=== PATIENT | female | born 1955 | race Caucasian/White ===

== ENCOUNTER → 2019-11-22 09:47 | Outpatient (CLI) | payer MEDICARE, OTHER, SELFPAY ==
--- NOTE | ~2019-11-22 | CT_ITS ---
EXAMINATION: CT abdomen pelvis w con DATE: 11/22/2019 10:22 INDICATION: Left abdominal pain. Nausea. Gastroesophageal reflux disease without esophagitis. TECHNIQUE: Computed tomography (CT) of the abdomen and pelvis was performed with 100 mL Omnipaque 350 intravenous contrast. Automated exposure control and iterative reconstruction technique were employe d. The dose-length product was 1017.61 mGy-cm. COMPARISON: CT abdomen 04/27/2013 FINDINGS: The visualized portions of the lung bases demonstrate mild chronic reticular and groundglas s opacities. There is mild bronchiectasis in right middle lobe. No honeycombing. No pleural effusion. The heart size is normal. There are coronary artery calcifications. No pericardial effusion. There i s a small sliding hiatal hernia. The liver is normal. There are changes of cholecystectomy. The splee n, pancreas, and adrenal glands are normal. There are cysts in the kidneys measuring up to 5.7 cm on the right. There are no dilated loops of bowel. There is diverticulosis of the colon without evidence of diverticulitis. The appendix is not visualized. There are no pathologically enlarged lymph nodes. There is no free intraperitoneal fluid. There is mild thoracolumbar spondylosis. IMPRESSION: 1. No etiology for the patient's symptoms. 2. Unchanged mild chronic lung disease. The differential diagnosis includes sarcoid, organizing pneum onia (OP), chronic hypersensitivity pneumonitis, and scarring from prior infection. Reviewed, dictated and finalized at location A. FING MGR IMPRESSION: 1. No etiology for the patient's symptoms. 2. Unchanged mild chronic lung disease. The differential diagnosis includes eliceo coid, organizing pneumonia (OP), chronic hypersensitivity pneumonitis, and scar ring from prior infection.
[2019-11-22 10:10] LABS: Estimated Glomerular Filt Rate > 60
== END ==
PROVIDERS: PCP Internal Medicine; Visit Provider Internal Medicine Gastroenterology
DX: K21.9 Gastro-esophageal reflux disease without esophagitis (principal); K76.0 Fatty (change of) liver, not elsewhere classified; Z86.19 Personal history of other infectious and parasitic diseases; Z12.11 Encounter for screening for malignant neoplasm of colon; J98.4 Other disorders of lung
CPT/HCPCS: 36415; 74177; Q9967

== ENCOUNTER 2020-05-24 08:13 | Outpatient (CLI) | payer MEDICARE, OTHER, SELFPAY ==
--- NOTE | ~2020-05-24 | CT_ITS ---
EXAMINATION: CT chest high resolution wo ut DATE: 05/24/2020 08:41 INDICATION: Interstitial pulmonary disease unspecified TECHNIQUE: Computed tomography (CT) of the chest was performed without intravenous contrast. The dose -length product (DLP) was 291.00 mGy-cm. Automated exposure control and iterative reconstruction tech [employer] were employed. COMPARISON: 12/15/2013 FINDINGS: A 5 mm nodule of the right upper lobe is stable (image 49), consistent with old granulomato us disease. Subpleural reticular and groundglass opacities are again seen which demonstrate slight in terval worsening since the prior examination. There is no pleural effusion or pneumothorax. Atelectas is of the right middle lobe is not significantly changed. No pathologically enlarged thoracic lymph n odes are identified. The heart size is normal. There is mild thoracic spondylosis. A small sliding hi atal hernia is noted. IMPRESSION: 1. Chronic interstitial lung disease in a pattern of nonspecific interstitial pneumonia (NSIP) with s light interval worsening. Reviewed, dictated and finalized at location A. IMPRESSION: 1. Chronic interstitial lung disease in a pattern of nonspecific interstitial p neumonia (NSIP) with slight interval worsening.
--- NOTE | 2020-05-29 21:12 | WPDPFTINT ---
PFT Interpretation PFT Interpretation: DOS: 05/22/2020 REQUESTING: Dr Watson REASON FOR TESTING: COPD/ILD PULMONARY FUNCTION TESTS Results are reproducible. Spirometry: FEV1 is 77%, mildly decreased. FVC 72%, mildly decreased. FEV1% is 79%, normal. No change with bronchodilator. Lung volumes: TLC 82%, low end of normal. RV/TLC is elevated consistent with air trapping. Increased airway resistance. Diffusion: DLCO 74%, mildly decreased. Flow volume loop: Mild scooping of the expiratory limb. IMPRESSION: Mild obstructive ventilatory impairment with air trapping, increased airway resistance and mild diffusion impairment. Sherry Watson MD
== END 2020-05-24 08:14 | disposition home or self-care (01) ==
PROVIDERS: PCP Internal Medicine; Visit Provider Internal Medicine Critical Care Medicine
DX: J84.9 Interstitial pulmonary disease, unspecified (principal); R94.2 Abnormal results of pulmonary function studies
CPT/HCPCS: 71250; 94060; 94726; 94729

== ENCOUNTER 2020-05-28 17:27 | Emergency (ER) | payer OTHER, MEDICARE, SELFPAY ==
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
[2020-05-28 17:29] VITALS: BP 147/88; PULSE 91; RESP 14; TEMP 36.8; O2SAT 97
[2020-05-28 17:41] VITALS: RESP 12; O2SAT 98
--- NOTE | 2020-05-28 17:45 | ECG_ITS ---
Measurements Intervals [place] Rate: 85 P: 48 OR: 136 QRS: -26 QRSD: 88 T: 31 QT: 380 QTc: 454 Interpretive Statements SINUS RHYTHM BASELINE ARTIFACT- I, III, AVL NORMAL ECG Electronically Signed On 05-28-2020 18:06:47 CDT by Jarvis Pederson D.O.
[2020-05-28 19:12] LABS: Basophils Absolute Auto 0.1 K/mm3 (0.0-0.1); Basophils Percent Auto 0.5 % (0.2-1.2); Eosinophils Absolute Auto 0.1 K/mm3 (0-0.3); Eosinophils Percent Auto 0.8 % (0-4.4); Hematocrit 46.7 % (37.0-47.0); Hemoglobin 15.8 g/dL (12.0-15.0); Immature Granulocyte Absolute 0.09 K/mm3 (0.00-0.031); Immature Granulocyte Percent A 0.7 % (0-0.5); Lymphocytes Absolute Auto 2.19 K/mm3 (0.9-3.2); Lymphocytes Percent Auto 15.9 % (18.3-44.2); Mean Corpuscular HGB Conc 33.8 g/dl (32-36); Mean Corpuscular Hemoglobin 28.6 pg (26-34); Mean Corpuscular Volume 84.4 fl (80-100); Mean Platelet Volume 11.3 fl (7.4-10.4); Monocytes Absolute Auto 1.2 K/mm3 (0.1-0.6); Monocytes Percent Auto 8.8 % (2.6-8.5); Neutrophils Absolute Auto 10.1 K/mm3 (1.3-6.7); Neutrophils Percent Auto 73.3 % (45.5-73.1); Platelet Count Result 213 k/mm3 (150-375); Red Blood Count 5.53 M/mm3 (4.2-5.4); Red Cell Distribution Width 13.2 % (11.5-14.5); White Blood Count 13.7 K/mm3 (4.5-10.0)
[2020-05-28 19:15] VITALS: BP 135/80; PULSE 88; RESP 12; O2SAT 94
[2020-05-28] MEDS: MORPHINE SULFATE 4 MG/ML INJ IV PUSH (19:17)
[2020-05-28] MEDS: ONDANSETRON INJ 4 MG/2 ML VIAL IV PUSH (19:18)
[2020-05-28 19:22] LABS: INR 1.3; Prothrombin Time 16.2 Seconds (11.1-14.7)
[2020-05-28 19:23] LABS: Partial Thromboplastin Time 28.5 SECONDS (22.3-36.8)
--- NOTE | 2020-05-28 19:28 | PC.NURSE ---
Assumed care of pt. at this time. Report from PITER Stearns
[2020-05-28 20:00] VITALS: BP 127/79; PULSE 92; RESP 15; O2SAT 95
[2020-05-28 20:04] LABS: Alanine Aminotransferase 19 U/L (4-35); Albumin Level 4.3 g/dL (3.5-5.1); Alkaline Phosphatase 66 U/L (38-126); Anion Gap 8 mmol/L (8-16); Aspartate Amino Transferase 29 U/L (14-36); Bilirubin,Total 0.4 mg/dL (0.2-1.3); Blood Urea Nitrogen 7 mg/dL (7-17); Calcium 9.2 mg/dL (8.4-10.2); Carbon Dioxide 25 mmol/L (22-30); Chloride 101 mmol/L (98-107); Estimated CRCL calculation 110 ml/min; Estimated Glomerular Filt Rate > 60; Glucose 169 mg/dL (65-105); Potassium 3.5 mmol/L (3.4-5.0); Sodium 134 mmol/L (137-145)
[2020-05-28 20:15] LABS: Troponin I < 0.012 ng/mL (0.000-0.034)
--- NOTE | 2020-05-28 20:34 | PC.NURSE ---
Pt. to CT
[2020-05-28 21:00] VITALS: BP 128/83; PULSE 97; RESP 23; O2SAT 94
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
[2020-05-28 22:50] VITALS: BP 108/72; PULSE 85; RESP 17; O2SAT 95
== END 2020-05-28 22:50 | disposition home or self-care (01) ==
PROVIDERS: General Practice; Physician Assistant; Emergency Provider Emergency Medicine; PCP Internal Medicine
DX: S20.01XA Contusion of right breast, initial encounter (principal); M25.562 Pain in left knee; M54.2 Cervicalgia; V43.52XA Car driver injured in collision with other type car in traffic accident, initial encounter; R91.1 Solitary pulmonary nodule; M47.812 Spondylosis without myelopathy or radiculopathy, cervical region; F17.210 Nicotine dependence, cigarettes, uncomplicated; J45.909 Unspecified asthma, uncomplicated; E11.9 Type 2 diabetes mellitus without complications; I10 Essential (primary) hypertension; Z85.3 Personal history of malignant neoplasm of breast; Z85.42 Personal history of malignant neoplasm of other parts of uterus; Z79.4 Long term (current) use of insulin
CPT/HCPCS: 36415; 71045; 71260; 72125; 72129; 72132; 73564; 74177; 80053; 84484; 85025; 85610; 85730; 93005; 96374; 96375; 99284; J1170; J2270; J2405; Q9967

== ENCOUNTER 2020-11-20 09:52 | Outpatient (CLI) | payer MEDICARE, OTHER, SELFPAY ==
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
== END 2020-11-20 09:53 | disposition home or self-care (01) ==
PROVIDERS: PCP Internal Medicine; Visit Provider Internal Medicine
DX: M54.5 Low back pain (principal); M47.896 Other spondylosis, lumbar region; M48.061 Spinal stenosis, lumbar region without neurogenic claudication
CPT/HCPCS: 72131

== ENCOUNTER 2020-12-09 11:59 | Outpatient (CLI) | payer MEDICARE, OTHER, SELFPAY ==
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
== END 2020-12-09 12:00 | disposition home or self-care (01) ==
LOC: ANHIMG 12:03
PROVIDERS: PCP Internal Medicine; Visit Provider Obstetrics & Gynecology
DX: N64.4 Mastodynia (principal)
CPT/HCPCS: 76642; 77062; 77066; G0279

== ENCOUNTER 2022-03-26 09:57 | Outpatient (CLI) | payer MEDICARE, OTHER, SELFPAY ==
--- NOTE | 2022-03-26 11:30 | NEURO_ITS ---
Impression: # Complains of numbness and pain in hands. # Mild bilateral ulnar neuropathy across the elbows. # No Carpal Tunnel Syndrome. # Normal needle/EMG exam. Nerve Conduction Studies Anti Sensory Summary Table Stim Site NR Peak (ms) P-T Amp (?V) Site1 Site2 Delta-P (ms) Dist (cm) Luis (m/s) Left Median Anti Sensory (2-3nd Digit) Wrist 3.0 91.9 Wrist 2-3nd Digit 3.0 14.0 47 Wrist 3.0 52.9 Wrist 2-3nd Digit 3.0 14.0 47 Right Median Anti Sensory (2-3nd Digit) Wrist 3.1 65.9 Wrist 2-3nd Digit 3.1 14.0 45 Wrist 2.9 31.1 Wrist 2-3nd Digit 3.1 14.0 45 Left Radial Anti Sensory (Base 1st Digit) Wrist 1.8 24.8 Wrist Base 1st Digit 1.8 0.0 Right Radial Anti Sensory (Base 1st Digit) Wrist 1.8 23.4 Wrist Base 1st Digit 1.8 0.0 Left Ulnar Anti Sensory (5th Digit) Wrist 2.8 38.3 Wrist 5th Digit 2.8 14.0 50 Right Ulnar Anti Sensory (5th Digit) Wrist 2.3 57.6 Wrist 5th Digit 2.3 14.0 61 Motor Summary Table Stim Site NR Onset (ms) O-P Amp (mV) Site1 Site2 Delta-0 (ms) Dist (cm) Luis (m/s) Left Median Motor (Abd Poll Brev) Wrist 3.3 3.1 Elbow Wrist 5.1 27.0 53 Elbow 8.4 2.3 Right Median Motor (Abd Poll Brev) Wrist 3.3 6.5 Elbow Wrist 4.9 28.0 57 Elbow 8.2 3.6 Left Ulnar Motor (Abd Dig Minimi) Wrist 2.5 5.3 A Elbow Wrist 5.4 28.0 52 A Elbow 7.9 3.4 B Elbow Wrist 3.5 22.0 63 B Elbow 6.0 2.4 Right Ulnar Motor (Abd Dig Minimi) Wrist 2.4 5.1 A Elbow Wrist 5.3 28.0 53 A Elbow 7.7 3.3 B Elbow Wrist 3.5 20.0 57 B Elbow 5.9 3.2 F Wave Studies NR F-Lat (ms) L-R F-Lat (ms) Left Median (Mrkrs) (Abd Poll Brev) 28.07 1.06 Right Median (Mrkrs) (Abd Poll Brev) 29.12 1.06 Left Ulnar (Mrkrs) (Abd Dig Min) 29.22 0.00 Right Ulnar (Mrkrs) (Abd Dig Min) 29.22 0.00 EMG Side Muscle Nerve Root Ins Act Fibs Amp Dur Recrt Comment Right 1stDorInt Ulnar C8-T1 Nml Nml Nml Nml Nml Right Ext Indicis Radial (Post Int) C7-8 Nml Nml Nml Nml Nml Right Ext Digitorum Radial (Post Int) C7-8 Nml Nml Nml Nml Nml Right BrachioRad Radial C5-6 Nml Nml Nml Nml Nml Right PronatorTeres Median C6-7 Nml Nml Nml Nml Nml Right Abd Poll Brev Median C8-T1 Nml Nml Nml Nml Nml Left 1stDorInt Ulnar C8-T1 Nml Nml Nml Nml Nml Left Ext Indicis Radial (Post Int) C7-8 Nml Nml Nml Nml Nml Left Ext Digitorum Radial (Post Int) C7-8 Nml Nml Nml Nml Nml Left BrachioRad Radial C5-6 Nml Nml Nml Nml Nml Left PronatorTeres Median C6-7 Nml Nml Nml Nml Nml Left Abd Poll Brev Median C8-T1 Nml Nml Nml Nml Nml MTDD
== END 2022-03-26 09:58 | disposition home or self-care (01) ==
LOC: ANHNEURO 09:58
PROVIDERS: PCP Internal Medicine; Visit Provider Plastic Surgery
DX: R20.2 Paresthesia of skin (principal); G56.23 Lesion of ulnar nerve, bilateral upper limbs
CPT/HCPCS: 95886; 95911

== ENCOUNTER 2022-04-10 12:34 | Outpatient (CLI) | payer MEDICARE, OTHER, SELFPAY ==
[2022-04-10 13:23] LABS: Anion Gap 9 mmol/L (8-16); Blood Urea Nitrogen 7 mg/dL (7-17); Calcium 9.3 mg/dL (8.4-10.2); Carbon Dioxide 25 mmol/L (22-30); Chloride 100 mmol/L (98-107); Estimated Glomerular Filt Rate > 60; Glucose 217 mg/dL (65-110); Potassium 3.9 mmol/L (3.4-5.0); Sodium 134 mmol/L (137-145)
[2022-04-10 13:25] LABS: INR 1.3; Prothrombin Time 15.5 Seconds (11.1-14.7)
[2022-04-10 13:26] LABS: Partial Thromboplastin Time 26.9 SECONDS (22.3-36.8)
== END 2022-04-10 12:35 | disposition home or self-care (01) ==
PROVIDERS: Anesthesiology; PCP Internal Medicine; Visit Provider Plastic Surgery
DX: Z01.812 Encounter for preprocedural laboratory examination (principal); E11.9 Type 2 diabetes mellitus without complications; N28.9 Disorder of kidney and ureter, unspecified; Z51.81 Encounter for therapeutic drug level monitoring; Z79.899 Other long term (current) drug therapy
CPT/HCPCS: 36415; 80048; 85610; 85730

== ENCOUNTER 2022-04-16 02:09 | Day surgery (SDC) | payer MEDICARE, OTHER, SELFPAY ==
[2022-04-09 12:03] VITALS: BMI 32.9
--- NOTE | 2022-04-09 12:36 | PC.NURSE ---
Addendum entered by Rula Sargent RN 04/15/22 09:56: PT CALLED IN STATING SHE WAS NOT GOING TO TAKE 1/2 OF AM INSULIN DOSE PREVIOUSLY INSTRUCTED THE HUMALOG WOULD MAKE HER SICK IF SHE DOESN'T EAT. EXPLAINED TO PT THAT SINCE SURGERY TIME WAS CHANGED TO 0630 ARRIVAL FOR AN 0830 SURGERY SHE SHOULD NOT TAKE ANY AM INSULIN. PT VERBALIZED UNDERSTANDING. Original Note: Report to the Outpatient Waiting Room, entrance under the green pavilion located off [facility], at time 9:30 on date 04/16/22. OR Time: 11:30. - You and your visitor will be asked a series of questions to screen for COVID 19 for your protection. - Only one visitor is allowed at this time. - The patient visitor is requested to leave or wait in car when not with patient. - A mask is required within the hospital. Patients may have clear liquids (water, carbonated beverages, clear teas, apple juice) until 3 hours prior to surgery (8:30) with a maximum of 20 ounces. - No food from midnight until time of surgery Take the following medications with a SIP of water the morning of surgery: CYCLOBENZAPRINE, PAIN PILL (IF NEEDED), 1/2 AM INSULIN DOSE Medications to discontinue per physician: VITAMINS/SUPPLEMENTS Date to take last dose: 04/12/22 Please no make-up, nail bulgarian, hairspray, perfume, deodorant, or body powder the day of surgery. No jewelry (including any body piercings) or valuables the day of surgery, leave them at home. Please take a shower or bath the night before, or the morning of, surgery with an antibacterial soap. Wear comfortable, loose fitting clothing. - Jewelry must be removed prior to entering the operating room. Rings and piercings that are not removed may be cut off. - The hospital will not accept responsibility for valuables. - Please leave all valuables, including medications, at home the day of surgery. If you are going home after surgery, a licensed six horse hitch driver must drive you home. - NO public transportation without another adult. - We recommend that an adult stay with you for 24 hours following discharge. - We also recommend that you do not drive, make important decision, drink alcoholic beverages, or take any drugs that were not prescribed by your health care provider for at least 24 hours after your discharge time. Follow any additional instructions given to you from your surgeon. If you or anyone in your household have experienced Covid symptoms in the past week, please notify your surgeon or the nurse liaison at the phone number below for possible testing. Telephone instructions given to LEANDRO MENCHACA and asked if any additional questions and then verbalized understanding. Patient advised to call surgeon office or pre surgery nurse liaison [phone] if any additional questions.
--- NOTE | 2022-04-15 13:17 | WPDANESEPPF ---
Anes - Initial Pre Proc Eval Procedure: Operation Date: 04/16/22 08:30 Proposed Procedures p Right Open Carpal Tunnel Release, Right Ulnar Neuroplasty at the Elbow - Renny Blackwell MD Date/Time: 04/15/22 13:17 Surgeon: Renny Blackwell MD Pre Op Diagnosis: Rt Carpal Tunnel Syn, Rt Cubital Tunnel Syn Patient Data Age: 66 Gender: F Height: 1.68 m Weight: 92.53 kg Allergies Allergy/AdvReac Type Severity Reaction Status Date / Time exenatide [From Bydureon] Allergy Severe Difficulty Verified 04/16/22 07:36 Breathing aspirin [From Fiorinal] Allergy Intermediate Hives Verified 04/16/22 07:36 butalbital [From Fiorinal] Allergy Intermediate Hives Verified 04/16/22 07:36 caffeine [From Fiorinal] Allergy Intermediate Hives Verified 04/16/22 07:36 tioconazole Allergy Intermediate Fever Verified 04/16/22 07:36 [From Monistat 1 (tioconazole)] amlodipine Allergy Mild Rash Verified 04/16/22 07:36 cefuroxime Allergy Mild Dizziness Verified 04/16/22 06:49 erythromycin base Allergy Mild Rash Verified 04/16/22 06:49 etodolac Allergy Mild Rash Verified 04/16/22 06:49 ibuprofen Allergy Mild Rash Verified 04/16/22 06:49 nabumetone Allergy Mild Hives Verified 04/16/22 06:49 ciprofloxacin Allergy Unknown Other Verified 04/16/22 06:49 codeine Allergy Unknown RASH Verified 04/16/22 06:49 levofloxacin Allergy Unknown Other Verified 04/16/22 06:49 metoprolol Allergy Unknown Other Verified 04/16/22 07:36 mupirocin Allergy Unknown Unknown Verified 04/16/22 07:36 sulfamethoxazole Allergy Unknown Unknown Verified 04/16/22 07:36 [From Bactrim] trimethoprim [From Bactrim] Allergy Unknown Unknown Verified 04/16/22 07:36 acetaminophen AdvReac Unknown Rash Verified 04/16/22 06:49 carvedilol AdvReac Unknown Other Verified 04/16/22 07:36 metformin AdvReac Unknown Other Verified 04/16/22 07:36 rosiglitazone [From Avandia] AdvReac Unknown Other Verified 04/16/22 07:36 Home Medications Medication Instructions Recorded Confirmed Type cyclobenzaprine 10 mg tablet 10 mg PO HS 12/20/19 04/16/22 History lisinopril 10 mg tablet 40 mg PO DAILY 12/20/19 04/16/22 History ondansetron HCl 8 mg tablet 4 mg PO Q4H PRN Nausea 12/20/19 04/09/22 History (Zofran) hydrochlorothiazide 25 mg tablet 25 mg PO DAILY 04/26/20 04/16/22 History insulin lispro protamine-lispro 20 unit subcut .PM 04/26/20 04/16/22 History 100 unit/mL (75-25) subcutaneous susp (Humalog Mix 75-25(U-100)Insuln) insulin lispro protamine-lispro 25 unit subcut QAM 04/26/20 04/16/22 History 100 unit/mL (75-25) subcutaneous susp (Humalog Mix 75-25(U-100)Insuln) insulin glargine 100 unit/mL (3 20 unit subcut BID 03/13/21 04/16/22 History mL) subcutaneous pen (Lantus Solostar U-100 Insulin) linagliptin 5 mg tablet (Tradjenta) 5 mg PO QACDINNER 03/13/21 04/16/22 History oxycodone 10 mg tablet,crush 10 mg PO HS 03/13/21 04/16/22 History resistant,extended release 12 hr (OxyContin) oxycodone 5 mg capsule 5 mg PO Q8H PRN Pain 03/13/21 04/09/22 History calcium carbonate 600 mg-vitamin 1 tablet PO DAILY 04/09/22 04/16/22 History D3 20 mcg (800 unit) chewable tablet (Caltrate 600 plus D) cyclobenzaprine 10 mg tablet 5 mg PO BID 04/09/22 04/16/22 History esterified 1 tablet PO QACDINNER 04/09/22 04/16/22 History estrogens-methyltestosterone 0.625 mg-1.25 mg tablet Patient hx anesthesia problems: none Family hx anesthesia problems: none Results Review: All pre-operative results and documents have been reviewed as part of the pre-operative evaluation. [facility] Past Medical History Medical History COPD (chronic obstructive pulmonary disease) Diabetes Hepatitis C Hiatal hernia History of breast cancer History of uterine cancer Hypertension ILD (interstitial lung disease) Myocardial bridge Poor sleep Recent surgical procedure on lower extremity Rheumatoid arthritis Tobacco
[2022-04-16 06:45] VITALS: BP 141/82; PULSE 90; RESP 20; TEMP 36.3; O2SAT 98
[2022-04-16] MEDS: LACTATED RINGERS 1,000 ML 30 ML IV CONT (07:10)
[2022-04-16 07:20] LABS: Glucose Point of Care 146 mg/dl (65-105)
[2022-04-16] MEDS: LIDO 1%/EPINEPHRINE 1:100,000 10 ML VIAL 20 ML INFILTRATE (09:12)
[2022-04-16] MEDS: BACITRACIN OINTMENT 15 GM TUBE 1 APPLIC TOPICAL (09:58)
[2022-04-16 10:22] VITALS: BP 111/57; PULSE 93; RESP 16; O2SAT 96
[2022-04-16 10:30] LABS: Glucose Point of Care 151 mg/dl (65-105)
[2022-04-16] MEDS: oxyCODONE HCL (*CRX) 5 MG TAB IR PO (10:47)
[2022-04-16 10:52] VITALS: BP 125/84; PULSE 83; RESP 16
--- NOTE | 2022-04-16 10:53 | W.PM.PROC2 ---
Procedure Note - Detailed Date of Procedure 04/16/22 Pre-op Diagnosis Rt Carpal Tunnel Syn, Rt Cubital Tunnel Syn Post-op Diagnosis Same Procedure Performed Right open carpal tunnel release and right ulnar neuroplasty at the elbow Surgeon Renny Blackwell MD [employer] Crane Operator [place] [facility] [place] Description of Procedure The right carpal tunnel right cubital tunnel were marked on the patient with her consent in the holding area. She was then taken to the operating room where she was placed supine on the operating table. She was given IV sedation as the right upper extremity was prepped and draped in usual fashion. A time-out was held and confirmed. The sites were again marked for the incisions and locally infiltrated with 1% lidocaine with epinephrine. The tourniquet was inflated to 250 mmHg after exsanguinating the extremity. Surgery was begun at the hand where the incision was made as marked and dissection was carried through the subcutaneous tissue to the palmar aponeurosis. This and the transverse retinaculum were incised with a 15. Blade opening the canal. The retinaculum was divided distally and proximally to completely release it. No unusual anatomy was noted. The skin was closed with interrupted 5 0 nylon suture. Attention was turned to the elbow. This was supported on folded towels and flexed with the arm in extension. The incision was again made as marked and dissection was carried bluntly through the subcutaneous tissue to the deep fascia and medial epicondyle. The nerve was identified several cm proximal to the medial epicondyle and the overlying fascia incised. The dissection was carried distally to Peter's ligament which was divided and further under flexor muscles, dividing the fascia in the direction. The her remained well position ulnar groove. The tourniquet was released and the points were electrocoagulated. The wound was closed with intradermal 3-0 Monocryl sutures and several sites. The was applied to the skin surface. The usual bandages were applied of both sites and the patient was discharged with instructions in wound care and follow-up. The patient has narcotic analgesics at home already. Estimated Blood Loss 2 Drains No Packing No Pathology None sent Complications No immediate complications Condition Stable Disposition Same day
[2022-04-16 11:22] VITALS: BP 128/72; PULSE 74; RESP 16
== END 2022-04-16 11:30 | disposition home or self-care (01) ==
PROVIDERS: PCP Internal Medicine; Visit Provider Plastic Surgery
PROC: (CPT 64721; principal; 2022-04-16 08:30)
DX: G56.01 Carpal tunnel syndrome, right upper limb (principal); G56.21 Lesion of ulnar nerve, right upper limb; E11.9 Type 2 diabetes mellitus without complications; I10 Essential (primary) hypertension; J44.9 Chronic obstructive pulmonary disease, unspecified; M06.9 Rheumatoid arthritis, unspecified; J84.9 Interstitial pulmonary disease, unspecified; Q24.5 Malformation of coronary vessels; B19.20 Unspecified viral hepatitis C without hepatic coma; Z85.3 Personal history of malignant neoplasm of breast; Z85.42 Personal history of malignant neoplasm of other parts of uterus; F17.210 Nicotine dependence, cigarettes, uncomplicated; E66.9 Obesity, unspecified; Z68.31 Body mass index [BMI] 31.0-31.9, adult; Z79.4 Long term (current) use of insulin
CPT/HCPCS: 64721; 64718; 82948; A9270; J2250; J2704; J3010; J7120

== ENCOUNTER 2022-06-12 08:30 | Outpatient (CLI) | payer MEDICARE, OTHER, SELFPAY ==
[2022-06-12 09:07] LABS: INR 1.3; Prothrombin Time 15.7 Seconds (11.1-14.7)
[2022-06-12 09:08] LABS: Partial Thromboplastin Time 28.3 SECONDS (22.3-36.8)
[2022-06-12 09:10] LABS: Anion Gap 12 mmol/L (8-16); Blood Urea Nitrogen 6 mg/dL (7-17); Calcium 9.3 mg/dL (8.4-10.2); Carbon Dioxide 28 mmol/L (22-30); Chloride 98 mmol/L (98-107); Estimated Glomerular Filt Rate > 60; Glucose 194 mg/dL (65-110); Potassium 3.8 mmol/L (3.4-5.0); Sodium 138 mmol/L (137-145)
== END 2022-06-12 08:31 | disposition home or self-care (01) ==
LOC: ANHSURGERY 08:40
PROVIDERS: Anesthesiology; PCP Physician Assistant Medical; Visit Provider Plastic Surgery
DX: Z01.818 Encounter for other preprocedural examination (principal); E11.9 Type 2 diabetes mellitus without complications; N28.9 Disorder of kidney and ureter, unspecified
CPT/HCPCS: 36415; 80048; 85610; 85730

== ENCOUNTER 2022-06-16 10:42 | Outpatient (CLI) | payer MEDICARE, OTHER, SELFPAY ==
[2022-06-19 11:05] LABS: Kappa\\Lambda Light Chains 2.07 (0.26-1.65); Lambda Light Chain 13.4 mg/L (5.7-26.3)
== END 2022-06-16 10:43 | disposition home or self-care (01) ==
PROVIDERS: PCP Physician Assistant Medical; Visit Provider Internal Medicine Cardiovascular Disease
DX: I15.2 Hypertension secondary to endocrine disorders (principal); E11.59 Type 2 diabetes mellitus with other circulatory complications
CPT/HCPCS: 36415; 83883; 86334

== ENCOUNTER 2022-06-17 | Day surgery (SDC) | payer MEDICARE, OTHER, SELFPAY ==
--- NOTE | 2022-06-11 12:29 | PC.NURSE ---
Report to the Outpatient Waiting Room, entrance under the green pavilion located off [facility], at time _0600 on date _06/17/22 . OR Time: ___729 . Time changes happen often and if your time is changed the preop area will call you the afternoon before. - You and your visitor will be asked to self-screen and do not enter if you have any COVID symptoms. - Only one visitor and NO children visitors are allowed at this time. - The patient visitor is requested to leave or wait in car when not with patient due to restrictions. - A mask is required within the hospital. Patients may have clear liquids (water, carbonated beverages, clear teas, apple juice) until 3 hours prior to surgery with a maximum of 20 ounces. - No food from midnight until time of surgery - Infants may have breast milk until 4 hours before surgery, formula 6 hours prior to surgery. - Children will be allowed to drink immediately following surgery. If applicable, please bring a bottle or sippy cup to assist with drinking. Juice, water, soda, and popsicles are readily available. For infants on formula, please bring formula the day of surgery. Pacifiers are allowed. Take the following medications with a SIP of water the morning of surgery: __OXYCODONE IF NEEDED Medications to discontinue per physician ____ALL VITAMINS AND SUPPLEMENTS 3 DAYS PRE OP Date to take last dose__06/13/22 Please no make-up, nail libyan, hairspray, perfume, deodorant, or body powder the day of surgery. No jewelry (including any body piercings) or valuables the day of surgery, leave them at home. Please take a shower or bath the night before, or the morning of, surgery with an antibacterial soap. Wear comfortable, loose fitting clothing. Children are encouraged to wear pajamas. - Jewelry must be removed prior to entering the operating room. Rings and piercings that are not removed may be cut off. - The hospital will not accept responsibility for valuables. - Please leave all valuables, including medications, at home the day of surgery. If you are going home after surgery, a licensed otr company truck driver must drive you home. - NO public transportation without another adult. - We recommend that an adult stay with you for 24 hours following discharge. - We also recommend that you do not drive, make important decision, drink alcoholic beverages, or take any drugs that were not prescribed by your health care provider for at least 24 hours after your discharge time. For Pediatric surgeries, we recommend two adults accompany the child home (only one inside the building at this time). Follow any additional instructions given to you from your surgeon. If you or anyone in your household have experienced Covid symptoms in the past week, please notify your surgeon or the nurse liaison at the phone number below for possible testing. Telephone instructions given to __PATIENT and asked if any additional questions and then verbalized understanding. Patient advised to call surgeon office or pre surgery nurse liaison [phone] if any additional questions.
[2022-06-11 12:35] VITALS: BMI 32.9
--- NOTE | 2022-06-16 16:07 | WPDANESEPPF ---
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 Patient Data Age: 67 Gender: F Height: 1.68 m Weight: 92.55 kg Allergies Allergy/AdvReac Type Severity Reaction Status Date / Time exenatide [From Bydureon] Allergy Severe Difficulty Verified 06/11/22 12:19 Breathing aspirin [From Fiorinal] Allergy Intermediate Hives Verified 06/11/22 12:19 butalbital [From Fiorinal] Allergy Intermediate Hives Verified 06/11/22 12:19 caffeine [From Fiorinal] Allergy Intermediate Hives Verified 06/11/22 12:19 tioconazole Allergy Intermediate Fever Verified 06/11/22 12:19 [From Monistat 1 (tioconazole)] etodolac Allergy Mild Rash Verified 06/11/22 12:19 ibuprofen Allergy Mild Rash Verified 06/11/22 12:19 nabumetone Allergy Mild Hives Verified 06/11/22 12:19 ciprofloxacin Allergy Unknown Other Verified 06/11/22 12:19 codeine Allergy Unknown RASH Verified 06/11/22 12:19 levofloxacin Allergy Unknown Other Verified 06/11/22 12:19 metoprolol Allergy Unknown Other Verified 06/11/22 12:19 mupirocin Allergy Unknown Unknown Verified 06/11/22 12:19 sulfamethoxazole Allergy Unknown Unknown Verified 06/11/22 12:19 [From Bactrim] trimethoprim [From Bactrim] Allergy Unknown Unknown Verified 06/11/22 12:19 adhesive tape Allergy Rash Verified 06/11/22 12:19 pneumococcal vaccine Allergy Other Verified 06/11/22 12:19 acetaminophen AdvReac Unknown Rash Verified 06/11/22 12:19 carvedilol AdvReac Unknown Other Verified 06/11/22 12:19 metformin AdvReac Unknown Other Verified 06/11/22 12:19 rosiglitazone [From Avandia] AdvReac Unknown Other Verified 06/11/22 12:19 amitriptyline [From Elavil] AdvReac Drowsy Verified 06/11/22 12:19 cefuroxime [From Ceftin] AdvReac Dizziness Verified 06/11/22 12:19 amlodipine Allergy Rash Uncoded 06/11/22 12:19 codeine Allergy Rash Uncoded 06/11/22 12:19 Erythromycin Allergy Rash Uncoded 06/11/22 12:19 ibuprofen Allergy Rash Uncoded 06/11/22 12:19 Home Medications Medication Instructions Recorded Confirmed Type cyclobenzaprine 10 mg tablet 10 mg PO HS 12/20/19 06/17/22 History ondansetron HCl 8 mg tablet 4 mg PO Q4H PRN Nausea 12/20/19 06/17/22 History (Zofran) hydrochlorothiazide 25 mg tablet 25 mg PO DAILY 04/26/20 06/17/22 History linagliptin 5 mg tablet (Tradjenta) 5 mg PO QACDINNER 03/13/21 06/17/22 History calcium carbonate 600 mg-vitamin 1 tablet PO DAILY 04/09/22 06/17/22 History D3 20 mcg (800 unit) chewable tablet (Caltrate 600 plus D) cyclobenzaprine 10 mg tablet 5 mg PO BID 04/09/22 06/17/22 History esterified 1 tablet PO QACDINNER 04/09/22 06/17/22 History estrogens-methyltestosterone 0.625 mg-1.25 mg tablet esomeprazole magnesium 40 mg 40 mg PO DAILY PRN Heartburn 05/22/22 06/17/22 History capsule,delayed release (Nexium) insulin glargine 100 unit/mL (3 35 unit subcut QPM 05/22/22 06/17/22 History mL) subcutaneous pen (Lantus Solostar U-100 Insulin) insulin lispro protamine-lispro See Rx Instructions subcut .COMPLEX 05/22/22 06/17/22 History 100 unit/mL (75-25) subcutaneous susp (Humalog Mix 75-25(U-100)Insuln) milk thistle 175 mg tablet 175 mg PO DAILY 05/22/22 06/17/22 History lisinopril 10 mg tablet 40 mg PO DAILY #90 tabs 06/15/22 Rx oxycodone 10 mg tablet,crush 10 mg PO HS #30 tabs 06/16/22 Rx resistant,extended release 12 hr (OxyContin) oxycodone 5 mg tablet 5 mg PO Q8H PRN pain #90 tabs 06/16/22 Rx Patient hx anesthesia problems: none Family hx anesthesia problems: none Results Review: All pre-operative results and documents have been reviewed as part of the pre-operative evaluation. [facility] Past Medical History Medical History (Updated 05/22/22 @ 10:14 by Barbara Lombardo
[2022-06-17] VITALS (7 sets, daily range): BP systolic 113–153; BP diastolic 63–93; PULSE 76–92; RESP 12–17; TEMP 35.9–36.8; O2SAT 93–99
[2022-06-17] MEDS: LACTATED RINGERS 1,000 ML 30 ML IV CONT (06:40)
[2022-06-17 06:48] LABS: Glucose Point of Care 135 mg/dl (65-105)
[2022-06-17 07:05] LABS: INR 1.2; Prothrombin Time 15.1 Seconds (11.1-14.7)
--- NOTE | 2022-06-17 07:10 | WPDHPUPDATE1 ---
History and Physical Update Update Date/Time: 06/17/22 07:10 History and Physical has been reviewed, including an updated exam of the patient. There are NO changes in the patient's condition. Risks, benefits, and alternatives have been discussed and questions answered. Patient agrees to proceed with procedure.
[2022-06-17] MEDS: ceFAZolin SODIUM 1 GM VIAL 2 GM IV PUSH (07:27)
[2022-06-17] MEDS: LIDO 1%/EPINEPHRINE 1:100,000 10 ML VIAL INFILTRATE (08:28)
[2022-06-17] MEDS: BACITRACIN OINTMENT 15 GM TUBE 1 APPLIC TOPICAL (08:38)
[2022-06-17 08:51] LABS: Glucose Point of Care 182 mg/dl (65-105)
--- NOTE | 2022-06-17 09:03 | P.OP_ITS ---
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 The patient was then taken to the operating room where she was placed supine on the operating table. She was given IV sedation. The left upper extremity was prepped and draped in usual fashion. A time-out was held and confirmed. The 2 sites were again marked for surgical access. Both were infiltrated with 1% lidocaine with epinephrine. The extremity was exsanguinated with an Yogi wrap and the tourniquet inflated to 250 mmHg. The incision was made in the palm as marked. Blunt and sharp dissection divided the palmar aponeurosis. Transverse retinaculum was incised with a 15. Blade. The retinaculum was divided distally and proximally to completely release it. No unusual anatomy was noted. The skin was then closed with interrupted 5 0 nylon. The elbow was flexed and supported on folded towels and incision was made as marked at the elbow. Dissection through this revealed an area that had been previously operated. The prior incision was roughly an inch long and lay somewhat more anterior than the current incision. 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 The nerve was easily dissected proximally. There appeared to be no impingement from the intermuscular septum. Dissecting distally the muscle was divided as stated and the course of the nerve became a little more difficult to identify. The course was carefully evaluated and dissected and it appeared that there may have been branching of the nerve in the area which underlay with the erstwhile Peter's ligament. Both areas were carefully dissected they were roughly equal size. The dissection was somewhat difficult and not all tissue overlying the nerve was released. Some of this appeared to be thin scar and did not seem to cause impingement. Distally under lying the flexor muscle fascia there appeared to be little compression from that point on. The area of most compression could not be clearly determined but the scarring was certainly present. It proved difficult to coagulate all of the bleeding points and some compression was placed on a area near the nerve with a pad of Gelfoam applied. The tourniquet had been released at the start of the closure. The closure was accomplished with intradermal 3-0 Monocryl at multiple sites and skin glue. A there was no indication for transposition of this nerve. Estimated Blood Loss 2 Drains No Packing No Complications No immediate complications Condition Stable Disposition PACU
[2022-06-17] MEDS: fentaNYL CITRATE INJ (*CRX) 100 MCG/2 ML VIAL 25 MCG IV PUSH ×2 (09:19→09:21)
== END 2022-06-17 10:05 | disposition home or self-care (01) ==
PROVIDERS: PCP Physician Assistant Medical; Visit Provider Plastic Surgery
PROC: (CPT 64721; principal; 2022-06-17 07:30)
DX: G56.02 Carpal tunnel syndrome, left upper limb (principal); G56.22 Lesion of ulnar nerve, left upper limb; I10 Essential (primary) hypertension; J44.9 Chronic obstructive pulmonary disease, unspecified; E11.9 Type 2 diabetes mellitus without complications; M06.9 Rheumatoid arthritis, unspecified; J84.9 Interstitial pulmonary disease, unspecified; Q24.5 Malformation of coronary vessels; Z85.3 Personal history of malignant neoplasm of breast; Z85.42 Personal history of malignant neoplasm of other parts of uterus; B19.20 Unspecified viral hepatitis C without hepatic coma; Z79.84 Long term (current) use of oral hypoglycemic drugs; Z79.4 Long term (current) use of insulin; Z79.891 Long term (current) use of opiate analgesic; F17.210 Nicotine dependence, cigarettes, uncomplicated; E66.9 Obesity, unspecified; Z68.33 Body mass index [BMI] 33.0-33.9, adult
CPT/HCPCS: 64721; 64718; 36415; 82948; 85610; A9270; J0690; J1100; J2250; J2704; J3010; J7120

== ENCOUNTER 2022-07-06 11:24 | Outpatient (CLI) | payer MEDICARE, OTHER, SELFPAY ==
[2022-07-06 11:48] LABS: Basophils Absolute Auto 0.1 K/mm3 (0.0-0.1); Basophils Percent Auto 0.7 % (0.2-1.2); Eosinophils Absolute Auto 0.2 K/mm3 (0-0.3); Eosinophils Percent Auto 1.7 % (0-4.4); Hematocrit 46.8 % (37.0-47.0); Hemoglobin 15.8 g/dL (12.0-15.0); Immature Granulocyte Absolute 0.06 K/mm3 (0.00-0.031); Immature Granulocyte Percent A 0.6 % (0-0.5); Lymphocytes Absolute Auto 2.66 K/mm3 (0.9-3.2); Lymphocytes Percent Auto 25.1 % (18.3-44.2); Mean Corpuscular HGB Conc 33.8 g/dl (32-36); Mean Platelet Volume 10.3 fl (7.4-10.4); Monocytes Percent Auto 9.6 % (2.6-8.5); Neutrophils Absolute Auto 6.6 K/mm3 (1.3-6.7); Neutrophils Percent Auto 62.3 % (45.5-73.1); Platelet Count Result 230 k/mm3 (150-375); Red Blood Count 5.44 M/mm3 (4.2-5.4); White Blood Count 10.6 K/mm3 (4.5-10.0)
[2022-07-06 14:27] LABS: Alanine Aminotransferase 23 U/L (6-35); Albumin Level 4.4 g/dL (3.5-5.1); Alkaline Phosphatase 79 U/L (38-126); Anion Gap 12 mmol/L (8-16); Aspartate Amino Transferase 30 U/L (14-36); Bilirubin,Total 0.3 mg/dL (0.2-1.3); Blood Urea Nitrogen 10 mg/dL (7-17); Carbon Dioxide 27 mmol/L (22-30); Chloride 98 mmol/L (98-107); Estimated Glomerular Filt Rate > 60; Glucose 127 mg/dL (65-110); Potassium 3.7 mmol/L (3.4-5.0); Sodium 137 mmol/L (137-145)
[2022-07-06 17:52] LABS: Immunoglobulin A 315 mg/dL (70-400); Immunoglobulin G 1320 mg/dL (700-1600); Immunoglobulin M 61 mg/dL (40-230)
[2022-07-09 17:51] LABS: Alpha 1 Globulin 0.4 g/dL (0.2-0.3); Alpha 2 Globulin 1.1 g/dL (0.5-0.9); Beta 1 Globulin 0.5 g/dL (0.4-0.6); Gamma Globulin 1.4 g/dL (0.8-1.7); Protein, Total 7.8 g/dL (6.1-8.1)
[2022-07-10 06:21] LABS: Kappa\\Lambda Light Chains 1.56 (0.26-1.65); Lambda Light Chain 13.8 mg/L (5.7-26.3)
== END 2022-07-06 11:25 | disposition home or self-care (01) ==
LOC: ANHLAB 11:26
PROVIDERS: PCP Nurse Practitioner Family; Visit Provider Internal Medicine Hematology & Oncology
DX: D72.9 Disorder of white blood cells, unspecified (principal)
CPT/HCPCS: 36415; 80053; 82232; 82784; 83883; 84155; 84165; 85025

== ENCOUNTER → 2022-07-07 12:47 | Outpatient (CLI) | payer MEDICARE, OTHER, SELFPAY ==
--- NOTE | ~2022-07-07 | CT_ITS ---
EXAMINATION: CT chest high resolution wo fl DATE: 07/07/2022 13:01 INDICATION: Interstitial pulmonary disease, unspecified TECHNIQUE: Computed tomography (CT) of the chest was performed without intravenous contrast. The dose -length product (DLP) was 369.12 mGy-cm. Automated exposure control and iterative reconstruction tech Nomaninique were employed. COMPARISON: 05/24/2020 FINDINGS: There is a stable 5 mm nodule of the right upper lobe. Additional smaller pulmonary nodules are also stable. There are subpleural reticular and groundglass opacities throughout all lung zones with slight worsening. No pleural effusion or pneumothorax. There is persistent partial atelectasis o f the right middle lobe. No pathologically enlarged thoracic lymph nodes are identified. The heart si ze is normal. Calcified coronary artery atherosclerosis is noted. There is mild thoracic spondylosis. IMPRESSION: 1. Chronic interstitial lung disease in a pattern of nonspecific interstitial pneumonia (NSIP) with i nterval worsening. Reviewed, dictated and finalized at location A. IMPRESSION: 1. Chronic interstitial lung disease in a pattern of nonspecific interstitial p neumonia (NSIP) with interval worsening.
== END ==
PROVIDERS: PCP Family Medicine; Visit Provider Nurse Practitioner Family
DX: R91.1 Solitary pulmonary nodule (principal); J84.9 Interstitial pulmonary disease, unspecified; R91.8 Other nonspecific abnormal finding of lung field
CPT/HCPCS: 71250

== ENCOUNTER 2022-08-12 09:54 | Outpatient (CLI) | payer MEDICARE, OTHER, SELFPAY ==
--- NOTE | 2022-08-12 10:57 | SIXMINWLK ---
PATIENT REFUSED SIX MINUTE WALK DUE TO LEG PAIN.
--- NOTE | 2022-08-12 12:57 | WPDPFTINT ---
PFT Procedure Performed PFT Procedure Performed Spirometry with Pre/Post Bronchodilator Plethysmography (Lung Vol) Diffusing Cap (DLCO) Flow Vol Loop PFT Interpretation This is a pulmonary function test with pre and post-bronchodilator spirometry, plethysmography and diffusing capacity. The test was performed and results interpreted in accordance with the 2019 and 2005 ATS/ERS Task Force guidelines respectively using the Global Lung Function Initiative-2012 reference equations. Patient demonstrated good effort and cooperation. Reproducibility criteria were met. The quality of the pre bronchodilator spirometry maneuver was Grade A and post bronchodilator spirometry maneuver was Grade A. Findings: Spirometry: The contour the inspiratory and expiratory flow tracing are normal. The pre bronchodilator FVC is 2.49 L, 79% predicted. The pre bronchodilator FEV1 is 1.94 L, 80% predicted. The pre bronchodilator FEV1: FVC ratio 78%. The post bronchodilator FVC is 2.62 L, representing a 5% increase. The post bronchodilator FEV1 is 2.05 L, representing a 6% increase. The post bronchodilator FEV1: FVC ratio 78%. Plethysmography: The total lung capacity is 4.85 L, 90% predicted. Functional residual capacity is 2.90 L, 94% predicted. The residual volume is 2.31 L, 102% predicted. Diffusing capacity: The diffusing capacity unadjusted for hemoglobin and carboxyhemoglobin is 19.1, 89% predicted. The diffusing capacity adjusted for alveolar volume is 4.93, 117% predicted. Impression: The spirometry is normal without evidence of an obstructive abnormality. There is no significant improvement after inhaling a single dose of albuterol. The lung volumes are normal. The diffusing capacity is normal. There are no prior studies for comparison
== END 2022-08-12 09:55 | disposition home or self-care (01) ==
LOC: ANHPFT 09:56
PROVIDERS: PCP Family Medicine; Visit Provider Nurse Practitioner Family
DX: R06.02 Shortness of breath (principal); J84.9 Interstitial pulmonary disease, unspecified; J44.9 Chronic obstructive pulmonary disease, unspecified
CPT/HCPCS: 94060; 94726; 94729

== ENCOUNTER 2022-10-16 10:57 | Outpatient (CLI) | payer MEDICARE, OTHER, SELFPAY ==
[2022-10-16 12:35] LABS: Appearance Urine Clear (Clear); Bilirubin Urine Negative (Negative); Blood Urine 1+ (Negative); Color Urine Yellow (Yellow); Glucose Urine UA Negative (Negative); Ketones Urine Negative (Negative); Leukocyte Esterase Ur 2+ LEU/UL (NEGATIVE); Nitrate Urine Negative (Negative); Protein Urine Negative (Negative); Urobilinogen Urine 0.2 mg/dL (<2.0)
[2022-10-16 12:41] LABS: Add Urine Microscopic? YES; Bacteria Urine Trace /hpf; Mucus Urine Rare /lpf; RBC Urine 0-2 /hpf (0-2); Squamous Epithelial Cell Urine Occasional /hpf (Few); WBC Urine 21-30 /hpf (0-3)
[2022-10-16 12:46] LABS: Albumin Level 4.4 g/dL (3.5-5.1); Anion Gap 8 mmol/L (8-16); Blood Urea Nitrogen 6 mg/dL (7-17); Calcium 9.4 mg/dL (8.4-10.2); Carbon Dioxide 25 mmol/L (22-30); Chloride 101 mmol/L (98-107); Creatinine Urine 43.2 mg/dL; Estimated Glomerular Filt Rate > 60; Glucose 173 mg/dL (65-110); Potassium 3.9 mmol/L (3.4-5.0); Sodium 134 mmol/L (137-145); Total Protein Urine Random 19 mg/dL; Ur Ttl Prot Creatinine Ratio 0.44 mg/mg (0-0.20)
== END 2022-10-16 10:58 | disposition home or self-care (01) ==
LOC: ANHLAB 11:00
PROVIDERS: PCP Family Medicine; Visit Provider Internal Medicine Nephrology
DX: R80.9 Proteinuria, unspecified (principal); I10 Essential (primary) hypertension; E11.9 Type 2 diabetes mellitus without complications; N02.9 Recurrent and persistent hematuria with unspecified morphologic changes
CPT/HCPCS: 36415; 80069; 81001; 82570; 84156

== ENCOUNTER 2023-01-11 11:07 | Outpatient (CLI) | payer MEDICARE, OTHER, SELFPAY ==
[2023-01-11 11:23] LABS: Basophils Absolute Auto 0.1 K/mm3 (0.0-0.1); Basophils Percent Auto 0.7 % (0.2-1.2); Eosinophils Absolute Auto 0.2 K/mm3 (0-0.3); Eosinophils Percent Auto 1.8 % (0-4.4); Hematocrit 45.4 % (37.0-47.0); Hemoglobin 15.2 g/dL (12.0-15.0); Immature Granulocyte Absolute 0.03 K/mm3 (0.00-0.031); Immature Granulocyte Percent A 0.3 % (0-0.5); Lymphocytes Absolute Auto 2.53 K/mm3 (0.9-3.2); Mean Corpuscular HGB Conc 33.5 g/dl (32-36); Mean Corpuscular Hemoglobin 29.4 pg (26-34); Mean Corpuscular Volume 87.8 fl (80-100); Mean Platelet Volume 10.7 fl (7.4-10.4); Monocytes Absolute Auto 0.8 K/mm3 (0.1-0.6); Monocytes Percent Auto 9.2 % (2.6-8.5); Neutrophils Absolute Auto 5.4 K/mm3 (1.3-6.7); Platelet Count Result 229 k/mm3 (150-375); Red Blood Count 5.17 M/mm3 (4.2-5.4); Red Cell Distribution Width 14.1 % (11.5-14.5)
[2023-01-11 14:53] LABS: Alanine Aminotransferase 22 U/L (6-35); Albumin Level 4.5 g/dL (3.5-5.1); Alkaline Phosphatase 56 U/L (38-126); Anion Gap 9 mmol/L (8-16); Aspartate Amino Transferase 25 U/L (14-36); Bilirubin,Total 0.5 mg/dL (0.2-1.3); Blood Urea Nitrogen 8 mg/dL (7-17); Calcium 9.9 mg/dL (8.4-10.2); Carbon Dioxide 29 mmol/L (22-30); Chloride 99 mmol/L (98-107); Estimated Glomerular Filt Rate > 60; Glucose 188 mg/dL (65-110); Potassium 3.9 mmol/L (3.4-5.0); Sodium 137 mmol/L (137-145)
[2023-01-11 17:10] LABS: Immunoglobulin A 340 mg/dL (70-400); Immunoglobulin G 1384 mg/dL (700-1600); Immunoglobulin M 57 mg/dL (40-230)
[2023-01-14 18:27] LABS: Alpha 1 Globulin 0.3 g/dL (0.2-0.3); Alpha 2 Globulin 1.1 g/dL (0.5-0.9); Beta 1 Globulin 0.5 g/dL (0.4-0.6); Gamma Globulin 1.3 g/dL (0.8-1.7); Protein, Total 7.6 g/dL (6.1-8.1)
[2023-01-14 21:17] LABS: Kappa\\Lambda Light Chains 1.17 (0.26-1.65); Lambda Light Chain 21.8 mg/L (5.7-26.3)
== END 2023-01-11 11:08 | disposition home or self-care (01) ==
LOC: ANHLAB 11:11
PROVIDERS: PCP Family Medicine; Visit Provider Internal Medicine Hematology & Oncology
DX: D72.9 Disorder of white blood cells, unspecified (principal)
CPT/HCPCS: 36415; 80053; 82784; 83883; 84155; 84165; 85025

== ENCOUNTER 2023-01-25 11:38 | Outpatient (CLI) | payer MEDICARE, OTHER, SELFPAY ==
--- NOTE | ~2023-01-25 | XR_ITS ---
EXAM: XR elbow LT 2V DATE: 01/25/2023 11:55 HISTORY: POSTERIOR SWELLING OF LT ELBOW NO INJURY X2 DAYS . COMPARISON: None available. FINDINGS: Normal mineralization. No fracture or dislocation. No lytic or blastic lesion. Mild medial and lateral enthesopathy. No erosion or periosteal change. Soft tissue swelling over the olecranon. IMPRESSION: No acute osseous finding in the left elbow. Olecranon bursitis. Reviewed, dictated and finalized at location K.
== END 2023-01-25 11:39 | disposition home or self-care (01) ==
PROVIDERS: PCP Family Medicine; Visit Provider Internal Medicine Hematology & Oncology
DX: M25.422 Effusion, left elbow (principal); M70.22 Olecranon bursitis, left elbow
CPT/HCPCS: 73070

== ENCOUNTER 2023-03-09 11:24 | Outpatient (CLI) | payer MEDICARE, OTHER, SELFPAY ==
[2023-03-09 12:07] LABS: INR 1.1; Prothrombin Time 14.8 Seconds (11.1-14.7)
[2023-03-09 12:08] LABS: Partial Thromboplastin Time 27.4 SECONDS (22.3-36.8)
[2023-03-09 12:09] LABS: Anion Gap 6 mmol/L (8-16); Blood Urea Nitrogen 10 mg/dL (7-17); Carbon Dioxide 30 mmol/L (22-30); Chloride 100 mmol/L (98-107); Estimated Glomerular Filt Rate > 60; Glucose 291 mg/dL (65-110); Potassium 4.2 mmol/L (3.4-5.0); Sodium 136 mmol/L (137-145)
== END 2023-03-09 11:25 | disposition home or self-care (01) ==
LOC: ANHSURGERY 11:29
PROVIDERS: Anesthesiology; PCP Family Medicine; Visit Provider Plastic Surgery
DX: I10 Essential (primary) hypertension (principal); N02.9 Recurrent and persistent hematuria with unspecified morphologic changes
CPT/HCPCS: 36415; 80048; 85610; 85730

== ENCOUNTER 2023-03-17 00:05 | Day surgery (SDC) | payer MEDICARE, OTHER, SELFPAY ==
--- NOTE | 2023-02-25 12:12 | PC.NURSE ---
Report to the Outpatient Waiting Room, entrance under the green pavilion located off [facility], at time __0630 on date __03/17/23 . Planned Procedure Time: __829 . Time changes happen often and if your time is changed the preop area will call you the afternoon before. - You and your visitor will be asked to self-screen and do not enter if you have any COVID symptoms. - A mask is optional within the hospital at this time. Patients may have clear liquids (water, carbonated beverages, clear teas, apple juice) until 3 hours prior to surgery with a maximum of 20 ounces. - No food from midnight until time of surgery - Infants may have breast milk until 4 hours before surgery, infant formula 6 hours prior to surgery. - Children will be allowed to drink immediately following surgery. If applicable, please bring a bottle or sippy cup to assist with drinking. Juice, water, soda, and popsicles are readily available. For infants on formula, please bring formula the day of surgery. Pacifiers are allowed. Take the following medications with a SIP of water the morning of surgery: ___OXYCODONE IF NEEDED DO NOT STOP ANY OF YOUR OTHER PRESCRIPTION MEDICATIONS PRIOR TO SURGERY ?EXCEPT THE FOLLOWING Medications to discontinue per physician _ALL VITAMINS/SUPPLEMENTS 3 DAYS PRE OP.LAST DOSE 03/13/23 Please no make-up, nail [place], hairspray, perfume, deodorant, or body powder the day of surgery. No jewelry (including any body piercings) or valuables the day of surgery, leave them at home. Please take a shower or bath the night before, or the morning of, surgery with an antibacterial soap. Wear comfortable, loose fitting clothing. Children are encouraged to wear pajamas. - Jewelry must be removed prior to entering the operating room. Rings and piercings that are not removed may be cut off. - The hospital will not accept responsibility for valuables. - Please leave all valuables, including medications, at home the day of surgery. If you are going home after surgery, a licensed driver salesman must drive you home. - NO public transportation without another adult if you receive anesthesia. - We recommend that an adult stay with you for 24 hours following discharge. - We also recommend that you do not drive, make important decision, drink alcoholic beverages, or take any drugs that were not prescribed by your health care provider for at least 24 hours after your discharge time. For Pediatric surgeries, we recommend two adults accompany the child home. Follow any additional instructions given to you from your surgeon. If you or anyone in your household have experienced Covid symptoms in the past week, please notify your surgeon or the nurse liaison at the phone number below for possible testing. Telephone instructions given to __PATIENT and asked if any additional questions and then verbalized understanding. Patient advised to call surgeon office or pre surgery nurse liaison [phone] if any additional questions.
[2023-02-25 12:20] VITALS: BMI 34.7
[2023-03-17 06:42] VITALS: BP 137/80; PULSE 87; RESP 20; TEMP 36.1; O2SAT 95
[2023-03-17] MEDS: LACTATED RINGERS 1,000 ML 30 ML IV CONT (07:10)
--- NOTE | 2023-03-17 07:13 | WPDHPUPDATE1 ---
History and Physical Update Update Date/Time: 03/17/23 07:13 History and Physical has been reviewed, including an updated exam of the patient. There are NO changes in the patient's condition. Risks, benefits, and alternatives have been discussed and questions answered. Patient agrees to proceed with procedure.
[2023-03-17 07:16] LABS: Glucose Point of Care 174 mg/dl (65-105)
--- NOTE | 2023-03-17 08:20 | WPDANESEPPF ---
Anes - Initial Pre Proc Eval Procedure: Operation Date: 03/17/23 08:30 Proposed Procedures p Excision of Left Olecranon Bursitis - Renny Blackwell MD Date/Time: 03/17/23 08:20 Surgeon: Renny Blackwell MD Pre Op Diagnosis: Lt Olecranon Bursa Patient Data Age: 67 Gender: F Height: 1.68 m Weight: 95.6 kg Last Vital Signs Temp 36.1 C L 03/17/23 06:42 Pulse 87 03/17/23 06:42 Resp 20 03/17/23 06:42 BP 137/80 03/17/23 06:42 Pulse Ox 95 03/17/23 06:42 O2 Del Method Room Air 03/17/23 06:42 Allergies Allergy/AdvReac Type Severity Reaction Status Date / Time exenatide [From Bydureon] Allergy Severe Difficulty Verified 03/17/23 06:54 Breathing aspirin [From Fiorinal] Allergy Intermediate Hives Verified 03/17/23 06:54 butalbital [From Fiorinal] Allergy Intermediate Hives Verified 03/17/23 06:54 tioconazole Allergy Intermediate Fever Verified 03/17/23 06:54 [From Monistat 1 (tioconazole)] etodolac Allergy Mild Rash Verified 03/17/23 06:54 ibuprofen Allergy Mild Rash Verified 03/17/23 06:54 nabumetone Allergy Mild Hives Verified 03/17/23 06:54 ciprofloxacin Allergy Unknown Other Verified 03/17/23 06:54 codeine Allergy Unknown RASH Verified 03/17/23 06:54 levofloxacin Allergy Unknown Other Verified 03/17/23 06:54 metoprolol Allergy Unknown Other Verified 03/17/23 06:54 mupirocin Allergy Unknown Unknown Verified 03/17/23 06:54 sulfamethoxazole Allergy Unknown Unknown Verified 03/17/23 06:54 [From Bactrim] trimethoprim [From Bactrim] Allergy Unknown Unknown Verified 03/17/23 06:54 adhesive tape Allergy Rash Verified 03/17/23 06:54 pneumococcal vaccine Allergy Other Verified 03/17/23 06:54 acetaminophen AdvReac Unknown Rash Verified 03/17/23 06:54 carvedilol AdvReac Unknown Other Verified 03/17/23 06:54 metformin AdvReac Unknown Other Verified 03/17/23 06:54 rosiglitazone [From Avandia] AdvReac Unknown Other Verified 03/17/23 06:54 amitriptyline [From Elavil] AdvReac Drowsy Verified 03/17/23 06:54 cefuroxime [From Ceftin] AdvReac Dizziness Verified 03/17/23 06:54 amlodipine Allergy Rash Uncoded 03/17/23 06:54 codeine Allergy Rash Uncoded 03/17/23 06:54 Erythromycin Allergy Rash Uncoded 03/17/23 06:54 ibuprofen Allergy Rash Uncoded 03/17/23 06:54 Home Medications Medication Instructions Recorded Confirmed Type linagliptin 5 mg tablet (Tradjenta) 5 mg PO QACDINNER 03/13/21 03/17/23 History calcium carbonate 600 mg-vitamin 1 tablet PO DAILY 04/09/22 03/17/23 History D3 20 mcg (800 unit) chewable tablet (Caltrate 600 plus D) esterified 1 tablet PO QACDINNER 04/09/22 03/17/23 History estrogens-methyltestosterone 0.625 mg-1.25 mg tablet insulin glargine 100 unit/mL (3 35 unit subcut QPM 05/22/22 03/17/23 History mL) subcutaneous pen (Lantus Solostar U-100 Insulin) insulin lispro protamine-lispro See Rx Instructions subcut .COMPLEX 05/22/22 03/17/23 History 100 unit/mL (75-25) subcutaneous susp (Humalog Mix 75-25(U-100)Insuln) milk thistle 175 mg tablet 175 mg PO DAILY 05/22/22 03/17/23 History cyclobenzaprine 10 mg tablet See Rx Instructions PO DIRECTED 11/18/22 03/17/23 Rx #180 tabs hydrochlorothiazide 25 mg tablet 25 mg PO DAILY #90 tabs 11/18/22 03/17/23 Rx oxycodone 10 mg tablet,crush 10 mg PO HS #30 tabs 01/25/23 03/17/23 Rx resistant,extended release 12 hr (OxyContin) esomeprazole magnesium 40 mg 40 mg PO DAILY PRN Heartburn #90 02/16/23 03/09/23 Rx capsule,delayed release (Nexium) caps lisinopril 40 mg tablet 40 mg PO DAILY #90 tabs 02/16/23 03/17/23 Rx ondansetron HCl 8 mg tablet 4 mg PO Q4H PRN Nausea #20 tabs 03/09/23 03/17/23 Rx oxycodone 5 mg tablet 5 mg PO Q8H PRN pain #90 tabs 03/09/23 03/17/23 Rx Laboratory Tests 03/17/23 07:12 POC Capillary Glucose 174 H mg/dl (65-105) Patient hx anesthesia problems: none Family hx anesthesia problems: none Results Review: All pre-operative results and docum
[2023-03-17] MEDS: LIDO 1%/EPINEPHRINE 1:100,000 50 ML VIAL 6 ML INFILTRATE (08:37)
[2023-03-17] MEDS: BACITRACIN OINTMENT 15 GM TUBE 1 APPLIC TOPICAL (09:39)
[2023-03-17 09:45] VITALS: BP 110/66; PULSE 89; RESP 12; O2SAT 96
[2023-03-17 09:56] LABS: Glucose Point of Care 176 mg/dl (65-105)
[2023-03-17] MEDS: fentaNYL CITRATE INJ (*CRX) 100 MCG/2 ML VIAL 25 MCG IV PUSH (10:00)
--- NOTE | 2023-03-17 10:07 | W.PM.PROC2 ---
Procedure Note - Detailed Date of Procedure 03/17/23 Pre-op Diagnosis Lt Olecranon Bursa Post-op Diagnosis Same Procedure Performed Excision of 3 cm olecranon bursa Surgeon Renny Blackwell MD Anesthesia MAC Findings Thick olecranon bursa with inflammation. No purulence Description of Procedure The site was marked on the patient while awaiting surgery. She was then taken to the operating room where she was placed supine on the operating table. She was given IV sedation. The left upper extremity was prepped and draped in usual fashion. The site was marked for the incision. The extremity was exsanguinated and the tourniquet inflated to 250 mmHg. The elbow was supported on folded towels. The area was infiltrated with 1% lidocaine with epinephrine. The posterior midline incision was made exposing the bursa. The bursa had evidence of chronic inflammation. This abuts the site of a previous surgery for ulnar nerve transposition I believe . As we dissected the bursa careful observation was made for any sign of the ulnar nerve and none was found. The bursa was taken off the olecranon and removed intact from all sides. The site was irrigated with saline. The bursa was sent to pathology. Tourniquet was released. There was very little bleeding. The wound was closed with interrupted 3-0 Monocryl sutures that numerous sites. The skin was then closed with interrupted 5 0 nylon sutures. A bulky bandage with Yogi wrap was applied. The patient was discharged from the operating room stable condition she has a supply of hydrocodone at home that is used on a regular basis. Estimated Blood Loss 2 Drains No Packing No Pathology Yes Complications No immediate complications Condition Stable Disposition Same day
[2023-03-17 10:15] VITALS: BP 109/86; PULSE 76; RESP 12; O2SAT 96
[2023-03-17] MEDS: oxyCODONE HCL (*CRX) 5 MG TAB IR PO (10:33)
[2023-03-17 10:45] VITALS: BP 106/78; PULSE 71; RESP 12
== END 2023-03-17 11:05 | disposition home or self-care (01) ==
PROVIDERS: PCP Family Medicine; Visit Provider Plastic Surgery
PROC: (CPT 24105; principal; 2023-03-17 08:30)
DX: M70.22 Olecranon bursitis, left elbow (principal); I10 Essential (primary) hypertension; I25.10 Atherosclerotic heart disease of native coronary artery without angina pectoris; B19.20 Unspecified viral hepatitis C without hepatic coma; K74.60 Unspecified cirrhosis of liver; J84.9 Interstitial pulmonary disease, unspecified; M06.9 Rheumatoid arthritis, unspecified; E11.9 Type 2 diabetes mellitus without complications; Z85.3 Personal history of malignant neoplasm of breast; Z79.84 Long term (current) use of oral hypoglycemic drugs; Z79.4 Long term (current) use of insulin; F17.210 Nicotine dependence, cigarettes, uncomplicated; E66.9 Obesity, unspecified; Z68.34 Body mass index [BMI] 34.0-34.9, adult
CPT/HCPCS: 24105; 82948; 88305; A9270; J1100; J2250; J2405; J2704; J3010; J7120

== ENCOUNTER 2023-04-02 10:58 | Outpatient (CLI) | payer MEDICARE, OTHER, SELFPAY ==
[2023-04-02 19:37] LABS: Albumin Level 4.4 g/dL (3.5-5.1); Anion Gap 8 mmol/L (8-16); Blood Urea Nitrogen 8 mg/dL (7-17); Calcium 9.7 mg/dL (8.4-10.2); Carbon Dioxide 29 mmol/L (22-30); Chloride 100 mmol/L (98-107); Estimated Glomerular Filt Rate > 60; Glucose 154 mg/dL (65-110); Phosphorus 2.9 mg/dL (2.5-4.5); Potassium 3.8 mmol/L (3.4-5.0); Sodium 137 mmol/L (137-145)
[2023-04-02 20:48] LABS: Creatinine Urine 53.2 mg/dL; Total Protein Urine Random 15 mg/dL; Ur Ttl Prot Creatinine Ratio 0.28 mg/mg (0-0.20)
[2023-04-02 20:49] LABS: Appearance Urine Clear (Clear); Bacteria Urine 1+ /hpf; Bilirubin Urine Negative (Negative); Blood Urine 1+ (Negative); Color Urine Yellow (Yellow); Glucose Urine UA Negative (Negative); Ketones Urine Negative (Negative); Leukocyte Esterase Ur 2+ LEU/UL (NEGATIVE); Nitrate Urine Negative (Negative); Non Pathogenic Casts 0-2; Protein Urine Negative (Negative); Specific Grav Ur 1.009 (1.001-1.035); Squamous Epithelial Cell Urine Occasional /hpf (Few); Urobilinogen Urine 0.2 mg/dL (<2.0); WBC Urine 51-100 /hpf (0-3); pH Urine 7.5 (5.0-9.0)
[2023-04-02 20:51] LABS: Add Urine Microscopic? YES
== END 2023-04-02 10:59 | disposition home or self-care (01) ==
LOC: ANHGOSHLAB 11:00
PROVIDERS: PCP Family Medicine; Visit Provider Internal Medicine Nephrology
DX: N02.9 Recurrent and persistent hematuria with unspecified morphologic changes (principal); R80.9 Proteinuria, unspecified; E11.9 Type 2 diabetes mellitus without complications; I10 Essential (primary) hypertension
CPT/HCPCS: 36415; 80069; 81001; 82570; 84156

== ENCOUNTER → 2023-06-30 10:41 | Outpatient (CLI) | payer MEDICARE, OTHER, SELFPAY ==
--- NOTE | ~2023-06-30 | CT_ITS ---
CT Scan of the Chest without Contrast: Clinical Indication: Interstitial lung disease Technique: Contiguous sections were acquired throughout the chest without intravenous contrast. Dose reduction technique was used on this scan by utilizing automated exposure control and iterative recon struction technique. The dose-length product (DLP) was 586.74 mGy-cm. COMPARISON: 07/07/2022 Findings: There is no evidence of any significant mediastinal, hilar or axillary lymphadenopathy. The mediastin al soft tissues appear normal. There is no evidence of pleural or pericardial effusion. There are scattered interstitial thickening throughout the lungs, with scattered small focal areas of minimal groundglass opacity. There is a 6 mm right upper lobe pulmonary nodule (axial image 44). Images through the upper abdomen reveal no abnormalities. Impression: Chronic interstitial disease is unchanged from prior exam. Stable 6 mm right upper lobe pulmonary nodule. Reviewed, dictated and finalized at [facility]. Impression: Chronic interstitial disease is unchanged from prior exam. Stable 6 mm right upper lobe pulmonary nodule.
== END ==
PROVIDERS: PCP Physician Assistant Medical; Visit Provider Nurse Practitioner Family
DX: J84.9 Interstitial pulmonary disease, unspecified (principal); R91.1 Solitary pulmonary nodule
CPT/HCPCS: 71250

== ENCOUNTER 2023-08-06 08:59 | Emergency (ER) | payer MEDICARE, OTHER, SELFPAY ==
--- NOTE | ~2023-08-06 | XR_ITS ---
Clinical Indication: Cough PA and lateral views of the chest: Comparison: 05/28/2020 Findings: The lungs are clear, without evidence of focal consolidation or pleural effusion. Cardiome diastinal silhouette is within normal limits. Bones and soft tissues are unremarkable. Impression: Normal chest. Reviewed, dictated and finalized at [facility]. SERVICE SPECIALIST Impression: Normal chest.
[2023-08-06 09:16] VITALS: BP 130/70; PULSE 103; RESP 16; TEMP 36.2; O2SAT 97
--- NOTE | 2023-08-06 10:13 | ED.URI ---
HPI - URI/Sore Throat General Chief Complaint: Upper Respiratory Infection Stated Complaint: Upper resipratory infection Time Seen by Provider: 08/06/23 10:02 Source: patient and RN notes reviewed Mode of arrival: ambulatory Limitations: no limitations History of Present Illness HPI Narrative: Patient presents today complaining of a 3 day history of congestion, cough, rhinorrhea, shortness of breath and wheezing. Denies fever. History of COPD, diabetes, multiple myeloma. She is followed by pulmonology for a lung nodule, but states she does not use inhalers because she does not need them. She has not tried any [id number] medications, ?because none of them work. ? Related Data Home Medications Medication Instructions Recorded Confirmed linagliptin 5 mg tablet (Tradjenta) 5 mg PO QACDINNER 03/13/21 08/06/23 calcium carbonate 600 mg-vitamin 1 tablet PO DAILY 04/09/22 08/06/23 D3 20 mcg (800 unit) chewable tablet (Caltrate 600 plus D) esterified 1 tablet PO QACDINNER 04/09/22 08/06/23 estrogens-methyltestosterone 0.625 mg-1.25 mg tablet insulin glargine 100 unit/mL (3 35 unit subcut QPM 05/22/22 08/06/23 mL) subcutaneous pen (Lantus Solostar U-100 Insulin) insulin lispro protamine-lispro See Rx Instructions subcut .COMPLEX 05/22/22 08/06/23 100 unit/mL (75-25) subcutaneous susp (Humalog Mix 75-25(U-100)Insuln) milk thistle 175 mg tablet 175 mg PO DAILY 05/22/22 08/06/23 Allergies Allergy/AdvReac Type Severity Reaction Status Date / Time exenatide [From Bydureon] Allergy Severe Difficulty Verified 08/06/23 09:12 Breathing aspirin [From Fiorinal] Allergy Intermediate Hives Verified 08/06/23 09:12 butalbital [From Fiorinal] Allergy Intermediate Hives Verified 08/06/23 09:12 tioconazole Allergy Intermediate Fever Verified 08/06/23 09:12 [From Monistat 1 (tioconazole)] etodolac Allergy Mild Rash Verified 08/06/23 09:12 ibuprofen Allergy Mild Rash Verified 08/06/23 09:12 nabumetone Allergy Mild Hives Verified 08/06/23 09:12 ciprofloxacin Allergy Unknown Other Verified 08/06/23 09:12 codeine Allergy Unknown RASH Verified 08/06/23 09:12 levofloxacin Allergy Unknown Other Verified 08/06/23 09:12 metoprolol Allergy Unknown Other Verified 08/06/23 09:12 mupirocin Allergy Unknown Unknown Verified 08/06/23 09:12 sulfamethoxazole Allergy Unknown Unknown Verified 08/06/23 09:12 [From Bactrim] trimethoprim [From Bactrim] Allergy Unknown Unknown Verified 08/06/23 09:12 adhesive tape Allergy Rash Verified 08/06/23 09:12 pneumococcal vaccine Allergy Other Verified 08/06/23 09:12 acetaminophen AdvReac Unknown Rash Verified 08/06/23 09:12 carvedilol AdvReac Unknown Other Verified 08/06/23 09:12 metformin AdvReac Unknown Other Verified 08/06/23 09:12 rosiglitazone [From Avandia] AdvReac Unknown Other Verified 08/06/23 09:12 amitriptyline [From Elavil] AdvReac Drowsy Verified 08/06/23 09:12 cefuroxime [From Ceftin] AdvReac Dizziness Verified 08/06/23 09:12 amlodipine Allergy Rash Uncoded 08/06/23 09:12 codeine Allergy Rash Uncoded 08/06/23 09:12 Erythromycin Allergy Rash Uncoded 08/06/23 09:12 ibuprofen Allergy Rash Uncoded 08/06/23 09:12 Review of Systems Review of Systems: CONSTITUTIONAL: Denies body aches, fever, chills, or sweats. EYES: Denies visual changes, redness, or discharge. ENT: Denies sore throat, or otalgia.+ congestion, rhinorrhea CARDIOVASCULAR: Denies chest pain, palpitations, or edema. RESPIRATORY: + cough, shortness of breath, wheezing. GASTROINTESTINAL: Denies abdominal pain, nausea, vomiting, or diarrhea. GENITOURINARY: Denies dysuria or hematuria. SKIN: Denies rash, itching, or wounds. MUSCULOSKELETAL: Denies back pain, joint pain, or myalgia. NEUROLOGIC: Denies headache, numbness, tingling, or weakness. PSYCH: Denies depression or anxiety. [facility] Past Medical History Medical History Acute pain of le
== END 2023-08-06 10:27 | disposition home or self-care (01) ==
PROVIDERS: Emergency Provider Nurse Practitioner; PCP Family Medicine
DX: J44.1 Chronic obstructive pulmonary disease with (acute) exacerbation (principal); F17.210 Nicotine dependence, cigarettes, uncomplicated; I25.10 Atherosclerotic heart disease of native coronary artery without angina pectoris; E11.9 Type 2 diabetes mellitus without complications; M06.9 Rheumatoid arthritis, unspecified; Z85.79 Personal history of other malignant neoplasms of lymphoid, hematopoietic and related tissues; Z85.3 Personal history of malignant neoplasm of breast; Z85.42 Personal history of malignant neoplasm of other parts of uterus; Z79.4 Long term (current) use of insulin
CPT/HCPCS: 71046; 99213; G0463

== ENCOUNTER 2023-10-13 09:04 | Outpatient (CLI) | payer MEDICARE, OTHER, SELFPAY ==
[2023-10-13 14:16] LABS: Appearance Urine Cloudy (Clear); Bacteria Urine 4+ /hpf; Bilirubin Urine Negative (Negative); Blood Urine 2+ (Negative); Color Urine Yellow (Yellow); Glucose Urine UA Negative (Negative); Ketones Urine Negative (Negative); Leukocyte Esterase Ur 1+ LEU/UL (Negative); Nitrate Urine Positive (Negative); Non Pathogenic Casts 0-2; Protein Urine Negative (Negative); RBC Urine 0-2 /hpf (0-2); Specific Grav Ur 1.011 (1.001-1.035); Squamous Epithelial Cell Urine Few /hpf (Few); Urobilinogen Urine 0.2 mg/dL (<2.0); pH Urine 5.5 (5.0-9.0)
[2023-10-13 14:20] LABS: Add Urine Microscopic? YES
[2023-10-13 14:37] LABS: Creatinine Urine 85.9 mg/dL; Total Protein Urine Random 16 mg/dL; Ur Ttl Prot Creatinine Ratio 0.19 mg/mg (0-0.20)
[2023-10-13 15:38] LABS: Albumin Level 4.1 g/dL (3.5-5.1); Anion Gap 8 mmol/L (8-16); Blood Urea Nitrogen 9 mg/dL (7-17); Calcium 9.6 mg/dL (8.4-10.2); Carbon Dioxide 27 mmol/L (22-30); Chloride 102 mmol/L (98-107); Estimated Glomerular Filt Rate > 60; Glucose 156 mg/dL (65-110); Phosphorus 3.3 mg/dL (2.5-4.5); Potassium 4.2 mmol/L (3.4-5.0); Sodium 137 mmol/L (137-145)
== END 2023-10-13 09:05 | disposition home or self-care (01) ==
PROVIDERS: PCP Family Medicine; Visit Provider Internal Medicine Nephrology
DX: R80.9 Proteinuria, unspecified (principal); N02.9 Recurrent and persistent hematuria with unspecified morphologic changes; I10 Essential (primary) hypertension; E11.9 Type 2 diabetes mellitus without complications
CPT/HCPCS: 36415; 80069; 81001; 82570; 84156; 87077; 87086; 87186

== ENCOUNTER 2024-01-14 12:32 | Outpatient (CLI) | payer MEDICARE, OTHER, SELFPAY ==
[2024-01-14 13:57] LABS: Basophils Absolute Auto 0.1 K/mm3 (0.0-0.1); Basophils Percent Auto 0.7 % (0.2-1.2); Eosinophils Absolute Auto 0.2 K/mm3 (0-0.3); Eosinophils Percent Auto 1.8 % (0-4.4); Hematocrit 50.1 % (37.0-47.0); Hemoglobin 16.3 g/dL (12.0-15.0); Immature Granulocyte Absolute 0.05 K/mm3 (0.00-0.031); Immature Granulocyte Percent A 0.5 % (0-0.5); Lymphocytes Absolute Auto 2.35 K/mm3 (0.9-3.2); Lymphocytes Percent Auto 23.5 % (18.3-44.2); Mean Corpuscular HGB Conc 32.5 g/dl (32-36); Mean Corpuscular Hemoglobin 28.9 pg (26-34); Mean Corpuscular Volume 88.8 fl (80-100); Mean Platelet Volume 11.6 fl (7.4-10.4); Monocytes Absolute Auto 0.9 K/mm3 (0.1-0.6); Monocytes Percent Auto 8.6 % (2.6-8.5); Neutrophils Absolute Auto 6.5 K/mm3 (1.3-6.7); Neutrophils Percent Auto 64.9 % (45.5-73.1); Platelet Count Result 234 k/mm3 (150-375); Red Blood Count 5.64 M/mm3 (4.2-5.4); Red Cell Distribution Width 13.6 % (11.5-14.5)
[2024-01-14 14:03] LABS: Appearance Urine Clear (Clear); Bacteria Urine 4+ /hpf; Bilirubin Urine Negative (Negative); Blood Urine 1+ (Negative); Color Urine Yellow (Yellow); Glucose Urine UA Negative (Negative); Ketones Urine Negative (Negative); Leukocyte Esterase Ur 1+ LEU/UL (Negative); Nitrate Urine Negative (Negative); Non Pathogenic Casts 0-2; Protein Urine Negative (Negative); Specific Grav Ur 1.012 (1.001-1.035); Squamous Epithelial Cell Urine Occasional /hpf (Few); Urobilinogen Urine 0.2 mg/dL (<2.0); pH Urine 6.5 (5.0-9.0)
[2024-01-14 14:13] LABS: Albumin Level 4.6 g/dL (3.5-5.1); Anion Gap 5 mmol/L (4-12); Blood Urea Nitrogen 9 mg/dL (7-17); Calcium 10.1 mg/dL (8.4-10.2); Carbon Dioxide 31 mmol/L (22-30); Chloride 103 mmol/L (98-107); Estimated Glomerular Filt Rate > 60; Glucose 144 mg/dL (65-110); Sodium 139 mmol/L (137-145)
[2024-01-14 14:33] LABS: Add Urine Microscopic? YES
[2024-01-14 14:42] LABS: Alanine Aminotransferase 24 U/L (6-35); Albumin Level 4.6 g/dL (3.5-5.1); Alkaline Phosphatase 64 U/L (38-126); Anion Gap 5 mmol/L (4-12); Aspartate Amino Transferase 38 U/L (14-36); Bilirubin,Total 0.6 mg/dL (0.2-1.3); Blood Urea Nitrogen 9 mg/dL (7-17); Calcium 9.8 mg/dL (8.4-10.2); Carbon Dioxide 31 mmol/L (22-30); Chloride 101 mmol/L (98-107); Estimated Glomerular Filt Rate > 60; Glucose 138 mg/dL (65-110); Sodium 137 mmol/L (137-145)
[2024-01-14 15:12] LABS: Immunoglobulin A 377 mg/dL (70-400); Immunoglobulin G 1174 mg/dL (700-1600); Immunoglobulin M 54 mg/dL (40-230)
[2024-01-14 15:30] LABS: Creatinine Urine 101.1 mg/dL; Total Protein Urine Random 14 mg/dL; Ur Ttl Prot Creatinine Ratio 0.14 mg/mg (0-0.20)
[2024-01-15 14:42] LABS: Protein, Total 7.8 g/dL (6.1-8.1)
[2024-01-17 13:48] LABS: Albumin 4.1 g/dL (3.8-4.8); Alpha 1 Globulin 0.3 g/dL (0.2-0.3); Alpha 2 Globulin 1.1 g/dL (0.5-0.9); Beta 1 Globulin 0.5 g/dL (0.4-0.6); Gamma Globulin 1.3 g/dL (0.8-1.7)
[2024-01-18 10:22] LABS: Kappa\\Lambda Light Chains 1.72 (0.26-1.65); Lambda Light Chain 17.2 mg/L (5.7-26.3)
== END 2024-01-14 12:33 | disposition home or self-care (01) ==
PROVIDERS: Internal Medicine Hematology & Oncology; PCP Physician Assistant Medical; Visit Provider Internal Medicine Nephrology
DX: E11.9 Type 2 diabetes mellitus without complications (principal); D72.9 Disorder of white blood cells, unspecified; I10 Essential (primary) hypertension; N02.9 Recurrent and persistent hematuria with unspecified morphologic changes; R80.9 Proteinuria, unspecified
CPT/HCPCS: 36415; 80053; 80069; 81001; 82570; 82784; 83883; 84155; 84156; 84165; 85025

== ENCOUNTER 2024-04-26 10:48 | Outpatient (CLI) | payer MEDICARE, OTHER, SELFPAY ==
[2024-04-26 13:20] LABS: Albumin Level 4.2 g/dL (3.5-5.1); Anion Gap 10 mmol/L (4-12); Blood Urea Nitrogen 8 mg/dL (7-17); Calcium 9.6 mg/dL (8.4-10.2); Carbon Dioxide 29 mmol/L (22-30); Chloride 99 mmol/L (98-107); Estimated Glomerular Filt Rate > 60; Glucose 111 mg/dL (65-110); Phosphorus 3.2 mg/dL (2.5-4.5); Potassium 3.9 mmol/L (3.4-5.0); Sodium 138 mmol/L (137-145)
[2024-04-26 13:32] LABS: Creatinine Urine 65.9 mg/dL; Total Protein Urine Random 11 mg/dL; Ur Ttl Prot Creatinine Ratio 0.17 mg/mg (0-0.20)
== END 2024-04-26 10:49 | disposition home or self-care (01) ==
PROVIDERS: PCP Physician Assistant Medical; Visit Provider Internal Medicine Nephrology
DX: I10 Essential (primary) hypertension (principal); M06.9 Rheumatoid arthritis, unspecified; R80.9 Proteinuria, unspecified; N02.9 Recurrent and persistent hematuria with unspecified morphologic changes
CPT/HCPCS: 36415; 80069; 82570; 84156

== ENCOUNTER 2024-07-11 12:15 | Outpatient (CLI) | payer MEDICARE, OTHER, SELFPAY ==
--- NOTE | 2024-07-11 14:13 | PCRCNOTE ---
PT REFUSED 6MWT
--- NOTE | 2024-07-11 14:33 | WPDPFTINT ---
PFT Procedure Performed PFT Procedure Performed Spirometry with Pre/Post Bronchodilator Plethysmography (Lung Vol) Diffusing Cap (DLCO) Flow Vol Loop PFT Interpretation This is a pulmonary function test with pre and post-bronchodilator spirometry, plethysmography and diffusing capacity. The test was performed and results interpreted in accordance with the 2019 and 2005 ATS/ERS Task Force guidelines respectively using the Global Lung Function Initiative-2012 reference equations. Patient demonstrated good effort and cooperation. Reproducibility criteria were met. The quality of the pre bronchodilator spirometry maneuver was Grade A and post bronchodilator spirometry maneuver was Grade A. Findings: Spirometry: The contour the inspiratory and expiratory flow tracing are normal. The pre bronchodilator FVC is 2.30 L, 75% predicted. The pre bronchodilator FEV1 is 1.82 L, 77% predicted. The pre bronchodilator FEV1: FVC ratio 79%. The post bronchodilator FVC is 2.28 L, representing 1% decrease. The post bronchodilator FEV1 is 1.82 L, representing no change. The post bronchodilator FEV1: FVC ratio was 80%. Plethysmography: The total lung capacity is 4.50 L, 84% predicted. The functional residual capacity is 2.42 L, 79% predicted. The residual volume is 2.06 L, 90% predicted. Diffusing capacity: The diffusing capacity unadjusted for hemoglobin and carboxyhemoglobin is 17.2, 81% predicted. The diffusing capacity adjusted for alveolar volume is 4.72, 113% predicted. In comparison to previous pulmonary function testing on 08/12/2022 the post bronchodilator FVC is unchanged from 2.62 L to 2.28 L. The post bronchodilator FEV1 is unchanged from 2.05 L to 1.82 L. The total lung capacity is unchanged from 4.85 L to 4.50 L. The functional residual capacity is decreased from 2.90 L to 2.42 L. The residual volume is unchanged from 2.31 L to 2.06 L. The diffusing capacity unadjusted for hemoglobin and carboxyhemoglobin is unchanged from 19.1 to 17.2. The diffusing capacity adjusted for alveolar volume is unchanged from 4.93 to 4.72. Impression: The spirometry is normal without evidence of an obstructive abnormality. There is no significant improvement after inhaling a single dose of albuterol. The lung volumes are normal. The diffusing capacity is normal. In comparison to previous pulmonary function testing on 08/12/2022 there has been a greater than anticipated time dependent decrease in the functional residual capacity with no significant change in the FVC, FEV1, total lung capacity, residual volume or diffusing capacity. Clinical correlation is recommended.
== END 2024-07-11 12:16 | disposition home or self-care (01) ==
LOC: ANHPFT 12:15
PROVIDERS: PCP Physician Assistant Medical; Visit Provider Nurse Practitioner Family
DX: J84.9 Interstitial pulmonary disease, unspecified (principal)
CPT/HCPCS: 94060; 94726; 94729

== ENCOUNTER 2024-08-02 09:14 | Outpatient (CLI) | payer MEDICARE, OTHER, SELFPAY ==
[2024-08-02 13:38] LABS: Basophils Absolute Auto 0.1 K/mm3 (0.0-0.1); Basophils Percent Auto 0.8 % (0.2-1.2); Eosinophils Absolute Auto 0.2 K/mm3 (0-0.3); Eosinophils Percent Auto 2.2 % (0-4.4); Hematocrit 46.8 % (37.0-47.0); Hemoglobin 15.3 g/dL (12.0-15.0); Immature Granulocyte Absolute 0.04 K/mm3 (0.00-0.031); Immature Granulocyte Percent A 0.4 % (0-0.5); Lymphocytes Absolute Auto 2.41 K/mm3 (0.9-3.2); Lymphocytes Percent Auto 26.2 % (18.3-44.2); Mean Corpuscular HGB Conc 32.7 g/dl (32-36); Mean Corpuscular Hemoglobin 29.4 pg (26-34); Mean Platelet Volume 11.6 fl (7.4-10.4); Monocytes Absolute Auto 0.9 K/mm3 (0.1-0.6); Monocytes Percent Auto 10.2 % (2.6-8.5); Neutrophils Absolute Auto 5.6 K/mm3 (1.3-6.7); Neutrophils Percent Auto 60.2 % (45.5-73.1); Platelet Count Result 223 k/mm3 (150-375); Red Cell Distribution Width 13.8 % (11.5-14.5); White Blood Count 9.2 K/mm3 (4.5-10.0)
[2024-08-02 13:48] LABS: Alanine Aminotransferase 20 U/L (6-35); Albumin Level 4.1 g/dL (3.5-5.1); Alkaline Phosphatase 68 U/L (38-126); Anion Gap 7 mmol/L (4-12); Aspartate Amino Transferase 53 U/L (14-36); Bilirubin,Total 0.6 mg/dL (0.2-1.3); Blood Urea Nitrogen 8 mg/dL (7-17); Calcium 9.3 mg/dL (8.4-10.2); Carbon Dioxide 29 mmol/L (22-30); Chloride 101 mmol/L (98-107); Estimated Glomerular Filt Rate > 60; Glucose 135 mg/dL (65-110); Potassium 4.2 mmol/L (3.4-5.0); Sodium 137 mmol/L (137-145)
[2024-08-02 15:17] LABS: Folic Acid > 20.0 ng/mL (2.76->20)
[2024-08-02 17:59] LABS: Iron 82 ug/dL (37-170)
[2024-08-02 18:09] LABS: Percent Iron Saturation 27 % (20-50)
[2024-08-02 19:22] LABS: Hemoglobin A1C 7.1 % (<5.7)
[2024-08-03 15:43] LABS: Hepatitis C RNA, Quant PCR <15 NOT DETECTED IU/mL (NOT DETECTED)
== END 2024-08-02 09:15 | disposition home or self-care (01) ==
PROVIDERS: PCP Physician Assistant Medical; Visit Provider Physician Assistant Medical
DX: E11.9 Type 2 diabetes mellitus without complications (principal); K21.9 Gastro-esophageal reflux disease without esophagitis; K76.0 Fatty (change of) liver, not elsewhere classified; D12.2 Benign neoplasm of ascending colon
CPT/HCPCS: 36415; 80053; 80076; 82607; 82728; 82746; 83036; 83540; 83550; 85025; 87522

== ENCOUNTER 2024-11-08 12:56 | Outpatient (CLI) | payer MEDICARE, OTHER, SELFPAY ==
--- OUTSIDE RECORDS SUMMARY | 2024-11-08 13:04 | XMS_ITS | Clinical Summary ---
Author Organization [facility] Address [address] [place] [address] [address] [place] [address] Phone Care Team Providers Care Swabber Name Role Phone Kem Dunn MD Primary Care Provider [phone] Kentrell Richards DO Unavailable [phone] Kentrell Figueroa MD Unavailable [phone] Allergies Active Allergy Reactions Criticality Noted Date Comments Acetaminophen Other (see Comments) 08/22/2015 Contraindicated hep c Adhesive Tape Rash 08/22/2015 Amlodipine Rash Medium 07/06/2022 Benzocaine Other (see Comments) Medium 07/06/2022 Npiveifxjs-Rffbcrq-Hitvxk ne Hives High 07/06/2022 Cefuroxime Axetil Other (see Comments) 08/22/2015 dizzyness Chlorpheniramine Other (see Comments) Low 05/30/2019 Pt does not recall Ciprofloxacin Nausea 08/22/2015 Codeine Rash 08/22/2015 Dextromethorphan Other (see Comments) Low 05/30/2019 Pt does not recall Erythromycin Rash 08/22/2015 Rutgdtewqz-Ibf-Socc-Codei ne Hives 08/22/2015 Ibuprofen Rash 08/22/2015 Etodolac Rash 08/22/2015 Metformin Rash Medium 05/30/2019 Miconazole Other (see Comments) 08/22/2015 fever Nabumetone Rash 08/22/2015 Sulfa Antibiotics Unknown 07/06/2022 Tirzepatide Other (see Comments) High 09/06/2023 Elevated pancreatic enzymes Wound Dressing Adhesive Rash Medium 04/17/2021 Medications lisinopril (PRINIVIL, ZESTRIL) 40 MG Tablet Take 40 mg by mouth daily. Active insulin lispro (HUMALOG) 100 UNIT/ML Solution by Subcutaneous route 3 times daily (before meals). Use as directed Active Milk Thistle 1000 MG Capsule Take by mouth daily. Active linagliptin (TRADJENTA) 5 MG Tablet Take 5 mg by mouth daily. Active hydroCHLOROthia zide 25 MG Tablet Take 25 mg by mouth daily. Active Insulin Glargine (LANTUS SC) by Subcutaneous route. Active Insulin Pen Needle (BD Pen Needle Amanda U/F) 32G X 4 MM Misc USE THREE TIMES A DAY 3 Active cyclobenzaprine (FLEXERIL) 5 MG Tablet Take 5 mg by mouth in the morning and at bedtime. Active oxyCODONE (ROXICODONE) 5 MG Tablet Take 5 mg by mouth every 4 hours as needed. Active ondansetron (Zofran) 4 MG Tablet Take 4 mg by mouth every 8 hours as needed for Nausea - 1st line. Active oxyCODONE 10 MG Tablet Take 5 mg by mouth every 4 hours as needed. Active folic acid (FOLVITE) 1 MG Tablet TAKE 1 TABLET BY MOUTH DAILY 90 Tablet 1 4 Active esomeprazole (NexIUM) 40 MG CAPSULE DELAYED RELEASE Take 40 mg by mouth. 4 Active Active Problems Problem Noted Date Diagnosed Date Increased immunoglobulin 09/01/2024 Secondary diabetes mellitus with chronic kidney disease 09/01/2024 Polycythemia, secondary 09/01/2024 HTN (hypertension) 08/24/2024 Non-alcoholic fatty liver disease 01/09/2016 Obesity due to excess calories 01/09/2016 Gastroesophageal reflux disease without esophagi tis 01/09/2016 Hepatitis C virus infection 01/09/2016 Adenomatous colon polyp 01/09/2016 Abdominal pain of unknown etiology 08/22/2015 Resolved Problems Problem Noted Date Diagnosed Date Resolved Date Acute pancreatitis 08/22/2015 6 Encounters Date Type Department Care Team Description 08/24/2024 10:00 AM PHYSICAL INTEGRATION PRACTITIONER Office Visit [facility] [address] [address] [phone] Hillary Arnold, TOOLMAKER HELPER, HEAD OF ETHICS AND COMPLIANCE Non-alcoholic fatty liver disease (Primary Dx); Gastroesophageal reflux disease without esophagitis 08/24/2024 Travel from Last 3 Months Immunizations Immunization Administration Dates Next Due Covid-19 Vaccine, Vector-nr, Rs-ad26, Pf, 0.5 Ml (CATALINO/J&J) 11/28/2020 Influenza, Injectable, Quadrivalent 06/20/2019 TDAP Vaccine 08/31/2017 Family History Medical History Relation Name Comments Diabetes Mother Hypertension Mother Uterine Cancer Mother Uterine Cancer Sister 1 Hypothyroidism Sister 2 Rheumatoid Arthritis Sister 3 Relation Name Status Comments Mother Sister 1 Sister 2 Sister 3 Social History Tobacco Use Types Packs/Day Years Used Date Smoking Tobacco: Every Day Cigarettes 2 40 Started: [birth year]/1971; Last attempted to quit: 10/23/2011 Smokeless Tobacco: Never Tobacco Cessation:Ready to Q uit: No; Counseling Given: Yes Alcohol Use Standard Drinks/Week Comments No 0 (1 standard drink = 0.6 oz pur e alcohol) Sexually Active Control Partners Comments Not Currently Comments No Sex and Gender Information Value Date Recorded Sex Assigned at Not on file Legal Sex Female 7:10 PM CDT Gender Identity Not on file Sexual Orientation Not on file Occupation Industry Job Start Date Job End Date disabled Not on file Not on file Not on file Last Filed Vital Signs Vital Sign Reading Time Taken Comments Blood Pressure 150/82 08/24/2024 10:00 AM PHYSICAL INTEGRATION PRACTITIONER Pulse 92 08/24/2024 10:00 AM PHYSICAL INTEGRATION PRACTITIONER Temperature 36.3 C (97.3 F) 08/24/2024 10:00 AM PHYSICAL INTEGRATION PRACTITIONER Respiratory Rate 18 08/24/2024 10:00 AM PHYSICAL INTEGRATION PRACTITIONER Oxygen Saturation 96% 08/24/2024 10:00 AM PHYSICAL INTEGRATION PRACTITIONER Inhaled Oxygen Concentration - - Weight 100.2 kg (221 lb) 08/24/2024 10:00 AM PHYSICAL INTEGRATION PRACTITIONER Height 167.6 cm (5' 6 ) 08/24/2024 10:00 AM PHYSICAL INTEGRATION PRACTITIONER Body Mass Index 35.67 08/24/2024 10:00 AM PHYSICAL INTEGRATION PRACTITIONER Plan of Treatment Upcoming Encounters Date Type Department Care Team (Late st Contact Info) Description 02/15/2025 10:30 AM CDT Lab [facility] [address] [address] [phone] Nurse, Patricia [place] 02/22/2025 10:30 AM CDT Office Visit [facility] [address] [address] [place] [address] Kentrell Figueroa MD [address] [place] [address] Health Maintenance Due Date Last Done Comments Diabetes: Eye Exam 1954 Diabetes: Foot Exam 1954 Diabetes: Nephropathy Screening 1972 Colonoscopy 1999 Immunochemical Fecal Occult Blood 2004 Lung Cancer Screening 2004 Zoster Immunization (1 of 2) 2004 Hepatitis B Immunization (1 of 3 - Risk 3-dose series) 2014 Respiratory Syncytial Virus (RSV) Immunization (Adult) (1 - Risk 60-74 years 1-dose series) 2014 Pneumococcal Immunization (50+ years) (2 of 2 - PPSV23) 01/25/2017 11/30/2016 Colorectal Cancer Screening 10/04/2019 Cologuard 10/03/2022 10/03/2019 Influenza Immunization (#1) 2024 06/20/2019, 0 06/19/2014 SARS-COV-2 Immunization (2 - season) 2024 11/28/2020 Diabetes: Hemoglobin A1c 12/17/2024 024, 08/24/2023, 05/05/2023, Additional history exists DEXA Bone Density 08/13/2025 08/13/2023, , 01/31/2016 Mammogram 05/04/2026 05/04/2024, 04/20, 09/01/2022, Additional history exists Td Immunization Every 10 Years (Adults With 1 Tdap) 08/31/2027 08/31/2017 Pneumococcal Immunization Combined Discontinued 11/30/2016 DTaP/Tdap/Td Immunization Discontinued 08/31/2017 Meningococcal Immunization (ACWY) Aged Out No longer eligible based on patient's age to complete this topic Rotavirus Immunization Aged Out No lo nger eligible based on patient's age to complete this topic Procedures Procedure Name Priority Date/Time Associated Diagnosis Comments COLOGUARD Routine 10/03/2019 11:00 AM PHYSICAL INTEGRATION PRACTITIONER Colon cancer screening JONATHAN BONE DENSITOMETRY AXIAL SKELETON Routine 01/31/2016 Post-menopause JONATHAN SCREENING BILATERAL DIGITAL W CAD Routine 01/31/2016 Abdominal pain of unknown etiology Non-alcoholic fatty liver disease Obesity due to excess calories, unspecified obesity severity Gastroesophageal reflux disease without esophagitis Hepatitis C virus infection, unspecified chronicity Breast screening HEMOGLOBIN, A1C Routine 06/19/2015 from Last 3 Months or Most Recently Relevant to Health Maintenance Results * (ABNORMAL) COLOGUARD (10/03/2019 11:00 AM PHYSICAL INTEGRATION PRACTITIONER) Cologuard Positive (A) Not Applicable [facility] Comment: It is recommended that a positive Cologuard screen be clinically correlated and followed-up with a structural examination of the colon such as diagnostic colonoscopy. Colonoscopies performed for a positive Cologuard may find as the most clinically significant lesion: colorectal cancer [4.0%], advanced adenoma (including sessile serrated polyps greater than or equal to 1cm diameter) [20%] or non- advanced adenoma [31%]; or no colorectal neoplasia [45%]. These estimates are derived from a prospective cross-sectional screening study of 10,000 individuals at average risk for colorectal cancer who were screened with both Cologuard and colonoscopy. (Table 3, Ramon Alves et al, N Engl J Med 2014;370(14):8728-0621.) Test Type: Composite algorithmic analysis of stool DNA-biomarkers with hemoglobin immunoassay. Quantitative values of individual biomarkers are not reportable and are not associated with individual biomarker result reference ranges. Precautions and Limitations: Cologuard is intended for colorectal cancer screening of adults of either sex, 50 years or older, who are at typical average-risk for colorectal cancer. A negative Cologuard test result does not guarantee the absence of colorectal cancer or advanced adenoma (pre-cancer). Patients with a negative Cologuard test result should be advised to continue participating in a colorectal cancer screening program. Cologuard may produce a positive result, even though a colonoscopy may not find colorectal cancer or precancerous polyps. The performance of Cologuard has been established in a cross sectional study (i.e., single point in time). Performance has not been evaluated in adults who have been previously tested with Cologuard or in patients less than 50 years of age. Cologuard has been approved for use by the U.S. FDA. Cologuard performance data in a 10,000 patient pivotal study using colonoscopy as the reference method can be accessed at the following location: www.[employer]/results. Additional description of the Cologuard test process, warnings and precautions can be found at www.cologuardtest.com. Rx Only. Stool specimen (specimen) 10/03/2019 11:00 AM PHYSICAL INTEGRATION PRACTITIONER 10/04/2019 8:08 AM PHYSICAL INTEGRATION PRACTITIONER us Kentrell Richards DO BODY FLUIDS & STOOLS ORDERABLES Final Result [employer] [address] [place] [address], [place] [phone] [employer] [address] [place] [address] * JONATHAN BONE DENSITOMETRY AXIAL SKELETON (01/31/2016) Anatomical Region Laterality Modality BODY N/A Other us Kentrell Richards DO IMG DEXA ORDERABLES Final Resul t * JONATHAN SCREENING BILATERAL DIGITAL W CAD (01/31/2016) Anatomical Region Laterality Modality breast Bilateral Other us Kentrell Richards DO IMG MAMMO ORDERABLES Final Resu lt * HEMOGLOBIN, A1C (06/19/2015) HGB-A1C 8.2 % Blood specimen (specimen) 06/19/2015 us Not On File Provider CHEMISTRY ORDERABLES Final Result from Last 3 Months or Most Recently Relevant to Health Maintenance Insurance MEDICARE FOR LIFE MEDICARE FOR LIFE Care Teams Swabber Relationship Specialty Start Date End Date Kem Dunn MD [address] [place] [phone] PCP - General Internal Medicine 08/21/15 Kentrell Richards DO [address] [place] [phone] Gastroenterology 07/17/16 Kentrell Figueroa MD [address] [place] [phone] Consulting Physician Oncology 11/16/23 Dr. Sherry Watson [address] Marine Welder Pulmonary Disease 11/28/19
--- OUTSIDE RECORDS SUMMARY | 2024-11-08 13:04 | XMS_ITS | Clinical Summary ---
Author Organization [facility] Address [address] [facility] [place] [address] Care Team Providers Care Safety Equipment Testing Specialist Name Role Phone Bright Olsen MD Primary Care Provider [phone] Allergies Active Allergy Reactions Criticality Noted Date Comments Acetaminophen Rash Low 07/06/2022 Amlodipine Rash Low 07/06/2022 Benzocaine Fever Low 07/06/2022 Ssfsyrvaab-Ldiwpkz-Ohkbjjat Hives High 07/06/20 22 Cefuroxime Axetil Dizziness Low 07/06/2022 Codeine Rash Low 07/06/2022 Erythromycin Rash Low 07/06/2022 Etodolac Rash Low 07/06/2022 Exenatide Microspheres Shortness of Breath/Wheezing High 07/06/2022 Ibuprofen Rash Low 07/06/2022 Nabumetone Hives High 07/06/2022 Penicillin Hives High 07/06/2022 Sulfa (Sulfonamide Antibiotics) Unknown 07/06/2022 Medications oxyCODONE (ROXICODONE) 10 mg tablet Take 10 mg by mouth. Active ondansetron (ZOFRAN) 4 mg Tablet Take 4 mg by mouth. Active lisinopriL (PRINIVIL) 40 mg tablet Take 40 mg by mouth daily. 2 Active hydroCHLOROthia zide 25 mg tablet Take 25 mg by mouth daily. 2 Active Tradjenta 5 mg Tablet 2 Active HumaLOG Mix 75-25 KwikPen 100 unit/mL (75-25) pen syringe 2 Active insulin glargine (Lantus Solostar U-100 Insulin) 100 unit/mL pen syringe Inject 35 Units by subcutaneous injection daily at bedtime. Active cholecalciferol (VITAMIN D3) 25 mcg (1,000 unit) Tablet, Chewable Active Active Problems No known active problems Encounters Date Type Department Care Team Description 10/11/2024 External Device Data [facility] ABSTRACTION Provider, Abstract 10/11/2024 External Device Data [facility]STRACTION Provider, Abstract from Last 3 Months Social History Tobacco Use Types Packs/Day Years Used Date Smoking Tobacco: Every Day Cigarettes 0.5 53.1 Started: 1972 Smokeless Tobacco: Never Tobacco Cessation:Ready to Q uit: Not Asked; Counseling Given: Not Answered Comments:Reducing number per day to quit smoking. Alcohol Use Standard Drinks/Week Comments Never 0 (1 standard drink = 0.6 oz pur e alcohol) Comments Unknown Sex and Gender Information Value Date Recorded Sex Assigned at Female 08/31/2024 5:41 PM GAS APPLIANCE INSTALLER Legal Sex Female 4:25 AM GAS APPLIANCE INSTALLER Gender Identity Female 08/31/2024 5:41 PM GAS APPLIANCE INSTALLER Sexual Orientation Straight 08/31/2024 5: 40 PM GAS APPLIANCE INSTALLER Occupation Industry Job Start Date Job End Date Retired Not on file Not on file Not on file Last Filed Vital Signs Vital Sign Reading Time Taken Comments Blood Pressure 142/87 01/27/2024 11:28 AM CDT Pulse 91 01/27/2024 11:27 AM CDT Temperature 35.8 C (96.5 F) 01/27/2024 11:27 AM CDT Respiratory Rate 14 01/27/2024 11:27 AM CDT Oxygen Saturation 95% 01/27/2024 11:27 AM CDT Inhaled Oxygen Concentration - - Weight 101.2 kg (223 lb) 01/27/2024 11:27 AM CDT Height 167.6 cm (5' 6 ) 07/06/2022 10:31 AM CDT Body Mass Index 35.99 07/06/2022 10:31 AM CDT Plan of Treatment Upcoming Encounters Date Type Department Care Team (Late st Contact Info) Description 01/29/2025 11:45 AM CDT Office Visit [facility] Oncology and Hematology - [address] [facility] [address] [place] [phone] Jerry Ivory MD [address] [facility] [address] [place] [address] Health Maintenance Due Date Last Done Comments DIABETES ANNUAL RETINAL EXAM 1972 DIABETES MICROALBUMIN ANNUAL SCREEN 1972 LDL CHOLESTEROL ANNUAL 1972 COLORECTAL SCREENING 1999 Colorectal Cancer Screening 1999 FIT-DNA Q 3 years 1999 FIT/FOBT Q 1 year 1999 Flex Sig/CT Colonography Q 5 years 1999 Lung Cancer Screening 2004 ZOSTER VACCINE (1 of 2) 2004 RSV VACCINE (60+ or ) (1 - Risk 60-74 years 1-dose series) 2014 PNEUMOCOCCAL VACCINE 65+ YEA RS (2 of 2 - PPSV23) 01/25/2017 11/30/2016 BREAST CANCER SCREENING 09/01/2023 09/01/2022, 01/30 DIABETES ANNUAL FOOT EXAM 01/29/2024 01/28/2023 INFLUENZA VACCINE (#1) 2024 06/19/2014 COVID-19 Vaccine (2 - 2023-2 5 season) 2024 11/28/2020 DIABETES HBA1C Q 6 MONTHS 12/17/20242023, 08/24/2023, 05/05/2023, Additional history exists DTAP/TDAP/TD VACCINES (2 - T d or Tdap) 08/31/2027 08/31/2017 OSTEOPOROSIS SCREENING Completed , 08/13/2023, 01/31/2016, Additional history exists Insurance MEDICARE PART A AND B FOR LIFE MEDICARE PART A AND B FOR LIFE Care Teams Safety Equipment Testing Specialist Relationship Specialty Start Date End Date Bright Olsen MD [address] [place] [phone] PCP - General Family Practice 01/25/23
--- OUTSIDE RECORDS SUMMARY | 2024-11-08 13:04 | XMS_ITS | Referral Summary ---
Author Organization [facility] [address] Address [address] [place] [id number] Care Team Providers Care Joint Yarner Name Role Phone Rozina Murrieta MD Unavailable Micaela Gamble MD Unavailable Barbara Winkler Primary Care Provider [phone] Allergies Active Allergy Reactions Criticality Noted Date Comments Acetaminophen Other (See comments),Rash Medium 08/22/2015 other Contraindicated hep c Adhesive Rash Medium 04/17/2021 Adhesive Tape-Silicones Rash Medium 04/17/2021 Amlodipine Rash Medium 07/06/2022 Aspirin Hives Medium Benzocaine Fever,Other (See comments) Medium 07/06/2022 Butalbital Hives Medium Pkxjutzaol-Mazkpvx-Gesmqk ne Hives High 07/06/2022 Exenatide Microspheres Shortness of breath High 03/02/2017 Cadexomer Iodine Rash Medium 04/26/2014 Cefuroxime Dizziness,Other (See comments),Hives Medium 04/26/2014 dizziness, Hives dizzyness dizziness, dizzyness dizziness, Chlorpheniramine Other (See comments) Low 05/30/2019 Pt does not recall Ciprofloxacin Nausea only,Other (See comments) Low 04/26/2014 Not sure of her reaction Ciprofloxacin Hcl Other (See comments) Low 04/26/2014 Not sure of her reaction Codeine Rash,Itching Medium 01/09/2021 Itching Dextromethorphan Other (See comments) Low 05/30/2019 Pt does not recall Erythromycin Rash Medium 07/06/2022 Etodolac Rash Medium 01/09/2021 Rash Ibuprofen Rash,Other (See comments) Medium 01/09/2021 other Iodine Rash Medium Metformin Rash Medium 05/30/2019 Miconazole Other (See comments) Low 01/09/2021 other Tirzepatide Other (See comments) High 09/06/2023 Elevated pancreatic enzymes Nabumetone Rash,Hives High 01/09/2021 Rash Penicillin Hives High 07/06/2022 Phenylephrine-Guaifenesin Pneumococcal Vaccine Pseudoephedrine Salicylates Other (See comments) Low 04/26/2014 Can't remember reaction Sulfa (Sulfonamide Antibiotics) Unknown 07/06/2022 Tioconazole Fever Medium Medications alcohol swabs (ALCOHOL PREP PADS) pads, medicated testing 2x's daily 200 Pad 3 04/17/20 14 Active cyclobenzaprin e (FLEXERIL) 10 mg tablet take 1/2 tablet by oral route TID 0 0 11/21/19 15 Active Additional Information Patient taking differently: 5 mg oral, 1/2 tab 2 x a day and 1 tab once a day, Reported on 01/28/2023 ondansetron (ZOFRAN, HYDROCHLORIDE, ) 4 mg tablet take 1 Tablet by oral route every 8 hours for 2 days as needed 0 0 02/16/20 14 Active lisinopril (PRINIVIL,ZEST RIL) 40 mg tablet take 1 by Oral route every day 0 0 02/16/20 14 Active oxyCODONE ER (OxyCONTIN) 10 mg 12 hr abuse-deterren t tablet take 1 tablet by oral route every bedtime 0 0 06/25/20 16 Active estrogens-meth ylTESTOSTERone (EEMT,COVARYX) 1.25-2.5 mg per tabletIndicati ons:Vasomotor Symptoms associated with Menopause 2 10/11/19 18 Active DEXCOM G6 COUPON AND BOND COLLECTION CLERK miscIndication s:Type 2 diabetes mellitus with hyperglycemia, with long-term current use of insulin (HCC) Use as directed to monitor glucose daily 1 each 02/02/20 19 Active DEXCOM G6 SENSOR deviceIndicati ons:Type 2 diabetes mellitus with hyperglycemia, with long-term current use of insulin (HCC) Use as directed to monitor glucose daily 9 Device 1 02/02/20 19 Active hydroCHLOROthi azide (HYDRODIURIL) 25 mg tablet Take 1 tablet (25 mg total) by mouth daily 30 tablet 11 08/21/20 19 Active oxyCODONE (ROXICODONE) 5 mg immediate release tablet Take 1 tablet (5 mg total) by mouth 3 (three) times a day 10/20/[address] (NexIUM) 40 mg capsule TAKE 1 CAPSULE BY MOUTH DAILY NEEDED FOR HEARTBURN 02/17/20 23 Active BD Ultra-Fine Amanda Pen Needle 32 gauge x 5/32 needle USE THREE TIMES A DAY 300 each 3 08/30/20 23 Active insulin glargine (LANTUS) 100 unit/mL (3 mL) pen for injection Inject 20 units every am and 30 units every pm 45 mL 3 10/14/19 24 Active Additional Information Patient taking differently: Inject 30 units every pm, Reported on 06/19/2024 folic acid (FOLVITE) 1 mg tablet Take 1 tablet (1 mg total) by mouth daily 05/30/20 24 Active estrogens-meth ylTESTOSTERone (EEMT,COVARYX) 0.625-1.25 mg per tablet Take 1 tablet by mouth daily 04/10/20 24 Active Tradjenta 5 mg tabletIndicati ons:Type 2 diabetes mellitus with hyperglycemia, with long-term current use of insulin (HCC) TAKE 1 TABLET DAILY 90 tablet 3 08/31/20 24 Active insulin lispro protamine-insu juliette lispro 75/25 (HumaLOG 75/25 100 unit/mL) 100 unit/mL pen for injectionIndic ations:Type 2 diabetes mellitus with hyperglycemia, with long-term current use of insulin (HCC) INJECT 20 UNITS IN THE MORNING AND 30 UNITS AT NIGHT 45 mL 11 10/27/19 25 Active HumaLOG 75/25 100 unit/mL 100 unit/mL pen for injection INJECT 25 UNITS IN THE MORNING AND NIGHT 45 mL 3 04/28/20 23 025 Discontinued Active Problems Problem Noted Date Diagnosed Date 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 Statin declined 09/08/2022 Assessment & Plan (09/08/2022 12:28 PM MANAGER ANDROID): Patient declines use of statins Palpitations 06/16/2022 Paresthesia 06/16/2022 Noncompliance with medication regimen 08/21/2019 Coronary artery disease invo lving [place] coronary artery of [place] heart without angina pectoris 05/08/2019 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 History of allergy to aspirin 05/08/2019 Abnormal stress test 04/20/2019 Chest pain 04/20/2019 Proteinuria 07/14/2018 Risk for falls 09/28/2017 PAD (peripheral artery disease) 05/04/2017 Allergic reaction to drug 12/07/2016 Overview (02/12/2017): Allergic reaction caused by a drug, initial encounter Chronic kidney disease, stage III (moderate) 02/2016 Overview (12/24/2016): CKD (chronic kidney disease) stage 3, GFR 30-59 ml/min Rheumatoid arthritis 08/25/2016 Overview (12/24/2016): Rheumatoid arthritis, involving unspecified site, unspecified rheumatoid factor presence Obesity with body mass index 30 or greater 08/25 Overview (12/24/2016): Obesity (BMI 35.0-39.9 without comorbidity) Chronic hepatitis C virus infection (CMS/HCC) Overview (12/24/2016): Chronic hepatitis C without hepatic coma Urinary tract infection 06/25/2016 Overview (12/24/2016): Urinary tract infection without hematuria, site unspecified Abnormal liver function tests 02/15/2014 Overview (12/24/2016): Abnormal liver function test Mixed diabetic hyperlipidemi a associated with type 2 diabetes mellitus (CMS/HCC) 02/15/2014 Overview (12/24/2016): DM (diabetes mellitus) Assessment & Plan (06/19/2024 11:27 AM CDT): Chronic problem. Not currently on statin therapy. Last lipid panel: 04/28/24 PJT=398, WA=283. Assessment & Plan (01/28/2023 1:37 PM CDT): Pt still refusing statins. Assessment & Plan (09/08/2022 11:55 AM MANAGER ANDROID): Chronic, well controlled Low fat Low cholesterol diet Exercise Assessment & Plan (05/07/2022 3:10 PM CDT): Chronic, well controlled Low fat Low cholesterol diet Exercise Continue statin therapy Check lipid profile Assessment & Plan (10/30/2021 1:34 PM MANAGER ANDROID): Continue Crestor, Low cholesterol Low fat diet Exercise Assessment & Plan (04/10/2021 10:02 AM CDT): Goal of treatment , LDL cholesterol less than 100 ( less than 70 in patients with history of heart attacks and / or strokes ) NonHDL cholesterol ( total cholesterol minus HDL cholesterol ) goal less than 130 ( less than 100 in patients with history of heart attacks and / or strokes ) Low cholesterol, low fat diet was discussed and advised. Daily exercise Lipids checked today Start Rosuvastatin Assessment & Plan (10/24/2020 9:36 AM MANAGER ANDROID): Due to the high risk of of heart attacks and strokes in patients with diabetes, it is stronglyce recommended to aim for LDL-cholesterol ( bad cholesterol ) of less than 100 ( or less than 70 if you have a history of stroke or heart disease ) and a non HDL cholesterol of less than 130 . Since statin medications have shown to decrease the risk of heart disease and strokes in patients with diabetes , its use is strongly recommended. Patient declines use of statins. Assessment & Plan (04/18/2020 10:13 AM CDT): .Due to the high risk of of heart attacks and strokes in patients with diabetes, it is stronglyce recommended to aim for LDL-cholesterol ( bad cholesterol ) of less than 100 ( or less than 70 if you have a history of stroke or heart disease ) and a non HDL cholesterol of less than 130 . Since statin medications have shown to decrease the risk of heart disease and strokes in patients with diabetes , its use is strongly recommended. Patient reluctant to take the Lipitor Assessment & Plan (11/28/2019 11:21 AM CDT): Due to the high risk of of heart attacks and strokes in patients with diabetes, it is stronglyce recommended to aim for LDL-cholesterol ( bad cholesterol ) of less than 100 ( or less than 70 if you have a history of stroke or heart disease ) and a non HDL cholesterol of less than 130 . Since statin medications have shown to decrease the risk of heart disease and strokes in patients with diabetes , its use is strongly recommended. Patient declining use of statins Assessment & Plan (01/31/2019 2:18 PM CDT): Due to the high risk of of heart attacks and strokes in patients with diabetes, it is stronglyce recommended to aim for LDL-cholesterol ( bad cholesterol ) of less than 100 ( or less than 70 if you have a history of stroke or heart disease ) and a non HDL cholesterol of less than 130 . Would recommend to start statins Pt declines Assessment & Plan (07/14/2018 9:49 AM CDT): Goal of treatment , LDL cholesterol less than 100 ( less than 70 in patients with history of heart attacks and / or strokes ) NonHDL cholesterol ( total cholesterol minus HDL cholesterol ) goal less than 130 ( less than 100 in patients with history of heart attacks and / or strokes ) Low cholesterol, low fat diet was discussed and advised. Daily exercise On statin therapy Assessment & Plan (04/14/2018 10:26 AM CDT): Goal of treatment , LDL cholesterol less than 100 ( less than 70 in patients with history of heart attacks and / or strokes ) NonHDL cholesterol ( total cholesterol minus HDL cholesterol ) goal less than 130 ( less than 100 in patients with history of heart attacks and / or strokes ) Low cholesterol, low fat diet was discussed and advised. Daily exercise On statin therapy Assessment & Plan (02/10/2018 10:30 AM CDT): Goal of treatment , LDL cholesterol less than 100 ( less than 70 in patients with history of heart attacks and / or strokes ) NonHDL cholesterol ( total cholesterol minus HDL cholesterol ) goal less than 130 ( less than 100 in patients with history of heart attacks and / or strokes ) Low cholesterol, low fat diet was discussed and advised. Daily exercise On statin therapy Hepatitis C virus infection 02/15/2014 Overview (12/24/2016): Hepatitis C Type 2 diabetes mellitus with hyperglycemia 12/21 Overview (12/25/2016): DMII WO CMP UNCNTRLD Assessment & Plan (06/19/2024 12:10 PM CDT): Chronic problem. A1c not yet at goal but improved from 8.2% 08/24/23 to now 7.4% no changes at this time. Current medications: Tradjenta 5mg daily Lantus 35 units at bedtime Humalog 75/25 20 units in morning and 30 units in evening UTD on DM eye exam ([facility] in [place] 04/2024). Letter sent to get copy of report. UTD on labs. Discussed with Desmond Menchaca: Strive for regular exercise (30min most days) and diet (get at least 4-5 servings of fruit and veggies daily, avoid processed foods, increase lean protein intake and decrease carb portions as well as fruit juices, regular soda & desserts). Watch carbs and simple sugars. Check the blood sugar: Dexcom G6. Check the feet daily for skin breakdown and infection. Assessment & Plan (08/24/2023 11:49 AM MANAGER ANDROID): Hba1c was Lab Results Component Value Date HGBA1C 8.2 08/24/2023 today, indicating inadequate DM control Goal Hba1c under 7 and blood glucose level in the 120-160 range was explained Low carb diet and daily aerobic and /or resistant exercise were advised Prevention and treatment of hyypoglcyemia were discussed with the patient Blood glucose monitoring : CGM with DEXCOM Adjustment to medications: Lantus, 35 units bedtime Increase Humalog 75/25 , 20 units in the morning and 30 units in the evening . Start Mounjaro, 2..5 mg weekly Let me know in 2-3 weeks how this is working before I sent a prescription . Assessment & Plan (01/28/2023 1:38 PM CDT): Hba1c was Lab Results Component Value Date HGBA1C 7.3 01/28/2023 today, indicating subuptimal DM control Goal Hba1c and blood glucose explained Diet and exercise were advised Prevention and treatment of hyypoglcyemia were discussed with the patient Blood glucose monitoring : continue CGM with DEXCOM Adjustment to medications: Continue current insulin regimen and Tradjenta Assessment & Plan (09/08/2022 12:29 PM MANAGER ANDROID): Hba1c was Lab Results Component Value Date HGBA1C 7.1 09/08/2022 today, indicating suboptimal DM control Goal Hba1c and blood glucose explained Diet and exercise were advised Prevention and treatment of hyypoglcyemia were discussed with the patient Blood glucose monitoring : Continue CGM Dexcom Adjustment to medications: Continue Lantus and Humalog at current dose Continue Tradjenta Assessment & Plan (05/07/2022 3:10 PM CDT): Hba1c was Lab Results Component Value Date HGBA1C 7.9 05/07/2022 today, indicating inappropriate DM control Goal Hba1c and blood glucose explained Diet and exercise were advised Prevention and treatment of hyypoglcyemia were discussed with the patient Blood glucose monitoring : CGM with DEXCOM Adjustment to medications: Continue current Patient has been intolerant to GLP 1 analogs or SGL T2 inhibitors Assessment & Plan (10/30/2021 1:34 PM MANAGER ANDROID): Hba1c was Lab Results Component Value Date HGBA1C 7.5 10/30/2021 today, indicating suboptimal DM control Goal Hba1c and blood glucose explained Diet and exercise were advised Prevention and treatment of hyypoglcyemia were discussed with the patient Blood glucose monitoring : continue DEXCOM Adjustment to medications: Continue current regimen Assessment & Plan (04/10/2021 10:01 AM CDT): Hba1c was Lab Results Component Value Date HGBA1C 7.5 04/10/2021 today, indicating suboptimal DM control Goal blood sugars in the 120-150 range , with Hb1c under 7.0 % was explained 1800 calorie, consistent carb diet recommended. No more than 30-45 grams of carbs per meal recommended, as well as avoiding high concentrated sweet drinks . 25-45 min daily exercise, combining both aerobic and resistance exercise recommended. The need to monitor blood glucose before meals and bedtime was discussed. Prevention and treatment of hyypoglcyemia discussed. Continue current regimen Assessment & Plan (10/24/2020 9:35 AM MANAGER ANDROID): Hba1c was Lab Results Component Value Date HGBA1C 7.1 10/24/2020 today, indicating sub-optimal DM control Goal blood sugars in the 120-150 range , with Hb1c under 7.0 % was explained 1800 calorie, consistent carb diet recommended. No more than 30-45 grams of carbs per meal recommended, as well as avoiding high concentrated sweet drinks . 25-45 min daily exercise, combining both aerobic and resistance exercise recommended. The need to monitor blood glucose before meals and bedtime was discussed. Prevention and treatment of hyypoglcyemia discussed. Continue current insulin regimen, with Tradjenta Assessment & Plan (04/18/2020 10:12 AM CDT): Hba1c was Lab Results Component Value Date HGBA1C 6.7 04/18/2020 today, indicating Adequate DM control 1800 calorie, consistent carb diet recommended. No more than 30-45 grams of carbs per meal recommended, as well as avoiding high concentrated sweet drinks . 25-45 min daily exercise, combining both aerobic and resistance exercise recommended. Continue DEXCOM CGM Prevention and treatment of hyypoglcyemia discussed. Insulin dose: Continue current Restart Jardiance Assessment & Plan (11/28/2019 11:20 AM CDT): Hba1c was Lab Results Component Value Date HGBA1C 7.5 11/28/2019 today, indicating suboptimal ... DM control 1800 calorie, consistent carb diet recommended. No more than 30-45 grams of carbs per meal recommended, as well as avoiding high concentrated sweet drinks . 25-45 min daily exercise, combining both aerobic and resistance exercise recommended. The need to monitor blood glucose before meals and bedtime was discussed. Prevention and treatment of hyypoglcyemia discussed. Add Bobby ( pt with CAD ) Assessment & Plan (05/30/2019 12:20 PM CDT): Hba1c was Lab Results Component Value Date HGBA1C 6.7 % 05/30/2019 today, indicating adequate DM control 1800 calorie, consistent carb diet recommended. No more than 30-45 grams of carbs per meal recommended, as well as avoiding high concentrated sweet drinks . 25-45 min daily exercise, combining both aerobic and resistance exercise recommended. Prevention and treatment of hyypoglcyemia discussed. Insulin dose: Continue current regimen Continue DEXCOM Assessment & Plan (01/31/2019 2:18 PM CDT): Hba1c was Lab Results Component Value Date HGBA1C 7.4 01/31/2019 today, indicating Better DM control 1800 calorie, consistent carb diet recommended 25-45 min daily exercise, combining both aerobic and resistance exercise recommended. The need to monitor blood glucose before meals and bedtime was discussed. Dose of basal and prandial insulin adjusted as follows: Continue current regimen Prevention and treatment of hyypoglcyemia discussed. Assessment & Plan (10/11/2018 9:43 AM MANAGER ANDROID): Hba1c was Lab Results Component Value Date HGBA1C 7.7 10/11/2018 today, indicating Adequate DM control 1800 calorie, consistent carb diet recommended 25-45 min daily exercise, combining both aerobic and resistance exercise recommended. The need to monitor blood glucose before meals and bedtime was discussed. Dose of basal and prandial insulin adjusted as follows: Continue Humalog 75/25 at the same dosage If you have the rash again, call; will have to switch to Novolog Mix or Humulin / Novolin Mix Prevention and treatment of hyypoglcyemia discussed. Assessment & Plan (07/14/2018 9:46 AM CDT): Your Hba1c today was: Lab Results Component Value Date HGBA1C 8.4 07/14/2018 meaning a 3 month average sugar of : 194 Your goal hba1c is under 7.0 to prevent [facility] diabetes complications ( eye , kidney and nerve damage ) . Your goal sugars are in the 90-130 range Daily aerobic ( walking, riding a bike, swimming ) and resistance exercises ( light weight lifting, resistance band stretching ) for at least 30 minutes is recommended If you can not walk, chair exercises is very acceptable. As little as 15-20 minutes exercise , in one or two sessions a day, is still very helpful and will help to improve your diabetes control . Eat small portion meals, no more than 1800 calories Diet Try to eat not more than than 2-3 servings of carbs ( starches ) wiith your meals. Avoid soft drinks, including regular sodas , fruit juices and sweetened tea. Drink water instead. Eat plenty of green and leafy vegetables, including salads. Take your medications regularly,including your insulin injections. Monitor your sugar levels with finger sticks regularly and keep a log sheet or book. Bring your sugar meter and /or a log book or log sheet to every office visit. 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 Your goal sugars are in the 90-130 range Daily aerobic ( walking, riding a bike, swimming ) and resistance exercises ( light weight lifting, resistance band stretching ) for at least 30 minutes is recommended If you can not walk, chair exercises is very acceptable. As little as 15-20 minutes exercise , in one or two sessions a day, is still very helpful and will help to improve your diabetes control . Eat small portion meals, no more than 1800 calories Diet Try to eat not more than than 2-3 servings of carbs ( starches ) wiith your meals. Avoid soft drinks, including regular sodas , fruit juices and sweetened tea. Drink water instead. Eat plenty of green and leafy vegetables, including salads. Take your medications regularly,including your insulin injections. Monitor your sugar levels with finger sticks regularly and keep a log sheet or book. Bring your sugar meter and /or a log book or log sheet to every office visit. Take Humalog 75/25, 25 units in the morning and 15 units with dinner. 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 Your goal sugars are in the 90-130 range Daily aerobic ( walking, riding a bike, swimming ) and resistance exercises ( light weight lifting, resistance band stretching ) for at least 30 minutes is recommended If you can not walk, chair exercises is very acceptable. As little as 15-20 minutes exercise , in one or two sessions a day, is still very helpful and will help to improve your diabetes control . Eat small portion meals, no more than 1800 calories Diet Try to eat not more than than 2-3 servings of carbs ( starches ) wiith your meals. Avoid soft drinks, including regular sodas , fruit juices and sweetened tea. Drink water instead. Eat plenty of green and leafy vegetables, including salads. Take your medications regularly,including your insulin injections. Monitor your sugar levels with finger sticks regularly and keep a log sheet or book. Bring your sugar meter and /or a log book or log sheet to every office visit. Take Lantus 35 u at bedtime Humalog 75/25 , take 15 units breakfast and dinner For sugars ove 200, take 20 units Stay on Tradjenta. Assessment & Plan (09/30/2017 11:18 AM MANAGER ANDROID): Your Hba1c today was: 8.8 meaning a 3 month average sugar of : 207 Your goal hba1c is under 7.0 to prevent [facility] diabetes complications ( eye , kidney and nerve damage ) . Your goal sugars are in the 90-130 range Daily aerobic ( walking, riding a bike, swimming ) and resistance exercises ( light weight lifting, resistance band stretching ) for at least 30 minutes is recommended If you can not walk, chair exercises is very acceptable. As little as 15-20 min daily exercise , in one or two sessions a day is still very helpful . Eat small portion meals, no more than 1800 calories Diet Try to eat not more than than 2-3 servings of carbs ( starches ) wiith your meals. Avoid soft drinks, including regular sodas , fruit juices and sweetened tea. Drink water instead. Eat plenty of green and leafy vegetables, including salads. Take your medications regularly,including your insulin injections. Monitor your sugar levels with finger sticks Regularly and keep a log sheet or book. Bring your sugar meter and /or a log book or sheet to every office visit. Increase Humalog to 15 units before breakfast and dinner. Assessment & Plan (05/25/2017 10:53 AM CDT): Hba1c was 7.5 today, indicating better DM control 1800 calorie, consistent carb diet recommended 30 min daily aerobic and resistance exercise recommended Prevention and treatment of hyypoglcyemia discussed. Blood glucose monitoring with fingers sticks 1-2 x day . Foot care was discussed. Assessment & Plan (03/02/2017 10:51 AM CDT): Hba1c was 7.5 [id number] calorie, consistent carb diet recommended 30 min daily aerobic and resistance exercise recommended Foot care discused. Prevention and treatment of hyypoglcyemia discussed. Continue current insulin regimen Hypertension associated with diabetes 11/08/2012 Overview (12/25/2016): Hypertension, Unspecified Assessment & Plan (06/19/2024 11:26 AM CDT): Chronic problem. Controlled on current lisinopril 40mg, HCTZ 25mg daily Assessment & Plan (01/28/2023 1:38 PM CDT): Chronic, well controlled Importance of low salt diet and exercise were discussed Continue current meds, including Lisinopril Update MA, GFR Assessment & Plan (09/08/2022 12:28 PM MANAGER ANDROID): Chronic, well-controlled Continue current medications including lisinopril Assessment & Plan (05/07/2022 3:10 PM CDT): Chronic, well controlled Importance of low salt diet and exercise were discussed Continue current meds Assessment & Plan (10/30/2021 1:35 PM MANAGER ANDROID): Chronic, well controlled Continue current meds Check MA Assessment & Plan (10/24/2020 9:34 AM MANAGER ANDROID): Goal blood pressure is less than 140/85 Low salt diet was discussed andd recommended The importance of daily aerobic exercise was also emphasized. Continue current meds, including ALOK-I or ARB, e.g. Lisinopril Assessment & Plan (04/18/2020 10:13 AM CDT): Goal blood pressure is less than 140/85 Low salt diet was discussed andd recommended The importance of daily aerobic exercise was also emphasized. Continue current meds, including ALOK-I or ARB, e.g. Assessment & Plan (05/30/2019 12:21 PM CDT): Goal blood pressure is less than 140/85 Low salt diet recommended Daily aerobic exercise Continue current meds, including ALOK-I or ARB Assessment & Plan (01/31/2019 2:17 PM CDT): Goal blood pressure is less than 140/85 Low salt diet recommended Daily aerobic exercise Continue current meds, including ALOK-I or ARB Assessment & Plan (10/11/2018 9:44 AM MANAGER ANDROID): Goal blood pressure is less than 140/85 Low salt diet recommended Daily aerobic exercise Continue current meds, including ALOK-I or ARB Assessment & Plan (07/14/2018 9:48 AM CDT): Goal blood pressure is less than 140/85 Low salt diet recommended Daily aerobic exercise Continue current meds, including ALOK-I or ARB Assessment & Plan (04/14/2018 10:26 AM CDT): Goal blood pressure is less than 140/85 Low salt diet recommended Daily aerobic exercise Continue current meds, including ALOK-I or ARB Assessment & Plan (02/10/2018 10:29 AM CDT): Goal blood pressure is less than 140/85 Low salt diet recommended Daily aerobic exercise Continue current meds, including ALOK-I or ARB Assessment & Plan (09/30/2017 11:18 AM MANAGER ANDROID): Goal blood pressure is less than 140/85 Low salt diet recommended Daily aerobic exercise Continue current meds, including ALOK-I or ARB Assessment & Plan (05/25/2017 10:50 AM CDT): Goal blood pressure is less than 140/85 Low salt diet recommended Daily aerobic exercise Continue current meds, including ALOK-I or ARB Hepatitis C virus carrier state (CMS/HCC) 2011 Overview (12/25/2016): HEPATITIS C CARRIER Tobacco dependence 11/13/2010 Social History Tobacco Use Types Packs/Day Years Used Date Smoking Tobacco: Every Day Cigarettes Smokeless Tobacco: Never Alcohol Use Standard Drinks/Week Comments No 0 (1 standard drink = 0.6 oz pur e alcohol) PHQ-2 Answer Date Recorded PHQ-2 Total Score (If total score is 3 or more points, staff should administer the PHQ-9) 0 08/24/2023 Comments Unknown Sex and Gender Information Value Date Recorded Sex Assigned at Not on file Legal Sex Female 6:39 PM MANAGER ANDROID Gender Identity Female 04/11/2020 10:32 AM CDT Sexual Orientation Straight 04/11/2020 10 :32 AM CDT Last Filed Vital Signs Vital Sign Reading Time Taken Comments Blood Pressure 140/82 06/19/2024 11:22 AM CDT Pulse 85 06/19/2024 11:22 AM CDT Temperature 36.6 C (97.9 F) 03/12/2021 7:53 AM CDT Respiratory Rate 18 06/19/2024 11:22 AM CDT Oxygen Saturation 98% 04/28/2024 10:19 AM CDT Inhaled Oxygen Concentration - - Weight 100.2 kg (221 lb) 06/19/2024 11:22 AM CDT Height 167.6 cm (5' 5.98 ) 06/19/2024 11:22 AM C DT Body Mass Index 35.69 06/19/2024 11:22 AM CDT Plan of Treatment Not on file Procedures Procedure Name Priority Date/Time Associated Diagnosis Comments POCT HEMOGLOBIN A1C Routine 06/19/2024 1 1:27 AM CDT Type 2 diabetes mellitus with hyperglycemia, without long-term current use of insulin ([facility]) ([facility]) POCT LIPID PANEL Routine 04/28/2024 11:0 1 AM CDT Mixed diabetic hyperlipidemia associated with type 2 diabetes mellitus ([facility]) ([facility]) HM DIABETES EYE EXAM Routine 04/25/2024 9:19 AM CDT EGFR Routine 01/28/2023 1:52 PM CDT Type 2 diabetes mellitus with hyperglycemia, with long-term current use of insulin ([facility]) ([facility]) ALBUMIN CREATININE RATIO, URINE Routine 01/28/2023 1:52 PM CDT Type 2 diabetes mellitus with hyperglycemia, with long-term current use of insulin ([facility]) ([facility]) from Last 3 Months or Most Recently Relevant to Health Maintenance Results * (ABNORMAL) POCT hemoglobin A1c (06/19/2024 11:27 AM CDT) Hemoglobin A1C, POC 7.4 4.0 - 5.6 % Blood 06/19/2024 11:2 7 AM CDT us Marylin Dhaliwal NP POINT OF CARE TEST ORDERA BLES Final Result * POCT lipid panel (04/28/2024 11:01 AM CDT) Cholesterol, POC 156 mg/dL Comment:GLU 150 HDL, POC 19 mg/dL Triglycerides, POC 137 mg/dL LDL Cholesterol POC 110 mg/dL Chol/HDL Ratio, POC 6.0 Non-HDL Cholesterol, POC 138 mg/dL Cholesterol Total, POC 156 mg/dL Capillary blood 04/28/2024 1 1:01 AM CDT Red Zaragoza MD POINT OF CARE TEST ORDE RABLES Final Result * DIABETES EYE EXAM (04/25/2024 9:19 AM CDT) us Malik Narvaez MD HEALTH MAINTENANCE Edited Result - Final * eGFR (01/28/2023 1:52 PM CDT) eGFR 94 mL/min/1. 73 m2 ERIC LUND Comment: Interpretive Data Reference Interval Normal >/= 90 mL/min/1.73m2 Mildly decreased* 60 - 89 mL/min/1.73m2 Mildly to moderately decreased 45 - 59 mL/min/1.73m2 Moderately to severely decreased 30 - 44 mL/min/1.73m2 Severely decreased 15 - 29 mL/min/1.73m2 Kidney Failure < 15 mL/min/1.73m2 *Relative to young adult level Estimated glomerular filtration rate is determined by the 2020 CKD-EPI equation recommended by the National Kidney Foundation (A Unifying Approach to GFR Estimation: Recommendations of the NKF-ASK Task Force on Reassessing the Inclusion of Race in Diagnosing Kidney Disease, JASN 2020). The CKD-EPI equation should not be used for patients with unstable renal function and has not been validated in children and those over 70. Current interpretive data was last reviewed 2021. Blood 01/28/2023 1:52 PM CDT 01/28/2023 9:15 PM CDT us Rozina Murrieta MD LAB BLOOD ORDERABLES Final Resul t Performing Organization Address [facility] de Phone Number ERIC [address] [place] [address] * Albumin Creatinine Ratio, Urine (01/28/2023 1:52 PM CDT) Albumin Ur <12.0 mg/L ERIC LNUD Comment: Interpretive Data No reference range established. Current interpretive data was last revised 2019. Creatinine Ur 71.1 mg/dL ERIC LUND Comment: Interpretive Data No reference range established. Current interpretive data was last revised 2019. Albumin Creatinine Ratio, Ur <17 1 - 29 mg/g ERIC Urine 01/28/2023 1:52 PM CDT 01/28/2023 9:13 PM CDT us Rozina Murrieta MD LAB URINE ORDERABLES Final Resul t Performing Organization Address [facility] Co de Phone Number ERIC LUND [address] [facility] of [employer] [place], [place] [id number] from Last 3 Months or Most Recently Relevant to Health Maintenance Insurance MEDICARE FOR LIFE MEDICARE FOR LIFE Care Teams Joint Yarner Relationship Specialty Start Date End Date Barbara Winkler PA [facility] [place] [address] PCP - General Physician Application Support Intern 06/19/24 [place] [address] [address], [place] [address] Consulting Physician Endocrinology Diabetes & Metabolism 05/31/19 Micaela Gamble MD [address] [facility] [address] [address] [place] [address] Consulting Physician Pain Management 03/12/21
--- OUTSIDE RECORDS SUMMARY | 2024-11-08 13:04 | XMS_ITS | Encounter Summary ---
Author Organization [facility] Address [facility] [place] [address] Care Team Providers Care Venipuncturist Name Role Phone Kem Dunn MD Primary Care Provider [phone] Bright Olsen MD Primary Care Provider [phone] Eduin Dodd MD Primary Care Provider [phone] Kentrell Figueroa MD Unavailable [phone] [facility] Eye [facility], Records Unavailable Jerry Ivory MD Unavailable [phone] Maddi Wagoner MD Unavailable [phone] Red Zaragoza MD Unavailable Chani Dupont MD Unavailable Evonne Bello DPM Unavailable [phone] Barbara Winkler Unavailable [phone] Eduin Dodd MD Unavailable Barbara Winkler Primary Care Provider [phone] Eduin Dodd MD Primary Care Provider [phone] Encounter Details Date Type Department Care Team (Late st Contact Info) Description 10/27/2018 Abstract [facility] CONVERSION [id number] [place] [id number] , Shayna Adan MD Social History Tobacco Use Types Packs/Day Years Used Date Smoking Tobacco: Never Assessed Comments Unknown Sex and Gender Information Value Date Recorded Sex Assigned at Female 10/10/2024 1:24 PM SAP MOBILITY ARCHITECT Legal Sex Female 4:08 PM CDT Gender Identity Female 11/03/2021 4:38 AM SAP MOBILITY ARCHITECT Sexual Orientation Straight 11/03/2021 4: 38 AM SAP MOBILITY ARCHITECT documented as of this encounter Plan of Treatment Upcoming Encounters Date Type Department Care Team (Late st Contact Info) Description 11/10/2024 10:00 AM SAP MOBILITY ARCHITECT Allied Health/Nurse Visit [facility] [place] [address] Eduin Dodd MD [address] [place] [address] 11/13/2024 12:45 PM SAP MOBILITY ARCHITECT Office Visit [facility] Physical Therapy [address] [place] [address] Eduin Dodd MD [address] [place] [address] Nallely Peterson, PT [address] [place] [address] 02/14/2025 10:20 AM CDT Office Visit [address] [address] Eduin Dodd MD [facility] [address] [address] 04/04/2025 10:30 AM CDT Office Visit [address] [address] Eduin Dodd MD [address] [place] [address] documented as of this encounter Visit Diagnoses Not on filedocumented in this encounter Additional Health Concerns Infection Onset Date Last Indicated Resolved Time C. difficile 04/27/2017 04/27/2017 01/22/2022 10:4 8 AM CDT COVID-19 Rule Out 11/21/2022 11/21/2022 11/21/2022 11:06 AM SAP MOBILITY ARCHITECT COVID-19 Rule Out 04/01/2024 04/01/2024 04/01/2024 4:14 PM CDT documented as of this encounter Care Teams Venipuncturist Relationship Specialty Start Date End Date Kem Dunn MD [address] [place] [phone] PCP - General INTERNAL MEDICINE 03/03/19 08/04/22 Bright Olsen MD [address] [place] [address] PCP - General FAMILY PRACTICE 08/05/22 03/08/23 Eduin Dodd MD [address] [place] [address] PCP - General INTERNAL MEDICINE 03/09/23 10/09/24 Barbara Winkler PA [address] [place] [address] PCP - General PHYSICIAN PROJECTION CAMERA OPERATOR 10/10/24 10/10/24 Eduin Dodd MD [facility] [address] [address] PCP - General INTERNAL MEDICINE 10/11/24 Kentrell Figueroa MD [address] [place] [address] Medical Oncologist HEMATOLOGY/ONCOLOGY 03/22/24 [facility] [place], - Records [address] [facility] [place] [id number] 03/22/24 Jerry Ivory MD [address] [facility] [address] [place] [address] HEMATOLOGY/ONCOLOGY 03/22/24 [place] [address] [facility] [address] [place] [address] INTERNAL MEDICINE 03/22/24 Red Zaragoza MD [address] [facility] [address] [place] [address] INTERVENTIONAL CARDIOLOGY 03/22/24 Chani Dupont MD [address] [facility] [address] [place] [address] Referring Physician NEPHROLOGY 03/22/24 Evonne Bello, DPM [address] [facility] [address] [place] [address] Surgeon Time Study Technologist - Foot & Ankle Surgery 03/22/24 Barbara Winkler PA [address] [place] [address] PHYSICIAN PROJECTION CAMERA OPERATOR 03/22/24 Eduin Dodd MD [address] [facility] [address] [place] [address] Consulting Physician INTERNAL MEDICINE 10/10/24 documented as of this encounter
--- OUTSIDE RECORDS SUMMARY | 2024-11-08 13:04 | XMS_ITS | Clinical Summary ---
Author Organization [facility] Address [address] [place] [phone] Phone Care Team Providers Care Waste Specialist Name Role Phone Kem Dunn MD Primary Care Provider [phone] Allergies Active Allergy Reactions Criticality Noted Date Comments Acetaminophen Other (see comments) 08/22/2015 Contraindicated hep c Amlodipine Rash Medium 05/30/2019 Butalbital Hives Medium 05/30/2019 Peoxidptqr-Nqt-Czuu-Codein e Hives 08/22/2015 Ucxviwfval-Vea-Dtkd-Codein e Hives 08/22/2015 Zpathfymbz-Vdiuavi-Vfrszdc e 05/30/2019 Caffeine Hives Medium 05/30/2019 Cefuroxime Dizziness,Other (see comments) Low 04/26/2014 dizzyness dizziness, Chlorpheniramine 05/30/2019 Ciprofloxacin Nausea Only 08/22/2015 Codeine Rash Medium 08/22/2015 Dextromethorphan 05/30/2019 Erythromycin Rash Medium 08/22/2015 Etodolac Rash Low 08/22/2015 Exenatide Shortness of breath High 03/02/2017 Ibuprofen Rash Medium 08/22/2015 Insulin Lispro Hives Medium 10/11/2018 Iodine Rash Medium 04/26/2014 Metformin 05/30/2019 Miconazole Other (see comments) 08/22/2015 fever Nabumetone Rash Medium 08/22/2015 Phenylephrine-Guaifenesin 05/30/2019 Pneumococcal Vaccine 05/30/2019 Pseudoephedrine 05/30/2019 Rifampin 05/30/2019 Salicylates Hives,Other (see comments) Medium 04/26/2014 Can't remember reaction Tioconazole Fever Medium 05/30/2019 Wound Dressing Adhesive Rash Medium 04/17/2021 Medications Medication Sig Dispensed Refills Start Date End Date Status estradiol (ESTRACE) 2 MG tablet 1 tab/cap qday 06/22/2012 Active esomeprazole (NEXIUM) [address] capsule 1 tab/cap qday 06/22/2012 Active linaGLIPtin (TRADJENTA) 5 MG tablet TAKE 1 TABLET DAILY 03/28/2019 Activ e nitroglycerin (NITROSTAT) 0.[address] 0.4 mg under the tongue 04/20/2019 Active insulin glargine (LANTUS) 100 UNIT/ML injection Inject 40 Units under the skin daily 07/12/2018 Active lisinopril (PRINIVIL,ZESTRIL) 40 MG tablet 40 mg 02/15/2014 Active cyclobenzaprine (FLEXERIL) 10 MG tablet TAKE 1 2 (ONE HALF) TABLET BY MOUTH IN THE MORNING AND 1 2 (ONE HALF) AT MIDDAY AND 1 AT BEDTIME 0 05/18/2019 Active ondansetron (ZOFRAN) 4 MG tablet TAKE 2 TABLETS BY MOUTH EVERY 8 HOURS NEEDED 0 05/18/2019 Active tolterodine LA (DETROL LA) 4 MG 24 hr capsule Take 4 mg by mouth 1 (one) time each day 3 05/09/2019 Active atorvastatin (LIPITOR) 40 MG tablet Take 40 mg by mouth 1 (one) time each day 08/30/2019 Active benzonatate (TESSALON) 100 MG capsule Take 200 mg by mouth 2 (two) times a day 11/06/2019 Active carvedilol (COREG) 25 MG tablet Take 1 tablet by mouth every 12 hours 11/10/2017 Active Cholecalciferol (D 1000) 25 MCG (1000 UT) chewable tablet Activ e doxycycline (VIBRAMYCIN) 100 MG capsule Take 100 mg by mouth 2 (two) times a day 11/06/2019 Active Empagliflozin 25 MG tablet Take 25 mg by mouth daily 11/28/2019 Active Insulin Pen Needle (BD Pen Needle Amanda U/F) 32G X 4 MM misc USE THREE TIMES A DAY 08/28/2019 Active insulin lispro protamine-insulin lispro (HumaLOG MIX 75/25 KWIKPEN) (75-25) 100 UNIT/ML inj pen INJECT 25 UNITS IN THE MORNING AND 20 UNITS AT NIGHT 08/21/2019 Active hydroCHLOROthiazide (HYDRODIURIL) 25 MG tablet Take 25 mg by mouth 1 (one) time each day 11/15/2019 Active EST ESTROGENS-METHYLTEST HS 0.625-1.25 MG per tablet Take 1 tablet by mouth 1 (one) time each day 11/24/2019 Active tiotropium (Spiriva HandiHaler) 18 MCG per inhalation capsule Place 1 capsule into inhaler and inhale daily Active SITagliptin (Januvia) 50 MG tablet Take 2 tablets by mouth daily Active mometasone (Asmanex, 120 Metered Doses,) 220 MCG/INH inhaler Inhale 1 puff every 12 hours Active BD PEN NEEDLE AMANDA U/F 32G X 4 MM misc 08/28/2019 Activ e oxyCODONE (ROXICODONE) 5 MG immediate release tablet Take 5 mg by mouth 3 (three) times a day 01/15/2021 Active ALPRAZolam (XANAX) 0.25 MG tablet TAKE 1 TO 2 TABLETS BY MOUTH ABOUT 30 MINUTES PRIOR TO PROCEDURE. DO NOT DRIVE TO PROCEDURE IF YOU TAKE THIS MEDICATION 04/24/2021 Active cinnamon 500 MG capsule Take 500 mg by mouth daily Active rosuvastatin (CRESTOR) 20 MG tablet Take 20 mg by mouth daily 04/10/2021 Active OxyCONTIN 10 MG 12 hr abuse-deterrent tablet TAKE 1 TABLET BY MOUTH EVERY NIGHT AT BEDTIME TAKE 1 TABLET BY MOUTH EVERY NIGHT AT BEDTIME 07/23/2021 Active HYDROcodone-acetamin ophen (NORCO) 5-325 MG per tablet TAKE 1 TABLET BY MOUTH EVERY 4 HOURS NEEDED FOR PAIN OR ACUTE PAIN OR MODERATE PAIN 01/27/2022 Active Active Problems Problem Noted Date Diagnosed Date Past history of procedure 03/02/2022 Lump in left breast 04/21/2021 Coronary arteriosclerosis 05/08/2019 Peripheral vascular disease 05/04/2017 Body mass index 30+ - obesity 08/25/2016 Overview (05/30/2019): Obesity (BMI 35.0-39.9 without comorbidity) Chronic kidney disease, Stage III (moderate) 02/2016 Overview (05/30/2019): CKD (chronic kidney disease) stage 3, GFR 30-59 ml/min Rheumatoid arthritis 08/25/2016 Overview (05/30/2019): Rheumatoid arthritis, involving unspecified site, unspecified rheumatoid factor presence Personal history of urinary tract infection 05/22 Gastro-esophageal reflux disease without esophag itis 01/09/2016 Non-alcoholic fatty liver 01/09/2016 Other proteinuria 06/18/2015 Liver function tests abnormal 02/15/2014 Overview (05/30/2019): Abnormal liver function test Type 2 diabetes mellitus with hyperglycemia 12/21 Overview (05/30/2019): DMII WO CMP UNCNTRLD Last Assessment & Plan: Hba1c was Lab Results Component Value Date [...] Insulin dose: Continue current regimen Continue DEXCOM 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 06/17/2013 Hypertensive disorder 06/20/2012 Overview (04/02/2022): Hypertension, Unspecified Last Assessment & Plan: Goal blood pressure is less than 140/85 Low salt diet recommended Daily aerobic exercise Continue current meds, including ALOK-I or ARB Hypertension, Unspecified Last Assessment & Plan: Chronic, well controlled Continue current meds Check MA Hypertension, Unspecified Last Assessment & Plan: Chronic, well controlled Continue current meds Check MA Type 2 diabetes mellitus without complication Generalized abdominal pain 05/16/2012 Hematuria 04/12/2012 Chronic viral hepatitis C 04/12/2012 Overview (05/30/2019): Hepatitis C Chronic hepatitis C without hepatic coma Hepatitis C carrier 11/12/2011 Overview (05/30/2019): HEPATITIS C CARRIER Immunizations Name Administration Dates Next Due Influenza TIV (IM) 06/19/2014 Influenza, Injectable, Quadrivalent 06/20/2019 CATALINO SARS-COV-2 VACCINATION 11/28/2020 Pneumococcal Conjugate 13-Valent 11/30/2016 Tdap 08/31/2017 Family History Medical History Relation Comments Kidney disease Relative Kidney stone Neg Hx Relation Status Comments Relative Social History Tobacco Use Types Packs/Day Years Used Date Smoking Tobacco: Former Smokeless Tobacco: Never Alcohol Use Standard Drinks/Week Comments No 0 (1 standard drink = 0.6 oz pur e alcohol) Sex and Gender Information Value Date Recorded Sex Assigned at Not on file Gender Identity Not on file Sexual Orientation Not on file Last Filed Vital Signs Vital Sign Reading Time Taken Comments Blood Pressure 132/72 04/02/2022 11:35 AM CDT Pulse - - Temperature 36.3 C (97.4 F) 04/02/2022 11:35 AM CDT Respiratory Rate 18 04/02/2022 11:35 AM CDT Oxygen Saturation - - Inhaled Oxygen Concentration - - Weight 92.6 kg (204 lb 3.2 oz) 04/02/2022 11:35 AM CDT Height 165.1 cm (5' 5 ) 04/02/2022 11:35 AM CDT Body Mass Index 33.98 04/02/2022 11:35 AM CDT Plan of Treatment Health Maintenance Due Date Last Done Comments Pneumococcal PPSV23/PCV13 65 + Years / Low and Medium Risk (2 of 3 - PPSV23 or PCV20) 2019 11/30/2016 Influenza Vaccine (#1) 2024 06/19/2014 Care Teams Waste Specialist Relationship Specialty Start Date End Date Kem Dunn MD [address] [place] [phone] PCP - General Internal Medicine 05/30/19
--- OUTSIDE RECORDS SUMMARY | 2024-11-08 13:04 | XMS_ITS | Encounter Summary ---
Author Organization [facility] Address [facility] [place] [address] Care Team Providers Care Bid Clerk Name Role Phone Eduin Dodd MD Primary Care Provider [phone] Kentrell Figueroa MD Unavailable [phone] [facility] Records Unavailable Jerry Ivory MD Unavailable [phone] Maddi Wagoner MD Unavailable [phone] Red Zaragoza MD Unavailable Chani Dupont MD Unavailable Evonne Bello DPM Unavailable [phone] Barbara Winkler Unavailable [phone] Eduin Dodd MD Unavailable Barbara Winkler Primary Care Provider [phone] Eduin Dodd MD Primary Care Provider [phone] Encounter Details Date Type Department Care Team (Late st Contact Info) Description 04/27/2023 Fanvibehart Message Enc [facility] Medical Group Multispecialty Care - [address] [place] [address] [place] [address] [place] [address] [address] [place] [address] Claudia Matty Social History Tobacco Use Types Packs/Day Years Used Date Smoking Tobacco: Every Day Cigarettes Smokeless Tobacco: Current Comments:Counseled by Dr. Dianna johnson. Alcohol Use Standard Drinks/Week Comments Never 0 (1 standard drink = 0.6 oz pur e alcohol) PHQ-2 Answer Date Recorded Patient Health Questionnaire-2 Score 0 04/26/2023 Comments No Sex and Gender Information Value Date Recorded Sex Assigned at Female 10/10/2024 1:24 PM MARKET RESEARCH ASSOCIATE Legal Sex Female 4:08 PM CDT Gender Identity Female 11/03/2021 4:38 AM MARKET RESEARCH ASSOCIATE Sexual Orientation Straight 11/03/2021 4: 38 AM MARKET RESEARCH ASSOCIATE documented as of this encounter Plan of Treatment Upcoming Encounters Date Type Department Care Team (Late st Contact Info) Description 11/10/2024 10:00 AM MARKET RESEARCH ASSOCIATE Allied Health/Nurse Visit [facility] Medical [address] [address] Eduin Dodd MD [address] [place] [address] 11/13/2024 12:45 PM MARKET RESEARCH ASSOCIATE Office Visit [facility] Physical Therapy [address] [place] [address] Eduin Dodd MD [facility] [address] [address] Nallely Peterson, PT 1 [place] [address] 02/14/2025 10:20 AM CDT Office Visit [facility] [address] [place] [address] Eduin Dodd MD [address] [place] [address] 04/04/2025 10:30 AM CDT Office Visit [facility] Medical Group Multispecialty [facility] [place] [address] [address] [place] [address] Eduin Dodd MD [address] [address] documented as of this encounter Visit Diagnoses Not on filedocumented in this encounter Additional Health Concerns Infection Onset Date Last Indicated Resolved Time COVID-19 Rule Out 04/01/2024 04/01/2024 04/01/2024 4:14 PM CDT Assessment Noted Time PHQ-9 Depression Total Score: 3 04/26/20 2:03 PM CDT documented as of this encounter Care Teams Bid Clerk Relationship Specialty Start Date End Date Eduin Dodd MD [address] [place] [address] PCP - General INTERNAL MEDICINE 03/09/23 10/09/24 Barbara Winkler PA [address] [place] [address] PCP - General PHYSICIAN PT SKILLED 10/10/24 10/10/24 Eduin Dodd MD [address] [place] [address] PCP - General INTERNAL MEDICINE 10/11/24 Kentrell Figueroa MD 1 [place] [address] Medical Oncologist HEMATOLOGY/ONCOLOGY 03/22/24 [facility], - Records 534 [place] [address] 03/22/24 Jerry Ivory MD 2227 [facility] [address] [place] [address] HEMATOLOGY/ONCOLOGY 03/22/24 [place] [address] [facility] [address] [place], [place] [id number] INTERNAL MEDICINE 03/22/24 Red Zaragoza MD 6810 [facility] [address] [place] [id number] INTERVENTIONAL CARDIOLOGY 03/22/24 Chani Dupont MD 1034 [facility] 1280 [place] [address] Referring Physician NEPHROLOGY 03/22/24 Evonne Bello DPM 1034 [facility] 1280 [place] [address] Surgeon Business Functional Analyst - Foot & Ankle Surgery 03/22/24 Barbara Winkler PA 1212 [place] [address] PHYSICIAN PT SKILLED 03/22/24 Eduin Dodd MD 1188 [facility] 157 [place] [address] Consulting Physician INTERNAL MEDICINE 10/10/24 documented as of this encounter
--- OUTSIDE RECORDS SUMMARY | 2024-11-08 13:04 | XMS_ITS | Encounter Summary ---
Author Organization [facility] Address [facility] [place] [address] Care Team Providers Care Forest Ranger Name Role Phone Kem [place] MD Primary Care Provider [phone] Bright Olsen MD Primary Care Provider [phone] Eduin Dodd MD Primary Care Provider [phone] Kentrell Figueroa MD Unavailable [phone] [facility] Eye [facility], Records Unavailable Jerry Ivory MD Unavailable [phone] Maddi Wagoner MD Unavailable [phone] Red Zaragoza MD Unavailable Chani Dupont MD Unavailable Evonne Bello DPM Unavailable [phone] Barbara Winkler Unavailable [phone] Eduin Dodd MD Unavailable Barbara Winkler Primary Care Provider [phone] Eduin Dodd MD Primary Care Provider [phone] Encounter Details Date Type Department Care Team (Late st Contact Info) Description 02/25/2019 Abstract [facility] [address] [place] [place] [id number] , Shayna Adan MD Social History Tobacco Use Types Packs/Day Years Used Date Smoking Tobacco: Never Assessed Comments Unknown Sex and Gender Information Value Date Recorded Sex Assigned at Female 10/10/2024 1:24 PM SINTERING PRESS OPERATOR Legal Sex Female 4:08 PM CDT Gender Identity Female 11/03/2021 4:38 AM SINTERING PRESS OPERATOR Sexual Orientation Straight 11/03/2021 4: 38 AM SINTERING PRESS OPERATOR documented as of this encounter Plan of Treatment Upcoming Encounters Date Type Department Care Team (Late st Contact Info) Description 11/10/2024 10:00 AM SINTERING PRESS OPERATOR Allied Health/Nurse Visit [facility] [place] [address] Eduin Dodd MD [address] [place] [address] 11/13/2024 12:45 PM SINTERING PRESS OPERATOR Office Visit [facility] Physical Therapy [address] [place] [address] Eduin Dodd MD [address] [place] [address] Nallely Peterson, PT 1 [place] [address] 02/14/2025 10:20 AM CDT Office Visit [address] [address] Eduin Dodd MD [facility]8 [address] [address] 04/04/2025 10:30 AM CDT Office Visit [address] [address] Eduin Dodd MD [address] [place] [address] documented as of this encounter Visit Diagnoses Not on filedocumented in this encounter Additional Health Concerns Infection Onset Date Last Indicated Resolved Time C. difficile 04/27/2017 04/27/2017 01/22/2022 10:4 8 AM CDT COVID-19 Rule Out 11/21/2022 11/21/2022 11/21/2022 11:06 AM SINTERING PRESS OPERATOR COVID-19 Rule Out 04/01/2024 04/01/2024 04/01/2024 4:14 PM CDT documented as of this encounter Care Teams Forest Ranger Relationship Specialty Start Date End Date Kem Dunn MD [address] [place] [address] PCP - General INTERNAL MEDICINE 03/03/19 08/04/22 Bright Olsen MD [address] [place] [address] PCP - General FAMILY PRACTICE 08/05/22 03/08/23 Eduin Dodd MD [address] [place] [address] PCP - General INTERNAL MEDICINE 03/09/23 10/09/24 Barbara Winkler PA [address] [place] [address] PCP - General PHYSICIAN ENDO TECH 10/10/24 10/10/24 Eduin Dodd MD [facility] [address] [address] PCP - General INTERNAL MEDICINE 10/11/24 Kentrell Figueroa MD [address] [place] [address] Medical Oncologist HEMATOLOGY/ONCOLOGY 03/22/24 [facility] [place], - Records [address] [facility] [place] [address] 03/22/24 Jerry Ivory MD 2227 [facility] [address] [place] [address] HEMATOLOGY/ONCOLOGY 03/22/24 [place] [address] [facility] [address] [place] [address] INTERNAL MEDICINE 03/22/24 Red Zaragoza MD 6810 [facility] 162 [address] [place] [address] INTERVENTIONAL CARDIOLOGY 03/22/24 Chani Dupont MD 1034 [address] [facility] 1280 [place] [address] Referring Physician NEPHROLOGY 03/22/24 Evonne Bello, DPM 1034 [address] [facility] 1280 [place] [address] Surgeon Needle Control Cheniller - Foot & Ankle Surgery 03/22/24 Barbara Winkler PA 1212 [place] [address] PHYSICIAN ENDO TECH 03/22/24 Eduin Dodd MD 1188 [facility] 157 [place] [address] Consulting Physician INTERNAL MEDICINE 10/10/24 documented as of this encounter
--- OUTSIDE RECORDS SUMMARY | 2024-11-08 13:04 | XMS_ITS | Encounter Summary ---
Author Organization [facility] Address [facility] [place] [address] Care Team Providers Care Teaching Pastor Name Role Phone Kentrell Figueroa MD Unavailable [phone] [facility] Eye [facility] [place], Records Unavailable Jerry Ivory MD Unavailable [phone] Maddi Wagoner MD Unavailable [phone] Red Zaragoza MD Unavailable Chani Dupont MD Unavailable [phone] Evonne Bello DPM Unavailable [phone] Barbara Winkler Unavailable [phone] Eduin Dodd MD Unavailable Eduin Dodd MD Primary Care Provider Reason for Visit * Reason Onset Date Comments Record Request 11/07/2024 Encounter Details Date Type Department Care Team (Late st Contact Info) Description 11/07/2024 Telephone [facility] Medical Group Multispecialty Care - [place] 1188 [facility] 157 [address] [place] [address] Eduin Dodd MD 1188 [facility] [address] [place] [address] Record Request Social History Tobacco Use Types Packs/Day Years Used Date Smoking Tobacco: Every Day Cigarettes Passive Smoke Exposure: Past Smokeless Tobacco: Current Comments:Counseled by Dr. Dianna johnson. Alcohol Use Standard Drinks/Week Comments Never 0 (1 standard drink = 0.6 oz pur e alcohol) AUDIT-C Answer Date Recorded Frequency of Alcohol Consumption Not on file 03/21/2024 Q2: How many drinks containi ng alcohol do you have on a typical day when you are drinking? Patient does not drink Q3: How often do you have si x or more drinks on one occasion? Never 03/21/2024 PHQ-2 Answer Date Recorded Patient Health Questionnaire-2 Score 0 03/21/2024 Comments No Sex and Gender Information Value Date Recorded Sex Assigned at Female 10/10/2024 1:24 PM COMPUTATIONAL THEORY SCIENTIST Legal Sex Female 4:08 PM CDT Gender Identity Female 11/03/2021 4:38 AM COMPUTATIONAL THEORY SCIENTIST Sexual Orientation Straight 11/03/2021 4: 38 AM COMPUTATIONAL THEORY SCIENTIST documented as of this encounter Progress Notes * Sabina Gastelum - 11/07/2024 4:05 PM CST Requesting diabetic eye exam. UTATIONAL THEORY SCIENTIST documented in this encounter Plan of Treatment Upcoming Encounters Date Type Department Care Team (Late st Contact Info) Description 11/10/2024 10:00 AM COMPUTATIONAL THEORY SCIENTIST Allied Health/Nurse Visit [facility] Medical Group Multispecialty Care - [place] [address] [address] [place] [address] Eduin Dodd MD [facility] [address] 11/13/2024 12:45 PM COMPUTATIONAL THEORY SCIENTIST Office Visit [facility] Physical Therapy [address] [place] [address] Eduin Dodd MD [facility]8 [address] [address] Nallely Peterson, PT 1 [place] [address] 02/14/2025 10:20 AM CDT Office Visit [facility] Medical Group Multispecialty Care - [place] [address] [address] [place] [address] Eduin Dodd MD [facility]8 [address] [address] 04/04/2025 10:30 AM CDT Office Visit [facility] Medical [facility] Multispecialty Care - [address] [place] [address] Eduin Dodd MD [address] [place] [address] documented as of this encounter Visit Diagnoses Not on filedocumented in this encounter Additional Health Concerns Assessment Noted Time PHQ-9 Depression Total Score: 4 03/21/20 24 1:05 PM CDT documented as of this encounter Care Teams Teaching Pastor Relationship Specialty Start Date End Date Eduin Dodd MD [address] [place] [address] PCP - General INTERNAL MEDICINE 10/11/24 Kentrell Figueroa MD 1 [place] [address] Medical Oncologist HEMATOLOGY/ONCOLOGY 03/22/24 [facility] Care - [place], - Records 534 [place] [address] 03/22/24 Jerry Ivory MD 2[address] [facility] [address] [place] [address] HEMATOLOGY/ONCOLOGY 03/22/24 [place] [address] [facility] [address] [place], [place] [address] INTERNAL MEDICINE 03/22/24 Red Zaragoza MD 6810 [facility] 162 [facility] 102 [place] [address] INTERVENTIONAL CARDIOLOGY 03/22/24 Chani Dupont MD 1034 [address] [facility] 1280 [place] [address] Referring Physician NEPHROLOGY 03/22/24 Evonne Bello DPM 1034 [address] [facility] 1280 [place] [address] Surgeon New Car Make Ready Mechanic - Foot & Ankle Surgery 03/22/24 Barbara Winkler PA 1212 [place] [address] PHYSICIAN ELECTRICAL AND RADIO MECHANIC 03/22/24 Eduin Dodd MD 1188 [facility] 157 [place], [place] [address] Consulting Physician INTERNAL MEDICINE 10/10/24 documented as of this encounter
--- OUTSIDE RECORDS SUMMARY | 2024-11-08 13:05 | XMS_ITS | Encounter Summary ---
Author Organization [facility] Address [facility] [place] [address] Care Team Providers Care Human Capital Analyst Name Role Phone Eduin Dodd MD Primary Care Provider [phone] Kentrell Figueroa MD Unavailable [phone] [facility] Eye [facility] Records Unavailable Jerry Ivory MD Unavailable [phone] Maddi Wagoner MD Unavailable [phone] Red Zaragoza MD Unavailable Chani Dupont MD Unavailable Evonne Bello DPM Unavailable [phone] Barbara Winkler Unavailable [phone] Eduin Dodd MD Unavailable Barbara Winkler Primary Care Provider [phone] Eduin Dodd MD Primary Care Provider [phone] Encounter Details Date Type Department Care Team (Late st Contact Info) Description 06/07/2023 [email or web address] Message Enc [facility] Medical Group Multispecialty Care - [address] [place] [address] [facility] Provider test results Social History Tobacco Use Types Packs/Day Years [...] Sex Assigned at Female 10/10/2024 1:24 PM COUNTERPERSON Legal Sex Female 4:08 PM CDT Gender Identity Female 11/03/2021 4:38 AM COUNTERPERSON Sexual Orientation Straight 11/03/2021 4: 38 AM COUNTERPERSON documented as of this encounter Plan of Treatment Upcoming Encounters Date Type Department Care Team (Late st Contact Info) Description 11/10/2024 10:00 AM COUNTERPERSON Allied Health/Nurse Visit [address] [address] Eduin Dodd MD [address] [place] [address] 11/13/2024 12:45 PM COUNTERPERSON Office Visit [facility] Physical Therapy [address] [place] [address] Eduin Dodd MD [address] [place] [address] Nallely Peterson, PT 1 [place] [address] 02/14/2025 10:20 AM CDT Office Visit [address] [address] Eduin Dodd MD [address] [place] [address] 04/04/2025 10:30 AM CDT Office Visit [address] [place] [address] Eduin Dodd MD [address] [address] documented as of this encounter Visit Diagnoses Not on filedocumented in this encounter Additional Health Concerns Infection Onset Date Last Indicated Resolved Time COVID-19 Rule Out 04/01/2024 04/01/2024 04/01/2024 4:14 PM CDT Assessment Noted Time PHQ-9 Depression Total Score: 3 04/26/20 2:03 PM CDT documented as of this encounter Care Teams Human Capital Analyst Relationship Specialty Start Date End Date Eduin Dodd MD [address] [address] PCP - General INTERNAL MEDICINE 03/09/23 10/09/24 Barbara Winkler PA [address] [place] [address] PCP - General PHYSICIAN CROZER OPERATOR 10/10/24 10/10/24 Eduin Dodd MD [address] [place] [address] PCP - General INTERNAL MEDICINE 10/11/24 Kentrell Figueroa MD 1 [place] [address] Medical Oncologist HEMATOLOGY/ONCOLOGY 03/22/24 [facility] Eye Care - [place], - Records 534 [place] [address] 03/22/24 Jerry Ivory MD 2221 [facility] [address] [place] [address] HEMATOLOGY/ONCOLOGY 03/22/24 [place] [address] [facility] [address] [place] [address] INTERNAL MEDICINE 03/22/24 Red Zaragoza MD 6810 [facility] 162 [facility] 102 [place] [address] INTERVENTIONAL CARDIOLOGY 03/22/24 Chani Dupont MD 1034 [address] [facility] 1280 [place] [address] Referring Physician NEPHROLOGY 03/22/24 Evonne Bello DPM 1034 [address] [facility] 1280 [place] [address] Surgeon Product Manager Financial Services - Foot & Ankle Surgery 03/22/24 Barbara Winkler PA 1212 [place] [address] PHYSICIAN CROZER OPERATOR 03/22/24 Eduin Dodd MD 1188 [facility] 157 [place] [address] Consulting Physician INTERNAL MEDICINE 10/10/24 documented as of this encounter
--- OUTSIDE RECORDS SUMMARY | 2024-11-08 13:05 | XMS_ITS | Encounter Summary ---
Author Organization [facility] Address [address] [place] [address] Care Team Providers Care Customer Sales Distributor Name Role Phone Eduin Dodd MD Primary Care Provider [phone] Kentrell Figueroa MD Unavailable [phone] [facility] Eye [facility] Records Unavailable Jerry Ivory MD Unavailable [phone] Maddi Wagoner MD Unavailable [phone] Red Zaragoza MD Unavailable Chani Dupont MD Unavailable [phone] Evonne Bello DPM Unavailable [phone] Barbara Winkler Unavailable [phone] Eduin Dodd MD Unavailable Barbara Winkler Primary Care Provider [phone] Eduin Dodd MD Primary Care Provider [phone] Encounter Details Date Type Department Care Team (Late st Contact Info) Description 04/30/2023 [employer] Message Enc [facility] Medical Group Multispecialty Care - [address] [place] [address] [facility] Provider urine results Social History Tobacco Use Types Packs/Day [...] Sex Assigned at Female 10/10/2024 1:24 PM SUPERVISOR WATER SOFTENER SERVICE Legal Sex Female 4:08 PM CDT Gender Identity Female 11/03/2021 4:38 AM SUPERVISOR WATER SOFTENER SERVICE Sexual Orientation Straight 11/03/2021 4: 38 AM SUPERVISOR WATER SOFTENER SERVICE documented as of this encounter Plan of Treatment Upcoming Encounters Date Type Department Care Team (Late st Contact Info) Description 11/10/2024 10:00 AM SUPERVISOR WATER SOFTENER SERVICE Allied Health/Nurse Visit [address] [address] Eduin Dodd MD [address] [place] [address] 11/13/2024 12:45 PM SUPERVISOR WATER SOFTENER SERVICE Office Visit [facility] Physical Therapy [address] [place] [address] Eduin Dodd MD [address] [place] [address] Nallely Peterson, PT 1 [place] [address] 02/14/2025 10:20 AM CDT Office Visit [address] [address] Eduin Dodd MD [address] [place] [address] 04/04/2025 10:30 AM CDT Office Visit [address] [place] [address] Eduin Dodd MD [address] [address] documented as of this encounter Visit Diagnoses Not on filedocumented in this encounter Additional Health Concerns Infection Onset Date Last Indicated Resolved Time COVID-19 Rule Out 04/01/2024 04/01/2024 04/01/2024 4:14 PM CDT Assessment Noted Time PHQ-9 Depression Total Score: 3 04/26/20 2:03 PM CDT documented as of this encounter Care Teams Customer Sales Distributor Relationship Specialty Start Date End Date Eduin Dodd MD [address] [address] PCP - General INTERNAL MEDICINE 03/09/23 10/09/24 Barbara Winkler PA [address] [place] [address] PCP - General PHYSICIAN NUTS AND BOLTS ASSEMBLER 10/10/24 10/10/24 Eduin Dodd MD [address] [place] [address] PCP - General INTERNAL MEDICINE 10/11/24 Kentrell Figueroa MD 1 [place] [address] Medical Oncologist HEMATOLOGY/ONCOLOGY 03/22/24 [facility] Eye Care - [place], - Records 534 [place] [address] 03/22/24 Jerry Ivory MD 222 [facility] [address] [place] [address] HEMATOLOGY/ONCOLOGY 03/22/24 [place] [address] [facility] [address] [place] [address] INTERNAL MEDICINE 03/22/24 Red Zaragoza MD 6810 [facility] 162 [facility] 102 [place] [address] INTERVENTIONAL CARDIOLOGY 03/22/24 Chani Dupont MD 1034 [address] [facility] 1280 [place] [address] Referring Physician NEPHROLOGY 03/22/24 Evonne Bello DPM 1034 [address] [facility] 1280 [place] [address] Surgeon Pari Mutuel Ticket Seller - Foot & Ankle Surgery 03/22/24 Barbara Winkler PA 1212 [place] [address] PHYSICIAN NUTS AND BOLTS ASSEMBLER 03/22/24 Eduin Dodd MD 1188 [facility] 157 [place] [address] Consulting Physician INTERNAL MEDICINE 10/10/24 documented as of this encounter
--- OUTSIDE RECORDS SUMMARY | 2024-11-08 13:05 | XMS_ITS | Encounter Summary ---
Author Organization [facility] Address [facility] [place] [address] Care Team Providers Care House Sitter Name Role Phone Eduin Dodd MD Primary Care Provider [phone] Kentrell Figueroa MD Unavailable [phone] [facility] Eye [facility] Records Unavailable Jerry Ivory MD Unavailable [phone] Maddi Wagoner MD Unavailable [phone] Red Zaragoza MD Unavailable Chani Dupont MD Unavailable Evonne Bello DPM Unavailable [phone] Barbara Winkler Unavailable [phone] Eduin Dodd MD Unavailable Barbara Winkler Primary Care Provider [phone] Eduin Dodd MD Primary Care Provider [phone] Encounter Details Date Type Department Care Team (Late st Contact Info) Description 09/08/2024 Flexuspine Message Enc [facility] Medical Group Multispecialty Care - [address] [place] [address] [facility] Provider test result Social History Tobacco Use Types Packs/Day Years [...] Sex Assigned at Female 10/10/2024 1:24 PM DIRECTOR REVENUE Legal Sex Female 4:08 PM CDT Gender Identity Female 11/03/2021 4:38 AM DIRECTOR REVENUE Sexual Orientation Straight 11/03/2021 4: 38 AM DIRECTOR REVENUE documented as of this encounter Plan of Treatment Upcoming Encounters Date Type Department Care Team (Late st Contact Info) Description 11/10/2024 10:00 AM DIRECTOR REVENUE Allied Health/Nurse Visit [address] [address] Eduin Dodd MD [address] [place] [address] 11/13/2024 12:45 PM DIRECTOR REVENUE Office Visit [facility] Physical Therapy [address] [place] [address] Eduin Dodd MD [address] [place] [address] Nallely Peterson, PT 1 [place] [address] 02/14/2025 10:20 AM CDT [facility] [address] [address] [place] [address] Eduin Dodd MD [address] [address] 04/04/2025 10:30 AM CDT Office Visit [facility] Medical Group Multispecialty Care - [place] [address] [address] [place] [address] Eduin Dodd MD [address] [address] documented as of this encounter Visit Diagnoses Not on filedocumented in this encounter Additional Health Concerns Assessment Noted Time PHQ-9 Depression Total Score: 4 03/21/20 24 1:05 PM CDT documented as of this encounter Care Teams House Sitter Relationship Specialty Start Date End Date Eduin Dodd MD [address] [place] [address] PCP - General INTERNAL MEDICINE 03/09/23 10/09/24 Barbara Winkler PA [address] [place] [address] PCP - General PHYSICIAN DEPARTMENT SECRETARY 10/10/24 10/10/24 Eduin Dodd MD [address] [place] [address] PCP - General INTERNAL MEDICINE 10/11/24 Kentrell Figueroa MD 1 [place] [address] Medical Oncologist HEMATOLOGY/ONCOLOGY 03/22/24 [facility] Eye [facility], - Records [address] [place] [address] 03/22/24 Jerry Ivory MD [address] [facility] [address] [place] [address] HEMATOLOGY/ONCOLOGY 03/22/24 [place] [address] [facility] [address] [place], [place] [id number] INTERNAL MEDICINE 03/22/24 Red Zaragoza MD [address]10 [facility] [address] [place] [address] INTERVENTIONAL CARDIOLOGY 03/22/24 Chani Dupont MD 1034 [facility] [address] [place] [address] Referring Physician NEPHROLOGY 03/22/24 Evonne Bello, DPM [address] [facility] [address] [place] [address] Surgeon Director [employer] - Foot & Ankle Surgery 03/22/24 Barbara Winkler PA 12[address] [place] [address] PHYSICIAN DEPARTMENT SECRETARY 03/22/24 Eduin Dodd MD 1188 [facility] 157 [place] [address] Consulting Physician INTERNAL MEDICINE 10/10/24 documented as of this encounter
--- OUTSIDE RECORDS SUMMARY | 2024-11-08 13:05 | XMS_ITS | Patient Health Summary ---
Author Organization [facility] Address [address] [facility] [place] [address] Care Team Providers Care Bingo Caller Name Role Phone Unavailable Primary Care Provider Unavailabl e Note from [facility],non-owned Affiliates and Associated Physician Practices is amultiple site organization consisting of ambulatory clinics and hospital sitesin [place], [place], [place] and [place]. This disclosure is being madepursuant to the Care Everywhere program and may not contain all information available regarding this patient. Last updated 18.[facility] Social History Tobacco Use Types Packs/Day Years Used Date Smoking Tobacco: Never Assessed Sex and Gender Information Value Date Recorded Sex Assigned at Not on file Gender Identity Not on file Sexual Orientation Not on file Last Filed Vital Signs Vital Sign Reading Time Taken Comments Blood Pressure 186/113 10/19/2017 11:22 AM RN CHEMICAL DEPENDENCY Pulse 67 10/19/2017 11:22 AM RN CHEMICAL DEPENDENCY Temperature 36.9 C (98.5 F) 03/05/2015 10:34 AM CDT Respiratory Rate 16 03/05/2015 10:3 4 AM CDT Oxygen Saturation - - Inhaled Oxygen Concentration - - Weight 106.5 kg (234 lb 12.8 oz) 2017 11:22 AM RN CHEMICAL DEPENDENCY Height 172.7 cm (5' 8 ) 10/19/2017 11:2 2 AM RN CHEMICAL DEPENDENCY Body Mass Index 35.7 10/19/2017 11:22 AM RN CHEMICAL DEPENDENCY Procedures * COMP MET PANEL (EXTERNAL RESULT ENTRY)(Performed 01/19/2019) * HEPATITIS C RNA QUANTITATIVE(Performed 11/23/2018) * CBC W AUTO DIFFERENTIAL(Performed 11/23/2018) * COMPREHENSIVE METABOLIC PANEL(Performed 11/23/2018) * HEPATITIS C REAL-TIME PCR QUANTASURE(Performed 02/16/2015) * CBC W AUTO DIFFERENTIAL(Performed 02/16/2015) * COMPREHENSIVE METABOLIC PANEL(Performed 02/16/2015) * HEPATITIS C REAL-TIME PCR QUANTASURE(Performed 12/15/2014) * CBC W AUTO DIFFERENTIAL(Performed 12/15/2014) * COMPREHENSIVE METABOLIC PANEL(Performed 12/15/2014) * HEPATITIS C REAL-TIME PCR QUANTASURE(Performed 08/18/2014) * COMPREHENSIVE METABOLIC PANEL(Performed 08/18/2014) * CBC W AUTO DIFFERENTIAL(Performed 08/18/2014) * HEPATITIS C REAL-TIME PCR QUANTASURE(Performed 06/26/2014) * COMPREHENSIVE METABOLIC PANEL(Performed 06/26/2014) * CBC W AUTO DIFFERENTIAL(Performed 06/26/2014) * HEPATITIS C GENOTYPE(Performed 04/26/2014) * HEPATITIS C RNA QUANTITATIVE(Performed 04/26/2014) * COMPREHENSIVE METABOLIC PANEL(Performed 04/26/2014) * PT-INR [facility](Performed 04/26/2014) * CBC W AUTO DIFFERENTIAL(Performed 04/26/2014) * CBC W AUTO DIFFERENTIAL(Performed 04/26/2014) * GROSS EXAM PATHOLOGY(Performed 10/17/2007) Results * COMP MET PANEL (EXTERNAL RESULT ENTRY) (01/19/2019) Glucose (EXTERNAL) mg/dL Sodium (EXTERNAL RESULT) mmol/L Potassium (EXTERNAL RESULT) mmol/L Chloride (EXTERNAL RESULT) mmol/L CO2 (EXTERNAL) mmol/L Calcium (EXTERNAL RESULT) mg/dL Anion Gap (EXTERNAL RESULT) mmol/L BUN (EXTERNAL RESULT) mg/dL Creatinine (EXTERNAL RESULT) mg/dl Alkaline Phosphatase (EXTERNAL RESULT) U/L ALT (EXTERNAL RESULT) 19 6 - 29 U/L AST (EXTERNAL RESULT) 21 10 - 35 U/L Protein Total (EXTERNAL RESULT) gm/dL Albumin (EXTERNAL RESULT) gm/dL Bilirubin Total (EXTERNAL RESULT) 0.4 0.2 - 1.2 mg/dL eGFR MDRD (EXTERNAL RESULT) mL/min/1.7 3m2 eGFR (EXTERNAL) mL/min/1.7 3m2 Blood BLOOD SPECIMEN / Unknown 01/19/2019 Historical Provider LAB - CHEMISTRY O RDERABLES * HEPATITIS C RNA QUANTITATIVE (11/23/2018 9:26 AM RN CHEMICAL DEPENDENCY) Only the most recent of2 resultswithin the time period is included. Pathologist [facility] Hepatitis C Virus RNA, Quantitative Real Time PCR <15 NOT DETECTED NOT DETECTED IU/mL [facility] Hepatitis C Virus RNA, Quantitative Real Time PCR <1.18 NOT DETECTED NOT DETECTED Log IU/mL [facility] See Note [facility] Comment: This test was performed using Real-Time Polymerase Chain Reaction. Reportable Range: 15 IU/mL to 100,000,000 IU/mL (1.18 Log IU/mL to 8.00 Log IU/mL). The analytical performance characteristics of this assay have been determined by [employer]. The modifications have not been cleared or approved by the FDA. This assay has been validated pursuant to the CLIA regulations and is used for clinical purposes. For more information on this test, go to: http://education.BEST Athlete Management/faq/KEQ77h5 (This link is being provided for informational/ educational purposes only.) REPORT COMMENT: 1 F 3 ORDERS FASTING:YES Test Performed at: [facility] [address] [place] [address] TEO RAINEY DO,MPH 11/23/2018 9:26 AM RN CHEMICAL DEPENDENCY 11/23/2018 9:27 AM RN CHEMICAL DEPENDENCY Raleigh Sheth MD LAB - CHEMISTRY [facility] [facility] Organization Address City/State/[facility] Co de Phone Number [facility] [address] [place] [address] * (ABNORMAL) CBC WITH DIFFERENTIAL (11/23/2018 9:26 AM RN CHEMICAL DEPENDENCY) Only the most recent of7 resultswithin the time period is included. Pathologist [facility] White Blood Cell Count 11.7(H) 3.8 - 10.8 Thousand/u L [facility] RBC 5.81(H) 3.80 - 5.10 Million/uL [facility] Hemoglobin 16.2(H) 11.7 - 15.5 g/dL [facility] Hematocrit 48.6(H) 35.0 - 45.0 % [facility] MCV 83.6 80.0 - 100.0 fL [facility] MCH 27.9 27.0 - 33.0 pg [facility] MCHC 33.3 32.0 - 36.0 g/dL [facility] RDW 14.0 11.0 - 15.0 % [facility] Platelet Count 228 140 - 400 Thousand/u L [facility] MPV 11.5 7.5 - 12.5 fL [facility] Neutrophil Absolute 8073(H) 1500 - 7800 cells/uL [facility] Lymphocytes Absolute 2492 850 - 3900 cells/uL [facility] Absolute Monocytes 936 200 - 950 cells/uL [facility] Eosinophils Absolute 140 15 - 500 cells/uL [facility] Basophils Absolute 59 0 - 200 cells/uL [facility] Granulocytes % 69 % [facility] Lymphocytes % 21.3 % [facility] Monocytes % 8.0 % [facility] Eosinophils % 1.2 % [facility] Basophils % 0.5 % [facility] Comment: Test Performed at: [facility] [address] [place] [address] TEO RAINEY DO,MPH 11/23/2018 9:26 AM RN CHEMICAL DEPENDENCY 11/23/2018 9:27 AM RN CHEMICAL DEPENDENCY Raleigh Sheth MD LAB - HEMATOLOGY ORD ERABLES [facility] [address] [place] [address] * (ABNORMAL) COMPREHENSIVE METABOLIC PANEL (11/23/2018 9:26 AM RN CHEMICAL DEPENDENCY) Only the most recent of6 resultswithin the time period is included. Glucose 165(H) 65 - 99 mg/dL [facility] Comment: Fasting reference interval For someone without known diabetes, a glucose value >125 mg/dL indicates that they may have diabetes and this should be confirmed with a follow-up test. BUN 6(L) 7 - 25 mg/dL [facility] Creatinine 0.70 0.50 - 0.99 mg/dL [facility] Comment: For patients >49 years of age, the reference limit for Creatinine is approximately 13% higher for people identified as -Brazilian. eGFR by MDRD 92 > OR = 60 mL/min/1.7 3m2 [facility] eGFR by MDRD 106 > OR = 60 mL/min/1.7 3m2 [facility] BUN/Creatinine Ratio 9 6 - 22 (calc) [facility] Sodium 140 135 - 146 mmol/L [facility] Potassium 4.0 3.5 - 5.3 mmol/L [facility] Chloride 102 98 - 110 mmol/L [facility] CO2 26 20 - 32 mmol/L [facility] Calcium 9.3 8.6 - 10.4 mg/dL [facility] Protein Total 7.4 6.1 - 8.1 g/dL [facility] Albumin 4.1 3.6 - 5.1 g/dL [facility] Globulin Total 3.3 1.9 - 3.7 g/dL (calc) [facility] Albumin/Globulin Ratio 1.2 1.0 - 2.5 (calc) [facility] Bilirubin Total 0.6 0.2 - 1.2 mg/dL [facility] Alkaline Phosphatase 63 33 - 130 U/L [facility] AST 22 10 - 35 U/L [facility] ALT 19 6 - 29 U/L [facility] Comment: Test Performed at: [facility] [address] [place] [address] TEO RAINEY DO,MPH 11/23/2018 9:26 AM RN CHEMICAL DEPENDENCY 11/23/2018 9:27 AM RN CHEMICAL DEPENDENCY Raleigh Sheth MD LAB - CHEMISTRY [facility] Organization Address City/State/ZIP Co de Phone Number [facility] [address] [place] [address] * HEPATITIS C REAL-TIME PCR QUANTASURE (02/16/2015 11:06 AM CDT) Only the most recent of4 resultswithin the time period is included. Hepatitis C Virus RNA PCR Quantitative <15 NOT DETECTED <15 IU/mL [facility] ([facility]) Hepatitis C Virus RNA Log IU/mL <1.18 NOT DETECTED <1.18 Log IU/mL [facility] ([facility]) See Note [facility] ([facility]) Comment: This test was performed using the CRISTA(R)AmpliPrep/ CRISTA(R)TaqMan(R)HCV Test, v2.0. The performance characteristics of this assay have been determined by [facility]. Performance characteristics refer to the analytical performance of the test. For more information on this test, go to: http://education.Storee.Biophytis/faq/VKM20h8 REPORT COMMENT: FASTING:NO Test Performed at: [facility] [address] [place] [address] TEO RAINEY DO,MPH 02/16/2015 11:0 6 AM CDT 02/16/2015 11:07 AM CDT Raleigh Sheth MD LAB - SEROLOGY ORDER SHELBY Performing Organization Address City/[facility]/ZIP Co de Phone Number [facility] ([facility]) * (ABNORMAL) PT-INR [facility] (04/26/2014 4:08 PM CDT) PT 15.5(H) 12.1 - 14.8 Seconds [facility] INR 1.2 See Comment [facility] Comment: Suggested therapeutic range for low-intensity coumadin therapy for venous thromboembolism prophylaxis is an INR of 2.0-3.0. For high risk patients (Mitral Valve Prosthesis, Atrial Fibrillation, history of TIA/stroke), suggested prophylactic therapeutic range is an INR of 2.5-3.5. Blood specimen (specimen) BLOOD SPECIMEN / Unknown 04/26/2014 4:08 PM CDT 04/26/2014 5:11 PM CDT Narrative [facility] - 04/26/2014 5:31 PM CDT Is patient on Heparin, Argatroban or Dabigatran?->N Raleigh Sheth MD LAB - COAGULATION OR DERABLES Performing Organization Address [facility] Co de Phone Number [address] [phone] * HEPATITIS C GENOTYPE (04/26/2014 4:08 PM CDT) Hepatitis C Genotype 1a Comment See Note [facility] ([facility]) Comment: This assay can detect the six (6) major HCV Genotypes and their most common subtypes. Several clinical studies have demonstrated that Genotype 1 HCV may be more refractory to interferon monotherapy as well as to interferon plus ribavirin combination therapy. Sustained response rates are increased for Genotype 1 infected patients when therapy is given for 48 weeks instead of 24 weeks. This test was developed and its performance characteristics determined by [employer]. It has not been cleared or approved by the U.S. Food and Drug Administration. The FDA has determined that such clearance or approval is not necessary. This test is used for clinical purposes. It should not be regarded as investigational or for research. Blood specimen (specimen) 04/26/2014 4:08 PM CDT 04/26/2014 5:11 PM CDT Narrative [facility] ([facility]) - 05/15/2014 1:18 PM CDT Performed at: [address] [id number] Private Eye: Teo Sandoval MD, Phone: [phone] Raleigh Sheth MD LAB - CHEMISTRY [place] [facility] ([facility]) * GROSS EXAM PATHOLOGY (10/17/2007 1:03 PM RN CHEMICAL DEPENDENCY) Result CASE NUMBER [id number] Comment: ORDERING PHYSICIAN ARETHA CASTELLANOS SPECIMEN TYPE Kidney Biopsy-left Date 10/17/2007 Physician Kei Castellanos Gross Description The specimen is received in a saline filled container labeled with the patient's name and left renal biopsy . It consists of multiple cores of soft marcus brown tissue each measuring 1.8 x 0.1 x 0.1 cm. The specimen is sent to [facility] for immunofluorescence, electron microscopy and routine H/E staining. HW/bk Diagnosis I. Kidney, left, biopsy -- Gross examination only [facility]/melissa Collet Maker na Pathologist Gabriel Mcgarry M.D. [place]. 10/18/2007 0934 <1> CPT code 35843 MISCELLANEOUS SAMPLES / Unknown 10/17/2007 1:03 PM RN CHEMICAL DEPENDENCY 10/17/2007 1:04 PM RN CHEMICAL DEPENDENCY Historical Provider LAB - PATHOLOGY/C YTOLOGY ORDERABLES
--- OUTSIDE RECORDS SUMMARY | 2024-11-08 13:05 | XMS_ITS | Referral Summary ---
Author Organization [facility] Address [address] [place] [address] Care Team Providers Care Sewer And Drain Technician Name Role Phone Unavailable Primary Care Provider Unavailabl e Source Comments [facility],non-owned Affiliates and Associated Physician Practices is amultiple site organization consisting of ambulatory clinics and hospital sitesin [place], [place], [place] and [place]. This disclosure is being madepursuant to the Care Everywhere program and may not contain all information available regarding this patient. Last updated 18.[facility] Social History Tobacco Use Types Packs/Day Years Used Date Smoking Tobacco: Never Assessed Sex and Gender Information Value Date Recorded Sex Assigned at Not on file Gender Identity Not on file Sexual Orientation Not on file Last Filed Vital Signs Vital Sign Reading Time Taken Comments Blood Pressure 186/113 10/19/2017 11:22 AM SENIOR ASSISTANT MANAGER Pulse 67 10/19/2017 11:22 AM SENIOR ASSISTANT MANAGER Temperature 36.9 C (98.5 F) 03/05/2015 10:34 AM CDT Respiratory Rate 16 03/05/2015 10:3 4 AM CDT Oxygen Saturation - - Inhaled Oxygen Concentration - - Weight 106.5 kg (234 lb 12.8 oz) 2017 11:22 AM SENIOR ASSISTANT MANAGER Height 172.7 cm (5' 8 ) 10/19/2017 11:2 2 AM SENIOR ASSISTANT MANAGER Body Mass Index 35.7 10/19/2017 11:22 AM SENIOR ASSISTANT MANAGER Plan of Treatment Not on file Procedures Procedure Name Priority Date/Time Associated Diagnosis Comments HEPATITIS C RNA QUANTITATIVE 11/23/2018 9:26 AM SENIOR ASSISTANT MANAGER from Last 3 Months or Most Recently Relevant to Health Maintenance Results * HEPATITIS C RNA QUANTITATIVE (11/23/2018 9:26 AM SENIOR ASSISTANT MANAGER) Hepatitis C Virus RNA, Quantitative Real Time [...] of this assay have been determined by [employer]. The modifications have not been cleared or approved by the FDA. This assay has been validated pursuant to the CLIA regulations and is used for clinical purposes. For more information on this test, go to: http://education.Zazuba/faq/YML54j5 (This link is being provided for informational/ educational purposes only.) REPORT COMMENT: 1 F 3 ORDERS FASTING:YES Test Performed at: [email or web address] [id number] [place] [address] JANE RAINEY DO,MPH 11/23/2018 9:26 AM SENIOR ASSISTANT MANAGER 11/23/2018 9:27 AM SENIOR ASSISTANT MANAGER Raleigh Sheth MD LAB - CHEMISTRY [facility] [facility] Organization Address City/State/ZIP Co de Phone Number [facility] [address] [place] [address] from Last 3 Months or Most Recently Relevant [place] [address]
--- OUTSIDE RECORDS SUMMARY | 2024-11-08 13:05 | XMS_ITS | Encounter Summary ---
Author Organization [facility] Address [facility] [place] [address] Care Team Providers Care Branch Services Manager Name Role Phone Eduin Dodd MD Primary Care Provider [phone] Kentrell Figueroa MD Unavailable [phone] [facility] Records Unavailable Jerry Ivory MD Unavailable [phone] Maddi Wagoner MD Unavailable [phone] Red Zaragoza MD Unavailable Chani Dupont MD Unavailable [phone] Evonne Bello DPM Unavailable [phone] Barbara Winkler Unavailable [phone] Eduin Dodd MD Unavailable Barbara Winkler Primary Care Provider [phone] Eduin Dodd MD Primary Care Provider [phone] Encounter Details Date Type Department Care Team (Late st Contact Info) Description 06/10/2023 [employer] Company[employer] Message Enc [facility] Medical Group Multispecialty Care - [address] [place] [address] [place] [address] [place] [address] [address] [place] [address] Joe Social History Tobacco Use Types Packs/Day Years [...] Sex Assigned at Female 10/10/2024 1:24 PM HEALTH INSURANCE SALES AGENT Legal Sex Female 4:08 PM CDT Gender Identity Female 11/03/2021 4:38 AM HEALTH INSURANCE SALES AGENT Sexual Orientation Straight 11/03/2021 4: 38 AM HEALTH INSURANCE SALES AGENT documented as of this encounter Plan of Treatment Upcoming Encounters Date Type Department Care Team (Late st Contact Info) Description 11/10/2024 10:00 AM HEALTH INSURANCE SALES AGENT Allied Health/Nurse Visit [facility] Medical [address] [address] Eduin Dodd MD [address] [place] [address] 11/13/2024 12:45 PM HEALTH INSURANCE SALES AGENT Office Visit [facility] Physical Therapy [address] [place] [address] Eduin Dodd MD [facility] [address] [address] Nallely Peterson, PT 1 [place] [address] 02/14/2025 10:20 AM CDT [facility] [place] [address] [address] [place] [address] Eduin Dodd MD [address] [place] [address] 04/04/2025 10:30 AM CDT Office Visit [facility] Medical Group Multispecialty Care - [place] [address] [address] [place] [address] Eduin Dodd MD [address] [address] documented as of this encounter Visit Diagnoses Not on filedocumented in this encounter Additional Health Concerns Infection Onset Date Last Indicated Resolved Time COVID-19 Rule Out 04/01/2024 04/01/2024 04/01/2024 4:14 PM CDT Assessment Noted Time PHQ-9 Depression Total Score: 3 04/26/20 2:03 PM CDT documented as of this encounter Care Teams Branch Services Manager Relationship Specialty Start Date End Date Eduin Dodd MD [address] [place] [address] PCP - General INTERNAL MEDICINE 03/09/23 10/09/24 Barbara Winkler PA [address] [place] [address] PCP - General PHYSICIAN SELLING MANAGER 10/10/24 10/10/24 Eduin Dodd MD [address] [place] [address] PCP - General INTERNAL MEDICINE 10/11/24 Kentrell Figueroa MD 1 [place] [address] Medical Oncologist HEMATOLOGY/ONCOLOGY 03/22/24 [facility], - Records [address] [place] [address] 03/22/24 Jerry Ivory MD [address] [facility] [address] [place] [address] HEMATOLOGY/ONCOLOGY 03/22/24 [place] [address] [facility] [address] [place], [place] [id number] INTERNAL MEDICINE 03/22/24 Red Zaragoza MD [address] [facility] [address] [place] [address] INTERVENTIONAL CARDIOLOGY 03/22/24 Chani Dupont MD [address] [facility] [address] [place] [address] Referring Physician NEPHROLOGY 03/22/24 Evonne Bello, DPM [address] [facility] [address] [place] [address] Surgeon Small Business Consultant - Foot & Ankle Surgery 03/22/24 Barbara Winkler PA [address] [place] [address] PHYSICIAN SELLING MANAGER 03/22/24 Eduin Dodd MD [address] [facility] [address] [place] [address] Consulting Physician INTERNAL MEDICINE 10/10/24 documented as of this encounter
--- OUTSIDE RECORDS SUMMARY | 2024-11-08 13:05 | XMS_ITS | Encounter Summary ---
Author Organization [facility] - [facility] Address [facility] [place] [address] Care Team Providers Care Communications Specialist Name Role Phone Kentrell Figueroa MD Unavailable [phone] [facility] Eye [facility] [place], Records Unavailable Jerry Ivory MD Unavailable [phone] Maddi Wagoner MD Unavailable [phone] Red Zaragoza MD Unavailable Chani Dupont MD Unavailable [phone] Evonne Bello DPM Unavailable [phone] Barbara Winkler Unavailable [phone] Eduin Dodd MD Unavailable Eduin Dodd MD Primary Care Provider [phone] Encounter Details Date Type Department Care Team (Late st Contact Info) Description 10/13/2024 MyChart Message Enc [facility] Multispecialty Care - [place] [address] [facility] [address] [place] [address] Eduin Dodd MD [address] [facility] [address] [place] [address] Question Social History Tobacco Use Types Packs/Day Years [...] Sex Assigned at Female 10/10/2024 1:24 PM SKILL LABOR Legal Sex Female 4:08 PM CDT Gender Identity Female 11/03/2021 4:38 AM SKILL LABOR Sexual Orientation Straight 11/03/2021 4: 38 AM SKILL LABOR documented as of this encounter Plan of Treatment Upcoming Encounters Date Type Department Care Team (Late st Contact Info) Description 11/10/2024 10:00 AM SKILL LABOR Allied Health/Nurse Visit [address] [address] Eduin Dodd MD [address] [place] [address] 11/13/2024 12:45 PM SKILL LABOR Office Visit [facility] Physical Therapy [address] [place] [address] Eduin Dodd MD [address] [place] [address] Nallely Peterson, PT 1 [place] [address] 02/14/2025 10:20 AM CDT [facility] [address] Eduin Dodd MD Replaced by [facility] 157 [place] [address] 04/04/2025 10:30 AM CDT Office Visit [facility] Multispecialty Care - [place] [address] [facility] [address] [place] [address] Eduin Dodd MD 1188 [facility] 157 [place] [address] documented as of this encounter Visit Diagnoses Not on filedocumented in this encounter Additional Health Concerns Assessment Noted Time PHQ-9 Depression Total Score: 4 03/21/20 24 1:05 PM CDT documented as of this encounter Care Teams Communications Specialist Relationship Specialty Start Date End Date Eduin Dodd MD [address] [place] [address] 157 [place] [address] PCP - General INTERNAL MEDICINE 10/11/24 Kentrell Figueroa MD 1 [place] [address] Medical Oncologist HEMATOLOGY/ONCOLOGY 03/22/24 [facility], - Records [address] [place] [address] 03/22/24 Jerry Ivory MD [address] [facility] [address] [place] [address] HEMATOLOGY/ONCOLOGY 03/22/[address] [place] [address] [facility] [address] [place] [address] INTERNAL MEDICINE 03/22/24 Red Zaragoza MD 6810 [facility] [address] [place] [address] INTERVENTIONAL CARDIOLOGY 03/22/24 Chani Dupont MD 1034 [facility] 1280 [place] [address] Referring Physician NEPHROLOGY 03/22/24 Evonne Bello DPM [address] [facility] 1280 [place] [address] Surgeon Tip Bander - Foot & Ankle Surgery 03/22/24 Barbara Winkler PA [facility] [place] [address] PHYSICIAN REAL ESTATE DEVELOPMENT MANAGER 03/22/24 Eduin Dodd MD 1188 [facility] 157 [place] [address] Consulting Physician INTERNAL MEDICINE 10/10/24 documented as of this encounter
--- OUTSIDE RECORDS SUMMARY | 2024-11-08 13:05 | XMS_ITS | Clinical Summary ---
Author Organization [email or web address] Address [address] [facility] [place] [place] [address] Care Team Providers Care Inspector Hairspring Name Role Phone Unavailable Primary Care Provider Unavailabl e Source Comments [email or web address],non-owned Affiliates and Associated Physician Practices is amultiple site organization consisting of ambulatory clinics and hospital sitesin [place] and [place]. This disclosure is being madepursuant to the Care Everywhere program and may not contain all information available regarding this patient. Last updated 18.[email or web address] Social History Tobacco Use Types Packs/Day Years Used Date Smoking Tobacco: Never Assessed Sex and Gender Information Value Date Recorded Sex Assigned at Not on file Gender Identity Not on file Sexual Orientation Not on file Last Filed Vital Signs Vital Sign Reading Time Taken Comments Blood Pressure 186/113 10/19/2017 11:22 AM AIRPORT MANAGER Pulse 67 10/19/2017 11:22 AM AIRPORT MANAGER Temperature 36.9 C (98.5 F) 03/05/2015 10:34 AM CDT Respiratory Rate 16 03/05/2015 10:3 4 AM CDT Oxygen Saturation - - Inhaled Oxygen Concentration - - Weight 106.5 kg (234 lb 12.8 oz) 2017 11:22 AM AIRPORT MANAGER Height 172.7 cm (5' 8 ) 10/19/2017 11:2 2 AM AIRPORT MANAGER Body Mass Index 35.7 10/19/2017 11:22 AM AIRPORT MANAGER Plan of Treatment Health Maintenance Due Date Last Done Comments COLOGUARD (AGES 45-75) - COLON CA SCREENING 1954 COLON MONITORING 1954 COLONOSCOPY - COLON CA SCREENING 1954 CT COLONOGRAPHY - COLON CA SCREENING 1954 Colorectal Cancer Screening 1954 FIT - COLON CA SCREENING 1954 FLEX SIG - COLON CA SCREENING 1954 LIPID TESTING 1954 MEDICARE AWV 12 MONTHS 1954 DTAP/TDAP/TD VACCINES (1 - Tdap) 1973 PNEUMOCOCCAL VACCINE 50+ (1 of 1 - PCV) 2004 ZOSTER VACCINE (1 of 2) 2004 HEPATITIS B VACCINE (1 of 3 - Risk 3-dose series) 2014 COVID-19 VACCINE (2 - season) 2024 11/28/2020 INFLUENZA VACCINE (#1) 2024 06/20/2019, 2013 MAMMOGRAM 09/01/2024 09/01/2022 DEPRESSION SCREENING 09/20/2024 Respiratory Syncytial Virus (RSV) Vaccine Pt: or over 60 yrs (1 - 1-dose 75+ series) 2029 HEPATITIS C SCREENING Completed 11/23/2018 , 08/04/2018, 10/19/2017, Additional history exists BONE DENSITY TESTING Completed 08/13/2023 HIB VACCINE Aged Out No longer eligi ble based on patient's age to complete this topic HPV VACCINE Aged Out No longer eligi ble based on patient's age to complete this topic MENINGOCOCCAL (Group B) VACCINE Aged Out No longer eligible based on patient's age to complete this topic MENINGOCOCCAL VACCINE Aged Out No paige darleen eligible based on patient's age to complete this topic Procedures Procedure Name Priority Date/Time Associated Diagnosis Comments HEPATITIS C RNA QUANTITATIVE 11/23/2018 9:26 AM AIRPORT MANAGER from Last 3 Months or Most Recently Relevant to Health Maintenance Results * HEPATITIS C RNA QUANTITATIVE (11/23/2018 9:26 AM AIRPORT MANAGER) Hepatitis C Virus RNA, Quantitative Real [...] of this assay have been determined by [employer]. The modifications have not been cleared or approved by the FDA. This assay has been validated pursuant to the CLIA regulations and is used for clinical purposes. For more information on this test, go to: http://education.[employer]/faq/FOG69z1 (This link is being provided for informational/ educational purposes only.) REPORT COMMENT: 1 F 3 ORDERS FASTING:YES Test Performed at: [facility] [address] [place] [address] JANE RAINEY DO,MPH 11/23/2018 9:26 AM AIRPORT MANAGER 11/23/2018 9:27 AM AIRPORT MANAGER Raleigh Sheth MD LAB - CHEMISTRY [place] [facility] [place] [id number] [place] [address] from Last 3 Months or Most Recently Relevant [place] [address]
--- OUTSIDE RECORDS SUMMARY | 2024-11-08 13:05 | XMS_ITS | Clinical Summary ---
Author Organization [facility] [address] Address [address] [place] [address] Care Team Providers Care Insecticide Mixer Name Role Phone Rozina Murrieta MD Unavailable Micaela Gamble MD Unavailable Barbara Winkler Primary Care Provider [phone] Allergies Active Allergy Reactions Criticality Noted Date Comments Acetaminophen Other (See comments),Rash Medium 08/22/2015 other Contraindicated hep c Adhesive Rash Medium 04/17/2021 Adhesive Tape-Silicones Rash Medium 04/17/2021 Amlodipine Rash Medium 07/06/2022 Aspirin Hives Medium Benzocaine Fever,Other (See comments) Medium 07/06/2022 Butalbital Hives Medium Glmespyrqq-Rlcpbmv-Ohxwxh ne Hives High 07/06/2022 Exenatide Microspheres Shortness [...] Menopause 2 10/11/19 18 Active DEXCOM G6 MACHINE ADJUSTER LEADER CASE TRIM miscIndication s:Type 2 diabetes mellitus with hyperglycemia, [...] 09/08/2022 Assessment & Plan (09/08/2022 12:28 PM MAGNETIC LOCATER): Patient declines use of statins Palpitations 06/16/2022 Paresthesia 06/16/2022 Noncompliance with medication regimen 08/21/2019 Coronary artery disease invo lving habematolel coronary artery of habematolel heart without angina pectoris 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 Last lipid panel: 04/28/24 SGJ=370, QR=230. Assessment & Plan (01/28/2023 1:37 PM CDT): Pt still refusing statins. Assessment & Plan (09/08/2022 11:55 AM MAGNETIC LOCATER): Chronic, well controlled Low fat Low cholesterol diet Exercise Assessment & Plan (05/07/2022 3:10 PM CDT): Chronic, well controlled Low fat Low cholesterol diet Exercise Continue statin therapy Check lipid profile Assessment & Plan (10/30/2021 1:34 PM MAGNETIC LOCATER): Continue Crestor, Low cholesterol Low fat diet [...] Rosuvastatin Assessment & Plan (10/24/2020 9:36 AM MAGNETIC LOCATER): Due to the high risk of of [...] UTD on DM eye exam ([facility] in [place] 04/2024). Letter sent to get copy of [...] infection. Assessment & Plan (08/24/2023 11:49 AM MAGNETIC LOCATER): Hba1c was Lab Results Component Value Date [...] Tradjenta Assessment & Plan (09/08/2022 12:29 PM MAGNETIC LOCATER): Hba1c was Lab Results Component Value Date [...] inhibitors Assessment & Plan (10/30/2021 1:34 PM MAGNETIC LOCATER): Hba1c was Lab Results Component Value Date [...] regimen Assessment & Plan (10/24/2020 9:35 AM MAGNETIC LOCATER): Hba1c was Lab Results Component Value Date [...] discussed. Assessment & Plan (10/11/2018 9:43 AM MAGNETIC LOCATER): Hba1c was Lab Results Component Value Date [...] goal hba1c is under 7.0 to prevent fci diabetes complications ( eye , kidney and [...] goal hba1c is under 7.0 to prevent superintendent terminal diabetes complications ( eye , kidney and [...] goal hba1c is under 7.0 to prevent superintendent terminal diabetes complications ( eye , kidney and [...] Tradjenta. Assessment & Plan (09/30/2017 11:18 AM MAGNETIC LOCATER): Your Hba1c today was: 8.8 meaning a 3 month average sugar of : 207 Your goal hba1c is under 7.0 to prevent fci diabetes complications ( eye , kidney and [...] (03/02/2017 10:51 AM CDT): Hba1c was 7.5 [id number] calorie, consistent carb diet recommended 30 min [...] GFR Assessment & Plan (09/08/2022 12:28 PM MAGNETIC LOCATER): Chronic, well-controlled Continue current medications including lisinopril Assessment & Plan (05/07/2022 3:10 PM CDT): Chronic, well controlled Importance of low salt diet and exercise were discussed Continue current meds Assessment & Plan (10/30/2021 1:35 PM MAGNETIC LOCATER): Chronic, well controlled Continue current meds Check MA Assessment & Plan (10/24/2020 9:34 AM MAGNETIC LOCATER): Goal blood pressure is less than 140/85 [...] ARB Assessment & Plan (10/11/2018 9:44 AM MAGNETIC LOCATER): Goal blood pressure is less than 140/85 [...] ARB Assessment & Plan (09/30/2017 11:18 AM MAGNETIC LOCATER): Goal blood pressure is less than 140/85 [...] (12/25/2016): HEPATITIS C CARRIER Tobacco dependence 11/13/2010 Surgical History Surgery Date Site/Laterality Comments OTHER SURGICAL HISTORY membrane basement disease: see renal doctor CHOLECYSTECTOMY Cholecystectomy OTHER SURGICAL HISTORY left hand carpal tunnel surgery APPENDECTOMY BREAST SURGERY CATARACT EXTRACTION HERNIA REPAIR HYSTERECTOMY BREAST BIOPSY 04/25/2021 Right BREAST BIOPSY 04/25/2021 Right Medical History Medical History Date Comments Diabetes mellitus (HCC) Diabetes Hepatitis C virus infection Hepa titis C Hx Other Medical membrane baseme nt disease Type 2 diabetes mellitus (HCC) D iabetes type 2; Comments: [facility] 02/15/2014 - Hypertension Hypertension Hepatic cirrhosis (HCC) Cirrhosi s of liver Hx Other Medical not claustropho bic; Comments: [facility] 04/03/2014 - Rheumatoid arthritis (HCC) Rheum atoid arthritis; Comments: [facility] 08/25/2016 - Cancer (CMS/HCC) (HCC) Breast & Uterine Cancer Cataract Brain concussion Emphysema of lung (HCC) COPD Heart disease Myocardio Bridge Chronic kidney disease Minimal Membrane Basement Disease Neuromuscular disorder (HCC) Neuropathy in both legs Family History Medical History Relation Name Comments Other Father car accident Other Mother COPD, old age Other Other Family history of Diabetes -Type I; Relation Name Status Comments Father (Age 28) Mother (Age 81) Other Social History Tobacco Use Types Packs/Day Years [...] on file Legal Sex Female 6:39 PM MAGNETIC LOCATER Gender Identity Female 04/11/2020 10:32 AM CDT Sexual Orientation Straight 04/11/2020 10 :32 AM CDT Obstetrics History Last Filed Vital Signs Vital Sign Reading [...] 06/19/2024 11:22 AM CDT Plan of Treatment Health Maintenance Due Date Last Done Comments Colon Cancer Screening-Colonoscopy 1954 Hepatitis B Screening 1972 Zoster Vaccine (1 of 2) 2004 Pneumococcal vaccine 65+ (2 of 2 - PPSV23) 01/25/2017 11/30/2016 Well Visit 65+ 2019 Albumin Creatinine Ratio, Urine 01/29/2024 01/28/2023, 10/30/2021, 08/21/2020 eGFR 01/29/2024 01/28/2023 Covid-19 Vaccine (2 - 2023-2 5 season) 2024 11/28/2020 Influenza Vaccine (#1) 2024 06/20/2019, 2013 Depression Screening 08/24/2024 08/24/2023, 09/08/2022, 05/07/2022, Additional history exists Fall Risk Assessment 08/24/2024 08/24/2023 Hemoglobin A1C 12/17/2024 06/19/2024, 1201/2023, 01/28/2023, Additional history exists Breast Cancer Screening-Mammogram 05/04/2025 05/04/2024, 05/04/2024, 09/01/2022, Additional history exists Foot Exam 06/19/2025 06/19/2024, 01/18, 10/30/2021, Additional history exists Osteoporosis Screening-Bone Density Scan 08/13/2025 08/13/2023, 01/31/2016, 01/31/2016 Lipid Panel 09/04/2025 09/04/2024, 080 05/2024, 05/05/2023, Additional history exists Dilated Eye Exam 04/25/2026 04/25/2024, 01/2023, 12/11/2021, Additional history exists DTaP/Tdap/Td Vaccine (2 - Td or Tdap) 08/31/2027 08/31/2017 Hepatitis C Screening Completed 08/21/2019 , 12/23/2017, 09/28/2017, Additional history exists Procedures Procedure Name Priority Date/Time Associated Diagnosis Comments POCT HEMOGLOBIN A1C Routine 06/19/2024 1 1:27 AM CDT Type 2 diabetes mellitus with hyperglycemia, without long-term current use of insulin ([facility] ([facility]) POCT LIPID PANEL Routine 04/28/2024 11:0 1 AM CDT Mixed diabetic hyperlipidemia associated with type 2 diabetes mellitus ([facility]) ([facility]) HM DIABETES EYE EXAM Routine 04/25/2024 9:19 AM CDT EGFR Routine 01/28/2023 1:52 PM CDT Type 2 diabetes mellitus with hyperglycemia, with long-term current use of insulin ([facility] ([facility]) ALBUMIN CREATININE RATIO, URINE Routine 01/28/2023 1:52 PM CDT Type 2 diabetes mellitus with hyperglycemia, with long-term current use of insulin ([facility]) ([facility]) from Last 3 Months or Most Recently [...] blood 04/28/2024 1 1:01 AM CDT Red Zaragzoa MD POINT OF CARE TEST ORDE RABLES Final Result * HM DIABETES EYE EXAM (04/25/2024 9:19 AM CDT) Historical Provider HEALTH MAINTENANCE Edited Result - Final * [...] of Race in Diagnosing Kidney Disease, JASN 202). The CKD-EPI equation should not be used for patients with unstable renal function and has not been validated in children and those over 70. Current interpretive data was last reviewed 2021. Blood 01/28/2023 1:52 PM CDT 01/28/2023 9:15 PM CDT Rozina Murrieta MD LAB BLOOD ORDERABLES Final Resul t ERIC LUND [address] Department [place] [address] * Albumin Creatinine Ratio, Urine (01/28/2023 1:52 PM CDT) Albumin Ur <12.0 mg/L ER[facility] LUND Comment: Interpretive Data No reference range established. Current interpretive data was last revised 2019. Creatinine Ur 71.1 mg/dL ERIC Comment: Interpretive Data No reference range established. Current interpretive data was last revised 2019. Albumin Creatinine Ratio, Ur <17 1 - 29 mg/g ERIC Urine 01/28/2023 1:52 PM CDT 01/28/2023 9:13 PM CDT us Rozina Murrieta MD LAB URINE ORDERABLES Final Resul t ERIC [id number] Department [place] [address] from Last 3 Months or Most Recently Relevant to Health Maintenance Insurance MEDICARE [employer] MEDICARE FOR LIFE Care Teams Insecticide Mixer Relationship Specialty Start Date End Date Barbara Winkler PA [address] [place] [address] PCP - General Physician Rehabilitation Liaison 06/19/24 [place] [address] [facility] [address], [place] [address] Consulting Physician Endocrinology Diabetes & Metabolism 05/31/19 Micaela Gamble MD [facility]0 [facility] [address] [place] [address] Consulting Physician Pain Management 03/12/21
--- OUTSIDE RECORDS SUMMARY | 2024-11-08 13:05 | XMS_ITS | Encounter Summary ---
Author Organization [facility] Address [facility] [place] [address] Care Team Providers Care Antique Clock Repairer Name Role Phone Eduin Dodd MD Primary Care Provider [phone] Kentrell Figueroa MD Unavailable [phone] [facility] Records Unavailable Jerry Ivory MD Unavailable [phone] Maddi Wagoner MD Unavailable [phone] Red Zaragoza MD Unavailable Chani Dupont MD Unavailable Evonne Bello DPM Unavailable [phone] Barbara Winkler Unavailable [phone] Eduin Dodd MD Unavailable Barbara Winkler Primary Care Provider [phone] Eduin Dodd MD Primary Care Provider [phone] Encounter Details Date Type Department Care Team (Latest Contact Info) Description 02/22/2024 Cuff-Protectt Message Enc [facility] Multispecialty Care - [address] [place] [address] Eduin Dodd MD 1188 [facility] [address] [place] [address] Rheumatology referral Social History Tobacco Use Types Packs/Day Years [...] Sex Assigned at Female 10/10/2024 1:24 PM COUPON CLERK Legal Sex Female 4:08 PM CDT Gender Identity Female 11/03/2021 4:38 AM COUPON CLERK Sexual Orientation Straight 11/03/2021 4: 38 AM COUPON CLERK documented as of this encounter Plan of Treatment Upcoming Encounters Date Type Department Care Team (Late st Contact Info) Description 11/10/2024 10:00 AM COUPON CLERK Allied Health/Nurse Visit [address] [address] Eduin Dodd MD [address] [place] [address] 11/13/2024 12:45 PM COUPON CLERK Office [facility] Physical Therapy [address] [place] [address] Eduin Dodd MD [facility] [address] Nallely Peterson, PT 1 [place] [address] 02/14/2025 10:20 AM CDT Office Visit [place] [address] [address] [place] [address] Eduin Dodd MD [address] [place] [address] 04/04/2025 10:30 AM CDT Office Visit [facility] Group Multispecialty Care - [place] [address] [address] [place] [address] Eduin Dodd MD [address] [address] documented as of this encounter Visit Diagnoses Not on filedocumented in this encounter Additional Health Concerns Infection Onset Date Last Indicated Resolved Time COVID-19 Rule Out 04/01/2024 04/01/2024 04/01/2024 4:14 PM CDT Assessment Noted Time PHQ-9 Depression Total Score: 3 04/26/20 2:03 PM CDT documented as of this encounter Care Teams Antique Clock Repairer Relationship Specialty Start Date End Date Eduin Dodd MD [address] [place] [address] PCP - General INTERNAL MEDICINE 03/09/23 10/09/24 Barbara Winkler PA [address] [place] [address] PCP - General PHYSICIAN CAMPUS MONITOR 10/10/24 10/10/24 Eduin Dodd MD [address] [place] [address] PCP - General INTERNAL MEDICINE 10/11/24 Kentrell Figueroa MD 1 [place] [address] Medical Oncologist HEMATOLOGY/ONCOLOGY 03/22/24 [facility] - Records [address] [place] [address] 03/22/24 Jerry Ivory MD [address] [facility] [address] [place] [address] HEMATOLOGY/ONCOLOGY 03/22/24 [place] [address] [facility] [address] [place], [place] [id number] INTERNAL MEDICINE 03/22/24 Red Zaragoza MD 6810 [facility] 162 [address] [place] [address] INTERVENTIONAL CARDIOLOGY 03/22/24 Chani Dupont MD 10[address] [facility] [address] [place] [address] Referring Physician NEPHROLOGY 03/22/24 Evonne Bello, DPM [address] [facility] [address] [place] [address] Surgeon [place] Worker - Foot & Ankle Surgery 03/22/24 Barbara Winkler PA [address] [place] [address] PHYSICIAN CAMPUS MONITOR 03/22/24 Eduin Dodd MD 1188 [facility] 157 [place] [address] Consulting Physician INTERNAL MEDICINE 10/10/24 documented as of this encounter
--- OUTSIDE RECORDS SUMMARY | 2024-11-08 13:05 | XMS_ITS | Continuity of Care Document ---
Author Organization [facility] Address [address] [place] [address] utive [facility] [address] [place] [address] Phone Care Team Providers Care Director Sanitation Bureau Name Role Phone Lee OD, Kentrell Unavailable Unavailable Advance Directives Directive Yes / No Effective Date File Name No Information Encounters Encounter Description Practice Location Reason(s) For Visit Diagnoses Date Provider Providers Copied on Encounter [facility], [address] [place] [address] [address], [place], [place], [id number], [place] tel:[phone] SEC [facility] No Information [phone] Lee OD Kentrell. [address] [facility] [place] , [address], [place], [address], [place]. tel:[phone] Family History Family Member Type Diagnosis Age At Onset No Information Payers Payer name Insurance type Covered constitution party ID Authoriza tion(s) Medicare [facility] [id number] For Life Mdcr Supp CI [id number] Social History Type Description Quantity Date Captured Comments Sex Female Smoking Status No Information Chief Complaint And Reason For Visit No Information Reason For Referral Reason For Referral No Information History Of Present Illness Encounter Date Complaint History Of Prese nt Illness No Information Functional Status Date Functional Assessmen t No Information Instructions Date Instruction Additional Infor mation No Information Assessments Type Assessment Date No Information Patient Care Teams Name Effective Dates (start - stop) Status Members No Information
--- OUTSIDE RECORDS SUMMARY | 2024-11-08 13:05 | XMS_ITS | Encounter Summary ---
Author Organization [facility] Address [facility] [place] [address] Care Team Providers Care Air Brake Worker Name Role Phone Kentrell Figueroa MD Unavailable [phone] [facility] Eye [facility], Records Unavailable Jerry Ivory MD Unavailable [phone] Maddi Wagoner MD Unavailable [phone] Red Zaragoza MD Unavailable Chani Dupont MD Unavailable [phone] Evonne Bello DPM Unavailable [phone] Barbara Winkler Unavailable [phone] Eduin oDdd MD Unavailable Eduin Dodd MD Primary Care Provider [phone] Encounter Details Date Type Department Care Team (Late st Contact Info) Description 10/23/2024 [place] Message [facility] [place] [address] [facility] Amendment Request - Visit Summary Social History Tobacco Use Types Packs/Day Years [...] Sex Assigned at Female 10/10/2024 1:24 PM RECORD PRESS TENDER Legal Sex Female 4:08 PM CDT Gender Identity Female 11/03/2021 4:38 AM RECORD PRESS TENDER Sexual Orientation Straight 11/03/2021 4: 38 AM RECORD PRESS TENDER documented as of this encounter Plan of Treatment Upcoming Encounters Date Type Department Care Team (Late st Contact Info) Description 11/10/2024 10:00 AM RECORD PRESS TENDER Allied Health/Nurse Visit [address] [address] Eduin Dodd MD [address] [place] [address] 11/13/2024 12:45 PM RECORD PRESS TENDER Office Visit [facility] [address] [place] [address] Eduin Dodd MD [address] [place] [address] Nallely Peterson, PT 1 [place] [address] 02/14/2025 10:20 AM CDT Office Visit [address] [address] Eduin Dodd MD [address] [place] [address] 04/04/2025 10:30 AM CDT Office Visit [facility] [address] [place] [address] Eduin Dodd MD [address] [address] documented as of this encounter Visit Diagnoses Not on filedocumented in this encounter Additional Health Concerns Assessment Noted Time PHQ-9 Depression Total Score: 4 03/21/20 24 1:05 PM CDT documented as of this encounter Care Teams Air Brake Worker Relationship Specialty Start Date End Date Eduin Dodd MD [address] [address] PCP - General INTERNAL MEDICINE 10/11/24 Kentrell Figueroa MD 1 [place] [address] Medical Oncologist HEMATOLOGY/ONCOLOGY 03/22/24 [facility], - Records [address] [place] [address] 03/22/24 Jerry Ivory MD [address] [facility] [address] [place] [address] HEMATOLOGY/ONCOLOGY 03/22/24 [place] [address] [facility][1] [address] [place] [address] INTERNAL MEDICINE 03/22/24 Red Zaragoza MD [address] [facility] 162 [facility] 102 [place] [address] INTERVENTIONAL CARDIOLOGY 03/22/24 Chani Dupont MD [address] [facility] [address] [place] [address] Referring Physician NEPHROLOGY 03/22/24 Evonne Bello DPM [address] [facility] [address] [place] [address] Surgeon Chairman Ceo - Foot & Ankle Surgery 03/22/24 Barbara Winkler PA [facility]2 [place] [address] PHYSICIAN TRAFFIC II MANAGER 03/22/24 Eduin Dodd MD [address] [address] Consulting Physician INTERNAL MEDICINE 10/10/24 documented as of this encounter
--- OUTSIDE RECORDS SUMMARY | 2024-11-08 13:05 | XMS_ITS | Clinical Summary ---
Author Organization [facility] Address [address] [place] [address] Care Team Providers Care Cam Milling Machine Operator Name Role Phone Kentrell Figueroa MD Unavailable [phone] [facility], Records Unavailable Jerry Ivory MD Unavailable Maddi Wagoner MD Unavailable [phone] Red Zaragoza MD Unavailable Chani Dupont MD Unavailable Evonne Bello DPM Unavailable Barbara Winkler Unavailable [phone] Eduin Dodd MD Unavailable Eduin Dodd MD Primary Care Provider Allergies Active Allergy Reactions Criticality Noted Date Comments Acetaminophen Other (see comment) 08/22/2015 Contraindicated hep c Amlodipine Rash Medium 05/30/2019 Benzocaine Other (see comment) Medium 07/06/2022 Butalbital Hives Medium 05/30/2019 Mzbctwdqcy-Fvv-Ezqz-Codein e Hives 08/22/2015 Gotexjcxep-Zhrefgf-Pkeexuw e Hives High 07/06/2022 Cefuroxime Dizziness,Other (see comment) Low 04/26/2014 dizzyness dizziness, dizzyness dizziness, Chlorpheniramine Other (see comment) 05/30/2019 Pt does not recall Ciprofloxacin Nausea Only,Other (see comment) Low 04/26/2014 Not sure of her reaction Codeine Rash Medium 08/22/2015 Dextromethorphan Other (see comment) 05/30/2019 Pt does not recall Erythromycin Rash Medium 08/22/2015 Etodolac Rash Low 08/22/2015 Exenatide Shortness of Breath High 03/02/2017 Ibuprofen Rash Medium 08/22/2015 Iodine Rash Medium 04/26/2014 Metformin Rash Low 05/30/2019 Miconazole Other (see comment) Low 01/09/2021 other Nabumetone Rash Medium 08/22/2015 Sulfa Antibiotics Unknown 07/06/2022 Tape Rash Medium 04/17/2021 Wound Dressing Adhesive Rash Medium 04/17/2021 Medications ondansetron 4 MG tablet Take 1 tablet (4 mg total) by mouth every 8 (eight) hours as needed for Nausea. Active EST ESTROGENS-METHYL TEST HS 0.625-1.25 MG tablet Take 1 tablet by mouth daily. 1 Active Milk Thistle 1000 MG Cap Take by mouth daily. Active cyclobenzaprine 10 MG tablet 1/2 tablet twice a day and one tablet @@ bedtime. 1 Active oxyCODONE ER 10 MG 12 hr abuse-deterrent tablet Take 1 tablet (10 mg total) by mouth nightly at bedtime. Active oxyCODONE immediate release 5 MG immediate release tablet Take 1 tablet (5 mg total) by mouth 3 (three) times daily. 2 Active Insulin Pen Needle (BD PEN NEEDLE ELISABET U/F) 32G X 4 MM MiscIndications: Type 2 diabetes mellitus without complication, with long-term current use of insulin ([facility]HS/[facility]) USE THREE TIMES A DAY 200 each 11 3 Active esomeprazole (NEXIUM) 40 MG capsuleIndicatio ns:Gastroesophag eal reflux disease without esophagitis Take 1 capsule (40 mg total) by mouth before breakfast. 90 capsule 1 4 Active hydroCHLOROthiaz kemal (HYDRODIURIL) 25 MG tabletIndication s:Hypertension associated with diabetes ([facility]) Take 1 tablet (25 mg total) by mouth daily. 90 tablet 1 4 Active insulin glargine (LANTUS) 100 UNIT/ML injection (VIAL)Indication s:Type 2 diabetes mellitus without complication, with long-term current use of insulin ([facility]) Inject 38 Units into the skin nightly at bedtime. 30 mL 3 4 Active linaGLIPtin (TRADJENTA) 5 MG tabletIndication s:Type 2 diabetes mellitus without complication, with long-term current use of insulin ([facility]) Take 1 tablet (5 mg total) by mouth daily. 90 tablet 1 4 Active lisinopril (PRINIVIL) 40 MG tabletIndication s:Hypertension associated with diabetes ([facility]) Take 1 tablet (40 mg total) by mouth daily. 90 tablet 1 4 Active folic acid (FOLVITE) 1 MG tablet Take 1 tablet (1 mg total) by mouth daily. 4 Active meclizine (ANTIVERT) 25 MG tabletIndication s:Vertigo Take 2 tablets (50 mg total) by mouth nightly at bedtime. 30 tablet 5 Active insulin lispro prot & lispro (HUMALOG MIX 75/25 KWIKPEN) (75-25) 100 UNIT/ML injection (PEN)Indications :Type 2 diabetes mellitus without complication, with long-term current use of insulin ([facility]) 25 units AM, 30 units after dinner 3 mL 6 5 Active insulin lispro prot & lispro (HUMALOG MIX 75/25 KWIKPEN) (75-25) 100 UNIT/ML injection (PEN)Indications :Type 2 diabetes mellitus without complication, with long-term current use of insulin ([facility]) 25 units AM, 30 units after dinner 3 mL 6 4 10/20/19 25 Discontinue d(Reorder) meclizine (ANTIVERT) 25 MG tablet Take 2 tablets (50 mg total) by mouth 3 (three) times daily as needed. 30 tablet 5 10/11/19 25 Discontinue d(Reorder) diazePAM (VALIUM) 5 MG tabletIndication s:Peripheral vertigo, unspecified laterality Take 1 tablet (5 mg total) by mouth every 6 (six) hours as needed for Anxiety. 15 tablet 5 10/11/19 25 Discontinue d(Other- Please enter comment in Notes field) insulin lispro prot & lispro (HUMALOG MIX 75/25 KWIKPEN) (75-25) 100 UNIT/ML injection (PEN)Indications :Type 2 diabetes mellitus without complication, with long-term current use of insulin ([facility]) 25 units AM, 30 units after dinner 3 mL 6 5 10/27/19 25 Discontinue d(Reorder) Active Problems Problem Noted Date Diagnosed Date Morbid (severe) obesity due to excess calories ([facility]) 04/26/2023 Malignant neoplasm of centra l portion of left female breast, unspecified estrogen receptor status ([facility]) 04/26/2023 Chronic hepatitis C without hepatic coma ([facility]) 04/26/2023 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 Statin declined 09/08/2022 Overview (04/26/2023): Last Assessment & Plan: Patient declines use of statins Paresthesia 06/16/2022 History of right breast biopsy 03/02/2022 Left breast mass 04/21/2021 Breast mass, right 04/21/2021 Noncompliance with medication regimen 08/21/2019 Coronary artery disease invo lving [place] coronary artery of [place] heart without angina pectoris 05/08/2019 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 Proteinuria 07/14/2018 PAD (peripheral artery disease) 05/04/2017 Allergic reaction to drug 12/07/2016 Overview (04/26/2023): Allergic reaction caused by a drug, initial encounter Rheumatoid arthritis ([facility]) 6 Overview (01/22/2022): Rheumatoid arthritis, involving unspecified site, unspecified rheumatoid factor presence Rheumatoid arthritis, involving unspecified site, unspecified rheumatoid factor presence Chronic kidney disease, stag e III (moderate) ([facility] HHS/HCC) 08/25/2016 Overview (04/26/2023): CKD (chronic kidney disease) stage 3, GFR 30-59 ml/min CKD (chronic kidney disease) stage 3, GFR 30-59 ml/min Gastroesophageal reflux disease without esophagi tis 01/09/2016 Adenomatous colon polyp 01/09/2016 Nonalcoholic fatty liver 01/09/2016 Abnormal liver function tests 02/15/2014 Overview (01/22/2022): Abnormal liver function test Abnormal liver function test Mixed diabetic hyperlipidemi a associated with type 2 diabetes mellitus ([facility]) 02/15/2014 Overview (01/22/2022): DM (diabetes mellitus) Last Assessment & Plan: Continue Crestor, Low cholesterol Low fat diet Exercise 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s 06/17/2013 Hypertension associated with diabetes ([facility] HS/HCC) 11/08/2012 Overview (01/22/2022): Hypertension, Unspecified Last Assessment & Plan: Chronic, well controlled Continue current meds Check MA Type 2 diabetes mellitus wit hout complication ([facility] HHS/HCC) 06/20/2012 Hepatitis C virus carrier state ([facility] ) 11/12/2011 Overview (04/26/2023): HEPATITIS C CARRIER HEPATITIS C CARRIER Current smoker 11/13/2010 Encounters Date Type Department Care Team Description 11/07/2024 Telephone [facility] [place] [address] [facility] [address] [place] [address] Eduin Dodd MD Record Request 11/03/2024 [facility]phone [facility] [place] [address] [facility] [address] [place] [address] Eduin Dodd MD Medication Information 11/03/2024 MyChart Message Enc [facility] [place] [address] [facility] [address] [place] [address] [facility] Provider Diabetic Screening 10/27/2024 Orders Only [facility] [address] [facility] [address] [place] [address] Eduin Dodd MD 10/26/2024 [facility] [place] [address] [facility] [address] [place] [address] Eduin Dodd MD Medication 10/23/[address] [facility] [place] [address] [facility] Provider RE: Amendment Request - Visit Summary 10/18/2024 12:45 PM BITUMINOUS PAVING MACHINE OPERATOR Office Visit [facility] [address] [address] Eduin Dodd MD Weedon, Meaghan B, PT Dizziness 10/18/2024 Travel 10/13/2024 MyChart Message Enc [facility] [place] [address] [facility] [address] [place] [address] Eduin Dodd MD Question 10/12/2024 1:30 PM BITUMINOUS PAVING MACHINE OPERATOR - 10/12/2024 11:59 PM BITUMINOUS PAVING MACHINE OPERATOR Hospital Encounter [facility] Diagnostic Imaging [address] [place] [address] Skinny Chowdhury MD Discharge Disposition: Home or Self Care (Routine Discharge) 10/12/2024 1:25 PM BITUMINOUS PAVING MACHINE OPERATOR - 10/12/2024 1:29 PM BITUMINOUS PAVING MACHINE OPERATOR Hospital Encounter [facility] Laboratory [address] [place] [address] Skinny Chowdhury MD Discharge Disposition: Home or Self Care (Routine Discharge) 10/12/2024 Orders Only [facility] Laboratory [address] [place] [address] Skinny Chowdhury MD 10/12/2024 Travel 10/11/2024 2:20 PM BITUMINOUS PAVING MACHINE OPERATOR Office Visit [place] [address] [facility] [address] [place] [address] Eduin Dodd MD ER F/U (Vertigo, pt was a little dizzy when she got up this morning but it isn't as bad as yesterday) 10/11/2024 Travel 10/11/2024 Telephone [place] [address] [facility] [address] [place] [address] Eduin Dodd MD Follow Up Call 10/10/2024 1:12 PM BITUMINOUS PAVING MACHINE OPERATOR - 10/10/2024 6:10 PM BITUMINOUS PAVING MACHINE OPERATOR Emergency [facility] Emergency Room [id number] [place] [id number] Will Rucker MD Dizziness Discharge Disposition: Home or Self Care (Routine Discharge) 10/10/2024 Travel 10/09/2024 10:00 AM BITUMINOUS PAVING MACHINE OPERATOR Allied Health/Nurse Visit [place] [address] [facility] [address] [place] [address] Eduin Dodd MD Allied Health Visit (Thyroid labs ) 10/09/2024 - 10/09/2024 11:59 PM BITUMINOUS PAVING MACHINE OPERATOR Hospital Encounter [facility] [address] Eduin Dodd MD Discharge Disposition: Home or Self Care (Routine Discharge) 10/09/2024 Telephone [place] [address] [facility] [address] [place] [address] Eduin Dodd MD Information 10/09/2024 Travel 09/08/2024 Grow the Plan[employer] Message Enc [place] [address] [facility] [address] [place] [address] [facility] Provider test result 09/04/2024 10:00 AM BITUMINOUS PAVING MACHINE OPERATOR Allied Health/Nurse Visit [place] [address] [facility] [address] [place] [address] Eduin Dodd MD Allied Health Visit (Pt is here for fasting labs and BP check) 09/04/2024 Travel 08/25/2024 Telephone [place] [address] [place] [address] [address] [place] [address] Eduin Dodd MD Follow Up Call 08/24/2024 Scan [employer] INFO SRVCS Scanned, [facility] 08/16/2024 Telephone [place] [address] [facility] [address] [place] [address] Eduin Dodd MD Medication 08/15/2024 10:00 AM BITUMINOUS PAVING MACHINE OPERATOR Office Visit [place] [address] [place] [address] [address] [place] [address] Eduin Dodd MD Follow Up (Hx of hep c inf, basement membrane disease, hx of breast cancer ); Diabetes; Hypertension; GERD; COPD 08/15/2024 Telephone [place] [address] [facility] [address] [place] [address] Eduin Dodd MD Record Request 08/15/2024 Travel from Last 3 Months Immunizations Name Administration Dates Next Due Influenza (Generic) 06/19/2014 Influenza Adult (Generic) 06/20/2019 Tyba (NIMO & NIMO) COVID-19 AD26 VACCINE 0.5 ML IM SUSP 11/28/2020 Pneumococcal (Prevnar 13) 11/30/2016 Tdap (Generic) 08/31/2017 Family History Medical History Relation Comments Early Father Cancer Mother cervical Lung Disease Mother Cancer Sister 1 blood clots Sister 1 Cancer Sister 2 L Breast Cancer Neg Hx Relation Status Comments Father Mother Sister 1 Sister 2 Social History Tobacco Use Types Packs/Day Years Used Date Smoking Tobacco: Every Day Cigarettes Passive Smoke Exposure: Past Smokeless Tobacco: Current Tobacco Cessation:Ready to Q uit: No; Counseling Given: Yes Comments:Counseled by Dr. Dodd. Alcohol Use Standard Drinks/Week Comments Never 0 [...] Sex Assigned at Female 10/10/2024 1:24 PM BITUMINOUS PAVING MACHINE OPERATOR Legal Sex Female 4:08 PM CDT Gender Identity Female 11/03/2021 4:38 AM BITUMINOUS PAVING MACHINE OPERATOR Sexual Orientation Straight 11/03/2021 4: 38 AM BITUMINOUS PAVING MACHINE OPERATOR Last Filed Vital Signs Vital Sign Reading Time Taken Comments Blood Pressure 146/96 10/18/2024 1:15 PM BITUMINOUS PAVING MACHINE OPERATOR Pulse 90 10/11/2024 2:42 PM BITUMINOUS PAVING MACHINE OPERATOR Temperature 36.6 C (97.9 F) 10/11/2024 2:42 PM BITUMINOUS PAVING MACHINE OPERATOR Respiratory Rate 18 10/11/2024 2:42 PM BITUMINOUS PAVING MACHINE OPERATOR Oxygen Saturation 94% 10/11/2024 2:42 PM BITUMINOUS PAVING MACHINE OPERATOR Inhaled Oxygen Concentration - - Weight 99.4 kg (219 lb 3.2 oz) 10/11/2024 2:42 P M BITUMINOUS PAVING MACHINE OPERATOR Height 167.6 cm (5' 6 ) 10/11/2024 2:42 PM BITUMINOUS PAVING MACHINE OPERATOR Body Mass Index 35.38 10/11/2024 2:42 PM BITUMINOUS PAVING MACHINE OPERATOR Plan of Treatment Upcoming Encounters Date Type Department Care Team (Late st Contact Info) Description 11/10/2024 10:00 AM BITUMINOUS PAVING MACHINE OPERATOR [facility] [address] [place] [address] Eduin Dodd MD [facility] [address] [address] 11/13/2024 12:45 PM BITUMINOUS PAVING MACHINE OPERATOR Office Visit [facility] Therapy [address] [place] [address] Eduin Dodd MD [facility] [address] [address] Nallely Peterson, PT 1 [place] [address] 02/14/2025 10:20 AM CDT [facility] [address] [address] Eduin Dodd MD [facility] [address] [address] 04/04/2025 10:30 AM CDT Office Visit [address] [address] Eduin Dodd MD [facility] [address] [address] Health Maintenance Due Date Last Done Comments ASCVD Statin 1955 Colorectal Cancer Screening Colonoscopy (10 Years) 1955 Diabetes: Retinopathy Eye Exam 1972 COVID-19 Vaccine ( season) 2024 11/28/2020 PHQ-2 (Physician [place]) 09/20/2024 03/21/2024 Hemoglobin A1C 01/30/2025 08/02/2024, 01/20, 05/05/2023, Additional history exists Annual Medicare Wellness Visit 03/23/2025 03/22/2024 Influenza Adult (#1) 2025 06/20/2019, 06/19/20 14 Postponed from 06/20/2024 (Patient Refused) Pneumococcal Vaccine: 65+ Years (2 of 2 - PPSV23 or PCV20) 08/15/2025 11/30/2016 Postponed from 01/25/2017 (Patient Refused) RSV Immunization or 60+ Years (1 - Risk 60-74 years 1-dose series) 08/15/2025 Postponed fro m 2014 (Patient Refused) Zoster Vaccines (1 of 2) 08/15/2025 Pos tponed from 2004 (Patient Refused) Kidney Health Evaluation 09/04/2025 09/04/2024 Lipid Panel 09/04/2025 09/04/2024, 08/0 05/2024, 05/05/2023, Additional history exists Mammogram Screening 05/04/2026 05/04/2024, 09/01/2022, 04/25/2021, Additional history exists DTaP, Tdap and Td Vaccines (2 - Td or Tdap) 08/31/2027 08/31/2017 Dexa Scan (General) Completed 08/13/2023, 08/13/2023, 01/31/2016, Additional history exists Hepatitis C Completed 08/02/2024, 01/19, 02/03/2024, Additional history exists Meningococcal B Vaccine Aged Out No l onger eligible based on patient's age to complete this topic Meningococcal Vaccine Aged Out No paige darleen eligible based on patient's age to complete this topic RSV Immunizations Under 20 Months Aged Out No longer eligible based on patient's age to complete this topic Medical Devices Implanted Type Area Java Software Engineer Device Identifier Shelf Expiration Date Model / Serial / Lot Pin Pin Left: Toe Description:2nd toe Procedures Procedure Name Priority Date/Time Associated Diagnosis Comments XR HAND RT 2V Routine 10/12/2024 2:23 PM BITUMINOUS PAVING MACHINE OPERATOR Pain in both hands XR KNEE LT 2V Routine 10/12/2024 2:23 PM BITUMINOUS PAVING MACHINE OPERATOR Pain in both knees XR KNEE RT 2V Routine 10/12/2024 2:23 PM BITUMINOUS PAVING MACHINE OPERATOR Pain in both knees XR HAND LT 2V Routine 10/12/2024 2:23 PM BITUMINOUS PAVING MACHINE OPERATOR Pain in both hands CITRULLINATED VIMENTIN ANTIBODY (MCV) Routine 10/12/2024 1:35 PM BITUMINOUS PAVING MACHINE OPERATOR RF (renal failure) C-REACTIVE PROTEIN Routine 10/12/2024 1: 35 PM BITUMINOUS PAVING MACHINE OPERATOR RF (renal failure) SED RATE, ERYTHROCYTE (ESR) Routine 10/12/2024 1:35 PM BITUMINOUS PAVING MACHINE OPERATOR RF (renal failure) HC BUN Routine 10/12/2024 1:35 PM BITUMINOUS PAVING MACHINE OPERATOR RF (renal failure) HEPATIC FUNCTION PANEL Routine 10/12/2024 1:35 PM BITUMINOUS PAVING MACHINE OPERATOR RF (renal failure) CBC W/DIFF AUTOMATED Routine 10/12/2024 1:35 PM BITUMINOUS PAVING MACHINE OPERATOR RF (renal failure) COLLECTION VENOUS BLOOD VENIPUNCTURE Routine 10/11/2024 2:59 PM BITUMINOUS PAVING MACHINE OPERATOR Vertigo CTA HEAD+NECK STAT 10/10/2024 4:48 PM BITUMINOUS PAVING MACHINE OPERATOR CT HEAD WO CON STAT 10/10/2024 4:48 PM BITUMINOUS PAVING MACHINE OPERATOR URINALYSIS, AUTO, COMPLETE STAT 10/10/2024 2:30 PM BITUMINOUS PAVING MACHINE OPERATOR TROPONIN, QUANT STAT 10/10/2024 2:30 PM BITUMINOUS PAVING MACHINE OPERATOR COMPREHENSIVE METABOLIC PANEL STAT 10/10/2024 2:30 PM BITUMINOUS PAVING MACHINE OPERATOR CBC W/DIFF AUTOMATED STAT 10/10/2024 2:30 PM BITUMINOUS PAVING MACHINE OPERATOR ECG 12-LEAD STAT 10/10/2024 1:55 PM BITUMINOUS PAVING MACHINE OPERATOR TSH W/REFLEX Routine 10/09/2024 10:10 AM BITUMINOUS PAVING MACHINE OPERATOR Hyperthyroidism FREE T3 Routine 10/09/2024 10:10 AM BITUMINOUS PAVING MACHINE OPERATOR Hyperthyroidism THYROXINE, FREE (FT4) Routine 10/09/2024 10:10 AM BITUMINOUS PAVING MACHINE OPERATOR Hyperthyroidism COLLECTION VENOUS BLOOD VENIPUNCTURE Routine 10/09/2024 9:59 AM BITUMINOUS PAVING MACHINE OPERATOR Hyperthyroidism THYROXINE, FREE (FT4) Routine 09/04/2024 10:04 AM BITUMINOUS PAVING MACHINE OPERATOR LIPID PANEL Routine 09/04/2024 10:04 AM BITUMINOUS PAVING MACHINE OPERATOR Type 2 diabetes mellitus without complication, with long-term current use of insulin (CMS/HCC HHS/HCC) Hyperlipidemia associated with type 2 diabetes mellitus (CMS/HCC HHS/HCC) Coronary artery disease involving [place] coronary artery of [place] heart without angina pectoris Hypertension associated with diabetes (CMS/HCC HHS/HCC) Drug therapy TSH W/REFLEX Routine 09/04/2024 10:04 AM BITUMINOUS PAVING MACHINE OPERATOR Type 2 diabetes mellitus without complication, with long-term current use of insulin (CMS/HCC HHS/HCC) Drug therapy ALBUMIN URINE RANDOM W/CREATININE Routine 09/04/2024 10:04 AM BITUMINOUS PAVING MACHINE OPERATOR Type 2 diabetes mellitus without complication, with long-term current use of insulin (CMS/HCC HHS/HCC) URINE BACTERIA CULTURE Routine 08/15/2024 12:50 PM BITUMINOUS PAVING MACHINE OPERATOR Abnormal urinalysis COLLECTION VENOUS BLOOD VENIPUNCTURE Routine 08/15/2024 10:27 AM BITUMINOUS PAVING MACHINE OPERATOR Hypertension associated with diabetes (CMS/HCC HHS/HCC) Drug therapy URINALYSIS AUTO DIP Routine 08/15/2024 Type 2 diabetes mellitus without complication, with long-term current use of insulin (CMS/HCC HHS/HCC) Coronary artery disease involving [place] coronary artery of [place] heart without angina pectoris Hypertension associated with diabetes (CMS/HCC HHS/HCC) Drug therapy HEP C SCANNED ORDERS Routine 08/02/2024 OUTSIDE LAB (SCAN ORDER) Routine 08/02/2024 MG SCREENING W MARICARMEN WILLIAN DIGI Routine 05/04/2024 11:20 AM CDT Encounter for screening mammogram for malignant neoplasm of breast BONE DENSITY/DEXA Routine 08/13/2023 10: 52 AM BITUMINOUS PAVING MACHINE OPERATOR Postmenopause from Last 3 Months or Most Recently Relevant to Health Maintenance Results * XR KNEE RT 2V (10/12/2024 2:23 PM BITUMINOUS PAVING MACHINE OPERATOR) Anatomical Region Laterality Modality Knee Radiographic Stephanie ging 10/12/2024 4:45 PM BITUMINOUS PAVING MACHINE OPERATOR Impressions 10/12/2024 4:47 PM BITUMINOUS PAVING MACHINE OPERATOR IMPRESSION: 1. No acute osseous normality is identified. 2. No significant degenerative changes of the right knee joint. 3. No significant degenerative changes of the left knee joint. Ordered By: SKINNY CHOWDHURY Interpreted By: Christy Greco MD, 10/12/2024 4:45 PM Narrative 10/12/2024 4:47 PM BITUMINOUS [place] [address] PROCEDURE: XR KNEE LT 2V, XR KNEE RT 2V HISTORY: Right knee pain. COMPARISON: None. TECHNIQUE: AP and lateral views of both knee joints were obtained. FINDINGS: There is no acute fracture or osseous malalignment identified. The right patellofemoral, medial and lateral compartment joint spaces are maintained on this study.The left patellofemoral, medial and lateral compartment joint spaces are maintained on this study. There is no joint effusion. Procedure Note Christy Greco MD - 10/12/2024 [place] [id number] PROCEDURE: XR KNEE LT 2V, XR KNEE RT 2V HISTORY: Right knee pain. COMPARISON: None. TECHNIQUE: AP and lateral views of both knee joints were obtained. FINDINGS: There is no acute fracture or osseous malalignment identified. The rightpatellofemoral, medial and lateral compartment joint spaces are maintainedon this study.The left patellofemoral, medial and lateral compartmentjoint spaces are maintained on this study. There is no joint effusion. IMPRESSION: 1. No acute osseous normality is identified. 2. No significant degenerative changes of the right knee joint. 3. No significant degenerative changes of the left knee joint. Ordered By: SKINNY CHOWDHURY Interpreted By: Christy Greco MD, 10/12/2024 4:45 PM us Skinny Chowdhury MD GENERAL IMAGING Final Result * XR KNEE LT 2V (10/12/2024 2:23 PM BITUMINOUS PAVING MACHINE OPERATOR) Anatomical Region Laterality Modality Knee Radiographic Stephanie ging 10/12/2024 4:45 PM BITUMINOUS PAVING MACHINE OPERATOR Impressions 10/12/2024 4:47 PM BITUMINOUS PAVING MACHINE OPERATOR IMPRESSION: 1. No acute osseous normality is identified. 2. No significant degenerative changes of the right knee joint. 3. No significant degenerative changes of the left knee joint. Ordered By: SKINNY CHOWDHURY Interpreted By: Christy Greco MD, 10/12/2024 4:45 PM Narrative 10/12/2024 4:47 PM BITUMINOUS [place] [address] PROCEDURE: XR KNEE LT 2V, XR KNEE RT 2V HISTORY: Right knee pain. COMPARISON: None. TECHNIQUE: AP and lateral views of both knee joints were obtained. FINDINGS: There is no acute fracture or osseous malalignment identified. The right patellofemoral, medial and lateral compartment joint spaces are maintained on this study.The left patellofemoral, medial and lateral compartment joint spaces are maintained on this study. There is no joint effusion. Procedure Note Christy Greco MD - 10/12/2024 [place] [id number] PROCEDURE: XR KNEE LT 2V, XR KNEE RT 2V HISTORY: Right knee pain. COMPARISON: None. TECHNIQUE: AP and lateral views of both knee joints were obtained. FINDINGS: There is no acute fracture or osseous malalignment identified. The rightpatellofemoral, medial and lateral compartment joint spaces are maintainedon this study.The left patellofemoral, medial and lateral compartmentjoint spaces are maintained on this study. There is no joint effusion. IMPRESSION: 1. No acute osseous normality is identified. 2. No significant degenerative changes of the right knee joint. 3. No significant degenerative changes of the left knee joint. Ordered By: SKINNY CHOWDHURY Interpreted By: Christy Greco MD, 10/12/2024 4:45 PM us Skinny Chowdhury MD GENERAL IMAGING Final Result * XR HAND RT 2V (10/12/2024 2:23 PM BITUMINOUS PAVING MACHINE OPERATOR) Anatomical Region Laterality Modality Hand Radiographic Stephanie ging 10/13/2024 9:13 AM BITUMINOUS PAVING MACHINE OPERATOR Impressions 10/13/2024 9:32 AM BITUMINOUS PAVING MACHINE OPERATOR IMPRESSION:===== 1. Minimal osteoarthritis of the hand. Referred By: Interpreted By: Bhupendra Middleton MD, 10/13/2024 9:13 AM Narrative 10/13/2024 9:32 AM BITUMINOUS PAVING MACHINE OPERATOR [facility] [address] [place] [address] EXAMINATION: Right hand, 2 views EXAM DATE/TIME: 10/12/2024 1:55 PM REASON FOR EXAM: pain COMPARISON: None TECHNIQUE: PA, and lateral views of the right hand were obtained. FINDINGS: No acute fracture or dislocation. No destructive osseous lytic or sclerotic lesions. Joint spaces preserved. No radiopaque foreign bodies. Subtle spurring about the interphalangeal joint of the thumb is seen. Similar minimal findings about the first metatarsal-phalangeal joint is seen. Periarticular osteopenia is seen. This could be seen in early inflammatory arthropathy such as rheumatoid arthritis ===== Procedure Note Bhupendra Middleton MD - 10/13/2024 [facility] [address] [place] [address] EXAMINATION: Right hand, 2 views EXAM DATE/TIME: 10/12/2024 1:55 PM REASON FOR EXAM: pain COMPARISON: None TECHNIQUE: PA, and lateral views of the right hand were obtained. FINDINGS: No acute fracture or dislocation. No destructive osseous lyticor sclerotic lesions. Joint spaces preserved. No radiopaque foreignbodies. Subtle spurring about the interphalangeal joint of the thumb isseen. Similar minimal findings about the first metatarsal-phalangealjoint is seen. Periarticular osteopenia is seen. This could be seen inearly inflammatory arthropathy such as rheumatoid arthritis ===== IMPRESSION:===== 1. Minimal osteoarthritis of the hand. Referred By: Interpreted By: Bhupendra Middleton MD, 10/13/2024 9:13 AM Skinny Chowdhury MD GENERAL IMAGING Final Result * XR HAND LT 2V (10/12/2024 2:23 PM BITUMINOUS PAVING MACHINE OPERATOR) Anatomical Region Laterality Modality Hand Radiographic Stephanie ging 10/13/2024 9:30 AM BITUMINOUS PAVING MACHINE OPERATOR Impressions 10/13/2024 9:32 AM BITUMINOUS PAVING MACHINE OPERATOR IMPRESSION:===== 1. Mild Arthropathy of the hand and wrist. 2. Small bony density adjacent to the proximal phalanx of the second digit noted. Avulsion of uncertain chronicity or other etiologies possible. Referred By: Interpreted By: Bhupendra Middleton MD, 10/13/2024 9:30 AM Narrative 10/13/2024 9:32 AM BITUMINOUS PAVING MACHINE OPERATOR [facility] [address] [place] [address] EXAMINATION: Left hand, 2 views EXAM DATE/TIME: 10/12/2024 1:55 PM REASON FOR EXAM: pain COMPARISON: None TECHNIQUE: PA, and lateral views of the left hand were obtained. FINDINGS: No acute fracture or dislocation. No destructive osseous lytic or sclerotic lesions. Joint spaces preserved. No radiopaque foreign bodies. Minimal spurring about the first metacarpal phalangeal joint and interphalangeal joint of the thumb and first metacarpal phalangeal joint is noted. Small density is seen adjacent to the proximal interphalangeal joint of the second digit. Periarticular osteopenia is noted. This could be seen in early inflammatory arthropathy such as rheumatoid arthritis ===== Procedure Note Bhupendra Middleton MD - 10/13/2024 [facility] [address] [place] [address] EXAMINATION: Left hand, 2 views EXAM DATE/TIME: 10/12/2024 1:55 PM REASON FOR EXAM: pain COMPARISON: None TECHNIQUE: PA, and lateral views of the left hand were obtained. FINDINGS: No acute fracture or dislocation. No destructive osseous lyticor sclerotic lesions. Joint spaces preserved. No radiopaque foreignbodies. Minimal spurring about the first metacarpal phalangeal joint andinterphalangeal joint of the thumb and first metacarpal phalangeal jointis noted. Small density is seen adjacent to the proximal interphalangealjoint of the second digit. Periarticular osteopenia is noted. This couldbe seen in early inflammatory arthropathy such as rheumatoid arthritis ===== IMPRESSION:===== 1. Mild Arthropathy of the hand and wrist. 2. Small bony density adjacent to the proximal phalanx of the seconddigit noted. Avulsion of uncertain chronicity or other etiologiespossible. Referred By: Interpreted By: Bhupendra Middleton MD, 10/13/2024 9:30 AM Skinny Chowdhury MD GENERAL IMAGING Final Result * CITRULLINATED VIMENTIN ANTIBODY (MCV) (10/12/2024 1:35 PM BITUMINOUS PAVING MACHINE OPERATOR) CITRULLINATED VIMENTIN AB <20 <20 U/mL 10/18/2024 11:32 PM BITUMINOUS PAVING MACHINE OPERATOR [facility] Comment: Anti-mutated citrullinated vimentin antibody may be used as a second-line marker of rheumatoid arthritis, in addition to rheumatoid factor and anti-cyclic citrullinated peptide (CCP). Test performed by [facility] [address] [place] [address] Voice Instructor: Karla Luna MD,PHD,CHARIS Test Reported by [facility], [facility], [address] [place], [place] Samir Corley M.D., Ph.D., Director of Laboratories , [place] [id number] 10/12/2024 1:35 PM BITUMINOUS PAVING MACHINE OPERATOR Skinny Chowdhury MD LABORATORY Final Result [facility] [address] [place], [place] , [place] [phone] * (ABNORMAL) BUN CREATININE RATIO (10/12/2024 1:35 PM BITUMINOUS PAVING MACHINE OPERATOR) [facility] BUN 14 7 - 18 MG/DL 10/12/2024 2:50 PM BITUMINOUS PAVING MACHINE OPERATOR [facility] CREATININE S/P/B 0.90 0.55 - 1.02 MG/DL 10/12/2024 2:50 PM [facility] GFR ESTIMATE 69(L) >90 ML/MIN/1.7 3 M2 10/12/2024 2:50 PM BITUMINOUS PAVING MACHINE OPERATOR [facility] Comment: NOTE: eGFR is not calculated for patients <18 years of age. This is an estimated GFR calculation using the new CKD EPI creatinine equation without race and so does not require a correction factor for race. This estimated GFR should not be used for calculating drug doses. BUN CREATININE RATIO 15.6 6 - 26 10/12/2024 2:50 PM BITUMINOUS PAVING MACHINE OPERATOR [facility] 10/12/2024 1:35 PM BITUMINOUS PAVING MACHINE OPERATOR Skinny Chowdhury MD LABORATORY Final Result Performing Organization Address City/[facility]/ZIP Co de Phone Number [facility] [address] [place] [address], [place] [phone] * (ABNORMAL) SED RATE, ERYTHROCYTE (ESR) (10/12/2024 1:35 PM BITUMINOUS PAVING MACHINE OPERATOR) Pathologist [facility] ESR 31(H) <30 MM/HR 10/12/2024 2:1 3 PM BITUMINOUS PAVING MACHINE OPERATOR [facility] 10/12/2024 1:35 PM BITUMINOUS PAVING MACHINE OPERATOR Skinny Chowdhury MD LABORATORY Final Result Performing Organization Address City/[facility] Co de Phone Number [facility] [address] [place] [address], [place] [phone] * (ABNORMAL) HEPATIC FUNCTION PANEL (10/12/2024 1:35 PM BITUMINOUS PAVING MACHINE OPERATOR) [facility] TOTAL PROTEIN S/P/B 7.3 6.4 - 8.2 G/DL 10/12/2024 2:50 PM BITUMINOUS PAVING MACHINE OPERATOR [facility] ALBUMIN S/P/B 3.5 3.4 - 5.0 G/DL 10/12/2024 2:50 PM BITUMINOUS PAVING MACHINE OPERATOR [facility] BILIRUBIN TOTAL S/P/B 0.2 0.2 - 1.2 MG/DL 10/12/2024 2:50 PM BITUMINOUS PAVING MACHINE OPERATOR [facility] Comment: THIS ASSAY IS NOT RECOMMENDED FOR PATIENTS UNDERGOING TREATMENT WITH ELTROMBOPAG DUE TO THE POTENTIAL FOR FALSELY ELEVATED RESULTS. BILIRUBIN DIRECT S/P/B 0.1 0.0 - 0.2 MG/DL 10/12/2024 2:50 PM BITUMINOUS PAVING MACHINE OPERATOR [facility] BILIRUBIN INDIRECT S/P/B 0.1 0.0 - 0.9 MG/DL 10/12/2024 2:50 PM BITUMINOUS PAVING MACHINE OPERATOR [facility] ALKALINE PHOSPHATASE S/P/B 68 50 - 136 U/L 10/12/2024 2:50 PM BITUMINOUS PAVING MACHINE OPERATOR [facility] AST 37 15 - 37 U/L 10/12/2024 2:50 PM BITUMINOUS PAVING MACHINE OPERATOR [facility] ALT 29 14 - 55 U/L 10/12/2024 2:50 PM BITUMINOUS PAVING MACHINE OPERATOR [facility] A/G RATIO 0.9(L) 1.0 - 2.0 RATIO 10/12/2024 2:50 PM BITUMINOUS PAVING MACHINE OPERATOR [facility] 10/12/2024 1:35 PM BITUMINOUS PAVING MACHINE OPERATOR us Skinny Chowdhury MD LABORATORY Final Result [facility] [address] [place] [address], [place] [phone] * (ABNORMAL) C-REACTIVE PROTEIN (10/12/2024 1:35 PM BITUMINOUS PAVING MACHINE OPERATOR) Pathologist [facility] C-REACTIVE PROTEIN 0.50(H) <0.3 mg/dL 10/12/2024 2:50 PM BITUMINOUS PAVING MACHINE OPERATOR [facility] 10/12/2024 1:35 PM BITUMINOUS PAVING MACHINE OPERATOR us Skinny Chowdhury MD LABORATORY Final Result [facility] [address] [place] [address], [place] [phone] * (ABNORMAL) CBC W/DIFF AUTOMATED (10/12/2024 1:35 PM BITUMINOUS PAVING MACHINE OPERATOR) Only the most recent of2 resultswithin the time period is included. WBC 16.66(H) 4.50 - 11.00 x10'3/uL 10/12/2024 2:01 PM [facility] RBC 5.23 4.20 - 5.40 x10'6/uL 10/12/2024 2:01 PM [facility] HGB 15.2 12.0 - 16.0 G/DL 10/12/2024 2:01 PM [facility] HCT 45.2 38.0 - 48.0 % 10/12/2024 2:01 PM [facility] MCV 86.4 81.0 - 99.0 FL 10/12/2024 2:01 PM [facility] MCH 29.1 27.0 - 31.0 PG 10/12/2024 2:01 PM [facility] MCHC 33.6 32.0 - 36.0 G/DL 10/12/2024 2:01 PM [facility] RDW 13.5 11.5 - 14.5 % 10/12/2024 2:01 PM [facility] PLT 217 130 - 400 x10'3/uL 10/12/2024 2:01 PM [facility] MPV 10.7 9.3 - 12.2 FL 10/12/2024 2:01 PM [facility] CBC COMMENT AUTOMATED RBC MORPHOLOGY AND PLATELET EVALUATION NORMAL 10/12/2024 2:01 PM [facility] NEUTROPHILS % 68.9 % 10/12/2024 2:01 PM [facility] LYMPHOCYTES % 21.6 % 10/12/2024 2:01 PM [facility] MONOCYTES % 7.9 % 10/12/2024 2:01 PM [facility] EOSINOPHILS 0.4 % 10/12/2024 2:01 PM [facility] BASOPHILS 0.5 % 10/12/2024 2:01 PM [facility] IMMATURE GRANS % 0.7 % 10/12/19 2:01 PM [facility] NRBC % 0.0 % 10/12/2024 2:01 PM [facility] ABS. NEUTROPHILS TOTAL 11.48(H) 1.80 - 7.70 x10'3/uL 10/12/2024 2:01 PM BITUMINOUS PAVING MACHINE OPERATOR [facility] ABS. LYMPHOCYTES 3.60 1.00 - 4.80 x10'3/uL 10/12/2024 2:01 PM [facility] ABS. MONOCYTES 1.32(H) 0.24 - 0.86 x10'3/uL 10/12/2024 2:01 PM [facility] ABS. EOSINOPHILS 0.06 0.04 - 0.36 x10'3/uL 10/12/2024 2:01 PM [facility] ABS. BASOPHILS 0.09(H) 0.01 - 0.08 x10'3/uL 10/12/2024 2:01 PM [facility] ABS. IMMATURE GRANULOCYTES 0.11 0.00 - 0.49 x10'3/uL 10/12/2024 2:01 PM [facility] ABS. NUCLEATED RBC'S 0.00 0.00 - 0.01 x10'3/uL 10/12/2024 2:01 PM [facility] 10/12/2024 1:35 PM BITUMINOUS PAVING MACHINE OPERATOR us Skinny Chowdhury MD LABORATORY Final Result [facility] [address] [place] [address], [place] [phone] * CTA HEAD+NECK (10/10/2024 4:48 PM BITUMINOUS PAVING MACHINE OPERATOR) Anatomical Region Laterality Modality Head, Neck Computed Tomogra phy 10/10/2024 4:57 PM BITUMINOUS PAVING MACHINE OPERATOR Impressions 10/10/2024 5:02 PM BITUMINOUS PAVING MACHINE OPERATOR IMPRESSION: 1. No definite large vessel intracranial arterial occlusion identified. 2. No hemodynamically significant stenosis in the neck. 3. Multifocal atherosclerotic disease, as detailed above. Ordered By: WILL RUCKER Interpreted By: Demarco Perez MD, 10/10/2024 4:57 PM Narrative 10/10/2024 5:02 PM BITUMINOUS PAVING MACHINE OPERATOR [facility] [address] [place] [address] DATE: 10/10/2024 4:30 PM INDICATION: Dizziness and headache. EXAMINATION: CT angiography of the head and neck with contrast. TECHNIQUE: CT angiography of the head and neck were performed after uneventful intravenous administration of 80mL IOPAMIDOL 76 % IV SOLN. CT dose reduction techniques were utilized. Internal carotid stenosis measured according to NASCET criteria. Axial and 3-D/MIP images were reconstructed and reviewed. A dose lowering technique was used for this procedure, which may include, but is not limited to, dose reduction technique, automated exposure control, the use of iterative reconstruction, and ALARA (As Low As Reasonably Achievable) / Image Gently techniques. COMPARISON: None. FINDINGS: CTA NECK: Aorta and great vessel origins: Classic three-vessel aortic arch origin anatomy. Mediastinal great vessels patent and without significant stenosis. Right carotid artery: No significant stenosis. Vascular tortuosity. Left carotid artery: No significant stenosis. Vascular tortuosity. Right vertebral artery: No significant stenosis. Left vertebral artery: No significant stenosis. CTA HEAD: Atherosclerotic calcifications noted along the intracranial ICA segments, without significant narrowing. Proximal portions of the anterior middle cerebral arteries are patent. Anterior communicating artery is patent. Posterior circulation is slightly left dominant. Basilar artery patent and without significant stenosis to the terminus. Proximal portions of the posterior cerebral arteries, superior cerebellar arteries, and PICA branches are patent. Left posterior communicating artery is patent; right not well-visualized. SOFT TISSUES: Small vessel disease and volume loss. Lens replacements. Streak artifact from dental amalgam partially obscures assessment. Apical scarring. Patchy mosaic attenuation in the upper lungs. Degenerative changes noted in the spine. Procedure Note Demarco Perez MD - 10/10/2024 [facility] [address] [place] [address] DATE: 10/10/2024 4:30 PM INDICATION: Dizziness and headache. EXAMINATION: CT angiography of the head and neck with contrast. TECHNIQUE: CT angiography of the head and neck were performed afteruneventful intravenous administration of 80mL IOPAMIDOL 76 % IV SOLN. CTdose reduction techniques were utilized. Internal carotid stenosismeasured according to NASCET criteria. Axial and 3-D/MIP images werereconstructed and reviewed. A dose lowering technique was used for this procedure, which may include,but is not limited to, dose reduction technique, automated exposurecontrol, the use of iterative reconstruction, and ALARA (As Low AsReasonably Achievable) / Image Gently techniques. COMPARISON: None. FINDINGS: CTA NECK: Aorta and great vessel origins: Classic three-vessel aortic arch originanatomy. Mediastinal great vessels patent and without significantstenosis. Right carotid artery: No significant stenosis. Vascular tortuosity. Left carotid artery: No significant stenosis. Vascular tortuosity. Right vertebral artery: No significant stenosis. Left vertebral artery: No significant stenosis. CTA HEAD: Atherosclerotic calcifications noted along the intracranial ICA segments,without significant narrowing. Proximal portions of the anterior middlecerebral arteries are patent. Anterior communicating artery is patent. Posterior circulation is slightly left dominant. Basilar artery patent andwithout significant stenosis to the terminus. Proximal portions of theposterior cerebral arteries, superior cerebellar arteries, and PICAbranches are patent. Left posterior communicating artery is patent; rightnot well-visualized. SOFT TISSUES: Small vessel disease and volume loss. Lens replacements. Streak artifactfrom dental amalgam partially obscures assessment. Apical scarring. Patchymosaic attenuation in the upper lungs. Degenerative changes noted in thespine. IMPRESSION: 1. No definite large vessel intracranial arterial occlusion identified. 2. No hemodynamically significant stenosis in the neck. 3. Multifocal atherosclerotic disease, as detailed above. Ordered By: WILL RUCKER Interpreted By: Demarco Perez MD, 10/10/2024 4:57 PM Will Rucker MD CT Final Result * CT HEAD WO CON (10/10/2024 4:48 PM BITUMINOUS PAVING MACHINE OPERATOR) Anatomical Region Laterality Modality Head Computed Tomogra phy 10/10/2024 4:55 PM BITUMINOUS PAVING MACHINE OPERATOR Impressions 10/10/2024 4:56 PM BITUMINOUS PAVING MACHINE OPERATOR IMPRESSION: 1. No definite CT evidence of acute intracranial abnormality, as above. 2. Small vessel disease and volume loss. Ordered By: WILL RUCKER Interpreted By: Demarco Perez MD, 10/10/2024 4:55 PM Narrative 10/10/2024 4:56 PM BITUMINOUS PAVING MACHINE OPERATOR [facility] [address] [place] [address] DATE: 10/10/2024 4:30 PM EXAMINATION: CT of the head CLINICAL HISTORY: Dizziness and headache. COMPARISON: 04/01/2024 TECHNIQUE: CT examination of the head without contrast was performed. Axial and multiplanar images obtained. A dose lowering technique was used for this procedure, which may include, but is not limited to, dose reduction technique, automated exposure control, the use of iterative reconstruction, and ALARA (As Low As Reasonably Achievable) / Image Gently techniques. FINDINGS: No acute intracranial hemorrhage, extra-axial collections, intracranial mass effect, or midline shift. Stable small vessel disease, intracranial vascular calcifications, and volume loss. No definite CT evidence of acute territorial infarction, though MRI would be more sensitive. Stable prominent perivascular space in the left sublenticular region. Calvarium unremarkable. Mastoid air cells and paranasal sinuses are clear. Bilateral lens replacements. Procedure Note Demarco Perez MD - 10/10/2024 [facility] [address] [place] [address] DATE: 10/10/2024 4:30 PM EXAMINATION: CT of the head CLINICAL HISTORY: Dizziness and headache. COMPARISON: 04/01/2024 TECHNIQUE: CT examination of the head without contrast was performed.Axial and multiplanar images obtained. A dose lowering technique was used for this procedure, which may include,but is not limited to, dose reduction technique, automated exposurecontrol, the use of iterative reconstruction, and ALARA (As Low AsReasonably Achievable) / Image Gently techniques. FINDINGS: No acute intracranial hemorrhage, extra-axial collections, intracranialmass effect, or midline shift. Stable small vessel disease, intracranialvascular calcifications, and volume loss. No definite CT evidence of acuteterritorial infarction, though MRI would be more sensitive. Stableprominent perivascular space in the left sublenticular region. Calvariumunremarkable. Mastoid air cells and paranasal sinuses are clear. Bilaterallens replacements. IMPRESSION: 1. No definite CT evidence of acute intracranial abnormality, as above. 2. Small vessel disease and volume loss. Ordered By: WILL RUCKER Interpreted By: Demarco Perez MD, 10/10/2024 4:55 PM Will Rucker MD CT Final Result * (ABNORMAL) Urinalysis, Auto, Complete (10/10/2024 2:30 PM BITUMINOUS PAVING MACHINE OPERATOR) COLOR (U) YELLOW 10/10/2024 2:56 PM [facility] TRANSPARENCY HAZY 10/10/2024 2:56 PM BITUMINOUS PAVING MACHINE OPERATOR [facility] SPECIFIC GRAVITY (U) 1.010 1.000 - 1.030 10/10/2024 2:56 PM [facility] U PH 6.0 5.0 - 9.0 10/10/2024 2:56 PM [facility] LEUKOCYTES (U) 1+(A) NEGATIVE 10/10/2024 2:56 PM [facility] NITRITES NEGATIVE NEGATIVE 10/10/2024 2:56 PM [facility] PROTEIN RANDOM (U) NEGATIVE NEGATIVE 10/10/2024 2:56 PM [facility] GLUCOSE (U) 3+(A) NEGATIVE 10/10/2024 2:56 PM [facility] KETONES MG/DL (U) NEGATIVE NEGATIVE 10/10/2024 2:56 PM [facility] BILIRUBIN (U) NEGATIVE NEGATIVE 10/10/2024 2:56 PM [facility] BLOOD (U) 1+(A) NEGATIVE 10/10/2024 2:56 PM [facility] WBC/HPF 5-10 0 - 5 /HPF 10/10/2024 2:56 PM [facility] RBC/HPF 0-5 0 - 5 /HPF 10/10/2024 2:56 PM [facility] EPI/HPF FEW /HPF 10/10/2024 2:56 PM [facility] BACTERIA (U) FEW /HPF 10/10/2024 2:56 PM [facility] URINE SPECIMEN OBTAINED BY CLEAN CATCH PROCEDURE / Unknown 10/10/2024 2:30 PM BITUMINOUS PAVING MACHINE OPERATOR Will Rucker MD URINE ORDERABLES Final Result Performing Organization Address City/State/[facility] Co de Phone Number [facility] [address] [place] [address], [place] [phone] * (ABNORMAL) COMPREHENSIVE METABOLIC PANEL (10/10/2024 2:30 PM BITUMINOUS PAVING MACHINE OPERATOR) GLUCOSE 273(H) 70 - 99 MG/DL 10/10/2024 3:00 PM [facility] BUN 11 7 - 18 MG/DL 10/10/2024 3:00 PM [facility] CREATININE S/P/B 1.05(H) 0.55 - 1.02 MG/DL 10/10/2024 3:00 PM [facility] SODIUM S/P/B 136 136 - 145 MMOL/L 10/10/2024 3:00 PM [facility] POTASSIUM S/P/B 3.9 3.5 - 5.1 MMOL/L 10/10/2024 3:00 PM [facility] CHLORIDE S/P/B 99(L) 100 - 108 MMOL/L 10/10/2024 3:00 PM [facility] CO2 28.0 21 - 32 MMOL/L 10/10/2024 3:00 PM [facility] CALCIUM S/P/B 9.4 8.5 - 10.1 MG/DL 10/10/2024 3:00 PM [facility] BILIRUBIN TOTAL S/P/B 0.5 0.2 - 1.2 MG/DL 10/10/2024 3:00 PM [facility] TOTAL PROTEIN S/P/B 7.8 6.4 - 8.2 G/DL 10/10/2024 3:00 PM [facility] ALBUMIN S/P/B 3.5 3.4 - 5.0 G/DL 10/10/2024 3:00 PM [facility] AST 26 15 - 37 U/L 10/10/2024 3:00 PM [facility] ALT 28 14 - 55 U/L 10/10/2024 3:00 PM [facility] ALKALINE PHOSPHATASE S/P/B 78 50 - 136 U/L 10/10/2024 3:00 PM [facility] ANION GAP 9.0 5 - 15 MMOL/L 10/10/2024 3:00 PM [facility] BUN CREATININE RATIO 10.5 6 - 26 10/10/2024 3:00 PM [facility] A/G RATIO 0.8(L) 1.0 - 2.0 RATIO 10/10/2024 3:00 PM BITUMINOUS PAVING MACHINE OPERATOR [facility] GFR ESTIMATE 57(L) >90 ML/MIN/1.7 3 M2 10/10/2024 3:00 PM BITUMINOUS PAVING MACHINE OPERATOR [facility] Comment: NOTE: eGFR is not calculated for patients <18 years of age. This is an estimated GFR calculation using the new CKD EPI creatinine equation without race and so does not require a correction factor for race. This estimated GFR should not be used for calculating drug doses. 10/10/2024 2:30 PM BITUMINOUS PAVING MACHINE OPERATOR us Will Rucker MD LABORATORY Final Result Performing Organization Address City/[facility]/ZIP Co de Phone Number [facility] [address] [place] [address], [place] [phone] * TROPONIN, QUANT (10/10/2024 2:30 PM BITUMINOUS PAVING MACHINE OPERATOR) Pathologist [facility] TROPONIN I HIGH SENSITIVITY <4 0 - 50 ng/L 10/10/2024 3:11 PM BITUMINOUS PAVING MACHINE OPERATOR [facility] Comment: HIGH DOSES OF BIOTIN, TROPONIN-SPECIFIC AUTOANTIBODIES, AND ANTIBODY THERAPY CONTAINING HAMA MAY INTERFERE WITH THIS TEST RESULT. CORRELATION TO CLINICAL HISTORY AND PRESENTATION RECOMMENDED. 10/10/2024 2:30 PM BITUMINOUS PAVING MACHINE OPERATOR us Will Rucker MD LABORATORY Final Result [facility] [address] [place] [address], [place] [phone] * ECG 12 lead (10/10/2024 1:55 PM BITUMINOUS PAVING MACHINE OPERATOR) 10/10/2024 1:55 PM BITUMINOUS PAVING MACHINE OPERATOR Narrative [facility] RAD - 10/10/2024 10:25 PM BITUMINOUS PAVING MACHINE OPERATOR [facility] Test Date: 2024-10-10 Pat Name: DESMOND STARR Department: 85 Room: EXAM 101 Gender: Female Byproducts Operator: : 1955 Requested By: WILL RUCKER Order Number: [id number] Reading : Eliana Magaña Measurements Intervals [place] Rate: 91 P: 70 VT: 138 QRS: -43 QRSD: 89 T: 71 QT: 345 QTc: 426 Interpretive Statements SINUS RHYTHM LEFT AXIS DEVIATION [QRS AXIS < -30] LOW QRS VOLTAGE IN PRECORDIAL LEADS [QRS DEFLECTION < 1.0 mV IN CHEST LEADS] Compared to ECG 04/01/2024 15:03:32 Left-axis deviation now present Low QRS voltage now present MINOUS PAVING MACHINE OPERATOR Procedure Note Eliana Magaña MD - 10/10/2024 [facility] Test Date: 2024-10-10 Pat Name: DESMOND NIKOLAI Department: 85 Room: EXAM 101 Gender: Female Byproducts Operator: : 1955 Requested By: WILL RUCKER Order Number: [id number] Reading MD: Eliana Magaña Measurements Intervals [place] Rate: 91 P: 70 VT: 138 QRS: -43 QRSD: 89 T: 71 QT: 345 QTc: 426 Interpretive Statements SINUS RHYTHM LEFT AXIS DEVIATION [QRS AXIS < -30] LOW QRS VOLTAGE IN PRECORDIAL LEADS [QRS DEFLECTION < 1.0 mV IN CHESTLEADS] Compared to ECG 04/01/2024 15:03:32 Left-axis deviation now present Low QRS voltage now present MINOUS PAVING MACHINE OPERATOR us Will Rucker MD ECG ORDERABLES Final Result [facility] RAD * TSH W/REFLEX (10/09/2024 10:10 AM BITUMINOUS PAVING MACHINE OPERATOR) Only the most recent of2 resultswithin the time period is included. TSH 3.070 0.358 - 3.740 uIU/ML 10/09/2024 2:34 PM BITUMINOUS PAVING MACHINE OPERATOR [facility] 10/09/2024 10:1 0 AM BITUMINOUS PAVING MACHINE OPERATOR Eduin Dodd MD LABORATORY Final Result Performing Organization Address [facility] Co de Phone Number [facility] ANDREW BOL[address]AR [address] [place] [address], [place] [phone] * FREE T3 (10/09/2024 10:10 AM BITUMINOUS PAVING MACHINE OPERATOR) FREE T3 2.5 2.2 - 3.9 PG/ML 10/09/2024 5:40 PM BITUMINOUS PAVING MACHINE OPERATOR [facility] 10/09/2024 10:1 0 AM BITUMINOUS PAVING MACHINE OPERATOR Eduin Dodd MD LABORATORY Final Result Performing Organization Address [facility] Co de Phone Number [facility] [address] [place] [address], [place] [phone] * THYROXINE, FREE (FT4) (10/09/2024 10:10 AM BITUMINOUS PAVING MACHINE OPERATOR) Only the most recent of2 resultswithin the time period is included. FREE T4 0.94 0.76 - 1.46 NG/DL 10/09/2024 2:34 PM BITUMINOUS PAVING MACHINE OPERATOR [facility] 10/09/2024 10:1 0 AM BITUMINOUS PAVING MACHINE OPERATOR Eduin Dodd MD LABORATORY Final Result Performing Organization Address [facility] Co de Phone Number [facility] [address] [place] [address], [place] [phone] * (ABNORMAL) ALBUMIN/CREATININE RATIO, RANDOM URINE (09/04/2024 10:04 AM BITUMINOUS PAVING MACHINE OPERATOR) MICROALBUMIN (U) 42.4(H) <20 MG/L 12/16/20 24 2:58 PM BITUMINOUS PAVING MACHINE OPERATOR [facility] CREATININE RANDOM (U) 162.8 MG/DL 09/04/2024 2:58 PM BITUMINOUS PAVING MACHINE OPERATOR [facility] ALBUMIN/CREAT RATIO 26.0 <30 MG/G 09/04/2024 2:58 PM BITUMINOUS PAVING MACHINE OPERATOR [facility] URINE SPECIMEN / Unknown 09/04/2024 10:04 AM BITUMINOUS PAVING MACHINE OPERATOR Eduin Dodd MD URINE ORDERABLES Final Result [facility] [address] [place] [address], * (ABNORMAL) LIPID PANEL (09/04/2024 10:04 AM BITUMINOUS PAVING MACHINE OPERATOR) CHOLESTEROL 188 <200 MG/DL 09/04/2024 3:00 PM [facility] TRIGLYCERIDES 151(H) <150 MG/DL 09/04/2024 3:00 PM [facility] HDL 43 >40 MG/DL 09/04/2024 3:00 PM [facility] LDL-C 115(H) <100 MG/DL 09/04/2024 3:00 PM [facility] VLDL CALCULATION 30(H) 5 - 28 MG/DL 09/04/2024 3:00 PM [facility] CHOL/HDL RATIO 4.4(H) 0.0 - 4.0 09/04/2024 3:00 PM [facility] LDL/HDL 2.7(H) 0.41 - 2.13 09/04/2024 3:00 PM [facility] NON HDL CHOLESTEROL 145(H) <140 MG/DL 09/04/2024 3:00 PM BITUMINOUS PAVING MACHINE OPERATOR [facility] 09/04/2024 10:0 4 AM BITUMINOUS PAVING MACHINE OPERATOR Eduin Dodd MD LABORATORY Final Result [facility] [address] [facility] [place] [address], [place] [phone] * (ABNORMAL) URINE BACTERIA CULTURE (08/15/2024 12:50 PM BITUMINOUS PAVING MACHINE OPERATOR) CULTURE RESULT (A) [place] Comment: CULTURE, URINE, ROUTINE Micro Number: [id number] Test Status: Final Specimen Source: Urine Specimen Quality: Adequate Result: Greater than 100,000 CFU/mL of Escherichia coli E.coli INT LINDSEY AMOX/CLAVULANATE I 16 AMP/SULBACTAM R >=32 CEFAZOLIN R 16 1 CEFEPIME S <=0.12 CEFTAZIDIME S <=1 CEFTRIAXONE S <=0.25 CIPROFLOXACIN S <=0.06 GENTAMICIN S <=1 IMIPENEM S <=0.25 LEVOFLOXACIN S <=0.12 MEROPENEM S <=0.25 NITROFURANTOIN S <=16 PIP/TAZOBACTAM S <=4 TRIMETHOPRIM/SULFA S <=20 S = Susceptible I = Intermediate R = Resistant NS = Not susceptible SDD = Susceptible Dose Dependent * = Not Tested NR = Not Reported NN = See Therapy Comments THERAPY COMMENTS Note 1: For uncomplicated UTI caused by E. coli, K. pneumoniae or P. mirabilis: Cefazolin is susceptible if LINDSEY <32 mcg/mL and predicts susceptible to the oral agents cefaclor, cefdinir, cefpodoxime, cefprozil, cefuroxime, cephalexin and loracarbef. URINE SPECIMEN OBTAINED BY CLEAN CATCH PROCEDURE / Unknown 08/15/2024 12:50 PM BITUMINOUS PAVING MACHINE OPERATOR 08/15/2024 11:33 PM BITUMINOUS PAVING MACHINE OPERATOR Narrative Resulting Agency Comment Performing Organization Information: Site ID: SL [facility] Address: [address] [address] [address] Director: Yoli Lieberman Eduin Dodd MD MICROBIOLOGY - GENERAL ORDERABLE S Final Result [facility] R[facility]ESH [facility]-[address] [address], [place] * (ABNORMAL) URINALYSIS AUTO DIP (08/15/2024) COLOR (U) YELLOW YELLOW [address], [place] TRANSPARENCY CLOUDY(A) CLEAR [address], [place] GLUCOSE (U) NEGATIVE NEGATIVE MG/DL [address], [place] BILIRUBIN (U) NEGATIVE NEGATIVE [address], [place] KETONES MG/DL (U) NEGATIVE NEGATIVE MG/DL [address], [place] SPECIFIC GRAVITY (U) 1.010 1.001 - 1.035 [address], [place] BLOOD (U) MODERATE (Non Hemolyzed, Intact, About 50 rbc/uL)(A) NEGATIVE MG[address], [place] U PH 6.0 5.0 - 9.0 [address], [place] PROTEIN (U) NEGATIVE NEGATIVE mg/dL MG[address], [place] UROBILINOGEN 0.2 0.2 - 1.0 EU/dL = mg/dL MG[address], [place] NITRITES POSITIVE(A) NEGATIVE MG/DL MG-[address], [place] LEUKOCYTES (U) 1+ (SMALL)(A) NEGATIVE MG[address], [place] URINE SPECIMEN OBTAINED BY CLEAN CATCH PROCEDURE / Unknown 08/15/2024 Eduin Dodd MD URINE ORDERABLES Final Result [address], [place] [address] [place] [address], [place] [phone] * HEP C SCANNED ORDERS (08/02/2024) [facility] Scanned SCANNING Final Resu lt [facility] * OUTSIDE LAB (08/02/2024) HGB A1C 7.1 % [facility] 08/02/2024 [facility] Scanned SCANNING Final Resu lt [facility] ONBASE * MG SCREENING W MARICARMEN WILLIAN DIGI (05/04/2024 11:20 AM CDT) Anatomical Region Laterality Modality Breast Bilateral Mammography 05/04/2024 5:48 PM CDT Impressions 05/04/2024 5:53 PM CDT ===== IMPRESSION: ===== 1. Stable mammographic appearance with no new findings to suggest malignancy in either breast. Assessment: ACR BI-RADS 2 - BENIGN FINDING(S) Recommendation: 1:Routine Screening Bilateral Comments: Ordered By: EDUIN DODD Interpreted By: Stuart Mar, 05/04/2024 5:48 PM Narrative 05/04/2024 5:53 PM CDT EXAMINATION: Digital bilateral screening mammogram with 3-D tomosynthesis EXAM DATE/TIME: 05/04/2024 11:00 AM REASON FOR EXAM: screening Left-sided breast carcinoma in 2002. Multiple benign right-sided breast biopsies. COMPARISON: 09/01/2022.. 03/06/2021. Technique: Digital screening mammography of both breasts was performed in addition to 3-D Tomosynthesis technique. This study was read with the assistance of a computer-aided detection system. Tissue density: There are scattered areas of fibroglandular density. Findings: Right-sided biopsy clips. Stable left-sided postoperative change. There is no new focal asymmetry, dominant mass lesion, area of skin thickening, or cluster of suspicious appearing calcifications in either breast to suggest malignancy. Eduin Dodd MD MAMMO Final Result * BONE DENSITY/DEXA (08/13/2023 10:52 AM BITUMINOUS PAVING MACHINE OPERATOR) Anatomical Region Laterality Modality Bone Bone Density 08/13/2023 3:11 PM BITUMINOUS PAVING MACHINE OPERATOR Impressions 08/13/2023 3:12 PM BITUMINOUS PAVING MACHINE OPERATOR IMPRESSION: WHO Classification: normal. FRAX Score: No score calculated as all T score values are within normal limits. Ordered By: EDUIN DODD Interpreted By: Nikko Vega MD, 08/13/2023 3:11 PM Narrative 08/13/2023 3:12 PM BITUMINOUS PAVING MACHINE OPERATOR Examination: Bone Density Axial Exam Date/Time: 08/13/2023 9:48 AM Reason For Exam: Postmenopausal Comparison: None Findings: DEXA bone densitometry The bone mineral density (BMD) was determined by dual-energy x-ray absorptiometry, the results are as follows: AP Lumbar Spine L1 through L4 BMD Patient (GM/SQCM): 1.050 T-Score (Standard deviations from young adult peak bone density): 0.0 Left femoral neck: BMD Patient (GM/SQCM): 0.763 T-Score (Standard deviations from young adult peak bone density): -0.8 Total right femur: BMD Patient (GM/SQCM): 1.086 T-Score (Standard deviations from young adult peak bone density): 1.2 Procedure Note Nikko Vega MD - 08/13/2023 Examination: Bone Density Axial Exam Date/Time: 08/13/2023 9:48 AM Reason For Exam: Postmenopausal Comparison: None Findings: DEXA bone densitometry The bone mineral density (BMD) was determined bydual-energy x-ray absorptiometry, the results are as follows: AP Lumbar Spine L1 through L4 BMD Patient (GM/SQCM): 1.050 T-Score (Standard deviations from young adult peak bonedensity): 0.0 Left femoral neck: BMD Patient (GM/SQCM): 0.763 T-Score (Standard deviations from young adult peak bonedensity): -0.8 Total right femur: BMD Patient (GM/SQCM): 1.086 T-Score (Standard deviations from young adult peak bonedensity): 1.2 IMPRESSION: WHO Classification: normal. FRAX Score: No score calculated as all T score values are within normallimits. Ordered By: EDUIN DODD Interpreted By: Nikko Vega MD, 08/13/2023 3:11 PM us Eduin Dodd MD DEXA Final Result from Last 3 Months or Most Recently Relevant to Health Maintenance Insurance MEDICARE [facility] Advance Directives Documents on File Type Date Recorded Patient Vp Expl anation Legal Documents 09/01/2022 3:57 PM COMPLE BÁRBARA ATTNY REQ Legal Documents 06/17/2022 3:35 PM COMPLET ED BILLING REQUEST FOR ATTY [facility] [facility] [employer] Legal Documents 06/24/2021 6:57 AM RECVD & CMPLTD ATTY REQ. FOR HB BILLS FOR [facility] FOR AUTOMATED RECORDS Care Teams Cam Milling Machine Operator Relationship Specialty Start Date End Date Eduin Dodd MD [address] [facility] [address] [place] [address] PCP - General INTERNAL MEDICINE 10/11/24 Kentrell Figueroa MD 1 [place] [address] Medical Oncologist HEMATOLOGY/ONCOLOGY 03/22/24 [facility] Eye [facility] - Records [address] [place] [address] 03/22/24 Jerry Ivory MD [address] [facility] [address] [place] [address] HEMATOLOGY/ONCOLOGY 03/22/24 [place] [address] [facility] [address] [place] [address] INTERNAL MEDICINE 03/22/24 Red Zaragoza MD [address] [facility] [address] [place] [address] INTERVENTIONAL CARDIOLOGY 03/22/24 Chani Dupont MD [address] [facility] [address] [place] [address] Referring Physician NEPHROLOGY 03/22/24 Evonne Bello DPM [address] [facility] [address] [place] [address] Surgeon Spray Rig Operator - Foot & Ankle Surgery 03/22/24 Barbara Winkler PA [facility]2 [place] [address] PHYSICIAN GRAIN MIXER 03/22/24 Eduin Dodd MD [address] [facility] [address] [place] [address] Consulting Physician INTERNAL MEDICINE 10/10/24
--- OUTSIDE RECORDS SUMMARY | 2024-11-08 13:05 | XMS_ITS | Encounter Summary ---
Author Organization [facility] Address [facility] [place] [address] Care Team Providers Care Sharepoint Designer Developer Name Role Phone Kentrell Figueroa MD Unavailable [phone] [facility] [place], Records Unavailable Jerry Ivory MD Unavailable Maddi Wagoner MD Unavailable [phone] Red Zaragoza MD Unavailable Chani Dupont MD Unavailable Evonne Bello DPM Unavailable [phone] Barbara Winkler Unavailable [phone] Eduin Dodd MD Unavailable Eduin Dodd MD Primary Care Provider [phone] Encounter Details Date Type Department Care Team (Latest Contact Info) Description 11/03/2024 SiddharthaBright Things Message Enc [facility] Medical Group Multispecialty Care - [address] [place] [address] [facility] Provider Diabetic Screening Social History Tobacco Use Types Packs/Day Years [...] Sex Assigned at Female 10/10/2024 1:24 PM MULTIPLE COIL WINDER Legal Sex Female 4:08 PM CDT Gender Identity Female 11/03/2021 4:38 AM MULTIPLE COIL WINDER Sexual Orientation Straight 11/03/2021 4: 38 AM MULTIPLE COIL WINDER documented as of this encounter Plan of Treatment Upcoming Encounters Date Type Department Care Team (Late st Contact Info) Description 11/10/2024 10:00 AM MULTIPLE COIL WINDER Allied Health/Nurse Visit [facility] Medical [address] [address] Eduin Dodd MD [address] [place] [address] 11/13/2024 12:45 PM MULTIPLE COIL WINDER Office Visit [facility] Physical Therapy [address] [place] [address] Eduin Dodd MD [address] [place] [address] Nallely Peterson, PT 1 [place] [address] 02/14/2025 10:20 AM CDT Office [facility] [address] Eduin Dodd MD [address] [place] [address] 04/04/2025 10:30 AM CDT Office Visit [facility] Medical Group Multispecialty Care - [place] [address] [address] [place] [address] Eduin Dodd MD [address] [address] documented as of this encounter Visit Diagnoses Not on filedocumented in this encounter Additional Health Concerns Assessment Noted Time PHQ-9 Depression Total Score: 4 03/21/20 24 1:05 PM CDT documented as of this encounter Care Teams Sharepoint Designer Developer Relationship Specialty Start Date End Date Eduin Dodd MD [address] [address] PCP - General INTERNAL MEDICINE 10/11/24 Kentrell Figueroa MD 1 [place] [address] Medical Oncologist HEMATOLOGY/ONCOLOGY 03/22/24 [facility] [place] [facility] [place], - Records [address] [place] [address] 03/22/24 Jerry Ivory MD [address] [facility] [address] [place] [address] HEMATOLOGY/ONCOLOGY 03/22/24 [place] [address] [facility] [address] [place] [address] INTERNAL MEDICINE 03/22/24 Red Zaragoza MD [address] [facility] 162 [facility] [address] [place] [address] INTERVENTIONAL CARDIOLOGY 03/22/24 Chani Dupont MD [address] [facility] Ab[address]ij[address] [place] [address] Referring Physician NEPHROLOGY 03/22/24 Evonne Bello DPM [address] [facility] [address] [place] [address] Surgeon Psychiatric Clinical Nurse Specialist - Foot & Ankle Surgery 03/22/24 Barbara Winkler PA [facility] [place] [address] PHYSICIAN MACHINE STOPPAGE FREQUENCY CHECKER 03/22/24 Eduin Dodd MD [address] [address] Consulting Physician INTERNAL MEDICINE 10/10/24 documented as of this encounter
[2024-11-08 20:37] LABS: Creatinine Urine 47.5 mg/dL; Total Protein Urine Random 14 mg/dL; Ur Ttl Prot Creatinine Ratio 0.29 mg/mg (0-0.20)
[2024-11-08 21:04] LABS: Anion Gap 13 mmol/L (4-12); Blood Urea Nitrogen 12 mg/dL (7-17); Calcium 9.7 mg/dL (8.4-10.2); Carbon Dioxide 24 mmol/L (22-30); Chloride 102 mmol/L (98-107); Estimated Glomerular Filt Rate > 60; Glucose 164 mg/dL (65-110); Phosphorus 3.5 mg/dL (2.5-4.5); Potassium 4.2 mmol/L (3.4-5.0); Sodium 139 mmol/L (137-145)
== END 2024-11-08 12:57 | disposition home or self-care (01) ==
LOC: ANHGOSHLAB 12:57
PROVIDERS: PCP Physician Assistant Medical; Visit Provider Internal Medicine Nephrology
DX: N02.9 Recurrent and persistent hematuria with unspecified morphologic changes (principal); E11.9 Type 2 diabetes mellitus without complications; I10 Essential (primary) hypertension; R80.9 Proteinuria, unspecified
CPT/HCPCS: 36415; 80069; 82570; 84156

== ENCOUNTER 2025-01-17 10:29 | Outpatient (CLI) | payer MEDICARE, OTHER, SELFPAY ==
--- NOTE | ~2025-01-17 | CT_ITS ---
CT Scan of the Chest without Contrast: Clinical Indication: Interstitial lung disease Technique: Contiguous sections were acquired throughout the chest without intravenous contrast. Dose reduction technique was used on this scan by utilizing automated exposure control and iterative recon struction technique. The dose-length product (DLP) was 462.71 mGy-cm. COMPARISON: 06/30/2023 Findings: There is no evidence of any significant mediastinal, hilar or axillary lymphadenopathy. Coronary jacey ry calcifications are present. There is no evidence of pleural or pericardial effusion. Upper lobe predominant chronic interstitial disease is present with interstitial thickening and areas of minimal groundglass opacity. There is a stable 6 mm right upper lobe pulmonary nodule (axial imag e 43). Images through the upper abdomen reveal no abnormalities. Impression: Stable chronic interstitial disease. Stable 6 mm right upper lobe pulmonary nodule. Reviewed, dictated and finalized at [facility]. Impression: Stable chronic interstitial disease. Stable 6 mm right upper lobe pulmonary nodule.
== END 2025-01-17 10:30 | disposition home or self-care (01) ==
LOC: MICIMG 10:30
PROVIDERS: PCP Physician Assistant Medical; Visit Provider Nurse Practitioner Family
DX: J84.9 Interstitial pulmonary disease, unspecified (principal); R91.1 Solitary pulmonary nodule
CPT/HCPCS: 71250

== ENCOUNTER 2025-01-17 10:59 | Outpatient (CLI) | payer MEDICARE, OTHER, SELFPAY ==
[2025-01-17 11:32] LABS: Basophils Absolute Auto 0.1 K/mm3 (0.0-0.1); Basophils Percent Auto 0.8 % (0.2-1.2); Eosinophils Absolute Auto 0.1 K/mm3 (0-0.3); Eosinophils Percent Auto 1.3 % (0-4.4); Hematocrit 48.7 % (37.0-47.0); Immature Granulocyte Absolute 0.05 K/mm3 (0.00-0.031); Immature Granulocyte Percent A 0.5 % (0-0.5); Lymphocytes Absolute Auto 2.66 K/mm3 (0.9-3.2); Lymphocytes Percent Auto 26.4 % (18.3-44.2); Mean Corpuscular HGB Conc 32.9 g/dl (32-36); Mean Corpuscular Hemoglobin 28.9 pg (26-34); Mean Corpuscular Volume 87.9 fl (80-100); Mean Platelet Volume 10.4 fl (7.4-10.4); Monocytes Absolute Auto 1.1 K/mm3 (0.1-0.6); Monocytes Percent Auto 10.4 % (2.6-8.5); Neutrophils Absolute Auto 6.1 K/mm3 (1.3-6.7); Neutrophils Percent Auto 60.6 % (45.5-73.1); Platelet Count Result 233 k/mm3 (150-375); Red Blood Count 5.54 M/mm3 (4.2-5.4); Red Cell Distribution Width 13.3 % (11.5-14.5); White Blood Count 10.1 K/mm3 (4.5-10.0)
--- OUTSIDE RECORDS SUMMARY | 2025-01-17 12:21 | XMS_ITS | Clinical Summary ---
Author Organization [facility] [place] Address [address] [place] [address] Care Team Providers Care Work Force Advisor Name Role Phone Kentrell Figueroa MD Unavailable [phone] [facility], Records Unavailable Jerry Ivory MD Unavailable [phone] Maddi Wagoner MD Unavailable [phone] Red Zaragoza MD Unavailable Chani Dupont MD Unavailable Evonne Bello DPM Unavailable Barbara Winkler Unavailable [phone] Eduin Dodd MD Unavailable Eduin Dodd MD Primary Care Provider [phone] Allergies Active Allergy Reactions Criticality Noted Date Comments Acetaminophen Other (see comment) 08/22/2015 Contraindicated hep c Amlodipine Rash Medium 05/30/2019 Benzocaine Other (see comment) Medium 07/06/2022 Butalbital Hives Medium 05/30/2019 Pjhehsmzmh-Syo-Nyuy-Codein e Hives 08/22/2015 Xdxogtenuz-Wypatqx-Puonfoj e Hives High 07/06/2022 Cefuroxime Dizziness,Other (see [...] tablet Take 1 tablet by mouth daily. 03/02/2021 Active Milk Thistle 1000 MG Cap Take by mouth daily. Active cyclobenzaprine 10 MG tablet 1/2 tablet twice a day and one tablet @@ bedtime. 04/16/2021 Active oxyCODONE ER 10 MG 12 hr abuse-deterrent tablet Take 1 tablet (10 mg total) by mouth nightly at bedtime. Active oxyCODONE immediate release 5 MG immediate release tablet Take 1 tablet (5 mg total) by mouth 3 (three) times daily. 01/22/2022 Active Insulin Pen Needle (BD PEN NEEDLE ELISABET U/F) 32G X 4 MM MiscIndications: Type 2 diabetes mellitus without complication, with long-term current use of insulin ([facility]) USE THREE TIMES A DAY 200 each 11 04/26/2023 Active esomeprazole (NEXIUM) 40 MG capsuleIndicatio ns:Gastroesophag eal reflux disease without esophagitis Take 1 capsule (40 mg total) by mouth before breakfast. 90 capsule 1 08/15/2024 Active hydroCHLOROthiaz kemal (HYDRODIURIL) 25 MG tabletIndication s:Hypertension associated with diabetes ([facility]) Take 1 tablet (25 mg total) by mouth daily. 90 tablet 1 08/15/2024 Active insulin glargine (LANTUS) 100 UNIT/ML injection (VIAL)Indication s:Type 2 diabetes mellitus without complication, with long-term current use of insulin ([facility]) Inject 38 Units into the skin nightly at bedtime. 30 mL 3 08/15/2024 Active linaGLIPtin (TRADJENTA) 5 MG tabletIndication s:Type 2 diabetes mellitus without complication, with long-term current use of insulin ([facility]) Take 1 tablet (5 mg total) by mouth daily. 90 tablet 1 08/15/2024 Active lisinopril (PRINIVIL) 40 MG tabletIndication s:Hypertension associated with diabetes ([facility]) Take 1 tablet (40 mg total) by mouth daily. 90 tablet 1 08/15/2024 Active folic acid (FOLVITE) 1 MG tablet Take 1 tablet (1 mg total) by mouth daily. 09/19/2024 Active meclizine (ANTIVERT) 25 MG tabletIndication s:Vertigo Take 2 tablets (50 mg total) by mouth nightly at bedtime. 30 tablet 10/11/2024 Active insulin lispro prot & lispro (HUMALOG MIX 75/25 KWIKPEN) (75-25) 100 UNIT/ML injection (PEN)Indications :Type 2 diabetes mellitus without complication, with long-term current use of insulin ([facility]) 25 units AM, 30 units after dinner 3 mL 6 10/27/2024 Active Active Problems Problem Noted Date Diagnosed Date Morbid (severe) obesity due to excess calories 0 04/26/2023 Malignant neoplasm of centra l portion of left female breast, unspecified estrogen receptor status ([facility]) 04/26/2023 Chronic hepatitis C without hepatic coma ([facility]) 04/26/2023 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 Statin declined 09/08/2022 Overview (04/26/2023): Last Assessment & Plan: Patient declines use of statins Paresthesia 06/16/2022 History of right breast biopsy 03/02/2022 Left breast mass 04/21/2021 Breast mass, right 04/21/2021 Noncompliance with medication regimen 08/21/2019 Coronary artery disease invo lving grayling coronary artery of grayling heart without angina pectoris 05/08/2019 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 Proteinuria 07/14/2018 PAD (peripheral artery disease) 05/04/2017 Allergic reaction to drug 12/07/2016 Overview (04/26/2023): Allergic reaction caused by a drug, initial encounter Rheumatoid arthritis ([facility]) 6 Overview (01/22/2022): Rheumatoid arthritis, involving unspecified site, unspecified rheumatoid factor presence Rheumatoid arthritis, involving unspecified site, unspecified rheumatoid factor presence Chronic kidney disease, stage III (moderate) 02/2016 Overview (04/26/2023): CKD (chronic kidney disease) stage 3, GFR 30-59 ml/min CKD (chronic kidney disease) stage 3, GFR 30-59 ml/min Gastroesophageal reflux disease without esophagi tis 01/09/2016 Adenomatous colon polyp 01/09/2016 Nonalcoholic fatty liver 01/09/2016 Abnormal liver function tests 02/15/2014 Overview (01/22/2022): Abnormal liver function test Abnormal liver function test Mixed diabetic hyperlipidemi a associated with type 2 diabetes mellitus ([facility]) 02/15/2014 Overview (01/22/2022): DM (diabetes mellitus) Last Assessment & Plan: Continue Crestor, Low cholesterol Low fat diet Exercise 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s 06/17/2013 Hypertension associated with diabetes (CMS/HCC H HS/HCC) 11/08/2012 Overview (01/22/2022): Hypertension, Unspecified Last Assessment & Plan: Chronic, well controlled Continue current meds Check MA Type 2 diabetes mellitus wit hout complication (CMS/HCC HHS/HCC) 06/20/2012 Hepatitis C virus carrier state (CMS/HCC HHS/HCC ) 11/12/2011 Overview (04/26/2023): HEPATITIS C CARRIER HEPATITIS C CARRIER Current smoker 11/13/2010 Encounters Date Type Department Care Team Description 11/13/2024 12:45 PM ROPE TIER Office Visit [facility] [address] [place] [address] Eduin Dodd MD Weedon, Meaghan B, PT Dizziness 11/13/2024 Telephone [facility] [address] [facility] [address] [place] [id number] Eduin Dodd MD Results 11/13/2024 Travel 11/10/2024 10:00 AM ROPE TIER Laboratory Only [facility] [address] [facility] [address] [place] [address] Eduin Dodd MD 11/10/2024 Travel 11/07/2024 Telephone [facility] [address] [facility] [address] [place] [address] Eduin Dodd MD Record Request 11/03/2024 Telephone [facility] [address] [place] [address] Eduin Dodd MD Medication Information 11/03/2024 MyChart Message Enc [facility] [address] [facility] [address] [place] [address] [facility] Provider Diabetic Screening 10/27/2024 Orders Only [facility] [address] [place] [address] Eduin Dodd MD 10/26/2024 Telephone [facility] [address] [facility] [address] [place] [address] Eduin Dodd MD Medication 10/23/2024 Margaret Message Enc [facility] [employer] [place] [address] [facility] Provider RE: Amendment Request - Visit Summary from Last 3 Months Immunizations Immunization Administration Dates Next Due Influenza (Generic) 06/19/2014 Influenza Adult (Generic) 06/20/2019 DNAnexus (CyberX) COVID-19 AD26 VACCINE 0.5 ML IM SUSP [...] Sex Assigned at Female 10/10/2024 1:24 PM ROPE TIER Legal Sex Female 4:08 PM CDT Gender Identity Female 11/03/2021 4:38 AM ROPE TIER Sexual Orientation Straight 11/03/2021 4: 38 AM ROPE TIER Last Filed Vital Signs Vital Sign Reading Time Taken Comments Blood Pressure 146/96 10/18/2024 1:15 PM ROPE TIER Pulse 90 10/11/2024 2:42 PM ROPE TIER Temperature 36.6 C (97.9 F) 10/11/2024 2:42 PM ROPE TIER Respiratory Rate 18 10/11/2024 2:42 PM ROPE TIER Oxygen Saturation 94% 10/11/2024 2:42 PM ROPE TIER Inhaled Oxygen Concentration - - Weight 99.4 kg (219 lb 3.2 oz) 10/11/2024 2:42 P M ROPE TIER Height 167.6 cm (5' 6 ) 10/11/2024 2:42 PM ROPE TIER Body Mass Index 35.38 10/11/2024 2:42 PM ROPE TIER Plan of Treatment Upcoming Encounters Date Type Department Care Team (Late st Contact Info) Description 02/14/2025 10:20 AM CDT Office Visit [facility] Medical [facility] - [address] [address] Eduin Dodd MD [address] [place] [id number] 04/04/2025 10:30 AM CDT [facility] [address] [address] Eduin Dodd MD [facility] [address] [address] Health Maintenance Due Date Last Done Comments ASCVD Statin 1955 Colorectal Cancer Screening Colonoscopy (10 Years) 1955 COVID-19 Vaccine ( season) 2024 11/28/2020 PHQ-2 (Physician [place]) 09/20/2024 03/21/2024 Hemoglobin A1C 01/30/2025 08/02/2024, 01/20, 05/05/2023, Additional history exists Annual Medicare Wellness Visit 03/23/2025 03/22/2024 Pneumococcal Vaccine: 50+ Years (2 of 2 - PPSV23) 08/15/2025 11/30/2016 Postponed from 01/25/2017 (Patient Refused) RSV Immunization or 60+ Years (1 - Risk 60-74 years 1-dose series) 08/15/2025 Postponed fro m 2014 (Patient Refused) Zoster Vaccines (1 of 2) 08/15/2025 Pos tponed from 2004 (Patient Refused) Kidney Health Evaluation 09/04/2025 09/04/2024 Lipid Panel 09/04/2025 09/04/2024, 05/2024, 05/05/2023, Additional history exists Diabetes: Retinopathy Eye Exam 04/25/2026 04/25/2024 Mammogram Screening 05/04/2026 05/04/2024, 09/01/2022, 04/25/2021, Additional [...] this topic Medical Devices Implanted Type Area Sheep Rancher Device Identifier Shelf Expiration Date Model / Serial / Lot Pin Pin Left: Toe Description:2nd toe Procedures Procedure Name Priority Date/Time Associated Diagnosis Comments COLLECTION VENOUS BLOOD VENIPUNCTURE Routine 11/10/2024 10:08 AM ROPE TIER Stage 3a chronic kidney disease (CMS/HCC) BASIC METABOLIC PANEL Routine 11/10/2024 9:59 AM ROPE TIER Vertigo LIPID PANEL Routine 09/04/2024 10:04 AM ROPE TIER Type 2 diabetes mellitus without complication, with long-term current use of insulin ([facility] HHS/HCC) Hyperlipidemia associated with type 2 diabetes mellitus ([facility] HHS/HCC) Coronary artery disease involving grayling coronary artery of grayling heart without angina pectoris Hypertension associated with diabetes ([facility]) Drug therapy HEP C SCANNED ORDERS Routine 08/02/2024 OUTSIDE LAB (SCAN ORDER) Routine 08/02/2024 MG SCREENING W MARICARMEN WILLIAN DIGI Routine 05/04/2024 11:20 AM CDT Encounter for screening mammogram for malignant neoplasm of breast DIABETIC RETINOPATHY EXAM (NEGATIVE)(SCAN ORDER) Routine 04/25/2024 BONE DENSITY/DEXA Routine 08/13/2023 10: 52 AM ROPE TIER Postmenopause from Last 3 Months or Most Recently Relevant to Health Maintenance Results * (ABNORMAL) BASIC METABOLIC PANEL (11/10/2024 9:59 AM ROPE TIER) Pathologist [facility] SODIUM S/P/B 138 136 - 145 MMOL/L 11/10/2024 3:57 PM ROPE TIER [facility] POTASSIUM S/P/B 4.4 3.5 - 5.1 MMOL/L 11/10/2024 3:57 PM ROPE TIER [facility] CHLORIDE S/P/B 101 98 - 107 MMOL/L 11/10/2024 3:57 PM ROPE TIER [facility] CO2 29.0 21 - 32 MMOL/L 11/10/2024 3:57 PM ROPE TIER [facility] GLUCOSE 275(H) 70 - 99 MG/DL 11/10/2024 3:57 PM ROPE TIER [facility] BUN 10 7 - 18 MG/DL 11/10/2024 3:57 PM ROPE TIER [facility] CREATININE S/P/B 0.84 0.55 - 1.02 MG/DL 11/10/2024 3:57 PM [facility] CALCIUM S/P/B 9.3 8.4 - 10.5 MG/DL 11/10/2024 3:57 PM ROPE TIER [facility] ANION GAP 8.0 5 - 15 MMOL/L 11/10/2024 3:57 PM ROPE TIER [facility] Comment:REFERENCE RANGE NOT ESTABLISHED OSMOLALITY (CALC) 295 MOSM/KG 025 3:57 PM ROPE TIER [facility] Comment:REFERENCE RANGE NOT ESTABLISHED GFR ESTIMATE 75(L) >90 ML/MIN/1. 73 M2 11/10/2024 3:57 PM ROPE TIER [facility] GFR NOTES GFR REFERENCE S: 11/10/2024 3:57 PM ROPE TIER [facility] Comment: THE ESTIMATED GFR IS CALCULATED USING THE 2020 CKD-EPI EQUATION. THE FOLLOWING CATEGORIES FOR GRADING RENAL FUNCTION ARE RECOMMENDED BY THE INTERNATIONAL SOCIETY OF NEPHROLOGY (KDIGO 2012 CLINICAL PRACTICE GUIDELINE). G1,NORMAL OR HIGH: >89 ml/min/1.73 m2 G2,MILDLY DECREASED: 60-89 ml/min/1.73 m2 G3A,MILDLY TO MODERATELY DECREASED: 45-59 ml/min/1.73 m2 G3B,MODERATELY TO SEVERELY DECREASED: 30-44 ml/min/1.73 m2 G4,SEVERELY DECREASED: 15-29 ml/min/1.73 m2 G5,KIDNEY FAILURE: <15 ml/min/1.73 m2 11/10/2024 9:59 AM ROPE TIER Eduin Dodd MD LABORATORY Final Result [facility] [address] [place] [address], * (ABNORMAL) LIPID PANEL (09/04/2024 10:04 AM ROPE TIER) CHOLESTEROL 188 <200 MG/DL 09/04/2024 3:00 PM ROPE TIER [facility] TRIGLYCERIDES 151(H) <150 MG/DL 09/04/2024 3:00 PM ROPE TIER [facility] HDL 43 >40 MG/DL 09/04/2024 3:00 PM ROPE TIER [facility] LDL-C 115(H) <100 MG/DL 09/04/2024 3:00 PM ROPE TIER [facility] VLDL CALCULATION 30(H) 5 - 28 MG/DL 09/04/2024 3:00 PM ROPE TIER [facility] CHOL/HDL RATIO 4.4(H) 0.0 - 4.0 09/04/2024 3:00 PM ROPE TIER [facility] LDL/HDL 2.7(H) 0.41 - 2.13 09/04/2024 3:00 PM ROPE TIER [facility] NON HDL CHOLESTEROL 145(H) <140 MG/DL 09/04/2024 3:00 PM ROPE TIER [facility] 09/04/2024 10:0 4 AM ROPE TIER Eduin Dodd MD LABORATORY Final Result Performing Organization Address City/[facility]/ZIP Co de Phone Number [facility] [address] [place] [address], [place] [phone] * HEP C SCANNED ORDERS (08/02/2024) [employer] Scanned SCANNING Final Resu lt Performing Organization Address City/[facility]/ZIP Co de Phone Number HS ONBASE * OUTSIDE LAB (08/02/2024) HGB A1C 7.1 % HS ONBASE 08/02/2024 [employer] Scanned SCANNING Final Resu lt Performing Organization Address City/[facility] Co de Phone Number [facility] ONBASE * MG SCREENING W MARICARMEN WILLIAN [...] Eduin Dodd MD MAMMO Final Result * DIABETIC RETINOPATHY EXAM (NEGATIVE) (04/25/2024) [facility] Scanned SCANNING Final Resu lt [facility] ONBASE * BONE DENSITY/DEXA (08/13/2023 10:52 AM ROPE TIER) Anatomical Region Laterality Modality Bone Bone Density 08/13/2023 3:11 PM ROPE TIER Impressions 08/13/2023 3:12 PM ROPE TIER IMPRESSION: WHO Classification: normal. FRAX Score: No score calculated as all T score values are within normal limits. Ordered By: EDUIN DODD Interpreted By: Nikko Vega MD, 08/13/2023 3:11 PM Narrative 08/13/2023 3:12 PM ROPE TIER Examination: Bone Density Axial Exam Date/Time: 08/13/2023 [...] By: Nikko Vega MD, 08/13/2023 3:11 PM Eduin Dodd MD DEXA Final Result from Last 3 Months or Most Recently Relevant to Health Maintenance Insurance MEDICARE [facility] Advance Directives Documents on File Type Date Recorded Patient Dobie Worker Expl anation Legal Documents 09/01/2022 3:57 PM COMPLE BÁRBARA ATTNY REQ Legal Documents 06/17/2022 3:35 PM COMPLET ED BILLING REQUEST FOR ATTY [employer] Legal Documents 06/24/2021 6:57 AM RECVD & CMPLTD ATTY REQ. FOR HB BILLS FOR [facility] Care Teams Work Force Advisor Relationship Specialty Start Date End Date Eduin Dodd MD [address] [facility] [address] [place] [address] PCP - General INTERNAL MEDICINE 10/11/24 Kentrell Figueroa MD [address] [place] [address] Medical Oncologist HEMATOLOGY/ONCOLOGY 03/22/24 [facility], - Records [address] [place] [address] 03/22/24 Jerry Ivory MD [address] [facility] [address] [place] [address] HEMATOLOGY/ONCOLOGY 03/22/24 [place] [address] [facility] [address] [place] [address] INTERNAL MEDICINE 03/22/24 Red Zaragoza MD [address] [facility] [address] [place] [id number] INTERVENTIONAL CARDIOLOGY 03/22/24 Chani Dupont MD [address] [facility] [address] [place] [address] Referring Physician NEPHROLOGY 03/22/24 Evonne Bello DPM [address] [facility] [address] [place] [address] Surgeon [employer] Cle[employer] Supervisor - Foot & Ankle Surgery 03/22/24 Barbara Winkler PA [facility] [place] [address] PHYSICIAN MANAGER PRINT 03/22/24 Eduin Dodd MD [address] [address] Consulting Physician INTERNAL MEDICINE 10/10/24
--- OUTSIDE RECORDS SUMMARY | 2025-01-17 12:21 | XMS_ITS | Clinical Summary ---
Author Organization [facility] Address [address] [place] [phone] Care Team Providers Care Quality Lead Name Role Phone Rozina Murrieta MD Unavailable Micaela Gamble MD Unavailable Barbara Winkler Primary Care Provider [phone] Allergies Active Allergy Reactions Criticality Noted Date Comments Acetaminophen Other (See comments),Rash Medium 08/22/2015 other Contraindicated hep c Adhesive Rash Medium 04/17/2021 Adhesive Tape-Silicones Rash Medium 04/17/2021 Amlodipine Rash Medium 07/06/2022 Aspirin Hives Medium Benzocaine Fever,Other (See comments) Medium 07/06/2022 Butalbital Hives Medium Qodccytdpl-Mkgegem-Uswsvd ne Hives High 07/06/2022 Exenatide Microspheres Shortness [...] medicated testing 2x's daily 200 Pad 3 4 Active cyclobenzaprin e (FLEXERIL) 10 mg tablet take 1/2 tablet by oral route TID 0 0 5 Active Additional Information Patient taking differently: 5 mg oral, 1/2 tab 2 x a day and 1 tab once a day, Reported on 01/10/2025 ondansetron (ZOFRAN, HYDROCHLORIDE, ) 4 mg tablet take 1 Tablet by oral route every 8 hours for 2 days as needed 0 0 4 Active lisinopril (PRINIVIL,ZEST RIL) 40 mg tablet take 1 by Oral route every day 0 0 4 Active oxyCODONE ER (OxyCONTIN) 10 mg 12 hr abuse-deterren t tablet take 1 tablet by oral route every bedtime 0 0 6 Active estrogens-meth ylTESTOSTERone (EEMT,COVARYX) 1.25-2.5 mg per tabletIndicati ons:Vasomotor Symptoms associated with Menopause 2 8 Active DEXCOM G6 TELEVISION SERVICER miscIndication s:Type 2 diabetes mellitus with hyperglycemia, with long-term current use of insulin (HCC) Use as directed to monitor glucose daily 1 each 9 Active DEXCOM G6 SENSOR deviceIndicati ons:Type 2 diabetes mellitus with hyperglycemia, with long-term current use of insulin (HCC) Use as directed to monitor glucose daily 9 Device 1 9 Active hydroCHLOROthi azide (HYDRODIURIL) 25 mg tablet Take 1 tablet (25 mg total) by mouth daily 30 tablet 11 9 Active oxyCODONE (ROXICODONE) 5 mg immediate release tablet Take 1 tablet (5 mg total) by mouth 3 (three) times a day [address] (NexIUM) 40 mg capsule TAKE 1 CAPSULE BY MOUTH DAILY NEEDED FOR HEARTBURN 3 Active BD Ultra-Fine Amanda Pen Needle 32 gauge x 5/32 needle USE THREE TIMES A DAY 300 each 3 3 Active folic acid (FOLVITE) 1 mg tablet Take 1 tablet (1 mg total) by mouth daily 4 Active estrogens-meth ylTESTOSTERone (EEMT,COVARYX) 0.625-1.25 mg per tablet Take 1 tablet by mouth daily 4 Active Tradjenta 5 mg tabletIndicati ons:Type 2 diabetes mellitus with hyperglycemia, with long-term current use of insulin ([facility]) TAKE 1 TABLET DAILY 90 tablet 3 4 Active insulin lispro protamine-insu juliette lispro 75/25 (HumaLOG 75/25 100 unit/mL) 100 unit/mL pen for injectionIndic ations:Type 2 diabetes mellitus with hyperglycemia, with long-term current use of insulin ([facility]) INJECT 20 UNITS IN THE MORNING AND 30 UNITS AT NIGHT 45 mL 11 5 Active meclizine (ANTIVERT) 25 mg tablet 5 Active predniSONE (DELTASONE) 5 mg tablet Take 1.5 tablets (7.5 mg) by mouth daily 5 Active insulin glargine (LANTUS) 100 unit/mL (3 mL) pen for injectionIndic ations:Type 2 diabetes mellitus with hyperglycemia, with long-term current use of insulin ([facility]) Inject 35 Units under the skin nightly 45 mL 2 5 01/13/20 26 Active insulin lispro (HumaLOG) 100 unit/mL pen for injectionIndic ations:Type 2 diabetes mellitus with hyperglycemia, with long-term current use of insulin ([facility]) INJECT 20 UNITS IN THE MORNING AND 30 UNITS AT NIGHT 45 mL 11 5 Active insulin glargine (LANTUS) 100 unit/mL (3 mL) pen for injection Inject 20 units every am and 30 units every pm 45 mL 3 4 01/11/20 25 Discontin ued(Reord er) insulin glargine (LANTUS) 100 unit/mL (3 mL) pen for injectionIndic ations:Type 2 diabetes mellitus with hyperglycemia, with long-term current use of insulin (HCC) Inject 35 Units under the skin nightly Inject 30 units every pm 45 mL 2 5 01/12/20 25 Discontin ued(Reord er) insulin glargine (LANTUS) 100 unit/mL (3 mL) pen for injectionIndic ations:Type 2 diabetes mellitus with hyperglycemia, with long-term current use of insulin (HCC) Inject 35 Units under the skin nightly 45 mL 2 5 01/13/20 25 Discontin ued(Reord er) Active Problems Problem Noted Date Diagnosed Date 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 Statin declined 09/08/2022 Assessment & Plan (09/08/2022 12:28 PM ELECTRICAL MANUFACTURING TECHNICIAN): Patient declines use of statins Palpitations 06/16/2022 Paresthesia 06/16/2022 Noncompliance with medication regimen 08/21/2019 Coronary artery disease invo lving [place] coronary artery of [place] heart without angina pectoris 05/08/2019 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 Not currently on statin therapy. Last lipid panel: 09/04/24 YSZ=097, QK=215. Assessment & Plan (06/19/2024 11:27 AM CDT): Chronic problem. Not currently on statin therapy. Last lipid panel: 04/28/24 EYV=301, NF=726. Assessment & Plan (01/28/2023 1:37 PM CDT): Pt still refusing statins. Assessment & Plan (09/08/2022 11:55 AM ELECTRICAL MANUFACTURING TECHNICIAN): Chronic, well controlled Low fat Low cholesterol diet Exercise Assessment & Plan (05/07/2022 3:10 PM CDT): Chronic, well controlled Low fat Low cholesterol diet Exercise Continue statin therapy Check lipid profile Assessment & Plan (10/30/2021 1:34 PM ELECTRICAL MANUFACTURING TECHNICIAN): Continue Crestor, Low cholesterol Low fat diet [...] Rosuvastatin Assessment & Plan (10/24/2020 9:36 AM ELECTRICAL MANUFACTURING TECHNICIAN): Due to the high risk of of [...] DMII WO CMP UNCNTRLD Assessment & Plan (01/10/2025 11:46 AM CDT): Chronic problem. A1c not yet at goal but stable at 7.4%. borderline high/normal during day time hours. -increase morning 75/25 from 20 to 22 units, keep evening dose at 30 units. Current medications: Tradjenta 5mg daily Lantus 35 units at bedtime Humalog 75/25 22 units in morning and 30 units in evening UTD on DM eye exam ([facility] in [place] 04/2024). Letter sent to get copy of [...] skin breakdown and infection. Assessment & Plan (06/19/2024 12:10 PM CDT): Chronic problem. A1c not yet at goal but improved from 8.2% 08/24/23 to now 7.4% no changes at this time. Current medications: Tradjenta 5mg daily Lantus 35 units at bedtime Humalog 75/25 20 units in morning and 30 units in evening UTD on DM eye exam ([facility] in [place] 04/2024). Letter sent to get copy of [...] infection. Assessment & Plan (08/24/2023 11:49 AM ELECTRICAL MANUFACTURING TECHNICIAN): Hba1c was Lab Results Component Value Date [...] Tradjenta Assessment & Plan (09/08/2022 12:29 PM ELECTRICAL MANUFACTURING TECHNICIAN): Hba1c was Lab Results Component Value Date [...] inhibitors Assessment & Plan (10/30/2021 1:34 PM ELECTRICAL MANUFACTURING TECHNICIAN): Hba1c was Lab Results Component Value Date [...] regimen Assessment & Plan (10/24/2020 9:35 AM ELECTRICAL MANUFACTURING TECHNICIAN): Hba1c was Lab Results Component Value Date [...] Prevention and treatment of hyypoglcyemia discussed. Add Khadarance ( pt with CAD ) Assessment & [...] discussed. Assessment & Plan (10/11/2018 9:43 AM ELECTRICAL MANUFACTURING TECHNICIAN): Hba1c was Lab Results Component Value Date [...] goal hba1c is under 7.0 to prevent intermediate card tender diabetes complications ( eye , kidney and [...] goal hba1c is under 7.0 to prevent shelter diabetes complications ( eye , kidney and [...] goal hba1c is under 7.0 to prevent shelter diabetes complications ( eye , kidney and [...] Tradjenta. Assessment & Plan (09/30/2017 11:18 AM ELECTRICAL MANUFACTURING TECHNICIAN): Your Hba1c today was: 8.8 meaning a 3 month average sugar of : 207 Your goal hba1c is under 7.0 to prevent shelter diabetes complications ( eye , kidney and [...] (03/02/2017 10:51 AM CDT): Hba1c was 7.5 [id number] calorie, consistent carb diet recommended 30 min daily aerobic and resistance exercise recommended Foot care discused. Prevention and treatment of hyypoglcyemia discussed. Continue current insulin regimen Hypertension associated with diabetes 11/08/2012 Overview (12/25/2016): Hypertension, Unspecified Assessment & Plan (01/10/2025 11:31 AM CDT): Chronic problem. Controlled on current lisinopril 40mg, HCTZ 25mg daily Assessment & Plan (06/19/2024 11:26 AM CDT): Chronic problem. Controlled on current lisinopril 40mg, HCTZ 25mg daily Assessment & Plan (01/28/2023 1:38 PM CDT): Chronic, well controlled Importance of low salt diet and exercise were discussed Continue current meds, including Lisinopril Update MA, GFR Assessment & Plan (09/08/2022 12:28 PM ELECTRICAL MANUFACTURING TECHNICIAN): Chronic, well-controlled Continue current medications including lisinopril Assessment & Plan (05/07/2022 3:10 PM CDT): Chronic, well controlled Importance of low salt diet and exercise were discussed Continue current meds Assessment & Plan (10/30/2021 1:35 PM ELECTRICAL MANUFACTURING TECHNICIAN): Chronic, well controlled Continue current meds Check MA Assessment & Plan (10/24/2020 9:34 AM ELECTRICAL MANUFACTURING TECHNICIAN): Goal blood pressure is less than 140/85 [...] ARB Assessment & Plan (10/11/2018 9:44 AM ELECTRICAL MANUFACTURING TECHNICIAN): Goal blood pressure is less than 140/85 [...] ARB Assessment & Plan (09/30/2017 11:18 AM ELECTRICAL MANUFACTURING TECHNICIAN): Goal blood pressure is less than 140/85 Low salt diet recommended Daily aerobic exercise Continue current meds, including ALOK-I or ARB Assessment & Plan (05/25/2017 10:50 AM CDT): Goal blood pressure is less than 140/85 Low salt diet recommended Daily aerobic exercise Continue current meds, including ALOK-I or ARB Hepatitis C virus carrier state 11/12/2011 Overview (12/25/2016): HEPATITIS C CARRIER Tobacco dependence 11/13/2010 Encounters Date Type Department Care Team Description 01/11/2025 Telephone [facility] Diabetes and Endocrinology [address] [place] [phone] Marylin Dhaliwal NP Med Management (Lantus) 01/10/2025 11:00 AM CDT Office Visit [facility] Diabetes and Endocrinology [address] [place] [phone] Marylin Dhaliwal NP Type 2 diabetes mellitus with hyperglycemia, with long-term current use of insulin (HCC) (Primary Dx); Hypertension associated with diabetes (HCC); Mixed diabetic hyperlipidemia associated with type 2 diabetes mellitus (CMS/HCC) (HCC) 01/10/2025 Orders Only [facility] Medical [facility] Diabetes and Endocrinology [address] [place] [phone] Provider, MD Malik from Last 3 Months Surgical History Surgery Date Site/Laterality Comments OTHER SURGICAL HISTORY membrane basement disease: see renal doctor CHOLECYSTECTOMY 09/20/2008 - 09/19/2009 Cholecystectomy OTHER SURGICAL HISTORY left hand carpal tunnel surgery APPENDECTOMY BREAST SURGERY CATARACT EXTRACTION HERNIA REPAIR HYSTERECTOMY BREAST BIOPSY 04/25/2021 Right BREAST BIOPSY 04/25/2021 Right Medical History Medical History Date Comments Diabetes mellitus (HCC) Diabetes Hepatitis C virus infection Hepa titis C Hx Other Medical membrane baseme nt disease Type 2 diabetes mellitus (HCC) D iabetes type 2; Comments: [facility]AD 02/15/2014 - Hypertension Hypertension Hepatic cirrhosis (HCC) Cirrhosi s of liver Hx Other Medical not claustropho bic; Comments: [facility] 04/03/2014 - Rheumatoid arthritis (HCC) Rheum atoid arthritis; Comments: [facility] 08/25/2016 - Cancer (HCC) Breast & Uterine Cancer Cataract Brain [...] on file Legal Sex Female 6:39 PM ELECTRICAL MANUFACTURING TECHNICIAN Gender Identity Female 04/11/2020 10:32 AM CDT Sexual Orientation Straight 04/11/2020 10 :32 AM CDT Obstetrics History Last Filed Vital Signs Vital Sign Reading Time Taken Comments Blood Pressure 126/82 01/10/2025 10:57 AM CDT Pulse 94 01/10/2025 10:57 AM CDT Temperature 36.6 C (97.9 F) 03/12/2021 7:53 AM CDT Respiratory Rate 18 01/10/2025 10:57 AM CDT Oxygen Saturation 98% 04/28/2024 10:19 AM CDT Inhaled Oxygen Concentration - - Weight 98 kg (216 lb) 01/10/2025 10:57 AM CDT Height 167.6 cm (5' 5.98 ) 01/10/2025 10:57 AM C DT Body Mass Index 34.88 01/10/2025 10:57 AM CDT Plan of Treatment Health Maintenance Due Date Last Done Comments Colon Cancer Screening-Colonoscopy 1954 Hepatitis B Screening 1972 Zoster Vaccine (1 of 2) 2004 Pneumococcal vaccine 65+ (2 of 2 - PPSV23) 01/25/2017 11/30/2016 Well Visit 65+ 2019 Covid-19 Vaccine (2 - 2023-2 5 season) 2024 11/28/2020 Depression Screening 08/24/2024 08/24/2023, 09/08/2022, 05/07/2022, Additional history exists Fall Risk Assessment 08/24/2024 08/24/2023 Breast Cancer Screening-Mammogram 05/04/2025 05/04/2024, 05/04/2024, 09/01/2022, Additional history exists Influenza Vaccine (Season Ended) 2025 06/20/20 19, 06/19/2014 Hemoglobin A1C 07/12/2025 01/10/2025, 05/23, 08/24/2023, Additional history exists Osteoporosis Screening-Bone Density Scan 08/13/2025 08/13/2023, 01/31/2016, 01/31/2016 Albumin Creatinine Ratio, Urine 09/04/2025 09/04/2024, 01/28/2023, 10/30/2021, Additional history exists Lipid Panel 09/04/2025 09/04/2024, 08/20, 04/28/2024, Additional history exists eGFR 10/10/2025 10/10/2024, 01/28/2023 Foot Exam 01/10/2026 01/10/2025, 05/23, 01/28/2023, Additional history exists Dilated Eye Exam 04/25/2026 04/25/2024, 01/2023, 12/11/2021, Additional history exists DTaP/Tdap/Td Vaccine (2 - Td or Tdap) 08/31/2027 08/31/2017 Hepatitis C Screening Completed 08/21/2019 , 12/23/2017, 09/28/2017, Additional history exists Procedures Procedure Name Priority Date/Time Associated Diagnosis Comments POCT GLUCOSE Routine 01/10/2025 11:03 AM CDT Type 2 diabetes mellitus with hyperglycemia, with long-term current use of insulin (HCC) POCT HEMOGLOBIN A1C Routine 01/10/2025 1 1:03 AM CDT Type 2 diabetes mellitus with hyperglycemia, with long-term current use of insulin (HCC) COMPREHENSIVE METABOLIC PANEL Routine 10/10/2024 2:30 PM ELECTRICAL MANUFACTURING TECHNICIAN LIPID PANEL Routine 09/04/2024 10:04 AM ELECTRICAL MANUFACTURING TECHNICIAN ALBUMIN CREATININE RATIO, URINE Routine 09/04/2024 10:04 AM ELECTRICAL MANUFACTURING TECHNICIAN DIABETES EYE EXAM Routine 04/25/2024 9:19 AM CDT from Last 3 Months or Most Recently Relevant to Health Maintenance Results * (ABNORMAL) POCT hemoglobin A1c (01/10/2025 11:03 AM CDT) Hemoglobin A1C, POC 7.4 4.0 - 5.6 % Blood 01/10/2025 11:0 3 AM CDT us Marylinifeoma Dhaliwal SEARCH OPTIMIZATION ANALYST POINT OF CARE TEST ORDERA BLES Final Result * (ABNORMAL) POCT glucose (01/10/2025 11:03 AM CDT) Glucose Blood, POC 207 mg/dL Blood 01/10/2025 11:0 3 AM CDT us Marylin Dhaliwal SEARCH OPTIMIZATION ANALYST POINT OF CARE TEST ORDERA BLES Final Result * (ABNORMAL) Comprehensive metabolic panel (10/10/2024 2:30 PM ELECTRICAL MANUFACTURING TECHNICIAN) SCRIBED Sodium 136 136 - 145 mmol/L EXTERNAL LAB SCRIBED Potassium 3.9 3.5 - 5.1 mmol/L EXTERNAL LAB SCRIBED Chloride 99(A) 100 - 108 mmol/L EXTERNAL LAB SCRIBED Carbon Dioxide 28 21 - 32 mmol/L EXTERNAL LAB SCRIBED Anion Gap 9 5 - 15 mmol/L EXTERNAL LAB SCRIBED Urea Nitrogen (BUN) 11 7 - 18 mg/dl EXTERNAL LAB SCRIBED Creatinine 1.05(A) 0.55 - 1.02 mg/dl EXTERNAL LAB SCRIBED Glucose 273(A) 70 - 99 mg/dl EXTERNAL LAB SCRIBED Calcium 9.4 8.5 - 10.1 mg/dl EXTERNAL LAB SCRIBED Bilirubin 0.5 0.2 - 1.2 mg/dl EXTERNAL LAB SCRIBED Plasma Protein 7.8 6.4 - 8.2 g/dl EXTERNAL LAB SCRIBED Albumin 3.5 3.4 - 5.0 g/dl EXTERNAL LAB SCRIBED Alkaline Phosphatase 78 50 - 136 Units/L EXTERNAL LAB SCRIBED Alanine Transaminase (ALT) 28 14 - 55 Units/L EXTERNAL LAB SCRIBED Aspartate Transaminase (AST) 26 15 - 37 Units/L EXTERNAL LAB SCRIBED eGFR in NonAfrican Iraqi 57 >90 - NA EXTERNAL LAB Blood 10/10/2024 2:30 PM ELECTRICAL MANUFACTURING TECHNICIAN Historical Provider LAB BLOOD ORDERABLES Edit ed Result - Final Performing Organization Address [facility] Co de Phone Number EXTERNAL LAB * (ABNORMAL) Albumin Creatinine Ratio, Urine (09/04/2024 10:04 AM ELECTRICAL MANUFACTURING TECHNICIAN) SCRIBED Creatinine, Urine 162.8 NA - NA EXTERNAL LAB SCRIBED Microalbumin 42.4 <20 - NA EXTERNAL LAB SCRIBED Microalb/Creat Ratio 26 NA - NA EXTERNAL LAB Urine 09/04/2024 10:0 4 AM ELECTRICAL MANUFACTURING TECHNICIAN Historical Provider LAB URINE ORDERABLES Edit ed Result - Final Performing Organization Address [facility] Co de Phone Number EXTERNAL LAB * (ABNORMAL) Lipid panel (09/04/2024 10:04 AM ELECTRICAL MANUFACTURING TECHNICIAN) SCRIBED Cholesterol, Total 188 <200 - NA EXTERNAL LAB SCRIBED HDL 43 >40 - NA EXTERNAL LAB SCRIBED LDL 115 <100 - NA EXTERNAL LAB SCRIBED Triglycerides 151 <150 - NA EXTERNAL LAB Blood 09/04/2024 10:0 4 AM ELECTRICAL MANUFACTURING TECHNICIAN Historical Provider LAB BLOOD ORDERABLES Edit ed Result - Final EXTERNAL LAB * DIABETES EYE EXAM (04/25/2024 9:19 AM CDT) us Historical Provider HEALTH MAINTENANCE Edited Result - Final from Last 3 Months or Most Recently Relevant to Health Maintenance Insurance MEDICARE [employer] MEDICARE FOR LIFE Care Teams Quality Lead Relationship Specialty Start Date End Date Barbara Winkler PA [address] [place] [id number] PCP - General Physician Die Presser 06/19/24 [place] [id number] [address] Consulting Physician Endocrinology Diabetes & Metabolism 05/31/19 Micaela Gamble MD [address] [facility], [address] [address] Consulting Physician Pain Management 03/12/21
--- OUTSIDE RECORDS SUMMARY | 2025-01-17 12:21 | XMS_ITS | Clinical Summary ---
Author Organization [facility] Address [address] [facility] [place] [address] Care Team Providers Care Consumer Product Advisor Name Role Phone Unavailable Primary Care Provider Unavailabl e Source Comments [facility],non-owned Affiliates and Associated Physician Practices is amultiple site organization consisting of ambulatory clinics and hospital sitesin [place], [place], [place] and [place]. This disclosure is being madepursuant to the Care Everywhere program and may not contain all information available regarding this patient. Last updated 18.[facility] Social History Tobacco Use Types Packs/Day Years Used Date Smoking Tobacco: Never Assessed Comments Unknown Sex and Gender Information Value Date Recorded Sex Assigned at Not on file Legal Sex Female 6:34 AM GASOLINE TRACTOR OPERATOR Gender Identity Not on file Sexual Orientation Not on file Last Filed Vital Signs Vital Sign Reading Time Taken Comments Blood Pressure 186/113 10/19/2017 11:22 AM GASOLINE TRACTOR OPERATOR Pulse 67 10/19/2017 11:22 AM GASOLINE TRACTOR OPERATOR Temperature 36.9 C (98.5 F) 03/05/2015 10:34 AM CDT Respiratory Rate 16 03/05/2015 10:3 4 AM CDT Oxygen Saturation - - Inhaled Oxygen Concentration - - Weight 106.5 kg (234 lb 12.8 oz) 2017 11:22 AM GASOLINE TRACTOR OPERATOR Height 172.7 cm (5' 8 ) 10/19/2017 11:2 2 AM GASOLINE TRACTOR OPERATOR Body Mass Index 35.7 10/19/2017 11:22 AM GASOLINE TRACTOR OPERATOR Plan of Treatment Health Maintenance Due Date Last Done Comments COLOGUARD (AGES 45-75) - COLON CA SCREENING 1954 COLON MONITORING 1954 COLONOSCOPY - COLON CA SCREENING 1954 CT COLONOGRAPHY - COLON CA SCREENING 1955 Colorectal Cancer Screening 1954 FIT - COLON CA SCREENING 1954 FLEX SIG - COLON CA SCREENING 1954 MEDICARE AWV 12 MONTHS 1954 DTAP/TDAP/TD VACCINES (1 - Tdap) 1973 PNEUMOCOCCAL VACCINE 50+ (1 of 1 - PCV) 2004 ZOSTER VACCINE (1 of 2) 2004 HEPATITIS B VACCINE (1 of 3 - Risk 3-dose series) 2014 COVID-19 VACCINE (2 - season) 2024 11/28/2020 MAMMOGRAM 09/01/2024 09/01/2022 DEPRESSION SCREENING 09/20/2024 INFLUENZA VACCINE (Season Ended) 2025 06/20/2019, 06/19/2014 LIPID TESTING 05/05/2028 05/05/2023 Respiratory Syncytial Virus (RSV) Vaccine Pt: or over 60 yrs (1 - 1-dose 75+ series) 2029 HEPATITIS C SCREENING Completed 05/05/2023 , 11/23/2018, 08/04/2018, Additional history exists BONE DENSITY TESTING Completed 08/13/2023 HIB VACCINE Aged Out No longer eligi ble based on patient's age to complete this topic HPV VACCINE Aged Out No longer eligi ble based on patient's age to complete this topic MENINGOCOCCAL (Group B) VACCINE SHARED DECISION-MAKING Aged Out No longer eligible based on patient's age to complete this topic MENINGOCOCCAL GROUPS A/C/Y/W VACCINE Aged Out No longer eligible based on patient's age to complete this topic Procedures Procedure Name Priority Date/Time Associated Diagnosis Comments HEPATITIS C RNA QUANTITATIVE 11/23/2018 9:26 AM GASOLINE TRACTOR OPERATOR from Last 3 Months or Most Recently Relevant to Health Maintenance Results * HEPATITIS C RNA QUANTITATIVE (11/23/2018 9:26 AM GASOLINE TRACTOR OPERATOR) Hepatitis C Virus RNA, Quantitative Real Time [...] of this assay have been determined by [employer]. The modifications have not been cleared or approved by the FDA. This assay has been validated pursuant to the CLIA regulations and is used for clinical purposes. For more information on this test, go to: http://education.Codacy/faq/OUE57i3 (This link is being provided for informational/ educational purposes only.) REPORT COMMENT: 1 F 3 ORDERS FASTING:YES Test Performed at: [facility] [id number] [place] [address] JANE RAINEY DO,MPH 11/23/2018 9:26 AM GASOLINE TRACTOR OPERATOR 11/23/2018 9:27 AM GASOLINE TRACTOR OPERATOR us Raleigh Sheth MD LAB - CHEMISTRY ORDERABLES Mena boyd Result Performing Organization Address City/State/[facility] Co de Phone Number [facility] [address] [place] [address] from Last 3 Months or Most Recently Relevant to Health Maintenance [place] [address] MEDICARE MEDICARE
--- OUTSIDE RECORDS SUMMARY | 2025-01-17 12:21 | XMS_ITS | Clinical Summary ---
Author Organization [facility] Address [address] [place] [address] Phone Care Team Providers Care Aviation Maintenance Technician Name Role Phone Kem Dunn MD Primary Care Provider [phone] Allergies Active Allergy Reactions Criticality Noted Date Comments Acetaminophen Other (see comments) 08/22/2015 Contraindicated hep c Amlodipine Rash Medium 05/30/2019 Butalbital Hives Medium 05/30/2019 Ibmjyyynzq-Saq-Zfme-Codein e Hives 08/22/2015 Bqjlcyhdca-Gqt-Flgu-Codein e Hives 08/22/2015 Zejowbjjth-Ukaiqah-Qemzkhx e 05/30/2019 Caffeine Hives Medium 05/30/2019 Cefuroxime [...] Wound Dressing Adhesive Rash Medium 04/17/2021 Medications estradiol (ESTRACE) 2 MG tablet 1 tab/cap qday 2 Active esomeprazole (NEXIUM) [address] capsule 1 tab/cap qday 2 Active linaGLIPtin (TRADJENTA) 5 MG tablet TAKE 1 TABLET DAILY 9 Active nitroglycerin (NITROSTAT) 0.[address] 0.4 mg under the tongue 9 Active insulin glargine (LANTUS) 100 UNIT/ML injection Inject 40 Units under the skin daily 8 Active lisinopril (PRINIVIL,ZESTR IL) 40 MG tablet 40 mg 4 Active cyclobenzaprine (FLEXERIL) 10 MG tablet TAKE 1 2 (ONE HALF) TABLET BY MOUTH IN THE MORNING AND 1 2 (ONE HALF) AT MIDDAY AND 1 AT BEDTIME 0 9 Active ondansetron (ZOFRAN) 4 MG tablet TAKE 2 TABLETS BY MOUTH EVERY 8 HOURS NEEDED 0 9 Active tolterodine LA (DETROL LA) 4 MG 24 hr capsule Take 4 mg by mouth 1 (one) time each day 3 9 Active atorvastatin (LIPITOR) 40 MG tablet Take 40 mg by mouth 1 (one) time each day 9 Active benzonatate (TESSALON) 100 MG capsule Take 200 mg by mouth 2 (two) times a day 0 Active carvedilol (COREG) 25 MG tablet Take 1 tablet by mouth every 12 hours 8 Active Cholecalciferol (D 1000) 25 MCG (1000 UT) chewable tablet Acti ve doxycycline (VIBRAMYCIN) 100 MG capsule Take 100 mg by mouth 2 (two) times a day 0 Active Empagliflozin 25 MG tablet Take 25 mg by mouth daily 0 Active Insulin Pen Needle (BD Pen Needle Amanda U/F) 32G X 4 MM misc USE THREE TIMES A DAY 9 Active insulin lispro protamine-insul in lispro (HumaLOG MIX 75/25 KWIKPEN) (75-25) 100 UNIT/ML inj pen INJECT 25 UNITS IN THE MORNING AND 20 UNITS AT NIGHT 9 Active hydroCHLOROthia zide (HYDRODIURIL) 25 MG tablet Take 25 mg by mouth 1 (one) time each day 0 Active EST ESTROGENS-METHY LTEST HS 0.625-1.25 MG per tablet Take 1 tablet by mouth 1 (one) time each day 0 Active tiotropium (Spiriva HandiHaler) 18 MCG per inhalation capsule Place 1 capsule into inhaler and inhale daily Active SITagliptin (Januvia) 50 MG tablet Take 2 tablets by mouth daily Active mometasone (Asmanex, 120 Metered Doses,) 220 MCG/INH inhaler Inhale 1 puff every 12 hours Active BD PEN NEEDLE AMANDA U/F 32G X 4 MM misc 9 Active oxyCODONE (ROXICODONE) 5 MG immediate release tablet Take 5 mg by mouth 3 (three) times a day 1 Active ALPRAZolam (XANAX) 0.25 MG tablet TAKE 1 TO 2 TABLETS BY MOUTH ABOUT 30 MINUTES PRIOR TO PROCEDURE. DO NOT DRIVE TO PROCEDURE IF YOU TAKE THIS MEDICATION 1 Active cinnamon 500 MG capsule Take 500 mg by mouth daily Active rosuvastatin (CRESTOR) 20 MG tablet Take 20 mg by mouth daily 1 Active OxyCONTIN 10 MG 12 hr abuse-deterrent tablet TAKE 1 TABLET BY MOUTH EVERY NIGHT AT BEDTIME TAKE 1 TABLET BY MOUTH EVERY NIGHT AT BEDTIME 1 Active HYDROcodone-alok taminophen (NORCO) 5-325 MG per tablet TAKE 1 TABLET BY MOUTH EVERY 4 HOURS NEEDED FOR PAIN OR ACUTE PAIN OR MODERATE PAIN 2 Active Active Problems Problem Noted Date Diagnosed [...] 11/12/2011 Overview (05/30/2019): HEPATITIS C CARRIER Immunizations Immunization Administration Dates Next Due Influenza TIV (IM) [...] at Not on file Legal Sex Female 9:11 AM [facility] Gender Identity Not on file Sexual Orientation [...] and Medium Risk (2 of 3 - PPSV23) 11/30/2017 11/30/2016 Influenza Vaccine (Season Ended) 2025 06/19/20 14 Insurance MEDICARE Care Teams Aviation Maintenance Technician Relationship Specialty Start Date End Date Kem Dunn MD [address] [place] [phone] PCP - General Internal Medicine 05/30/19
--- OUTSIDE RECORDS SUMMARY | 2025-01-17 12:21 | XMS_ITS | Encounter Summary ---
Author Organization [facility] Address [facility] [place] [address] Care Team Providers Care Wheel Alignment Mechanic Name Role Phone Kem Dunn MD Primary Care Provider [phone] Bright Olsen MD Primary Care Provider [phone] Eduin Dodd MD Primary Care Provider [phone] Kentrell Figueroa MD Unavailable [phone] [facility] Eye [facility], Records Unavailable Jerry Ivory MD Unavailable [phone] Maddi Wagoner MD Unavailable [phone] Red Zaragoza MD Unavailable Chani Dupont MD Unavailable [phone] Evonne Bello DPM Unavailable [phone] Barbara Wnikler Unavailable [phone] Eduin Dodd MD Unavailable Barbara Winkler Primary Care Provider [phone] Eduin Dodd MD Primary Care Provider [phone] Encounter Details Date Type Department Care Team (Late st Contact Info) Description 02/25/[address] [facility] CONVERSION [address] [place] [id number] , Shayna Adan MD Social History Tobacco Use Types Packs/Day Years Used Date Smoking Tobacco: Never Assessed Comments Unknown Sex and Gender Information Value Date Recorded Sex Assigned at Female 10/10/2024 1:24 PM SOLAR PHOTOVOLTAIC SYSTEMS ENGINEER Legal Sex Female 4:08 PM CDT Gender Identity Female 11/03/2021 4:38 AM SOLAR PHOTOVOLTAIC SYSTEMS ENGINEER Sexual Orientation Straight 11/03/2021 4: 38 AM SOLAR PHOTOVOLTAIC SYSTEMS ENGINEER documented as of this encounter Plan of Treatment Upcoming Encounters Date Type Department Care Team (Late st Contact Info) Description 02/14/2025 10:20 AM CDT Office Visit [facility] - [address] [address] Eduin Dodd MD [address] [place] [address] 04/04/2025 10:30 AM CDT Office Visit [facility] - [address] [address] Eduin Dodd MD [address] [place] [address] documented as of this encounter Visit Diagnoses Not on filedocumented in this encounter Additional Health Concerns Infection Onset Date Last Indicated Resolved Time C. difficile 04/27/2017 04/27/2017 01/22/2022 10:4 8 AM CDT COVID-19 Rule Out 11/21/2022 11/21/2022 11/21/2022 11:06 AM SOLAR PHOTOVOLTAIC SYSTEMS ENGINEER COVID-19 Rule Out 04/01/2024 04/01/2024 04/01/2024 4:14 PM CDT documented as of this encounter Care Teams Wheel Alignment Mechanic Relationship Specialty Start Date End Date Kem Dunn MD [address] [place] [address] PCP - General INTERNAL MEDICINE 03/03/19 08/04/22 Bright Olsen MD 1212 [place] [address] PCP - General FAMILY PRACTICE 08/05/22 03/08/23 Eduin Dodd MD [address] [address] PCP - General INTERNAL MEDICINE 03/09/23 10/09/24 Barbara Winkler PA 1212 [place] [address] PCP - General PHYSICIAN TERMITE CONTROL REPRESENTATIVE 10/10/24 10/10/24 Eduin Dodd MD [address] [address] PCP - General INTERNAL MEDICINE 10/11/24 Kentrell Figueroa MD 1 [place] [address] Medical Oncologist HEMATOLOGY/ONCOLOGY 03/22/24 [facility], - Records 534 [place] [address] 03/22/24 Jerry Ivory MD 2227 [facility] 100 [place] [address] HEMATOLOGY/ONCOLOGY 03/22/24 [place] [address] [facility] [address] [place] [address] INTERNAL MEDICINE 03/22/24 Red Zaragoza MD 6810 [facility] 162 [facility] 102 [place] [address] INTERVENTIONAL CARDIOLOGY 03/22/24 Chani Dupont MD [address] [facility] 1280 [place] [address] Referring Physician NEPHROLOGY 03/22/24 Eovnne Bello DPM [address] [facility] 1280 [place] [address] Surgeon Bowl Topper - Foot & Ankle Surgery 03/22/24 Barbara Winkler PA [facility] [place] [address] PHYSICIAN TERMITE CONTROL REPRESENTATIVE 03/22/24 Eduin Dodd MD [address] [address] Consulting Physician INTERNAL MEDICINE 10/10/24 documented as of this encounter
--- OUTSIDE RECORDS SUMMARY | 2025-01-17 12:21 | XMS_ITS | Clinical Summary ---
[facility] Organization [facility] Address [address] [facility] [place] [address] Care Team Providers Care Moderate Needs Teacher Name Role Phone Bright Olsen MD Primary Care Provider [phone] Allergies Active Allergy Reactions Criticality Noted Date Comments Acetaminophen Rash Low 07/06/2022 Amlodipine Rash Low 07/06/2022 Benzocaine Fever Low 07/06/2022 Mkcijrcggs-Qfrqgox-Fbuqawzv Hives High 07/06/20 22 Cefuroxime Axetil Dizziness [...] Encounters Date Type Department Care Team Description 12/06/2024 External Device Data [facility] ABSTRACTION Provider, Abstract 11/25/2024 External Device Data [facility] ABSTRACTION Provider, Abstract 11/24/2024 External Device Data [facility] ABSTRACTION Provider, Abstract 11/22/2024 External Device Data [facility] ABSTRACTION Provider, Abstract 11/08/2024 External Device Data [facility] ABSTRACTION Provider, Abstract from Last 3 Months Social History Tobacco Use Types Packs/Day Years Used Date Smoking Tobacco: Every Day Cigarettes 0.5 53.3 Started: 1972 Smokeless Tobacco: Never Tobacco Cessation:Ready to Q uit: Not Asked; Counseling Given: Not Answered Comments:Reducing number per day to quit smoking. Alcohol Use Standard Drinks/Week Comments Never 0 (1 standard drink = 0.6 oz pur e alcohol) Comments Unknown Sex and Gender Information Value Date Recorded Sex Assigned at Female 08/31/2024 5:41 PM CASINO ACCOUNTANT Legal Sex Female 4:25 AM CASINO ACCOUNTANT Gender Identity Female 08/31/2024 5:41 PM CASINO ACCOUNTANT Sexual Orientation Straight 08/31/2024 5: 40 PM CASINO ACCOUNTANT Occupation Industry Job Start Date Job End [...] Description 01/29/2025 11:45 AM CDT Office Visit [facility] Oncology and Hematology - [place] [address] [facility] [address] [place] [address] Jerry Ivory MD [address] [facility] [address] [place] [address] Health Maintenance Due Date Last [...] 60-74 years 1-dose series) 2014 PNEUMOCOCCAL VACCINE 50+ YEA RS (2 of 2 - PPSV23) 01/25/2017 11/30/2016 INFLUENZA VACCINE (#1) 2024 06/19/2014 COVID-19 Vaccine (2 - 2023-2 5 season) 2024 11/28/2020 DIABETES HBA1C Q 6 MONTHS 01/30/20252023, 06/19/2024, 08/24/2023, Additional history exists BREAST CANCER SCREENING 05/04/2025 05/04/20 24, 05/04/2024, 05/04/2024, Additional history exists DIABETES ANNUAL FOOT EXAM 06/19/2025 06/19/2024 DTAP/TDAP/TD VACCINES (2 - T d or Tdap) 08/31/2027 08/31/2017 OSTEOPOROSIS SCREENING 08/13/2028 3, 08/13/2023, 01/31/2016, Additional history exists Insurance MEDICARE PART A AND B FOR LIFE [place] [id number] MEDICARE PART A AND B FOR LIFE Care Teams Moderate Needs Teacher Relationship Specialty Start Date End Date Bright Olsen MD [address] [place] [address] PCP - General Family Practice 01/25/23
--- OUTSIDE RECORDS SUMMARY | 2025-01-17 12:21 | XMS_ITS | Encounter Summary ---
Author Organization [facility] Address [address] [place] [address] Care Team Providers Care Medical Physics Professor Name Role Phone Eduin Dodd MD Primary Care Provider [phone] Kentrell Figueroa MD Unavailable [phone] [facility] Records Unavailable Jerry Ivory MD Unavailable [phone] Maddi Wagoner MD Unavailable [phone] Red Zaragoza MD Unavailable Chani Dupont MD Unavailable Evonne Bello DPM Unavailable [phone] Barbara Winkler Unavailable [phone] Eduin Dodd MD Unavailable Barbara Winkler Primary Care Provider [phone] Eduin Dodd MD Primary Care Provider [phone] Encounter Details Date Type Department Care Team (Late st Contact Info) Description 04/30/2023 Instagram Message Enc [facility] Medical Group Multispecialty Care - [address] [place] [address] [facility] Provider urine results Social History Tobacco Use [...] Sex Assigned at Female 10/10/2024 1:24 PM HUMAN INTELLIGENCE Legal Sex Female 4:08 PM CDT Gender Identity Female 11/03/2021 4:38 AM HUMAN INTELLIGENCE Sexual Orientation Straight 11/03/2021 4: 38 AM HUMAN INTELLIGENCE documented as of this encounter Plan of Treatment Upcoming Encounters Date Type Department Care Team (Late st Contact Info) Description 02/14/2025 10:20 AM CDT Office Visit [facility] Medical [facility] - [address] [address] Eduin Dodd MD [address] [place] [address] 04/04/2025 10:30 AM CDT Office Visit [facility] - [address] [address] Eduin Dodd MD [address] [place] [address] documented as of this encounter Visit Diagnoses Not on filedocumented in this encounter Additional Health Concerns Infection Onset Date Last Indicated Resolved Time COVID-19 Rule Out 04/01/2024 04/01/2024 04/01/2024 4:14 PM CDT Assessment Noted Time PHQ-9 Depression Total Score: 3 04/26/20 2:03 PM CDT documented as of this encounter Care Teams Medical Physics Professor Relationship Specialty Start Date End Date Eduin Dodd MD [address] [place] [address] PCP - General INTERNAL MEDICINE 03/09/23 10/09/24 Barbara Winkler PA [address]12 [place] [address] PCP - General PHYSICIAN HEALTH EDITOR 10/10/24 10/10/24 Eduin Dodd MD 1188 [facility] 157 [place] [address] PCP - General INTERNAL MEDICINE 10/11/24 Kentrell Figueroa MD 1 [place] [address] Medical Oncologist HEMATOLOGY/ONCOLOGY 03/22/24 [facility], - Records 534 [place] [address] 03/22/24 Jerry Ivory MD 2227 [facility] [address] [place] [address] HEMATOLOGY/ONCOLOGY 03/22/24 [place] [address] [facility] [address] [place] [address] INTERNAL MEDICINE 03/22/24 Red Zaragoza MD 6810 [facility] 162 [address] [place] [address] INTERVENTIONAL CARDIOLOGY 03/22/24 Chani Dupont MD 1034 [address] [facility] Abhijit [address] [place] [address] Referring Physician NEPHROLOGY 03/22/24 Evonne Bello, DPM [address] [facility] [address] [place] [address] Surgeon Emergency Management Director - Foot & Ankle Surgery 03/22/24 Barbara Winkler PA [facility]2 [place] [address] PHYSICIAN HEALTH EDITOR 03/22/24 Eduin Dodd MD [address] [address] Consulting Physician INTERNAL MEDICINE 10/10/24 documented as of this encounter
--- OUTSIDE RECORDS SUMMARY | 2025-01-17 12:21 | XMS_ITS | Encounter Summary ---
Author Organization [facility] Address [facility] [place] [address] Care Team Providers Care Foam Caster Name Role Phone Eduin Dodd MD Primary Care Provider [phone] Kentrell Figueroa MD Unavailable [phone] [facility] Eye [facility] Records Unavailable Jerry Ivory MD Unavailable [phone] Maddi Wagoner MD Unavailable [phone] Red Zaragoza MD Unavailable Chani Dupont MD Unavailable [phone] Evonne Bello DPM Unavailable [phone] Barbara Winkler Unavailable [phone] Eduin Dodd MD Unavailable Barbara Winkler Primary Care Provider [phone] Eduin Dodd MD Primary Care Provider [phone] Encounter Details Date Type Department Care Team (Late st Contact Info) Description 04/27/2023 [email or web address] Message Enc [facility] Medical Group Multispecialty Care - [address] [place] [address] [place] [address] [place] [address] [address] [place] [address] Claudia Starr Social History Tobacco Use Types Packs/Day Years [...] Sex Assigned at Female 10/10/2024 1:24 PM ENTERTAINMENT USHER Legal Sex Female 4:08 PM CDT Gender Identity Female 11/03/2021 4:38 AM ENTERTAINMENT USHER Sexual Orientation Straight 11/03/2021 4: 38 AM ENTERTAINMENT USHER documented as of this encounter Plan of Treatment Upcoming Encounters Date Type Department Care Team (Late st Contact Info) Description 02/14/2025 10:20 AM CDT Office Visit [address] [address] Eduin Dodd MD [address] [place] [address] 04/04/2025 10:30 AM CDT Office Visit [address] [address] Eduin Dodd MD [facility] [address] documented as of this encounter Visit Diagnoses Not on filedocumented in this encounter Additional Health Concerns Infection Onset Date Last Indicated Resolved Time COVID-19 Rule Out 04/01/2024 04/01/2024 04/01/2024 4:14 PM CDT Assessment Noted Time PHQ-9 Depression Total Score: 3 04/26/20 23 2:03 PM CDT documented as of this encounter Care Teams Foam Caster Relationship Specialty Start Date End Date Eduin Dodd MD [address] [place] [address] PCP - General INTERNAL MEDICINE 03/09/23 10/09/24 Barbara Winkler PA [address] [place] [address] PCP - General PHYSICIAN GARBAGE COLLECTOR DRIVER 10/10/24 10/10/24 Eduin Dodd MD 1188 [facility] 157 [place], [place] [address] PCP - General INTERNAL MEDICINE 10/11/24 eKntrell Figueroa MD 1 [place] [address] Medical Oncologist HEMATOLOGY/ONCOLOGY 03/22/24 [facility], - Records 534 [place] [address] 03/22/24 Jerry Ivory MD 2227 [facility] [address] [place] [address] HEMATOLOGY/ONCOLOGY 03/22/24 [place] [address] [facility] [address] [place] [address] INTERNAL MEDICINE 03/22/24 Red Zaragoza MD 6810 [facility] [address] [place] [address] INTERVENTIONAL CARDIOLOGY 03/22/24 Chani Dupont MD 1034 [address] [facility] [address] [place] [address] Referring Physician NEPHROLOGY 03/22/24 Evonne Bello DPM 1034 [address] [facility] 1280 [place] [address] Surgeon Professor Of German - Foot & Ankle Surgery 03/22/24 Barbara Winkler PA [address] [place] [address] PHYSICIAN GARBAGE COLLECTOR DRIVER 03/22/24 Eduin Dodd MD [address] [address] Consulting Physician INTERNAL MEDICINE 10/10/24 documented as of this encounter
--- OUTSIDE RECORDS SUMMARY | 2025-01-17 12:21 | XMS_ITS | Encounter Summary ---
Author Organization [facility] Address [facility] [place] [address] Care Team Providers Care Minute Clerk Name Role Phone Kentrell Figueroa MD Unavailable [phone] [facility], Records Unavailable Jerry Ivory MD Unavailable [phone] Maddi Wagoner MD Unavailable [phone] Red Zaragoza MD Unavailable Chani Dupont MD Unavailable [phone] Evonne Bello DPM Unavailable [phone] Barbara Winkler Unavailable [phone] Eduin Dodd MD Unavailable Eduin Dodd MD Primary Care Provider [phone] Encounter Details Date Type Department Care Team (Late st Contact Info) Description 10/13/2024 MyChart Message Enc [facility] Medical Group Multispecialty Care - [place] 1188 [facility] [address] [place] [address] Eduin Dodd MD 1188 [facility] [address] [place] [address] Question Social History Tobacco Use [...] Sex Assigned at Female 10/10/2024 1:24 PM NEON INSTALLER Legal Sex Female 4:08 PM CDT Gender Identity Female 11/03/2021 4:38 AM NEON INSTALLER Sexual Orientation Straight 11/03/2021 4: 38 AM NEON INSTALLER documented as of this encounter Plan of Treatment Upcoming Encounters Date Type Department Care Team (Late st Contact Info) Description 02/14/2025 10:20 AM CDT Office Visit [facility] Medical Group Multispecialty Care - [address] [address] Eduin Dodd MD [address] [place] [address] 04/04/2025 10:30 AM CDT [facility] [address] [address] Eduin Dodd MD [address] [place] [address] documented as of this encounter Visit Diagnoses Not on filedocumented in this encounter Additional Health Concerns Assessment Noted Time PHQ-9 Depression Total Score: 4 03/21/20 24 1:05 PM CDT documented as of this encounter Care Teams Minute Clerk Relationship Specialty Start Date End Date Eduin Dodd MD [address] [place] [address] PCP - General INTERNAL MEDICINE 10/11/24 Kentrell Figueroa MD 1 [place] [address] Medical Oncologist HEMATOLOGY/ONCOLOGY 03/22/24 [facility], - Records [address] [place] [address] 03/22/24 Jerry Ivory MD 2227 [facility] [address] [place] [address] HEMATOLOGY/ONCOLOGY 03/22/24 [place] [address] [facility] [address] [place], [place] [address] INTERNAL MEDICINE 03/22/24 Red Zaragoza MD [address] [place] [address] INTERVENTIONAL CARDIOLOGY 03/22/24 Chani Dupont MD 1034 [address] [facility] [address] [place] [address] Referring Physician NEPHROLOGY 03/22/24 Evonne Bello DPM 10[address] [facility] [address] [place] [address] Surgeon Per Diem Rn - Foot & Ankle Surgery 03/22/24 Barbara Winkler PA [facility]2 [place] [address] PHYSICIAN PROTECTION CONSULTANT 03/22/24 Eduin Dodd MD [address] [address] Consulting Physician INTERNAL MEDICINE 10/10/24 documented as of this encounter
--- OUTSIDE RECORDS SUMMARY | 2025-01-17 12:21 | XMS_ITS | Encounter Summary ---
Author Organization [facility] Address [facility]3 [place] [address] Care Team Providers Care Packing Room Supervisor Name Role Phone Eduin Dodd MD Primary Care Provider [phone] Kentrell Figueroa MD Unavailable [phone] [facility] Eye [facility] Records Unavailable Jerry Ivory MD Unavailable [phone] Maddi Wagoner MD Unavailable [phone] Red Zaragoza MD Unavailable Chani Dupont MD Unavailable [phone] Evonne Bello DPM Unavailable [phone] Barbara Winkler Unavailable [phone] Eduin Dodd MD Unavailable Barbara Winkler Primary Care Provider [phone] Eduin Dodd MD Primary Care Provider [phone] Encounter Details Date Type Department Care Team (Latest Contact Info) Description 02/22/2024 Nortist Message Enc [facility] Medical Group Multispecialty Care - [address] [place] [address] Eduin Dodd MD 1188 [facility] [address] [place] [address] Rheumatology referral Social History Tobacco [...] Sex Assigned at Female 10/10/2024 1:24 PM ACADEMIC TUTOR Legal Sex Female 4:08 PM CDT Gender Identity Female 11/03/2021 4:38 AM ACADEMIC TUTOR Sexual Orientation Straight 11/03/2021 4: 38 AM ACADEMIC TUTOR documented as of this encounter Plan of Treatment Upcoming Encounters Date Type Department Care Team (Late st Contact Info) Description 02/14/2025 10:20 AM CDT Office Visit [address] [address] Eduin Dodd MD [address] [place] [address] 04/04/2025 10:30 AM CDT Office Visit [address] [address] Eduin Dodd MD [facility] [address] [address] documented as of this encounter Visit Diagnoses Not on filedocumented in this encounter Additional Health Concerns Infection Onset Date Last Indicated Resolved Time COVID-19 Rule Out 04/01/2024 04/01/2024 04/01/2024 4:14 PM CDT Assessment Noted Time PHQ-9 Depression Total Score: 3 04/26/20 23 2:03 PM CDT documented as of this encounter Care Teams Packing Room Supervisor Relationship Specialty Start Date End Date Eduin Dodd MD [address] [place] [address] PCP - General INTERNAL MEDICINE 03/09/23 10/09/24 Barbara Winkler PA 1212 [place] [address] PCP - General PHYSICIAN LAY OUT INSPECTOR 10/10/24 10/10/24 Eduin Dodd MD 1188 [facility] 157 [place], [place] [address] PCP - General INTERNAL MEDICINE 10/11/24 Kentrell Figueroa MD 1 [place] [address] Medical Oncologist HEMATOLOGY/ONCOLOGY 03/22/24 [facility], - Records 534 [place] [address] 03/22/24 Jerry Ivory MD 2227 [facility] [address] [place] [address] HEMATOLOGY/ONCOLOGY 03/22/24 [place] [address] [facility] [address] [place] [address] INTERNAL MEDICINE 03/22/24 Red Zaragoza MD 6810 [facility] [address] [place] [address] INTERVENTIONAL CARDIOLOGY 03/22/24 Chani Dupont MD 1034 [facility] Abhijit 1280 [place] [address] Referring Physician NEPHROLOGY 03/22/24 Evonne Bello DPM [address] [facility] 1280 [place] [address] Surgeon Color Stripper - Foot & Ankle Surgery 03/22/24 Barbara Winkler PA 1212 [place] [address] PHYSICIAN LAY OUT INSPECTOR 03/22/24 Eduin Dodd MD [address] [address] Consulting Physician INTERNAL MEDICINE 10/10/24 documented as of this encounter
--- OUTSIDE RECORDS SUMMARY | 2025-01-17 12:21 | XMS_ITS | Encounter Summary ---
Author Organization [facility] Address [facility]6 [place] [address] Care Team Providers Care Canvas Shrinker Name Role Phone Eduin Dodd MD Primary Care Provider [phone] Kentrell Figueroa MD Unavailable [phone] [facility] Eye [facility] Records Unavailable Jerry Ivory MD Unavailable [phone] Maddi Wagoner MD Unavailable [phone] Red Zaragoza MD Unavailable Chani Dupont MD Unavailable [phone] Evonne Bello DPM Unavailable [phone] Barbara Winkler Unavailable [phone] Eduin Dodd MD Unavailable Barbara Winkler Primary Care Provider [phone] Eduin Dodd MD Primary Care Provider [phone] Encounter Details Date Type Department Care Team (Late st Contact Info) Description 06/07/2023 [employer] Message Enc [facility] Medical Group Multispecialty Care - [address] [place] [address] [facility] Provider test results Social History Tobacco Use [...] Sex Assigned at Female 10/10/2024 1:24 PM BRANCH COORDINATOR Legal Sex Female 4:08 PM CDT Gender Identity Female 11/03/2021 4:38 AM BRANCH COORDINATOR Sexual Orientation Straight 11/03/2021 4: 38 AM BRANCH COORDINATOR documented as of this encounter Plan of Treatment Upcoming Encounters Date Type Department Care Team (Late st Contact Info) Description 02/14/2025 10:20 AM CDT Office Visit [facility] Medical [facility] - [address] [address] Eduin Dodd MD [address] [place] [address] 04/04/2025 10:30 AM CDT Office Visit [facility] - [address] [address] Eduin Dodd MD [address] [place] [address] documented as of this encounter Visit Diagnoses Not on filedocumented in this encounter Additional Health Concerns Infection Onset Date Last Indicated Resolved Time COVID-19 Rule Out 04/01/2024 04/01/2024 04/01/2024 4:14 PM CDT Assessment Noted Time PHQ-9 Depression Total Score: 3 04/26/20 2:03 PM CDT documented as of this encounter Care Teams Canvas Shrinker Relationship Specialty Start Date End Date Eduin Dodd MD [address] [place] [address] PCP - General INTERNAL MEDICINE 03/09/23 10/09/24 Barbara Winkler PA 1212 [place] [address] PCP - General PHYSICIAN TEST MANAGER 10/10/24 10/10/24 Eduin Dodd MD 1188 [facility] 157 [place] [address] PCP - General INTERNAL MEDICINE 10/11/24 Kentrell Figueroa MD 1 [place] [address] Medical Oncologist HEMATOLOGY/ONCOLOGY 03/22/24 [facility], - Records 534 [place] [address] 03/22/24 Jerry Ivory MD 2227 [facility] [address] [place] [address] HEMATOLOGY/ONCOLOGY 03/22/24 [place] [address] [facility] [address] [place] [address] INTERNAL MEDICINE 03/22/24 Red Zaragoza MD 6810 [facility] [address] [place] [address] INTERVENTIONAL CARDIOLOGY 03/22/24 Chani Dupont MD 1034 S [facility] [address] [place] [address] Referring Physician NEPHROLOGY 03/22/24 Evonne Bello, DPM 1034 S [facility] [address] [place] [address] Surgeon Body And Fender Mechanic Apprentice - Foot & Ankle Surgery 03/22/24 Barbara Winkler PA [facility]2 [place] [address] PHYSICIAN TEST MANAGER 03/22/24 Eduin Dodd MD [address] [address] Consulting Physician INTERNAL MEDICINE 10/10/24 documented as of this encounter
--- OUTSIDE RECORDS SUMMARY | 2025-01-17 12:21 | XMS_ITS | Encounter Summary ---
Author Organization [facility] Address [facility]6 [place] [address] Care Team Providers Care Laboratory Chemical Assistant Name Role Phone Eduin Dodd MD Primary Care Provider [phone] Kentrell Figueroa MD Unavailable [phone] [facility] Eye [facility] Records Unavailable Jerry Ivory MD Unavailable [phone] Maddi Wagoner MD Unavailable [phone] Red Zaragoza MD Unavailable Chani Dupont MD Unavailable Evonne Bello DPM Unavailable [phone] Barbara Winkler Unavailable [phone] Eduin Dodd MD Unavailable Barbara Winkler Primary Care Provider [phone] Eduin Dodd MD Primary Care Provider [phone] Encounter Details Date Type Department Care Team (Late st Contact Info) Description 09/08/2024 [employer] Message Enc [facility] Medical Group Multispecialty Care - [address] [place] [address] Margaret [facility] Provider test result Social History Tobacco Use [...] Sex Assigned at Female 10/10/2024 1:24 PM WIRE MACHINE CUTTER Legal Sex Female 4:08 PM CDT Gender Identity Female 11/03/2021 4:38 AM WIRE MACHINE CUTTER Sexual Orientation Straight 11/03/2021 4: 38 AM WIRE MACHINE CUTTER documented as of this encounter Plan of Treatment Upcoming Encounters Date Type Department Care Team (Late st Contact Info) Description 02/14/2025 10:20 AM CDT Office Visit [facility] Medical [facility] Multispecialty [facility] Emergency Department - [address] [address] Eduin Dodd MD [address] [place] [address] 04/04/2025 10:30 AM CDT [facility] - [address] [address] Eduin Dodd MD [facility] [address] [address] documented as of this encounter Visit Diagnoses Not on filedocumented in this encounter Additional Health Concerns Assessment Noted Time PHQ-9 Depression Total Score: 4 03/21/20 24 1:05 PM CDT documented as of this encounter Care Teams Laboratory Chemical Assistant Relationship Specialty Start Date End Date Eduin Dodd MD [address] [place] [address] PCP - General INTERNAL MEDICINE 03/09/23 10/09/24 Barbara Winkler PA 1212 [place] [address] PCP - General PHYSICIAN UROGYNAECOLOGIST 10/10/24 10/10/24 Eduin Dodd MD 1188 [facility] 157 [place], [place] [address] PCP - General INTERNAL MEDICINE 10/11/24 Kentrell Figueroa MD 1 [place] [address] Medical Oncologist HEMATOLOGY/ONCOLOGY 03/22/24 [facility] Records 534 [place] [address] 03/22/24 Jerry Ivory MD 2227 [facility] [address] [place] [address] HEMATOLOGY/ONCOLOGY 03/22/24 [place] [address] [facility] [address] [place] [address] INTERNAL MEDICINE 03/22/24 Red Zaragoza MD 6810 [facility] 162 [address] [place] [address] INTERVENTIONAL CARDIOLOGY 03/22/24 Chani Dupont MD 1034 S [facility] Abhij[address] 1280 [place] [address] Referring Physician NEPHROLOGY 03/22/24 Evonne Bello DPM 1034 S [facility] 1280 [place] [address] Surgeon Skirt Trimmer - Foot & Ankle Surgery 03/22/24 Barbara Winkler PA 1212 [place] [address] PHYSICIAN UROGYNAECOLOGIST 03/22/24 Eduin Dodd MD [address] [address] Consulting Physician INTERNAL MEDICINE 10/10/24 documented as of this encounter
--- OUTSIDE RECORDS SUMMARY | 2025-01-17 12:21 | XMS_ITS | Referral Summary ---
Author Organization [address] Address [address] [place] [address] Care Team Providers Care Silk Screen Painter Name Role Phone Rozina Murrieta MD Unavailable Micaela Gamble MD Unavailable Barbara Winkler Primary Care Provider [phone] Encounters Date Type Department Care Team Description 01/11/2025 Telephone [facility] Medical Group Diabetes and Endocrinology [address] [place] [address] Marylin Dhaliwal NP Med Management (Lantus) 01/10/2025 Orders Only [facility] Diabetes and Endocrinology [address] [place] [address] ProviderMalik MD 01/10/2025 11:00 AM CDT Office Visit [facility] Diabetes and Endocrinology [address] [place] [address] Marylin Dhaliwal NP Type 2 diabetes mellitus with hyperglycemia, with long-term current use of insulin (HCC) (Primary Dx); Hypertension associated with diabetes (HCC); Mixed diabetic hyperlipidemia associated with type 2 diabetes mellitus (CMS/HCC) (HCC) from Last 3 Months Allergies Active Allergy Reactions Criticality Noted Date Comments Acetaminophen Other (See comments),Rash Medium 08/22/2015 other Contraindicated hep c Adhesive Rash Medium 04/17/2021 Adhesive Tape-Silicones Rash Medium 04/17/2021 Amlodipine Rash Medium 07/06/2022 Aspirin Hives Medium Benzocaine Fever,Other (See comments) Medium 07/06/2022 Butalbital Hives Medium Hgxrmtlygd-Qbnxlbw-Hfqxqq ne Hives High 07/06/2022 Exenatide Microspheres Shortness [...] with Menopause 2 8 Active DEXCOM G6 STITCHING MACHINE OPERATOR miscIndication s:Type 2 diabetes mellitus with hyperglycemia, with long-term current use of insulin ([facility]) Use as directed to monitor glucose daily 1 each 9 Active DEXCOM G6 SENSOR deviceIndicati ons:Type 2 diabetes mellitus with hyperglycemia, with long-term current use of insulin ([facility]) Use as directed to monitor glucose daily [...] hyperglycemia, with long-term current use of insulin ([facility]) TAKE 1 TABLET DAILY 90 tablet 3 4 Active insulin lispro protamine-insu juliette lispro 75/25 (HumaLOG 75/25 100 unit/mL) 100 unit/mL pen for injectionIndic ations:Type 2 diabetes mellitus with hyperglycemia, with long-term current use of insulin ([facility]) INJECT 20 UNITS IN THE MORNING AND [...] 09/08/2022 Assessment & Plan (09/08/2022 12:28 PM DEVELOPMENT TECHNICIAN): Patient declines use of statins Palpitations 06/16/2022 Paresthesia 06/16/2022 Noncompliance with medication regimen 08/21/2019 Coronary artery disease invo lving [place] coronary artery of [place] heart without angina pectoris 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 Last lipid panel: 09/04/24 AER=025, XF=644. Assessment & Plan (06/19/2024 11:27 AM CDT): Chronic problem. Not currently on statin therapy. Last lipid panel: 04/28/24 RGS=634, OK=794. Assessment & Plan (01/28/2023 1:37 PM CDT): Pt still refusing statins. Assessment & Plan (09/08/2022 11:55 AM DEVELOPMENT TECHNICIAN): Chronic, well controlled Low fat Low cholesterol diet Exercise Assessment & Plan (05/07/2022 3:10 PM CDT): Chronic, well controlled Low fat Low cholesterol diet Exercise Continue statin therapy Check lipid profile Assessment & Plan (10/30/2021 1:34 PM DEVELOPMENT TECHNICIAN): Continue Crestor, Low cholesterol Low fat [...] Rosuvastatin Assessment & Plan (10/24/2020 9:36 AM DEVELOPMENT TECHNICIAN): Due to the high risk of [...] UTD on DM eye exam ([facility] in [place] 04/2024). Letter sent to get copy of report. UTD on labs. Discussed with Claudia Menchaca: Strive for regular exercise (30min most [...] UTD on DM eye exam ([facility] in [place] 04/2024). Letter sent to get copy of report. UTD on labs. Discussed with Claudia Menchaca: Strive for regular exercise (30min most [...] infection. Assessment & Plan (08/24/2023 11:49 AM DEVELOPMENT TECHNICIAN): Hba1c was Lab Results Component Value [...] Tradjenta Assessment & Plan (09/08/2022 12:29 PM DEVELOPMENT TECHNICIAN): Hba1c was Lab Results Component Value [...] inhibitors Assessment & Plan (10/30/2021 1:34 PM DEVELOPMENT TECHNICIAN): Hba1c was Lab Results Component Value [...] regimen Assessment & Plan (10/24/2020 9:35 AM DEVELOPMENT TECHNICIAN): Hba1c was Lab Results Component Value [...] discussed. Assessment & Plan (10/11/2018 9:43 AM DEVELOPMENT TECHNICIAN): Hba1c was Lab Results Component Value [...] goal hba1c is under 7.0 to prevent usp diabetes complications ( eye , kidney and [...] goal hba1c is under 7.0 to prevent usp diabetes complications ( eye , kidney and [...] Tradjenta. Assessment & Plan (09/30/2017 11:18 AM DEVELOPMENT TECHNICIAN): Your Hba1c today was: 8.8 meaning a 3 month average sugar of : 207 Your goal hba1c is under 7.0 to prevent usp diabetes complications ( eye , kidney and [...] (03/02/2017 10:51 AM CDT): Hba1c was 7.5 [id number] calorie, consistent carb diet recommended 30 min [...] GFR Assessment & Plan (09/08/2022 12:28 PM DEVELOPMENT TECHNICIAN): Chronic, well-controlled Continue current medications including lisinopril Assessment & Plan (05/07/2022 3:10 PM CDT): Chronic, well controlled Importance of low salt diet and exercise were discussed Continue current meds Assessment & Plan (10/30/2021 1:35 PM DEVELOPMENT TECHNICIAN): Chronic, well controlled Continue current meds Check MA Assessment & Plan (10/24/2020 9:34 AM DEVELOPMENT TECHNICIAN): Goal blood pressure is less than [...] ARB Assessment & Plan (10/11/2018 9:44 AM DEVELOPMENT TECHNICIAN): Goal blood pressure is less than [...] ARB Assessment & Plan (09/30/2017 11:18 AM DEVELOPMENT TECHNICIAN): Goal blood pressure is less than [...] on file Legal Sex Female 6:39 PM DEVELOPMENT TECHNICIAN Gender Identity Female 04/11/2020 10:32 AM [...] 01/10/2025 10:57 AM CDT Plan of Treatment Not on [...] COMPREHENSIVE METABOLIC PANEL Routine 10/10/2024 2:30 PM DEVELOPMENT TECHNICIAN LIPID PANEL Routine 09/04/2024 10:04 AM DEVELOPMENT TECHNICIAN ALBUMIN CREATININE RATIO, URINE Routine 09/04/2024 10:04 AM DEVELOPMENT TECHNICIAN HM DIABETES EYE EXAM Routine 04/25/2024 9:19 AM CDT from Last 3 Months or Most Recently Relevant to Health Maintenance Results * (ABNORMAL) POCT hemoglobin A1c (01/10/2025 11:03 AM CDT) Hemoglobin A1C, POC 7.4 4.0 - 5.6 % Blood 01/10/2025 11:0 3 AM CDT Marylin Dhaliwal SWEEPER BRUSH MAKER MACHINE POINT OF CARE TEST ORDERA BLES Final Result * (ABNORMAL) POCT glucose (01/10/2025 11:03 AM CDT) Glucose Blood, POC 207 mg/dL Blood 01/10/2025 11:0 3 AM CDT Marylin Dhaliwal SWEEPER BRUSH MAKER MACHINE POINT OF CARE TEST ORDERA BLES Final Result * (ABNORMAL) Comprehensive metabolic panel (10/10/2024 2:30 PM DEVELOPMENT TECHNICIAN) Pathologist [facility] SCRIBED Sodium 136 136 - 145 mmol/L [...] Units/L EXTERNAL LAB SCRIBED eGFR in NonAfrican Belizean 57 >90 - NA EXTERNAL LAB Blood 10/10/2024 2:30 PM DEVELOPMENT TECHNICIAN Historical Provider LAB BLOOD ORDERABLES Edit ed Result - Final EXTERNAL LAB * (ABNORMAL) Albumin Creatinine Ratio, Urine (09/04/2024 10:04 AM DEVELOPMENT TECHNICIAN) SCRIBED Creatinine, Urine 162.8 NA - NA EXTERNAL LAB SCRIBED Microalbumin 42.4 <20 - NA EXTERNAL LAB SCRIBED Microalb/Creat Ratio 26 NA - NA EXTERNAL LAB Urine 09/04/2024 10:0 4 AM DEVELOPMENT TECHNICIAN Historical Provider LAB URINE ORDERABLES Edit ed Result - Final EXTERNAL LAB * (ABNORMAL) Lipid panel (09/04/2024 10:04 AM DEVELOPMENT TECHNICIAN) SCRIBED Cholesterol, Total 188 <200 - NA EXTERNAL LAB SCRIBED HDL 43 >40 - NA EXTERNAL LAB SCRIBED LDL 115 <100 - NA EXTERNAL LAB SCRIBED Triglycerides 151 <150 - NA EXTERNAL LAB Blood 09/04/2024 10:0 4 AM DEVELOPMENT TECHNICIAN Historical Provider LAB BLOOD ORDERABLES Edit ed Result - Final Performing Organization Address City/[facility]/ZIP Co de Phone Number EXTERNAL LAB * HM DIABETES EYE EXAM (04/25/2024 9:19 AM CDT) Historical Provider HEALTH MAINTENANCE Edited Result - Final from Last 3 Months or Most Recently Relevant to Health Maintenance Insurance MEDICARE FOR LIFE MEDICARE FOR LIFE Care Teams Silk Screen Painter Relationship Specialty Start Date End Date Barbara Winkler PA [address] [place] [address] PCP - General Physician Automobile Assembler 06/19/24 [place] [address] [facility] [address] [place] [address] Consulting Physician Endocrinology Diabetes & Metabolism 05/31/19 Micaela Gamble MD 4700 [facility] [place] [address] Consulting Physician Pain Management 03/12/21
--- OUTSIDE RECORDS SUMMARY | 2025-01-17 12:21 | XMS_ITS | Continuity of Care Document ---
Author Organization [facility] Address [address] [place] [address] utive [facility] [address] [place] [address] Phone Care Team Providers Care Route Sales Delivery Driver Name Role Phone Lee OD, Kentrell Unavailable Unavailable Advance Directives Directive Yes / No Effective Date File Name No Information Encounters Encounter Description Practice Location Reason(s) For Visit Diagnoses Date Provider Providers Copied on Encounter [facility], [address] [place] [address] [address], [place], [place], [id number], [place] tel:[phone] [facility] No Information 5-200 5 Lee OD Kentrell. [address] [facility] [place] , [address], [place], [address], [place]. tel:[phone] Family History Family Member Type Diagnosis Age At Onset No Information Payers Payer name Insurance type Covered libertarian ID Authoriza tion(s) Medicare [facility] [id number] For Life Mdcr Supp CI [id number] Social History Type Description Quantity Date Captured [...]
--- OUTSIDE RECORDS SUMMARY | 2025-01-17 12:21 | XMS_ITS | Encounter Summary ---
Author Organization [facility] Address [facility] [place] [address] Care Team Providers Care Soda Fountain Manager Name Role Phone Kentrell Figueroa MD Unavailable [phone] [facility] Eye [facility], Records Unavailable Jerry Ivory MD Unavailable [phone] Maddi Wagoner MD Unavailable [phone] Red Zaragoza MD Unavailable Chani Dupont MD Unavailable [phone] Evonne Bello DPM Unavailable [phone] Barbara Winkler Unavailable [phone] Eduin Dodd MD Unavailable Eduin Dodd MD Primary Care Provider [phone] Encounter Details Date Type Department Care Team (Latest Contact Info) Description 11/03/2024 [employer] Message Enc [facility] Medical Group Multispecialty Care - [address] [place] [address] Margaret [facility] Provider Diabetic Screening Social History Tobacco Use [...] Sex Assigned at Female 10/10/2024 1:24 PM SENIOR VICE PRESIDENT Legal Sex Female 4:08 PM CDT Gender Identity Female 11/03/2021 4:38 AM SENIOR VICE PRESIDENT Sexual Orientation Straight 11/03/2021 4: 38 AM SENIOR VICE PRESIDENT documented as of this encounter Plan of Treatment Upcoming Encounters Date Type Department Care Team (Late st Contact Info) Description 02/14/2025 10:20 AM CDT Office Visit [facility] [address] [address] Eduin Dodd MD [address] [place] [address] 04/04/2025 10:30 AM CDT Office Visit [address] [address] Eduin Dodd MD [facility] [address] [address] documented as of this encounter Visit Diagnoses Not on filedocumented in this encounter Additional Health Concerns Assessment Noted Time PHQ-9 Depression Total Score: 4 03/21/20 24 1:05 PM CDT documented as of this encounter Care Teams Soda Fountain Manager Relationship Specialty Start Date End Date Eduin Dodd MD [address] [place] [address] PCP - General INTERNAL MEDICINE 10/11/24 Kentrell Figueroa MD 1 [facility] [place] [address] Medical Oncologist HEMATOLOGY/ONCOLOGY 03/22/24 [facility], - Records 534 [place] [address] 03/22/24 Jerry Ivory MD 2227 [facility] [address] [place] [address] HEMATOLOGY/ONCOLOGY 03/22/24 [place] [address] [facility] [address] [place] [address] INTERNAL MEDICINE 03/22/24 Red Zaragoza MD 6810 [facility] 162 [facility] 102 [place] [address] INTERVENTIONAL CARDIOLOGY 03/22/24 Chani Dupont MD 1034 [address] [facility] 1280 [place] [address] Referring Physician NEPHROLOGY 03/22/24 Evonne Bello, DPM 1034 [facility] 1280 [place] [address] Surgeon Mine Safety Manager - Foot & Ankle Surgery 03/22/24 Barbara Winkler PA 1212 [place] [address] PHYSICIAN CASE REPAIRER 03/22/24 Eduin Dodd MD 1188 [facility] [address] [place] [address] Consulting Physician INTERNAL MEDICINE 10/10/24 documented as of this encounter
--- OUTSIDE RECORDS SUMMARY | 2025-01-17 12:21 | XMS_ITS | Encounter Summary ---
Author Organization [facility] Address Formerly [facility], [facility]3 [place] [address] Care Team Providers Care Wax Pattern Repairer Name Role Phone Kem Dunn MD Primary Care Provider [phone] Bright Olsen MD Primary Care Provider [phone] Eduin Dodd MD Primary Care Provider [phone] Kentrell Figueroa MD Unavailable [phone] [facility] Eye [facility], Records Unavailable Jerry Ivory MD Unavailable [phone] Maddi Wagoner MD Unavailable [phone] Red Zaragoza MD Unavailable Chani Dupont MD Unavailable Evonne Bello DPM Unavailable [phone] Barbara Winkler Unavailable [phone] Eduin Dodd MD Unavailable Barbara Winkler Primary Care Provider [phone] Eduin Dodd MD Primary Care Provider [phone] Encounter Details Date Type Department Care Team (Late st Contact Info) Description 10/27/2018 Abstract [facility] CONVERSION [address] [place] [id number] , Shayna Adan MD Social History Tobacco Use Types Packs/Day Years Used Date Smoking Tobacco: Never Assessed Comments Unknown Sex and Gender Information Value Date Recorded Sex Assigned at Female 10/10/2024 1:24 PM SET PAINTER Legal Sex Female 4:08 PM CDT Gender Identity Female 11/03/2021 4:38 AM SET PAINTER Sexual Orientation Straight 11/03/2021 4: 38 AM SET PAINTER documented as of this encounter Plan of Treatment Upcoming Encounters Date Type Department Care Team (Late st Contact Info) Description 02/14/2025 10:20 AM CDT Office Visit [facility] - [address] [address] Eduin Dodd MD [address] [place] [address] 04/04/2025 10:30 AM CDT Office Visit [facility] - [address] [address] Eduin Dodd MD [address] [place] [address] documented as of this encounter Visit Diagnoses Not on filedocumented in this encounter Additional Health Concerns Infection Onset Date Last Indicated Resolved Time C. difficile 04/27/2017 04/27/2017 01/22/2022 10:4 8 AM CDT COVID-19 Rule Out 11/21/2022 11/21/2022 11/21/2022 11:06 AM SET PAINTER COVID-19 Rule Out 04/01/2024 04/01/2024 04/01/2024 4:14 PM CDT documented as of this encounter Care Teams Wax Pattern Repairer Relationship Specialty Start Date End Date Kem Dunn MD [address] [place] [address] PCP - General INTERNAL MEDICINE 03/03/19 08/04/22 Bright Olsen MD [address] [place] [address] PCP - General FAMILY PRACTICE 08/05/22 03/08/23 Eduin Dodd MD [address] [address] PCP - General INTERNAL MEDICINE 03/09/23 10/09/24 Barbara Winkler PA [address] [place] [address] PCP - General PHYSICIAN MUSIC PRODUCER 10/10/24 10/10/24 Eduin Dodd MD [address] [address] PCP - General INTERNAL MEDICINE 10/11/24 Kentrell Figueroa MD 1 [place] [address] Medical Oncologist HEMATOLOGY/ONCOLOGY 03/22/24 [facility], - Records [address] [place] [address] 03/22/24 Jerry Ivory MD 2227 [facility] 100 [place] [address] HEMATOLOGY/ONCOLOGY 03/22/24 [place] [address] [facility] [address] [place] [address] INTERNAL MEDICINE 03/22/24 Red Zaragoza MD 6810 [facility] 162 [facility] 102 [place] [address] INTERVENTIONAL CARDIOLOGY 03/22/24 Chani Dupont MD 10[address] [facility] 1280 [place] [address] Referring Physician NEPHROLOGY 03/22/24 Evonne Bello DPM [address] [facility] 1280 [place] [address] Surgeon Stencil Cutter Machine - Foot & Ankle Surgery 03/22/24 Barbara Winkler PA [facility]2 [place] [address] PHYSICIAN MUSIC PRODUCER 03/22/24 Eduin Dodd MD [address] [address] Consulting Physician INTERNAL MEDICINE 10/10/24 documented as of this encounter
--- OUTSIDE RECORDS SUMMARY | 2025-01-17 12:21 | XMS_ITS | Clinical Summary ---
Author Organization [facility] Address PHYSICIAN BUILDING [address] [place] [address] [address] [place] [address] Phone Care Team Providers Care Global Marketing Coordinator Name Role Phone Kem Dunn MD Primary Care Provider [phone] Kentrell Richards DO Unavailable [phone] Kentrell Figueroa MD Unavailable [phone] Allergies Active Allergy Reactions Criticality Noted Date Comments Acetaminophen Other (see Comments) 08/22/2015 Contraindicated hep c Adhesive Tape Rash 08/22/2015 Amlodipine Rash Medium 07/06/2022 Benzocaine Other (see Comments) Medium 07/06/2022 Tqnvetifmt-Ebhxktz-Sufznk ne Hives High 07/06/2022 Cefuroxime Axetil Other (see Comments) 08/22/2015 dizzyness Chlorpheniramine Other (see Comments) Low 05/30/2019 Pt does not recall Ciprofloxacin Nausea 08/22/2015 Codeine Rash 08/22/2015 Dextromethorphan Other (see Comments) Low 05/30/2019 Pt does not recall Erythromycin Rash 08/22/2015 Eayerlbfip-Mtc-Siqo-Codei ne Hives 08/22/2015 Ibuprofen Rash 08/22/2015 Etodolac [...] mouth every 4 hours as needed. Active esomeprazole (NexIUM) 40 MG CAPSULE DELAYED RELEASE Take 40 mg by mouth. 4 Active folic acid (FOLVITE) 1 MG Tablet TAKE 1 TABLET BY MOUTH DAILY 90 Tablet 1 5 Active Active Problems Problem Noted Date Diagnosed [...] Encounters Date Type Department Care Team Description 12/17/2024 Refill [facility] [address] [address] Kentrell Figueroa MD Medication Refill from Last 3 Months Immunizations Immunization Administration Dates Next Due Covid-19 Vaccine, Vector-nr, Rs-ad26, Pf, 0.5 Ml ([facility]) 11/28/2020 Influenza, Injectable, Quadrivalent 06/20/2019 TDAP Vaccine [...] Comments Blood Pressure 150/82 08/24/2024 10:00 AM TABLE GAMES FLOOR SUPERVISOR Pulse 92 08/24/2024 10:00 AM TABLE GAMES FLOOR SUPERVISOR Temperature 36.3 C (97.3 F) 08/24/2024 10:00 AM TABLE GAMES FLOOR SUPERVISOR Respiratory Rate 18 08/24/2024 10:00 AM TABLE GAMES FLOOR SUPERVISOR Oxygen Saturation 96% 08/24/2024 10:00 AM TABLE GAMES FLOOR SUPERVISOR Inhaled Oxygen Concentration - - Weight 100.2 kg (221 lb) 08/24/2024 10:00 AM TABLE GAMES FLOOR SUPERVISOR Height 167.6 cm (5' 6 ) 08/24/2024 10:00 AM TABLE GAMES FLOOR SUPERVISOR Body Mass Index 35.67 08/24/2024 10:00 AM TABLE GAMES FLOOR SUPERVISOR Plan of Treatment Upcoming Encounters Date Type Department Care Team (Late st Contact Info) Description 02/15/2025 10:30 AM CDT Lab [facility] [address] [address] [facility] [address] [place] [address] Nurse, Patricia [place] 02/22/2025 10:30 AM CDT Office Visit [facility] [address] [address] [facility] [address] [place] [address] Kentrell Figueroa MD [address] [place] [address] Health Maintenance Due Date Last [...] 12/17/2024 024, 08/24/2023, 05/05/2023, Additional history exists Mammogram 05/04/2025 05/04/2024, 04/20, 09/01/2022, Additional history exists DEXA Bone Density 08/13/2025 08/13/2023, , 01/31/2016 Td Immunization Every 10 Years (Adults With [...] Diagnosis Comments COLOGUARD Routine 10/03/2019 11:00 AM TABLE GAMES FLOOR SUPERVISOR Colon cancer screening JONATHAN BONE DENSITOMETRY AXIAL [...] Results * (ABNORMAL) COLOGUARD (10/03/2019 11:00 AM TABLE GAMES FLOOR SUPERVISOR) Cologuard Positive (A) Not Applicable [employer] [facility] Comment: It is recommended that a [...] both Cologuard and colonoscopy. (Table 3, Ramon Sorto al, N Engl J Med 2014;370(14):8931-8075.) Test Type: Composite algorithmic analysis of stool [...] can be accessed at the following location: www.[employer]/results. Additional description of the Cologuard test process, warnings and precautions can be found at [email or web address].com. Rx Only. Stool specimen (specimen) 10/03/2019 11:00 AM TABLE GAMES FLOOR SUPERVISOR 10/04/2019 8:08 AM TABLE GAMES FLOOR SUPERVISOR us Kentrell Richards DO BODY FLUIDS & STOOLS ORDERABLES Final Result [facility] [address] [place] [address], [place] [phone] [employer] [address] [place] [address] * JONATHAN BONE DENSITOMETRY AXIAL SKELETON (01/31/2016) [...] Most Recently Relevant to Health Maintenance Insurance [facility] [place] [id number] MEDICARE FOR LIFE MEDICARE FOR LIFE Care Teams Global Marketing Coordinator Relationship Specialty Start Date End Date Kem Dunn MD [address] [place] [address] PCP - General Internal Medicine 08/21/15 Kentrell Richards DO [address] [place] [address] Gastroenterology 07/17/16 Kentrell Figueroa MD [address] [place] [address] Consulting Physician Oncology 11/16/23 Dr. Sherry Watson [address] Shake Out Worker Pulmonary Disease 11/28/19
--- OUTSIDE RECORDS SUMMARY | 2025-01-17 12:21 | XMS_ITS | Encounter Summary ---
Author Organization [facility] Address [facility] [place] [address] Care Team Providers Care Outdoor Power Equipment Mechanic Name Role Phone Eduin Dodd MD Primary Care Provider [phone] Kentrell Figueroa MD Unavailable [phone] [facility] Eye [facility] Records Unavailable Jerry Ivory MD Unavailable [phone] Maddi Wagoner MD Unavailable [phone] Red Zaragoza MD Unavailable Chani Dupont MD Unavailable Evonne Bello DPM Unavailable [phone] Barbara Winkler Unavailable [phone] Eduin Dodd MD Unavailable Barbara Winkler Primary Care Provider [phone] Eduin Dodd MD Primary Care Provider [phone] Encounter Details Date Type Department Care Team (Late st Contact Info) Description 06/10/2023 STP Groupt Message Enc [facility] - [address] [place] [address] Eduin Dodd MD [address] [place] [address] [address] [place] [address] Joe Social History Tobacco Use [...] Sex Assigned at Female 10/10/2024 1:24 PM CRUISE GUIDE Legal Sex Female 4:08 PM CDT Gender Identity Female 11/03/2021 4:38 AM CRUISE GUIDE Sexual Orientation Straight 11/03/2021 4: 38 AM CRUISE GUIDE documented as of this encounter Plan of Treatment Upcoming Encounters Date Type Department Care Team (Late st Contact Info) Description 02/14/2025 10:20 AM CDT Office Visit [address] [address] Eduin Dodd MD [address] [place] [address] 04/04/2025 10:30 AM CDT Office Visit [address] [address] Eduin Dodd MD [facility] [address] [address] documented as of this encounter Visit Diagnoses Not on filedocumented in this encounter Additional Health Concerns Infection Onset Date Last Indicated Resolved Time COVID-19 Rule Out 04/01/2024 04/01/2024 04/01/2024 4:14 PM CDT Assessment Noted Time PHQ-9 Depression Total Score: 3 04/26/20 23 2:03 PM CDT documented as of this encounter Care Teams Outdoor Power Equipment Mechanic Relationship Specialty Start Date End Date Eduin Dodd MD [address] [place] [address] PCP - General INTERNAL MEDICINE 03/09/23 10/09/24 Barbara Winkler PA 12[address] [place] [address] PCP - General PHYSICIAN END FINDER TWISTING DEPARTMENT 10/10/24 10/10/24 Eduin Dodd MD 1188 [facility] 157 [place], [place] [address] PCP - General INTERNAL MEDICINE 10/11/24 Kentrell Figueroa MD 1 [place] [address] Medical Oncologist HEMATOLOGY/ONCOLOGY 03/22/24 [facility], - Records [address] [place] [address] 03/22/24 Jerry Ivory MD 2227 [facility] [address] [place] [address] HEMATOLOGY/ONCOLOGY 03/22/24 [place] [address] [facility] [address] [place] [address] INTERNAL MEDICINE 03/22/24 Red Zaragoza MD [address] [facility] [address] [place] [address] INTERVENTIONAL CARDIOLOGY 03/22/24 Chani Dupont MD 1034 [address] [facility] [address] [place] [address] Referring Physician NEPHROLOGY 03/22/24 Evonne Bello DPM 1034 [address] [facility] 1280 [place] [address] Surgeon Painting Contractor - Foot & Ankle Surgery 03/22/24 Barbara Winkler PA 1212 [place] [address] PHYSICIAN END FINDER TWISTING DEPARTMENT 03/22/24 Eduin Dodd MD [address] [address] Consulting Physician INTERNAL MEDICINE 10/10/24 documented as of this encounter
--- OUTSIDE RECORDS SUMMARY | 2025-01-17 12:21 | XMS_ITS | Encounter Summary ---
Author Organization [facility] Address Pending sale to [facility]9 [place] [address] Care Team Providers Care Health Service Coordinator Name Role Phone Kentrell Figueroa MD Unavailable [phone] [facility] Eye [facility], Records Unavailable Jerry Ivory MD Unavailable [phone] Maddi Wagoner MD Unavailable [phone] Red Zaragoza MD Unavailable Chani Dupont MD Unavailable [phone] Evonne Bello DPM Unavailable [phone] Barbara Winkler Unavailable [phone] Eduin Dodd MD Unavailable Eduin Dodd MD Primary Care Provider [phone] Encounter Details Date Type Department Care Team (Late st Contact Info) Description 10/23/2024 [email or web address] Message [place] [address] [facility] Provider RE: Amendment Request - Visit [...] Sex Assigned at Female 10/10/2024 1:24 PM POWER SHOVEL ENGINEER Legal Sex Female 4:08 PM CDT Gender Identity Female 11/03/2021 4:38 AM POWER SHOVEL ENGINEER Sexual Orientation Straight 11/03/2021 4: 38 AM POWER SHOVEL ENGINEER documented as of this encounter Plan of Treatment Upcoming Encounters Date Type Department Care Team (Late st Contact Info) Description 02/14/2025 10:20 AM CDT Office Visit [address] [address] Eduin Dodd MD [address] [place] [address] 04/04/2025 10:30 AM CDT [facility] [address] [address] Eduin Dodd MD [address] [place] [address] documented as of this encounter Visit Diagnoses Not on filedocumented in this encounter Additional Health Concerns Assessment Noted Time PHQ-9 Depression Total Score: 4 03/21/20 24 1:05 PM CDT documented as of this encounter Care Teams Health Service Coordinator Relationship Specialty Start Date End Date Eduin Dodd MD [address] [place] [address] PCP - General INTERNAL MEDICINE 10/11/24 Kentrell Figueroa MD 1 [facility] [place] [address] Medical Oncologist HEMATOLOGY/ONCOLOGY 03/22/24 [facility], - Records [address] [place] [address] 03/22/24 Jerry Ivory MD 2227 [facility] [address] [place] [address] HEMATOLOGY/ONCOLOGY 03/22/24 [place] [address] [facility] [address] [place] [address] INTERNAL MEDICINE 03/22/24 Red Zaragoza MD 6810 [facility] 162 [facility] 102 [place] [address] INTERVENTIONAL CARDIOLOGY 03/22/24 Chani Dupont MD 1034 [address] [facility] 1280 [place] [address] Referring Physician NEPHROLOGY 03/22/24 Evonne Bello, DPM 10[address] [facility] 1280 [place] [address] Surgeon Fulfillment Coordinator - Foot & Ankle Surgery 03/22/24 Barbara Winkler PA 1212 [place] [address] PHYSICIAN PARTS COUNTER SALES PERSON 03/22/24 Eduin Dodd MD 1188 [facility] [address] [place] [address] Consulting Physician INTERNAL MEDICINE 10/10/24 documented as of this encounter
[2025-01-17 16:42] LABS: Alanine Aminotransferase 22 U/L (6-35); Albumin Level 4.4 g/dL (3.5-5.1); Alkaline Phosphatase 62 U/L (38-126); Anion Gap 11 mmol/L (4-12); Aspartate Amino Transferase 27 U/L (14-36); Bilirubin,Total 0.4 mg/dL (0.2-1.3); Blood Urea Nitrogen 11 mg/dL (7-17); Calcium 9.6 mg/dL (8.4-10.2); Carbon Dioxide 25 mmol/L (22-30); Chloride 101 mmol/L (98-107); Estimated Glomerular Filt Rate > 60; Glucose 176 mg/dL (65-110); Potassium 4.1 mmol/L (3.4-5.0); Sodium 137 mmol/L (137-145)
[2025-01-17 17:33] LABS: Immunoglobulin A 342 mg/dL (70-400); Immunoglobulin G 1203 mg/dL (700-1600); Immunoglobulin M 49 mg/dL (40-230)
[2025-01-19 11:49] LABS: Kappa\\Lambda Light Chains 1.67 (0.26-1.65); Lambda Light Chain 15.5 mg/L (5.7-26.3)
[2025-01-22 17:43] LABS: Protein, Total 7.3 g/dL (6.1-8.1)
== END 2025-01-17 11:00 | disposition home or self-care (01) ==
LOC: ANHLAB 11:00
PROVIDERS: PCP Physician Assistant Medical; Visit Provider Internal Medicine Hematology & Oncology
DX: D72.9 Disorder of white blood cells, unspecified (principal)
CPT/HCPCS: 36415; 80053; 82784; 83883; 84155; 84165; 85025

== ENCOUNTER 2025-05-04 11:27 | Outpatient (CLI) | payer MEDICARE, OTHER, SELFPAY ==
--- OUTSIDE RECORDS SUMMARY | 2025-05-04 11:31 | XMS_ITS | Clinical Summary ---
Author Organization [facility] Address PHYSIC[address] BUILDING [address] [place] [address] [address] [place] [address] Phone Care Team Providers Care Teacher Education Instructor Name Role Phone Kem Dunn MD Primary Care Provider [phone] Kentrell Richards DO Unavailable [phone] Kentrell Figueroa MD Unavailable [phone] Allergies Active Allergy Reactions Criticality Noted Date Comments Acetaminophen Other (see Comments) 08/22/2015 Contraindicated hep c Adhesive Tape Rash 08/22/2015 Amlodipine Rash Medium 07/06/2022 Benzocaine Other (see Comments) Medium 07/06/2022 Atqibtvkop-Woiiafk-Gxsgte ne Hives High 07/06/2022 Cefuroxime Axetil Other (see Comments) 08/22/2015 dizzyness Chlorpheniramine Other (see Comments) Low 05/30/2019 Pt does not recall Ciprofloxacin Nausea 08/22/2015 Codeine Rash 08/22/2015 Dextromethorphan Other (see Comments) Low 05/30/2019 Pt does not recall Erythromycin Rash 08/22/2015 Wexnhvpwjq-Eyq-Ophs-Codei ne Hives 08/22/2015 Ibuprofen Rash 08/22/2015 Etodolac [...] MOUTH DAILY 90 Tablet 1 5 Active Additional Information Patient not taking.Reported on 02/22/2025 OxyCONTIN 10 MG Tablet Extended Release 12 hour Abuse-Deterrent Take 10 mg by mouth nightly. 5 Active Lantus SoloStar 100 UNIT/ML Solution Pen-injector 35 Units by Subcutaneous route. 5 01/13/20 26 Active methotrexate 2.5 MG Tablet 5 Active predniSONE (DELTASONE) 5 MG Tablet Take 7.5 mg by mouth daily. Active meclizine (ANTIVERT) 25 MG Tablet Take 50 mg by mouth. 5 Active HumaLOG Mix 75/25 KwikPen (75-25) 100 UNIT/ML Suspension Pen-injector 4 Active estrogens, conjugated,-met hyltestosterone (ESTRATEST HS) 0.625-1.25 MG Tablet Active Active Problems Problem Noted Date Diagnosed [...] Encounters Date Type Department Care Team Description 02/22/2025 10:30 AM CDT Office Visit [facility] [address] [phone] Hillary Arnold, REMANUFACTURING TECHNICIAN, PROFESSOR OF PHYSICAL EDUCATION Erythrocytosis (Primary Dx); Leukocytosis, unspecified type; Non-alcoholic fatty liver disease; Chronic hepatitis C without hepatic coma (HCC) 02/22/2025 Travel 02/15/2025 10:30 AM CDT Lab [facility] [id number] [place] [phone] Nurse, Cc [place] Non-alcoholic fatty liver disease (Primary Dx); Gastroesophageal reflux disease without esophagitis 02/15/2025 Travel from Last 3 Months Immunizations Immunization [...] Tobacco: Never Tobacco Cessation:Ready to Q uit: Yes; Counseling Given: Yes Alcohol Use Standard Drinks/Week [...] Sign Reading Time Taken Comments Blood Pressure 152/82 02/22/2025 10:17 AM CDT Pulse 81 02/22/2025 10:17 AM CDT Temperature 36.4 C (97.6 F) 02/22/2025 10:17 AM CDT Respiratory Rate 18 02/22/2025 10:1 7 AM CDT Oxygen Saturation 96% 02/22/2025 10: 17 AM CDT Inhaled Oxygen Concentration - - Weight 96.5 kg (212 lb 12.8 oz) 025 10:17 AM CDT Height 167.6 cm (5' 6) 02/22/2025 10:1 7 AM CDT Body Mass Index 34.35 02/22/2025 10:17 AM CDT Plan of Treatment Upcoming Encounters Date Type Department Care Team (Late st Contact Info) Description 08/23/2025 1:00 PM AUTOMATIC LATHE TENDER Office Visit [facility] [address] [phone] Kentrell Figueroa MD [address] [place] [address] Health Maintenance Due Date Last Done Comments Diabetes: Eye Exam 1954 Diabetes: Foot Exam 1954 Zoster Immunization (1 of 2) 1973 Colonoscopy 1999 Immunochemical Fecal Occult Blood 1999 Lung Cancer Screening 2004 Hepatitis B Immunization (1 of 3 - Risk 3-dose series) 2014 Respiratory Syncytial Virus (RSV) Immunization (Adult) (1 - Risk 60-74 years 1-dose series) 2014 Pneumococcal Immunization (50+ years) (2 of 2 - PPSV23, PCV20, or PCV21) 01/25/2017 11/30/2016 SARS-COV-2 Immunization (2 - Catalino risk series) 12/26/2020 11/28/2020 Cologuard 10/03/2022 10/03/2019 Colorectal Cancer Screening 10/03/2022 Mammogram 05/04/2025 05/04/2024, 04/20, 09/01/2022, Additional history exists Influenza Immunization (#1) 2025 06/20/2019, 0 06/19/2014 Diabetes: Hemoglobin A1c 07/12/2025 025, 06/19/2024, 08/24/2023, Additional history exists DEXA Bone Density 08/13/2025 08/13/2023, , 01/31/2016 Diabetes: Nephropathy Screening 02/15/2026 02/15/2025 Td Immunization Every 10 Years (Adults With 1 Tdap) 08/31/2027 08/31/2017 Pneumococcal Immunization Combined Discontinued 11/30/2016 DTaP/Tdap/Td Immunization Discontinued 08/31/2017 Human Papillomavirus (HPV) Immunization Aged Out No longer eligible based on patient's age to complete this topic Meningococcal Immunization (ACWY) Aged Out No longer eligible based on patient's age to complete this topic Rotavirus Immunization Aged Out No lo nger eligible based on patient's age to complete this topic Procedures Procedure Name Priority Date/Time Associated Diagnosis Comments IRON W/ IRON BINDING CAPACITY OH Routine 02/15/2025 1:12 PM CDT Non-alcoholic fatty liver disease Gastroesophageal reflux disease without esophagitis FERRITIN Routine 02/15/2025 1:12 PM CDT Non-alcoholic fatty liver disease Gastroesophageal reflux disease without esophagitis VITAMIN B12 Routine 02/15/2025 1:12 PM CDT Non-alcoholic fatty liver disease Gastroesophageal reflux disease without esophagitis FOLIC ACID (FOLATE) Routine 02/15/2025 1 :12 PM CDT Non-alcoholic fatty liver disease Gastroesophageal reflux disease without esophagitis CMP (COMPREHENSIVE METABOLIC PANEL) Routine 02/15/2025 1:12 PM CDT Non-alcoholic fatty liver disease Gastroesophageal reflux disease without esophagitis COMPLETE BLOOD COUNT (CBC) WITH DIFF Routine 02/15/2025 1:12 PM CDT Non-alcoholic fatty liver disease Gastroesophageal reflux disease without esophagitis COLOGUARD Routine 10/03/2019 11:00 AM AUTOMATIC LATHE TENDER Colon cancer screening JONATHAN BONE DENSITOMETRY AXIAL [...] Relevant to Health Maintenance Results * (ABNORMAL) IRON W/ IRON BINDING CAPACITY [place] (02/15/2025 1:12 PM CDT) IRON 45(L) 50 - 212 ug/dL [facility] UIBC 253 155 - 355 ug/dL [facility] TIBC 298 261 - 478 ug/dl [facility] % Saturation 15(L) 20 - 50 % [facility] 02/15/2025 1:12 PM CDT [facility] - 02/15/2025 1:55 PM CDT Release to patient->Immediate Hillary Arnold APRN, PROFESSOR OF PHYSICAL EDUCATION LAB SEND OUTS Final Result [facility] [address] [place] [address], * (ABNORMAL) VITAMIN B12 (02/15/2025 1:12 PM CDT) Vitamin B12 1,305(H) 180 - 914 pg/mL [facility] Blood 02/15/2025 1:12 PM CDT [facility] - 02/16/2025 3:16 PM CDT Release to patient->Immediate IS THE PATIENT REQUIRED TO BE FASTING FOR 8 HOURS?->No us Hillary Arnold APRN, PROFESSOR OF PHYSICAL EDUCATION CHEMISTRY ORDERABLES Final Result Performing Organization Address [facility] Co de Phone Number [facility] [place] [address], [place] [phone] * FOLIC ACID (FOLATE) (02/15/2025 1:12 PM CDT) Folate 17.97 >=5.90 ng/mL [facility] Blood 02/15/2025 1:12 PM CDT [facility] - 02/16/2025 3:16 PM CDT Release to patient->Immediate us Hillary Arnold APRN, PROFESSOR OF PHYSICAL EDUCATION CHEMISTRY ORDERABLES Final Result Performing Organization Address [facility] de Phone Number [facility] [place] [address], [place] [phone] * FERRITIN (02/15/2025 1:12 PM CDT) Ferritin 49 11 - 307 ng/mL [facility] Blood 02/15/2025 1:12 PM CDT [facility] - 02/16/2025 3:16 PM CDT Release to patient->Immediate IS THE PATIENT REQUIRED TO BE FASTING FOR 12 HOURS?->No us Hillary Arnold APRN, PROFESSOR OF PHYSICAL EDUCATION CHEMISTRY ORDERABLES Final Result Performing Organization Address [facility] Co de Phone Number [facility] [place] [address], * (ABNORMAL) CMP (COMPREHENSIVE METABOLIC PANEL) (02/15/2025 1:12 PM CDT) Glucose 245(H) 70 - 105 mg/dL [facility] Blood Urea Nitrogen 6(L) 7 - 25 mg/dL [facility] Creatinine 0.7 0.6 - 1.2 mg/dL [facility] Sodium 135(L) 136 - 145 mEq/L [facility] Potassium 3.9 3.5 - 5.1 mEq/L [facility] Chloride 103 98 - 107 mEq/L [facility] Bicarbonate 24 21 - 31 mEq/L [facility] Total Bilirubin 0.6 0.3 - 1.0 mg/dL [facility] Alk. Phosphatase 56 34 - 104 U/L [facility] Aspartate Aminotransferase 20 13 - 39 U/L [facility] Alanine Aminotransferase 14 7 - 52 U/L [facility] Total Protein 6.8 6.4 - 8.9 g/dL [facility] Albumin 4.1 3.5 - 5.7 g/dL [facility] Calcium 9.3 8.6 - 10.3 mg/dL [facility] Anion Gap 11.9 7.0 - 15.0 mEq/L [facility] Globulin 2.7 2.0 - 3.5 g/dL [facility] EGFR 93 >60 ml/min/1. 73m2 [facility] Comment: This eGFR is calculated using 2020 CKD-EPI Creatinine equation without race modifier based on the NKF-ASN task force recommendations Equation: jASL=379*min(SCr/k,1)a*max(SCr/k,1)-1.200*0.9938Age*1.012 (if female), where SCr is serum creatinine, k is 0.7 for females and 0.9 for males, and a is -0.241 for females and -0.302 for males Blood 02/15/2025 1:12 PM CDT Narrative [facility] - 02/15/2025 1:55 PM CDT Release to patient->Immediate IS THE PATIENT REQUIRED TO BE FASTING FOR 8 HOURS?->No us Hillary Arnold REMANUFACTURING TECHNICIAN, PROFESSOR OF PHYSICAL EDUCATION CHEMISTRY ORDERABLES Final Result [facility] [place] [address], [place] [phone] * (ABNORMAL) COMPLETE BLOOD COUNT (CBC) WITH DIFF (02/15/2025 1:12 PM CDT) WBC 11.8(H) 4.0 - 10.0 10*3/uL [facility] HGB 15.8(H) 11.2 - 15.7 g/dL [facility] HCT 48.6(H) 34.1 - 44.9 % [facility] PLT 207 163 - 369 10*3/uL [facility] MPV 12.0 9.4 - 12.4 fL [facility] RBC 5.45(H) 3.93 - 5.22 10*6/uL [facility] MCV 89 79 - 95 fL [facility] MCH 29.0 25.6 - 32.2 pg [facility] MCHC 32.5 32.2 - 36.5 g/dL [facility] RDW 13.7 11.6 - 14.4 % [facility] Absolute Neutrophil Count 8,503 cells/uL [facility] Absolute Seg Count 8,503(H) 1,440 - 6,600 cells/uL [facility] Absolute Lymph Count 2,598 760 - 4,000 cells/uL [facility] Absolute [place] Count 709 160 - 1,200 cells/uL [facility] Segmented Neutrophils 72(H) 36 - 66 % [facility] Lymphocytes 22 19 - 40 % [facility] Monocytes 6 4 - 12 % [facility] WBC Estimate High [facility] Platelet Estimate Normal [facility] RBC Morphology Normal [facility] Blood 02/15/2025 1:12 PM CDT Narrative [facility] - 02/15/2025 3:17 PM CDT Release to patient->Immediate Hillary D Arnold REMANUFACTURING TECHNICIAN, PROFESSOR OF PHYSICAL EDUCATION HEMATOLOGY ORDERABLES Final Result [facility] [place] [address], * (ABNORMAL) COLOGUARD (10/03/2019 11:00 AM AUTOMATIC LATHE TENDER) Cologuard Positive (A) Not Applicable [facility] Comment: It is recommended that [...] Ramon Sorto al, N Engl J Med 2014;370(14):5193-3241.) Test Type: Composite algorithmic analysis of stool [...] can be accessed at the following location: [email or web address]/results. Additional description of the Cologuard test process, warnings and precautions can be found at [email or web address]. Rx Only. Stool specimen (specimen) 10/03/2019 11:00 AM AUTOMATIC LATHE TENDER 10/04/2019 8:08 AM AUTOMATIC LATHE TENDER us Kentrell Richards DO BODY FLUIDS & STOOLS ORDERABLES Final Result [facility] [address] [place] [address], [place] [phone] [email or web address] [address] [place] [address] * [facility] BONE DENSITOMETRY AXIAL SKELETON (01/31/2016) Anatomical Region [...] Most Recently Relevant to [place] [address] MEDICARE FOR LIFE MEDICARE FOR LIFE Care Teams Teacher Education Instructor Relationship Specialty Start Date End Date Kem Dunn MD [address] [place] [address] PCP - General Internal Medicine 08/21/15 Kentrell Richards DO [address] [place] [address] [phone] Gastroenterology 07/17/16 Kentrell Figueroa MD [address] [place] [address] [phone] Consulting Physician Oncology 11/16/23 Dr. Sherry Watson [address] Creative/Art Director Pulmonary Disease 11/28/19
--- OUTSIDE RECORDS SUMMARY | 2025-05-04 11:31 | XMS_ITS | Clinical Summary ---
Author Organization [facility] Address [address] [place] [phone] Phone Care Team Providers Care Network Admin Name Role Phone Kem Dunn MD Primary Care Provider [phone] Allergies Active Allergy Reactions Criticality Noted Date Comments Acetaminophen Other (see comments) 08/22/2015 Contraindicated hep c Amlodipine Rash Medium 05/30/2019 Butalbital Hives Medium 05/30/2019 Gbqtmkgmfm-Qrh-Apis-Codein e Hives 08/22/2015 Qzxkcenbib-Hom-Zkbb-Codein e Hives 08/22/2015 Zbtgwfgjqq-Tirzdhy-Ifphevq e 05/30/2019 Caffeine Hives Medium 05/30/2019 Cefuroxime [...] on file Legal Sex Female 9:11 AM [facility] Gender Identity Not on file Sexual [...] 11:35 AM CDT Height 165.1 cm (5' 5) 04/02/2022 11:35 AM CDT Body Mass Index 33.98 04/02/2022 11:35 AM CDT Plan of Treatment Health Maintenance Due Date Last Done Comments Pneumococcal PPSV23/PCV13 65 + Years / Low and Medium Risk (2 of 3 - PCV20 or PCV21) 11/30/2017 11/30/2016 Influenza Vaccine (#1) 2025 06/19/2014 Insurance MEDICARE Care Teams Network Admin Relationship Specialty Start Date End Date Kem Dunn MD [address] [place] [phone] PCP - General Internal Medicine 05/30/19
--- OUTSIDE RECORDS SUMMARY | 2025-05-04 11:31 | XMS_ITS | Continuity of Care Document ---
Author Organization [facility] Address [address] [place] [address] utive [facility] [address] [place] [address] Phone Care Team Providers Care Under Cutter Name Role Phone Lee OD, Kentrell Unavailable Unavailable Advance Directives Directive Yes / No Effective Date File Name No Information Encounters Encounter Description Practice Location Reason(s) For Visit Diagnoses Date Provider Providers Copied on Encounter [facility], [address] [place] [address] [address], [place], [place], [id number], [place] tel:[phone] [facility] No Information 5-200 5 Lee OD Kentrell. [address] , [address], [place], [address], [place]. tel:[phone] Family History Family Member Type Diagnosis Age At Onset No Information Payers Payer name Insurance type Covered democrat ID Authoriza tion(s) Medicare [facility] [id number] For Life Mdcr Supp CI [id number] Social History Type Description Quantity Date Captured [...]
--- OUTSIDE RECORDS SUMMARY | 2025-05-04 11:31 | XMS_ITS | Clinical Summary ---
Author Organization [facility] Address [address] [address] Care Team Providers Care Engineer Second Assistant Name Role Phone Unavailable Primary Care Provider Unavailabl e Allergies Active Allergy Reactions Criticality Noted Date Comments Acetaminophen Rash Low 07/06/2022 Amlodipine Rash Low 07/06/2022 Benzocaine Fever Low 07/06/2022 Enxfjsfypd-Bbfiawt-Aobilqbn Hives High 07/06/20 Cefuroxime Axetil Dizziness Low 07/06/2022 Codeine Rash [...] Units by subcutaneous injection daily at bedtime. 1 Active cholecalciferol (VITAMIN D3) 25 mcg (1,000 unit) Tablet, Chewable Active folic acid (FOLVITE) 1 mg tablet Take 1 mg by mouth daily. 4 Active Active Problems No known active problems Encounters Date Type Department Care Team Description 04/04/2025 External Device Data [facility] ABSTRACTION Provider, Abstract 04/04/2025 External Device Data [facility] [place]STRACTION Provider, Abstract 04/03/2025 External Device Data [place]STRA[place] Provider, Abstract 03/07/2025 External Device Data [facility]STRACTION Provider, Abstract 03/06/2025 External Device Data [place]STRACTION Provider, Abstract 02/07/2025 External Device Data [place] ABSTRACTION Provider, Abstract 02/06/2025 External Device Data [facility] ABSTRACTION Provider, Abstract from Last 3 Months Social History Tobacco Use Types Packs/Day Years Used Date Smoking Tobacco: Every Day Cigarettes 0.5 53.6 Started: 1972 Smokeless Tobacco: Never Tobacco Cessation:Ready to Q uit: Not Asked; Counseling Given: Not Answered Comments:Reducing number per day to quit smoking. Alcohol Use Standard Drinks/Week Comments Never 0 (1 standard drink = 0.6 oz pur e alcohol) Comments Unknown Sex and Gender Information Value Date Recorded Sex Assigned at Female 08/31/2024 5:41 PM IT APPLICATION SUPPORT ANALYST Legal Sex Female 4:25 AM IT APPLICATION SUPPORT ANALYST Gender Identity Female 08/31/2024 5:41 PM IT APPLICATION SUPPORT ANALYST Sexual Orientation Straight 08/31/2024 5: 40 PM IT APPLICATION SUPPORT ANALYST Occupation Industry Job Start Date Job End Date Retired Not on file Not on file Not on file Last Filed Vital Signs Vital Sign Reading Time Taken Comments Blood Pressure 138/88 01/29/2025 11:31 AM CDT Pulse 96 01/29/2025 11:31 AM CDT Temperature 36.2 C (97.1 F) 01/29/2025 11:31 AM CDT Respiratory Rate 15 01/29/2025 11:31 AM CDT Oxygen Saturation 96% 01/29/2025 11:31 AM CDT Inhaled Oxygen Concentration - - Weight 96.6 kg (213 lb) 01/29/2025 11:31 AM CDT Height 167.6 cm (5' 6) 07/06/2022 10:31 AM CDT Body Mass Index 34.38 07/06/2022 10:31 AM CDT Plan of Treatment Upcoming Encounters Date Type Department Care Team (Late st Contact Info) Description 01/30/2026 10:00 AM CDT Office Visit [facility] [place] [address] [place] [address] Jerry Ivory MD [address] [facility] [address] [place] [address] Health Maintenance Due Date Last [...] 50+ YEA RS (2 of 2 - PPSV23, PCV20, or PCV21) 01/25/2017 11/30/2016 COVID-19 Vaccine (2 - 2023-2 5 season) 2024 11/28/2020 INFLUENZA VACCINE (#1) 2025 06/19/2014 BREAST CANCER SCREENING 05/04/2025 05/04/20 24, 05/04/2024, 05/04/2024, Additional history exists DIABETES HBA1C Q 6 MONTHS 07/12/20252024, 08/02/2024, 06/19/2024, Additional history exists DIABETES ANNUAL FOOT EXAM 01/10/2026 01/10/2025 DTAP/TDAP/TD VACCINES (2 - T d or Tdap) 08/31/2027 08/31/2017 OSTEOPOROSIS SCREENING 08/13/2028 3, 08/13/2023, 01/31/2016, Additional history exists Insurance MEDICARE PART A AND B FOR LIFE MEDICARE PART A AND B FOR LIFE
--- OUTSIDE RECORDS SUMMARY | 2025-05-04 11:31 | XMS_ITS | Clinical Summary ---
Author Organization [facility] Address [address] [place] [address] Care Team Providers Care Wireless Team Member Name Role Phone Unavailable Primary Care Provider Unavailabl e Source Comments [facility],non-owned Affiliates and Associated Physician Practices is amultiple site organization consisting of ambulatory clinics and hospital sitesin [place], [place], [place] and [place]. This disclosure is being madepursuant to the Care Everywhere program and may not contain all information available regarding this patient. Last updated 18.[facility] Social History Tobacco Use Types Packs/Day Years Used Date Smoking Tobacco: Never Assessed Comments Unknown Sex and Gender Information Value Date Recorded Sex Assigned at Not on file Legal Sex Female 6:34 AM LEISURE TRAVEL AGENT Gender Identity Not on file Sexual Orientation Not on file Last Filed Vital Signs Vital Sign Reading Time Taken Comments Blood Pressure 186/113 10/19/2017 11:22 AM LEISURE TRAVEL AGENT Pulse 67 10/19/2017 11:22 AM LEISURE TRAVEL AGENT Temperature 36.9 C (98.5 F) 03/05/2015 10:34 AM CDT Respiratory Rate 16 03/05/2015 10:3 4 AM CDT Oxygen Saturation - - Inhaled Oxygen Concentration - - Weight 106.5 kg (234 lb 12.8 oz) 2017 11:22 AM LEISURE TRAVEL AGENT Height 172.7 cm (5' 8) 10/19/2017 11:2 2 AM LEISURE TRAVEL AGENT Body Mass Index 35.7 10/19/2017 11:22 AM LEISURE TRAVEL AGENT Plan of Treatment Health Maintenance Due Date [...] 09/01/2024 09/01/2022 DEPRESSION SCREENING 09/20/2024 INFLUENZA VACCINE (#1) 2025 06/20/2019, 2013 LIPID TESTING 05/05/2028 05/05/2023 Respiratory Syncytial Virus [...] HEPATITIS C RNA QUANTITATIVE 11/23/2018 9:26 AM LEISURE TRAVEL AGENT from Last 3 Months or Most Recently Relevant to Health Maintenance Results * HEPATITIS C RNA QUANTITATIVE (11/23/2018 9:26 AM LEISURE TRAVEL AGENT) Hepatitis C Virus RNA, Quantitative Real Time [...] of this assay have been determined by [employer]. The modifications have not been cleared or approved by the FDA. This assay has been validated pursuant to the CLIA regulations and is used for clinical purposes. For more information on this test, go to: http://education.Lovin' Spoonfuls/faq/UWM22g4 (This link is being provided for informational/ educational purposes only.) REPORT COMMENT: 1 F 3 ORDERS FASTING:YES Test Performed at: [facility] [address] [place] [address] JANE RAINEY DO,MPH 11/23/2018 9:26 AM LEISURE TRAVEL AGENT 11/23/2018 9:27 AM LEISURE TRAVEL AGENT us Raleigh Sheth MD LAB - CHEMISTRY ORDERABLES Mena boyd Result Performing Organization Address City/State/[facility] Co de Phone Number [facility] [address] [place] [address] from Last 3 Months or Most Recently Relevant to Health Maintenance [place] [address] MEDICARE MEDICARE
--- OUTSIDE RECORDS SUMMARY | 2025-05-04 11:31 | XMS_ITS | Clinical Summary ---
Author Organization [facility] Address [address] [place] [id number] Care Team Providers Care Forestry Instructor Name Role Phone Rozina Murrieta MD Unavailable Micaela Gamble MD Unavailable Barbara Winkler Primary Care Provider [phone] Allergies Active Allergy Reactions Criticality Noted Date Comments Acetaminophen Other (See comments),Rash Medium 08/22/2015 other Contraindicated hep c Adhesive Rash Medium 04/17/2021 Adhesive Tape-Silicones Rash Medium 04/17/2021 Amlodipine Rash Medium 07/06/2022 Aspirin Hives Medium Benzocaine Fever,Other (See comments) Medium 07/06/2022 Butalbital Hives Medium Gwlmonhvif-Jcshdek-Snyuhf ne Hives High 07/06/2022 Exenatide Microspheres Shortness [...] 2x's daily 200 Pad 3 4 Active cyclobenzaprine (FLEXERIL) 10 mg tablet take 1/2 tablet by oral route TID 0 0 5 Active Additional Information Patient taking differently: 5 mg oral, 1/2 tab 2 x a day and 1 tab once a day, Reported on 01/10/2025 ondansetron (ZOFRAN, HYDROCHLORIDE,) 4 mg tablet take 1 Tablet by oral route every 8 hours for 2 days as needed 0 0 4 Active lisinopril (PRINIVIL,ZESTR IL) 40 mg tablet take 1 by Oral route every day 0 0 4 Active oxyCODONE ER (OxyCONTIN) 10 mg 12 hr abuse-deterrent tablet take 1 tablet by oral route every bedtime 0 0 6 Active estrogens-methy lTESTOSTERone (EEMT,COVARYX) 1.25-2.5 mg per tabletIndicatio ns:Vasomotor Symptoms associated with Menopause 2 8 Active DEXCOM G6 PROOFER BLACK AND WHITE miscIndications :Type 2 diabetes mellitus with hyperglycemia, with long-term current use of insulin (HCC) Use as directed to monitor glucose daily 1 each 9 Active DEXCOM G6 SENSOR deviceIndicatio ns:Type 2 diabetes mellitus with hyperglycemia, with long-term current use of insulin (HCC) Use as directed to monitor glucose daily 9 Device 1 9 Active hydroCHLOROthia zide (HYDRODIURIL) 25 mg tablet Take 1 tablet (25 mg total) by mouth daily 30 tablet 11 9 Active oxyCODONE (ROXICODONE) 5 mg immediate release tablet Take 1 tablet (5 mg total) by mouth 3 (three) times a day [address] (NexIUM) 40 mg capsule TAKE 1 CAPSULE BY MOUTH DAILY NEEDED FOR HEARTBURN 3 Active folic acid (FOLVITE) 1 mg tablet Take 1 tablet (1 mg total) by mouth daily 4 Active estrogens-methy lTESTOSTERone (EEMT,COVARYX) 0.625-1.25 mg per tablet Take 1 tablet by mouth daily 4 Active Tradjenta 5 mg tabletIndicatio ns:Type 2 diabetes mellitus with hyperglycemia, with long-term current use of insulin (HCC) TAKE 1 TABLET DAILY 90 tablet 3 4 Active meclizine (ANTIVERT) 25 mg tablet 5 Active predniSONE (DELTASONE) 5 mg tablet Take 1.5 tablets (7.5 mg) by mouth daily 5 Active insulin glargine (LANTUS) 100 unit/mL (3 mL) pen for injectionIndica tions:Type 2 diabetes mellitus with hyperglycemia, with long-term current use of insulin ([facility]) Inject 35 Units under the skin nightly 45 mL 2 5 01/13/20 26 Active insulin lispro (HumaLOG) 100 unit/mL pen for injectionIndica tions:Type 2 diabetes mellitus with hyperglycemia, with long-term current use of insulin ([facility]) INJECT 20 UNITS IN THE MORNING AND 30 UNITS AT NIGHT 45 mL 11 5 Active HumaLOG 75/25 100 unit/mL 100 unit/mL pen for injectionIndica tions:Type 2 diabetes mellitus with hyperglycemia, with long-term current use of insulin ([facility]) INJECT 20 UNITS IN THE MORNING AND 30 UNITS AT NIGHT 45 mL 11 5 Active BD Ultra-Fine Amanda Pen Needle 32 gauge x 5/32 needleIndicatio ns:Type 2 diabetes mellitus with hyperglycemia, with long-term current use of insulin ([facility]) USE THREE TIMES A DAY 300 each 3 5 Active Active Problems Problem Noted Date Diagnosed Date 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 Last lipid panel: 09/04/24 MAO=613, AX=887. Assessment & Plan (06/19/2024 11:27 AM CDT): Chronic problem. Not currently on statin therapy. Last lipid panel: 04/28/24 LGQ=032, HN=952. Assessment & Plan (01/28/2023 1:37 PM CDT): Pt still refusing statins. Assessment & Plan (09/08/2022 11:55 AM WALLPAPER INSPECTOR AND SHIPPER): Chronic, well controlled Low fat Low cholesterol diet Exercise Assessment & Plan (05/07/2022 3:10 PM CDT): Chronic, well controlled Low fat Low cholesterol diet Exercise Continue statin therapy Check lipid profile Assessment & Plan (10/30/2021 1:34 PM WALLPAPER INSPECTOR AND SHIPPER): Continue Crestor, Low cholesterol Low fat diet [...] Rosuvastatin Assessment & Plan (10/24/2020 9:36 AM WALLPAPER INSPECTOR AND SHIPPER): Due to the high risk of of [...] UTD on DM eye exam ([facility] in [place] 04/2024). Letter sent to get copy of [...] UTD on DM eye exam ([facility] in [place] 04/2024). Letter sent to get copy of [...] infection. Assessment & Plan (08/24/2023 11:49 AM WALLPAPER INSPECTOR AND SHIPPER): Hba1c was Lab Results Component Value Date [...] Tradjenta Assessment & Plan (09/08/2022 12:29 PM WALLPAPER INSPECTOR AND SHIPPER): Hba1c was Lab Results Component Value Date [...] inhibitors Assessment & Plan (10/30/2021 1:34 PM WALLPAPER INSPECTOR AND SHIPPER): Hba1c was Lab Results Component Value Date [...] regimen Assessment & Plan (10/24/2020 9:35 AM WALLPAPER INSPECTOR AND SHIPPER): Hba1c was Lab Results Component Value Date [...] discussed. Assessment & Plan (10/11/2018 9:43 AM WALLPAPER INSPECTOR AND SHIPPER): Hba1c was Lab Results Component Value Date [...] goal hba1c is under 7.0 to prevent exterminator diabetes complications ( eye , kidney and [...] goal hba1c is under 7.0 to prevent exterminator diabetes complications ( eye , kidney and [...] goal hba1c is under 7.0 to prevent alf diabetes complications ( eye , kidney and [...] Tradjenta. Assessment & Plan (09/30/2017 11:18 AM WALLPAPER INSPECTOR AND SHIPPER): Your Hba1c today was: 8.8 meaning a 3 month average sugar of : 207 Your goal hba1c is under 7.0 to prevent alf diabetes complications ( eye , kidney and [...] (03/02/2017 10:51 AM CDT): Hba1c was 7.5 [id number] calorie, consistent carb diet recommended 30 min [...] GFR Assessment & Plan (09/08/2022 12:28 PM WALLPAPER INSPECTOR AND SHIPPER): Chronic, well-controlled Continue current medications including lisinopril Assessment & Plan (05/07/2022 3:10 PM CDT): Chronic, well controlled Importance of low salt diet and exercise were discussed Continue current meds Assessment & Plan (10/30/2021 1:35 PM WALLPAPER INSPECTOR AND SHIPPER): Chronic, well controlled Continue current meds Check MA Assessment & Plan (10/24/2020 9:34 AM WALLPAPER INSPECTOR AND SHIPPER): Goal blood pressure is less than 140/85 [...] ARB Assessment & Plan (10/11/2018 9:44 AM WALLPAPER INSPECTOR AND SHIPPER): Goal blood pressure is less than 140/85 [...] ARB Assessment & Plan (09/30/2017 11:18 AM WALLPAPER INSPECTOR AND SHIPPER): Goal blood pressure is less than 140/85 [...] baseme nt disease Type 2 diabetes mellitus Diabete s type 2; Comments: WAD 02/15/2014 - Hypertension Hypertension Hepatic cirrhosis (HCC) Cirrhosi s of liver Hx Other Medical not claustropho bic; Comments: [facility] 04/03/2014 - Rheumatoid arthritis (HCC) Rheum atoid arthritis; Comments: [facility] 08/25/2016 - Cancer (HCC) Breast & Uterine Cancer Cataract Brain concussion Emphysema of lung COPD Heart disease Myocardio Bridge Chronic kidney disease Minimal Membrane Basement Disease Neuromuscular disorder Neuropathy in both legs Family History Medical [...] on file Legal Sex Female 6:39 PM WALLPAPER INSPECTOR AND SHIPPER Gender Identity Female 04/11/2020 10:32 AM CDT [...] 10:57 AM CDT Height 167.6 cm (5' 5.98) 01/10/2025 10:57 AM C DT Body Mass Index 34.88 01/10/2025 10:57 AM CDT Plan of Treatment Health Maintenance Due Date Last Done Comments Colon Cancer Screening-Colonoscopy 1954 Hepatitis B Screening 1972 Zoster Vaccine (1 of 2) 2004 Pneumococcal vaccine 65+ (2 of 2 - PPSV23, PCV20, or PCV21) 01/25/2017 11/30/2016 Well Visit 65+ 2019 Covid-19 Vaccine (2 - 2023-2 5 season) 2024 11/28/2020 Depression Screening 08/24/2024 08/24/2023, 09/08/2022, 05/07/2022, Additional history exists Fall Risk Assessment 08/24/2024 08/24/2023 Breast Cancer Screening-Mammogram 05/04/2025 05/04/2024, 05/04/2024, 09/01/2022, Additional history exists Influenza Vaccine (#1) 2025 06/20/2019, 2013 Hemoglobin A1C 07/12/2025 01/10/2025, 05/23, 08/24/2023, Additional [...] Associated Diagnosis Comments POCT HEMOGLOBIN A1C Routine 01/10/2025 1 1:03 AM CDT Type 2 diabetes mellitus with hyperglycemia, with long-term current use of insulin (HCC) COMPREHENSIVE METABOLIC PANEL Routine 10/10/2024 2:30 PM WALLPAPER INSPECTOR AND SHIPPER LIPID PANEL Routine 09/04/2024 10:04 AM WALLPAPER INSPECTOR AND SHIPPER ALBUMIN CREATININE RATIO, URINE Routine 09/04/2024 10:04 AM WALLPAPER INSPECTOR AND SHIPPER HM DIABETES EYE EXAM Routine 04/25/2024 9:19 AM CDT from Last 3 Months or Most Recently Relevant to Health Maintenance Results * (ABNORMAL) POCT hemoglobin A1c (01/10/2025 11:03 AM CDT) [facility] Hemoglobin A1C, POC 7.4 4.0 - 5.6 % Blood 01/10/2025 11:0 3 AM CDT us Marylin Dhaliwal MODEL MAKER SCALE POINT OF CARE TEST ORDERA BLES Final Result * (ABNORMAL) Comprehensive metabolic panel (10/10/2024 2:30 PM WALLPAPER INSPECTOR AND SHIPPER) [facility] SCRIBED Sodium 136 136 - 145 mmol/L [...] Units/L EXTERNAL LAB SCRIBED eGFR in NonAfrican Ghanaian 57 >90 - NA EXTERNAL LAB Blood 10/10/2024 2:30 PM WALLPAPER INSPECTOR AND SHIPPER Result [facility] Provider LAB BLOOD ORDERABLES Edit ed Result - Final EXTERNAL LAB * (ABNORMAL) Albumin Creatinine Ratio, Urine (09/04/2024 10:04 AM WALLPAPER INSPECTOR AND SHIPPER) SCRIBED Creatinine, Urine 162.8 NA - NA EXTERNAL LAB SCRIBED Microalbumin 42.4 <20 - NA EXTERNAL LAB SCRIBED Microalb/Creat Ratio 26 NA - NA EXTERNAL LAB Urine 09/04/2024 10:0 4 AM WALLPAPER INSPECTOR AND SHIPPER Result [facility] Provider LAB URINE ORDERABLES Edit ed Result - Final Performing Organization Address [facility]/ZIP Co de Phone Number EXTERNAL LAB * (ABNORMAL) Lipid panel (09/04/2024 10:04 AM WALLPAPER INSPECTOR AND SHIPPER) SCRIBED Cholesterol, Total 188 <200 - NA EXTERNAL LAB SCRIBED HDL 43 >40 - NA EXTERNAL LAB SCRIBED LDL 115 <100 - NA EXTERNAL LAB SCRIBED Triglycerides 151 <150 - NA EXTERNAL LAB Blood 09/04/2024 10:0 4 AM WALLPAPER INSPECTOR AND SHIPPER Result [facility] Historical Provider LAB BLOOD ORDERABLES Edit ed Result - Final EXTERNAL LAB * HM DIABETES EYE EXAM (04/25/2024 9:19 AM CDT) Historical Provider HEALTH MAINTENANCE Edited Result - Final from Last 3 Months or Most Recently Relevant to Health Maintenance Insurance MEDICARE [facility] MEDICARE FOR LIFE Care Teams Forestry Instructor Relationship Specialty Start Date End Date Barbara Winlker PA [address] [place] [id number] PCP - General Physician Watch Crystal Grinder 06/19/24 [place] [id number] [facility] [address], [place] [address] Consulting Physician Endocrinology Diabetes & Metabolism 05/31/19 Micaela Gamble MD [address] [facility] [address] [place] [address] Consulting Physician Pain Management 03/12/21
[2025-05-04 13:25] LABS: Albumin Level 4.2 g/dL (3.5-5.1); Anion Gap 6 mmol/L (4-12); Blood Urea Nitrogen 7 mg/dL (7-17); Calcium 9.6 mg/dL (8.4-10.2); Carbon Dioxide 29 mmol/L (22-30); Chloride 102 mmol/L (98-107); Estimated Glomerular Filt Rate > 60; Glucose 192 mg/dL (65-110); Potassium 4.4 mmol/L (3.4-5.0); Sodium 137 mmol/L (137-145)
[2025-05-04 13:34] LABS: Total Protein Urine Random 18 mg/dL; Ur Ttl Prot Creatinine Ratio 0.21 mg/mg (0-0.20)
== END 2025-05-04 11:28 | disposition home or self-care (01) ==
LOC: ANHGOSHLAB 11:29
PROVIDERS: PCP Physician Assistant Medical; Visit Provider Internal Medicine Nephrology
DX: R80.8 Other proteinuria (principal); N02.9 Recurrent and persistent hematuria with unspecified morphologic changes; E11.9 Type 2 diabetes mellitus without complications; I10 Essential (primary) hypertension
CPT/HCPCS: 36415; 80069; 82570; 84156

== ENCOUNTER 2025-08-14 10:54 | Outpatient (RCR) | payer MEDICARE, OTHER, SELFPAY ==
--- NOTE | 2025-08-14 11:47 | OTOPEVDC ---
Assessment and note entered by Jose Elias Crandall, OTR/Christiano, CHT Thank you for referring Claudia Starr to [facility] [place]Note 2].? An evaluation has been completed. No further treatment is needed. Evaluation Information Assessment Status Evaluation Diagnosis Lesion of left ulnar nerve, left UE Subjective Information PMH: C7 spinal compression with bone spurs, left elbow bursitis, bilat carpal tunnel and cubital tunnel release 2021, chronic pain Patient reports waking up on 07/02/25 with stabbing pain in her right shoulder blade that radiates down her entire arm. She reports she cannot lay on her left side/shoulder. She cannot use her left hand on the steering wheel or hold the phone in her left hand. She notes intermittent swelling in the left hand. She has an appointment with a vascular surgeon to evaluate for thoracic outlet syndrome. Patient reports she doesn't do good with therapy because it flairs everything up. Reported Pain Level Pain Score 8: Self Report Additional Pain Score Comments feels like a knife in my shoulder blade and radiates down my arm Assessment OT Clinical Summary Patient referred to OT with dx of lesion of ulnar nerve left UE. She reports a history of neck pain and nerve compression. She reports her biggest complaint is the neck and shoulder blade pain that causes radiating pain down her entire arm into her hand. She reports paresthesia is her entire hand vs. ulnar half. Provocative testing today consistent with proximal nerve compression vs. distal. Recommending a PT referral. Left a voicemail with Dr. Henderson's office to request a PT order. Informed patient of these findings. D/ C OT. Plan of Care OT Services Indicated No
== END 2025-08-14 14:09 | disposition home or self-care (01) ==
LOC: ANHGOSHOT 10:54
PROVIDERS: PCP Physician Assistant Medical; Visit Provider Plastic Surgery
DX: G56.22 Lesion of ulnar nerve, left upper limb (principal)
CPT/HCPCS: 97166